=== PATIENT | male | born 1960 | race African-American/Black ===

== ENCOUNTER 2020-05-01 15:48 | Inpatient (IN) | payer MEDICAID ==
[~2020-05-01] VITALS: Ht 172.7 cm; Wt 107.0 kg
[2020-05-01] MEDS ORDERED: FUROSEMIDE 40 MG/4 ML VIAL IV ONE (16:15)
[2020-05-01 17:02] LABS: Urine Bacteria FEW /hpf (None Seen); Urine Blood Negative /uL (Negative); Urine Hyaline Cast FEW /lpf (0 - 2); Urine Specific Gravity 1.009 (1.001-1.035); Urine WBC <1 /hpf (0 - 3)
[2020-05-01 18:22] LABS: Basophils # (auto) 0 10 ^3/uL (0-0.2); Basophils % (auto) 0.6 % (0.0-2.0); Eosinophils # (auto) 0.1 10 ^3/uL (0-0.8); Eosinophils % (auto) 1.1 % (0.0-7.0); Hematocrit 38.4 % (41.0-53.0); Hemoglobin 12.6 g/dL (13.5-17.5); Lymphocytes # (auto) 1.2 10 ^3/uL (0.4-5.4); Lymphocytes % (auto) 25.2 % (10.0-50.0); Mean Corpuscular Hemoglobin 28.6 pg (28.0-32.0); Mean Corpuscular Hgb Conc. 32.7 g/dL (32.0-36.0); Mean Corpuscular Volume 87.5 fL (80.0-100.0); Monocytes # (auto) 0.4 10 ^3/uL (0-1.3); Neutrophils # (auto) 3.2 10 ^3/uL (1.6-8.6); Neutrophils % (auto) 64.1 % (37.0-80.0); Nucleated Red Blood Cells % 0.2 %; Platelet Count (auto) 127 10^3/uL (140-450); Red Blood Cells 4.39 10^6/uL (4.5-5.90); Red Cell Distribution Width 15.1 % (11.8-14.3); White Blood Cell 4.9 10^3/uL (4.4-10.8)
[2020-05-01 18:36] LABS: Albumin 3.4 g/dL (3.4-5.0); BUN/Creatinine Ratio 18.3; Calcium 8.4 mg/dL (8.5-10.1); Potassium 3.6 mmol/L (3.5-5.1)
[2020-05-01 18:43] LABS: INR 1.25 (0.9-1.15); Partial Thromboplastin Time 27.9 sec (23.0-31.2)
[2020-05-01 18:45] LABS: Bilirubin, Total 1.1 mg/dL (0.2-1.0); Total Protein 7.5 g/dL (6.4-8.2)
[2020-05-01] MEDS ORDERED: ACETAMINOPHEN 500 MG TAB PO PRN (20:45)
[2020-05-01] MEDS ORDERED: ONDANSETRON HCL 4 MG/2 ML VIAL IV PRN (20:45)
[2020-05-01] MEDS ORDERED: NITROGLYCERIN 0.4 MG SL TAB SL PRN (20:45)
[2020-05-01] MEDS ORDERED: MORPHINE SULF INJ 2 MG/ML SYRINGE 1ML IV PRN (20:45)
[2020-05-01 22:30] VITALS: BP 131/82
[2020-05-01] MEDS: POTASSIUM CHL 20 Meq TABLET PO SCH (23:22)
[2020-05-01] MEDS: HYDROcodone-ACET 5/325MG TAB PO PRN (23:38)
[2020-05-01] MEDS ORDERED: OMEP20TA PO (23:55)
[2020-05-01] MEDS ORDERED: CARV25TA55 PO (23:55)
[2020-05-01] MEDS ORDERED: FURO1TAB31 PO (23:55)
[2020-05-01] MEDS ORDERED: AMIO200T33 PO (23:55)
[2020-05-01] MEDS ORDERED: SPIR25TA8 PO (23:55)
[2020-05-01] MEDS ORDERED: LOSA-69 PO (23:55)
[2020-05-01] MEDS ORDERED: ASPI-543 PO (23:55)
[2020-05-01] MEDS ORDERED: SIMV10TA84 PO (23:55)
[2020-05-02 00:10] VITALS: BP 131/82
[2020-05-02] MEDS: FUROSEMIDE 40 MG/4 ML VIAL IV SCH ×2 (05:32→18:04)
[2020-05-02] MEDS: HYDROcodone-ACET 5/325MG TAB PO PRN ×2 (05:37→22:15)
[2020-05-02 05:40] VITALS: BP 133/77
[2020-05-02 07:08] LABS: Calcium 8.5 mg/dL (8.5-10.1); Potassium 3.6 mmol/L (3.5-5.1)
[2020-05-02 07:16] LABS: BUN/Creatinine Ratio 19.3
[2020-05-02 09:00] VITALS: BP 116/57
[2020-05-02] MEDS ORDERED: metOLazone 5 MG TAB PO ONE (09:00)
[2020-05-02] MEDS: POTASSIUM CHL 20 Meq TABLET PO SCH ×3 (09:45→22:14)
[2020-05-02] MEDS: ASPirin 81 mg TAB PO SCH (09:45)
[2020-05-02] MEDS ORDERED: OPTISON 3ml Vial for INJ IV ONE (11:51)
[2020-05-02 13:00] VITALS: BP 129/83
[2020-05-02 16:32] VITALS: BP 133/77
[2020-05-02 22:00] VITALS: BP 139/79
[2020-05-03 05:00] VITALS: BP 134/78
[2020-05-03] MEDS: FUROSEMIDE 40 MG/4 ML VIAL IV SCH ×2 (06:04→17:54)
[2020-05-03] MEDS: POTASSIUM CHL 20 Meq TABLET PO SCH ×3 (06:05→21:23)
[2020-05-03 07:48] LABS: Basophils # (auto) 0 10 ^3/uL (0-0.2); Basophils % (auto) 0.4 % (0.0-2.0); Eosinophils # (auto) 0.1 10 ^3/uL (0-0.8); Eosinophils % (auto) 1.2 % (0.0-7.0); Hematocrit 42.1 % (41.0-53.0); Hemoglobin 13.7 g/dL (13.5-17.5); Lymphocytes # (auto) 1.5 10 ^3/uL (0.4-5.4); Lymphocytes % (auto) 27.2 % (10.0-50.0); Mean Corpuscular Hemoglobin 28.5 pg (28.0-32.0); Mean Corpuscular Hgb Conc. 32.4 g/dL (32.0-36.0); Mean Corpuscular Volume 87.8 fL (80.0-100.0); Monocytes # (auto) 0.4 10 ^3/uL (0-1.3); Monocytes % (auto) 7.9 % (0.0-12.0); Neutrophils # (auto) 3.5 10 ^3/uL (1.6-8.6); Neutrophils % (auto) 63.3 % (37.0-80.0); Nucleated Red Blood Cells % 0.1 %; Platelet Count (auto) 147 10^3/uL (140-450); Red Cell Distribution Width 15.2 % (11.8-14.3); White Blood Cell 5.5 10^3/uL (4.4-10.8)
[2020-05-03 08:21] LABS: INR 1.21 (0.9-1.15); Partial Thromboplastin Time 28.4 sec (23.0-31.2)
[2020-05-03 09:00] VITALS: BP 129/68
[2020-05-03] MEDS: ASPirin 81 mg TAB PO SCH (10:54)
[2020-05-03] MEDS ORDERED: DEXTROSE (50%) 50ML SYRG IV SCH (12:30)
[2020-05-03 12:33] VITALS: BP 124/71
[2020-05-03 17:00] VITALS: BP 124/69
[2020-05-03] MEDS: ACCU-CHEK COMFORT CURVE STRIP VI SCH ×2 (17:00→21:23)
[2020-05-03] MEDS: InsuLIN REG 1unit/0.01ml Soln (100units/ml) SC SCH ×2 (17:00→21:26)
[2020-05-03] MEDS: HYDROcodone-ACET 5/325MG TAB PO PRN (20:32)
[2020-05-03 22:05] VITALS: BP 128/78
[2020-05-04 05:09] VITALS: BP 135/79
[2020-05-04] MEDS: FUROSEMIDE 40 MG/4 ML VIAL IV SCH ×2 (06:00→17:30)
[2020-05-04] MEDS: POTASSIUM CHL 20 Meq TABLET PO SCH ×2 (06:21→16:57)
[2020-05-04] MEDS: ACCU-CHEK COMFORT CURVE STRIP VI SCH ×3 (06:21→17:00)
[2020-05-04] MEDS: InsuLIN REG 1unit/0.01ml Soln (100units/ml) SC SCH ×3 (06:22→17:44)
[2020-05-04 07:51] LABS: Potassium 4.1 mmol/L (3.5-5.1)
[2020-05-04 07:56] LABS: BUN/Creatinine Ratio 15.8; Calcium 9.5 mg/dL (8.5-10.1); Magnesium 2.4 mg/dL (1.6-2.6)
[2020-05-04 08:00] VITALS: BP 151/60
[2020-05-04 09:00] VITALS: BP 131/78
[2020-05-04] MEDS: ASPirin 81 mg TAB PO SCH (10:09)
[2020-05-04] MEDS ORDERED: VERAPAMIL 2.5MG/ML INJ 2ML VIAL IV ONE (10:32)
[2020-05-04] MEDS ORDERED: ANGIOMAX 250 MG VIAL IV ONE (10:32)
[2020-05-04] MEDS ORDERED: HEPARIN SODIUM (PORCINE) 5000 UNITS/ML 1ML VIAL ONE (10:32)
[2020-05-04] MEDS ORDERED: SODIUM CHL 0.9% 0 ML ONE (10:33)
[2020-05-04] MEDS ORDERED: fentaNYL CITRATE 100 MCG/2 ML VL ONE (10:33)
[2020-05-04] MEDS ORDERED: MIDAZOLAM HCL 1MG/1ML-2 ML VIAL ONE (10:33)
[2020-05-04] MEDS ORDERED: LIDOCAINE 2%HCL (LOCAL ANESTH.) INJ 20ML MDV ONE (10:38)
[2020-05-04] MEDS ORDERED: IODIXANOL 320MG/ML 100ML BTL IV ONE (10:38)
[2020-05-04] MEDS ORDERED: SACUBITRIL-VALSARTAN 24mg/26mg TAB PO ONE (12:00)
[2020-05-04 13:00] VITALS: BP_SYST 129; BP_SYST 141; BP_DIAS 77
[2020-05-04] MEDS ORDERED: CARV25TA55 PO (13:58)
[2020-05-04] MEDS ORDERED: AMIO200T33 PO (13:58)
[2020-05-04] MEDS ORDERED: SACU1TAB PO (13:58)
[2020-05-04] MEDS ORDERED: SIMV10TA84 PO (13:58)
[2020-05-04] MEDS ORDERED: ASPI-543 PO (13:58)
[2020-05-04] MEDS ORDERED: OMEP20TA PO (13:58)
[2020-05-04] MEDS ORDERED: SPIR25TA8 PO (13:58)
[2020-05-04] MEDS ORDERED: FURO1TAB31 PO (13:58)
[2020-05-04] MEDS ORDERED: SODIUM CHLOR 0.9% PF (SALINE LOCK) 10ML VIAL/SYR IV SCH (14:00)
[2020-05-04 15:25] VITALS: BP 135/79
[2020-05-04 17:00] VITALS: BP 115/67
[2020-05-04] MEDS ORDERED: SACUBITRIL-VALSARTAN 24mg/26mg TAB PO SCH (22:00)
== END 2020-05-04 18:45 | disposition home or self-care (01) | DRG 192 ==
LOC: ER 15:48 → TELE 15:49 → TELE-CENTR 22:15
PROVIDERS: ADMIT Hospitalist; ATTEND Hospitalist
PROC: 4A023N7 Measurement of Cardiac Sampling and Pressure, Left Heart, Percutaneous Approach (ICD-10-PCS; principal; 2020-05-04)
PROC: B211YZZ Fluoroscopy of Multiple Coronary Arteries using Other Contrast (ICD-10-PCS; 2020-05-04)
PROC: B215YZZ Fluoroscopy of Left Heart using Other Contrast (ICD-10-PCS; 2020-05-04)
DX: I11.0 Hypertensive heart disease with heart failure (principal); I42.0 Dilated cardiomyopathy; I25.10 Atherosclerotic heart disease of native coronary artery without angina pectoris; I50.41 Acute combined systolic (congestive) and diastolic (congestive) heart failure; Z20.828 Contact with and (suspected) exposure to other viral communicable diseases; E11.9 Type 2 diabetes mellitus without complications; E66.9 Obesity, unspecified; Z82.49 Family history of ischemic heart disease and other diseases of the circulatory system; Z83.3 Family history of diabetes mellitus; Z95.0 Presence of cardiac pacemaker; Z68.35 Body mass index [BMI] 35.0-35.9, adult; Z79.899 Other long term (current) drug therapy
CPT/HCPCS: 36415; 71045; 80048; 80053; 80061; 81001; 82962; 83036; 83735; 83880; 84484; 85025; 85610; 85730; 87040; 87426; 93005; 93306; 93458; 93970; 96374; 99152; 99291; G0378; J1815; J2250; Q9956; Q9967

== ENCOUNTER 2020-08-11 17:03 | Inpatient (IN) | payer MEDICAID ==
[~2020-08-11] VITALS: Ht 172.7 cm; Wt 111.0 kg
[~2020-08-11 17:03] MED LIST: AMIO200T33 PO; ASPI-543 PO; CARV25TA55 PO; FURO1TAB31 PO; OMEP20TA PO; SACU1TAB PO; SIMV10TA84 PO; SPIR25TA8 PO
[2020-08-11 18:07] LABS: Basophils # (auto) 0 10 ^3/uL (0-0.2); Basophils % (auto) 0.6 % (0.0-2.0); Eosinophils # (auto) 0 10 ^3/uL (0-0.8); Eosinophils % (auto) 0.7 % (0.0-7.0); Hematocrit 37.6 % (41.0-53.0); Hemoglobin 12.4 g/dL (13.5-17.5); Lymphocytes # (auto) 0.9 10 ^3/uL (0.4-5.4); Lymphocytes % (auto) 19.4 % (10.0-50.0); Mean Corpuscular Hemoglobin 29.1 pg (28.0-32.0); Mean Corpuscular Hgb Conc. 32.9 g/dL (32.0-36.0); Mean Corpuscular Volume 88.5 fL (80.0-100.0); Monocytes # (auto) 0.3 10 ^3/uL (0-1.3); Monocytes % (auto) 6.3 % (0.0-12.0); Neutrophils # (auto) 3.5 10 ^3/uL (1.6-8.6); Nucleated Red Blood Cells % 0.1 %; Platelet Count (auto) 132 10^3/uL (140-450); Red Blood Cells 4.25 10^6/uL (4.5-5.90); Red Cell Distribution Width 16.9 % (11.8-14.3); White Blood Cell 4.8 10^3/uL (4.4-10.8)
[2020-08-11 18:21] LABS: INR 1.31 (0.9-1.15); Partial Thromboplastin Time 29.3 sec (23.0-31.2)
[2020-08-11 18:38] LABS: Albumin 3.7 g/dL (3.4-5.0); Calcium 8.6 mg/dL (8.5-10.1); Potassium 3.7 mmol/L (3.5-5.1)
[2020-08-11 18:42] LABS: BUN/Creatinine Ratio 17.5; Bilirubin, Total 1.3 mg/dL (0.2-1.0); Total Protein 8.2 g/dL (6.4-8.2)
[2020-08-12] MEDS ORDERED: POTASSIUM CHL 20 Meq TABLET PO ONE (01:30)
[2020-08-12] MEDS ORDERED: FUROSEMIDE 40 MG/4 ML VIAL IV ONE (01:30)
[2020-08-12] MEDS ORDERED: NITROGLYCERIN 0.4 MG SL TAB SL PRN (01:30)
[2020-08-12] MEDS ORDERED: ALBUTEROL SULF HFA 90MCG INH 200DOSE IN PRN (01:30)
[2020-08-12 03:38] VITALS: BP 146/90
[2020-08-12] MEDS: MORPHINE SULF INJ 2 MG/ML SYRINGE 1ML IV PRN ×2 (05:54→23:49)
[2020-08-12] MEDS: InsuLIN REG 1unit/0.01ml Soln (100units/ml) SC SCH ×4 (06:18→23:31)
[2020-08-12] MEDS: ACCU-CHEK COMFORT CURVE STRIP VI SCH ×4 (06:19→22:00)
[2020-08-12 08:14] VITALS: BP 124/66
[2020-08-12] MEDS: PANTOPRAZOLE 40 MG TAB PO SCH (08:54)
[2020-08-12] MEDS: POTASSIUM CHL 20 Meq TABLET PO SCH ×2 (08:55→23:29)
[2020-08-12] MEDS: FUROSEMIDE 40 MG/4 ML VIAL IV SCH ×2 (08:56→23:28)
[2020-08-12 10:26] LABS: Basophils # (auto) 0 10 ^3/uL (0-0.2); Basophils % (auto) 0.8 % (0.0-2.0); Eosinophils # (auto) 0 10 ^3/uL (0-0.8); Hematocrit 37.5 % (41.0-53.0); Hemoglobin 12.2 g/dL (13.5-17.5); Lymphocytes # (auto) 1.1 10 ^3/uL (0.4-5.4); Mean Corpuscular Hemoglobin 28.6 pg (28.0-32.0); Mean Corpuscular Hgb Conc. 32.6 g/dL (32.0-36.0); Mean Corpuscular Volume 87.9 fL (80.0-100.0); Monocytes # (auto) 0.3 10 ^3/uL (0-1.3); Monocytes % (auto) 6.4 % (0.0-12.0); Neutrophils # (auto) 3.1 10 ^3/uL (1.6-8.6); Neutrophils % (auto) 67.8 % (37.0-80.0); Nucleated Red Blood Cells % 0.1 %; Platelet Count (auto) 146 10^3/uL (140-450); Red Blood Cells 4.26 10^6/uL (4.5-5.90); Red Cell Distribution Width 17.1 % (11.8-14.3); White Blood Cell 4.6 10^3/uL (4.4-10.8)
[2020-08-12 10:41] LABS: BUN/Creatinine Ratio 17.4; Calcium 8.4 mg/dL (8.5-10.1); Potassium 3.8 mmol/L (3.5-5.1)
[2020-08-12 16:06] VITALS: BP 122/85
[2020-08-12 22:00] VITALS: BP 159/92
[2020-08-12] MEDS: SACUBITRIL-VALSARTAN 24mg/26mg TAB PO SCH (23:28)
[2020-08-13] MEDS: MORPHINE SULF INJ 2 MG/ML SYRINGE 1ML IV PRN (04:42)
[2020-08-13 05:00] VITALS: BP 120/72
[2020-08-13] MEDS: ACCU-CHEK COMFORT CURVE STRIP VI SCH ×4 (06:51→22:00)
[2020-08-13] MEDS: InsuLIN REG 1unit/0.01ml Soln (100units/ml) SC SCH ×4 (06:51→22:00)
[2020-08-13 08:00] VITALS: BP 140/88
[2020-08-13] MEDS: POTASSIUM CHL 20 Meq TABLET PO SCH ×2 (10:32→22:00)
[2020-08-13] MEDS: SACUBITRIL-VALSARTAN 24mg/26mg TAB PO SCH ×2 (10:32→22:00)
[2020-08-13] MEDS: PANTOPRAZOLE 40 MG TAB PO SCH (10:32)
[2020-08-13] MEDS: FUROSEMIDE 40 MG/4 ML VIAL IV SCH ×2 (10:33→22:00)
[2020-08-13 16:00] VITALS: BP 119/71
[2020-08-13 21:38] VITALS: BP 104/62
[2020-08-14] MEDS: MORPHINE SULF INJ 2 MG/ML SYRINGE 1ML IV PRN (04:49)
[2020-08-14 05:41] VITALS: BP 127/77
[2020-08-14] MEDS: ACCU-CHEK COMFORT CURVE STRIP VI SCH ×3 (07:00→19:29)
[2020-08-14] MEDS: InsuLIN REG 1unit/0.01ml Soln (100units/ml) SC SCH ×3 (07:00→19:28)
[2020-08-14 08:00] VITALS: BP 128/67
[2020-08-14] MEDS: SACUBITRIL-VALSARTAN 24mg/26mg TAB PO SCH (09:11)
[2020-08-14] MEDS: POTASSIUM CHL 20 Meq TABLET PO SCH (09:11)
[2020-08-14] MEDS: PANTOPRAZOLE 40 MG TAB PO SCH (09:11)
[2020-08-14] MEDS: FUROSEMIDE 40 MG/4 ML VIAL IV SCH (09:46)
[2020-08-14] MEDS ORDERED: HYDROcodone-ACET 5/325MG TAB PO ONE (13:45)
[2020-08-14 16:00] VITALS: BP 123/85
[2020-08-14 16:04] LABS: Basophils # (auto) 0 10 ^3/uL (0-0.2); Basophils % (auto) 0.6 % (0.0-2.0); Eosinophils # (auto) 0.1 10 ^3/uL (0-0.8); Eosinophils % (auto) 1.3 % (0.0-7.0); Hematocrit 38.3 % (41.0-53.0); Lymphocytes # (auto) 1.3 10 ^3/uL (0.4-5.4); Lymphocytes % (auto) 23.7 % (10.0-50.0); Mean Corpuscular Hemoglobin 29.6 pg (28.0-32.0); Mean Corpuscular Hgb Conc. 33.8 g/dL (32.0-36.0); Mean Corpuscular Volume 87.4 fL (80.0-100.0); Monocytes # (auto) 0.6 10 ^3/uL (0-1.3); Neutrophils # (auto) 3.5 10 ^3/uL (1.6-8.6); Neutrophils % (auto) 63.4 % (37.0-80.0); Nucleated Red Blood Cells % 0.2 %; Platelet Count (auto) 160 10^3/uL (140-450); Red Blood Cells 4.38 10^6/uL (4.5-5.90); Red Cell Distribution Width 16.5 % (11.8-14.3); White Blood Cell 5.6 10^3/uL (4.4-10.8)
[2020-08-14 16:21] LABS: BUN/Creatinine Ratio 17.1; Calcium 8.4 mg/dL (8.5-10.1); Potassium 3.9 mmol/L (3.5-5.1)
[2020-08-14] MEDS ORDERED: FUROSEMIDE 40 MG/4 ML VIAL IV SCH (18:00)
[2020-08-14 18:21] VITALS: BP 123/69
[2020-08-14] MEDS ORDERED: BLOO1KIT60 XX (21:48)
[2020-08-14] MEDS ORDERED: FURO1TAB31 PO (21:48)
[2020-08-14] MEDS ORDERED: LANC-347 XX (21:48)
[2020-08-14] MEDS ORDERED: CARV3.1240 PO (21:48)
[2020-08-14] MEDS ORDERED: AMIO200T33 PO (21:48)
[2020-08-14] MEDS ORDERED: ASPI-543 PO (21:48)
[2020-08-14] MEDS ORDERED: POTA-220 PO (21:48)
[2020-08-14] MEDS ORDERED: SIMV10TA84 PO (21:48)
[2020-08-14] MEDS ORDERED: OMEP20TA PO (21:48)
[2020-08-14] MEDS ORDERED: INSU-831 XX (21:48)
[2020-08-14] MEDS ORDERED: SACU1TAB PO (21:48)
[2020-08-14] MEDS ORDERED: INSREGI SC (21:48)
[2020-08-18] MEDS ORDERED: LANC30MI13 XX (14:36)
[2020-08-18] MEDS ORDERED: INSLANTI SC (14:36)
[2020-08-18] MEDS ORDERED: BLOO1KIT60 XX (14:36)
== END 2020-08-14 21:15 | disposition home or self-care (01) | DRG 194 ==
LOC: ER 17:03 → TELE 17:04 → TELE-EAST 08-12 03:38
PROVIDERS: ADMIT Internal Medicine; ATTEND Internal Medicine
DX: I13.0 Hypertensive heart and chronic kidney disease with heart failure and stage 1 through stage 4 chronic kidney disease, or unspecified chronic kidney disease (principal); I50.23 Acute on chronic systolic (congestive) heart failure; I42.0 Dilated cardiomyopathy; Z95.810 Presence of automatic (implantable) cardiac defibrillator; E11.22 Type 2 diabetes mellitus with diabetic chronic kidney disease; Z20.822 Contact with and (suspected) exposure to COVID-19; E66.9 Obesity, unspecified; Z68.37 Body mass index [BMI] 37.0-37.9, adult; N18.31 Chronic kidney disease, stage 3a
CPT/HCPCS: 36415; 71045; 74176; 76775; 80048; 80053; 82962; 83605; 83880; 84484; 85025; 85610; 85730; 93005; 93970; 96374; G0378; J1815

== ENCOUNTER 2021-03-27 13:26 | Inpatient (IN) | payer MEDICAID ==
[~2021-03-27] VITALS: Ht 172.7 cm; Wt 86.8 kg
[~2021-03-27 13:26] MED LIST changes: -AMIO200T33 PO; +BLOO1KIT60 XX; -CARV25TA55 PO; +CARV3.1240 PO; +INSLANTI SC; +INSREGI SC; +INSU-831 XX; +LANC-347 XX; +LANC30MI13 XX; +METF-370 PO; +POTA-220 PO; -SPIR25TA8 PO
[2021-03-27 14:18] LABS: Basophils # (auto) 0 10 ^3/uL (0-0.2); Eosinophils # (auto) 0 10 ^3/uL (0-0.8); Eosinophils % (auto) 0.7 % (0.0-7.0); Hemoglobin 7.8 g/dL (13.5-17.5); Lymphocytes # (auto) 0.7 10 ^3/uL (0.4-5.4); Monocytes # (auto) 0.5 10 ^3/uL (0-1.3); Nucleated Red Blood Cells % 0.7 %; White Blood Cell 4.2 10^3/uL (4.4-10.8)
[2021-03-27 14:20] LABS: Hematocrit 25.5 % (41.0-53.0); Lymphocytes % (auto) 15.6 % (10.0-50.0); Mean Corpuscular Hemoglobin 22.7 pg (28.0-32.0); Mean Corpuscular Hgb Conc. 30.5 g/dL (32.0-36.0); Mean Corpuscular Volume 74.6 fL (80.0-100.0); Neutrophils % (auto) 70.7 % (37.0-80.0); Red Blood Cells 3.42 10^6/uL (4.5-5.90); Red Cell Distribution Width 21.4 % (11.8-14.3)
[2021-03-27 14:34] LABS: Albumin 2.7 g/dL (3.4-5.0); Calcium 8.3 mg/dL (8.5-10.1); Potassium 3.7 mmol/L (3.5-5.1)
[2021-03-27 14:38] LABS: BUN/Creatinine Ratio 18.1; Bilirubin, Total 1.3 mg/dL (0.2-1.0); Total Protein 7.4 g/dL (6.4-8.2)
[2021-03-27] MEDS ORDERED: SODIUM CHLORIDE 0.9% 1,000 ML IV ONE (16:15)
[2021-03-27 17:16] LABS: INR 1.32 (0.9-1.15); Partial Thromboplastin Time 28.3 sec (23.6-33.0)
[2021-03-27] MEDS ORDERED: ALBUMIN 25% 100 ML IV ONE (17:30)
[2021-03-27] MEDS ORDERED: SPIRONOLACTONE 25 MG TAB PO ONE (17:30)
[2021-03-27] MEDS ORDERED: FUROSEMIDE 20 MG/2 ML VIAL IV ONE (17:30)
[2021-03-27] MEDS ORDERED: LEVOTHYROXINE SODIUM 88 MCG TAB PO ONE (17:30)
[2021-03-27] MEDS ORDERED: MORPHINE SULFATE INJECTION 2 MG/ML SYRG IV PRN (18:45)
[2021-03-27] MEDS ORDERED: NITROGLYCERIN 0.4 MG SL TAB SL PRN (18:45)
[2021-03-27] MEDS ORDERED: ACETAMINOPHEN 325 MG TAB PO PRN ×2 (18:45)
[2021-03-27] MEDS ORDERED: ONDANSETRON HCL 4 MG/2 ML VIAL IV PRN (18:45)
[2021-03-27] MEDS ORDERED: HYDROcodone-ACET 5/325MG TAB PO PRN (18:45)
[2021-03-27] MEDS: ALBUMIN 25% 100 ML IV SCH ×2 (21:00→22:00)
[2021-03-27] MEDS: FUROSEMIDE 40 MG/4 ML VIAL IV SCH (22:00)
[2021-03-28 07:46] LABS: Basophils # (auto) 0 10 ^3/uL (0-0.2); Basophils % (auto) 0.5 % (0.0-2.0); Eosinophils # (auto) 0 10 ^3/uL (0-0.8); Eosinophils % (auto) 0.7 % (0.0-7.0); Monocytes # (auto) 0.5 10 ^3/uL (0-1.3); Neutrophils # (auto) 3.1 10 ^3/uL (1.6-8.6); Nucleated Red Blood Cells % 0.4 %; White Blood Cell 4.3 10^3/uL (4.4-10.8)
[2021-03-28 07:51] LABS: Hematocrit 27.2 % (41.0-53.0); Hemoglobin 8.3 g/dL (13.5-17.5); Lymphocytes # (auto) 0.6 10 ^3/uL (0.4-5.4); Mean Corpuscular Hemoglobin 23.2 pg (28.0-32.0); Mean Corpuscular Hgb Conc. 30.6 g/dL (32.0-36.0); Mean Corpuscular Volume 75.7 fL (80.0-100.0); Monocytes % (auto) 10.7 % (0.0-12.0); Neutrophils % (auto) 73.1 % (37.0-80.0); Red Blood Cells 3.59 10^6/uL (4.5-5.90); Red Cell Distribution Width 20.8 % (11.8-14.3)
[2021-03-28 08:02] LABS: Calcium 8.9 mg/dL (8.5-10.1); Magnesium 2.5 mg/dL (1.6-2.6); Potassium 3.8 mmol/L (3.5-5.1)
[2021-03-28 08:07] LABS: BUN/Creatinine Ratio 20.2
[2021-03-28 08:19] LABS: Urine Bacteria FEW /hpf (None Seen); Urine Blood Negative /uL (Negative); Urine Hyaline Cast FEW /lpf (0 - 2); Urine WBC 4 /hpf (0 - 3)
[2021-03-28] MEDS: MORPHINE SULFATE INJECTION 2 MG/ML SYRG IV PRN (08:26)
[2021-03-28] MEDS: ALBUMIN 25% 100 ML IV SCH ×3 (10:00→22:29)
[2021-03-28] MEDS: FUROSEMIDE 40 MG/4 ML VIAL IV SCH ×2 (10:31→22:30)
[2021-03-28] MEDS: SPIRONOLACTONE 25 MG TAB PO SCH (14:00)
[2021-03-29 06:13] LABS: Basophils # (auto) 0 10 ^3/uL (0-0.2); Eosinophils # (auto) 0 10 ^3/uL (0-0.8); Hemoglobin 8.6 g/dL (13.5-17.5); Mean Corpuscular Hemoglobin 22.7 pg (28.0-32.0); Monocytes # (auto) 0.8 10 ^3/uL (0-1.3)
[2021-03-29 06:16] LABS: Basophils % (auto) 0.4 % (0.0-2.0); Eosinophils % (auto) 0.5 % (0.0-7.0); Hematocrit 28.6 % (41.0-53.0); Lymphocytes # (auto) 0.9 10 ^3/uL (0.4-5.4); Lymphocytes % (auto) 13.6 % (10.0-50.0); Mean Corpuscular Hgb Conc. 30.1 g/dL (32.0-36.0); Mean Corpuscular Volume 75.4 fL (80.0-100.0); Monocytes % (auto) 11.9 % (0.0-12.0); Neutrophils # (auto) 4.7 10 ^3/uL (1.6-8.6); Neutrophils % (auto) 73.6 % (37.0-80.0); Nucleated Red Blood Cells % 0.6 %; White Blood Cell 6.3 10^3/uL (4.4-10.8)
[2021-03-29 06:31] LABS: Red Cell Distribution Width 21.2 % (11.8-14.3)
[2021-03-29 06:42] LABS: BUN/Creatinine Ratio 21.5; Calcium 9.1 mg/dL (8.5-10.1); Magnesium 2.4 mg/dL (1.6-2.6); Potassium 4.3 mmol/L (3.5-5.1)
[2021-03-29] MEDS: MORPHINE SULFATE INJECTION 2 MG/ML SYRG IV PRN ×2 (07:37→20:18)
[2021-03-29] MEDS: FUROSEMIDE 40 MG/4 ML VIAL IV SCH ×2 (08:03→21:37)
[2021-03-29] MEDS: SPIRONOLACTONE 25 MG TAB PO SCH (08:04)
[2021-03-29] MEDS: ALBUMIN 25% 100 ML IV SCH ×2 (10:45→21:26)
[2021-03-29 12:21] LABS: Free T3 2.93 pg/mL (2.3-4.2); Free T4 (Free Thyroxine) 1.34 ng/dL (0.89-1.76)
[2021-03-29 15:53] VITALS: BP 102/79
[2021-03-29] MEDS ORDERED: AMIO200T33 PO (16:36)
[2021-03-29] MEDS ORDERED: LOSA25TA38 PO (16:36)
[2021-03-29] MEDS ORDERED: SPIR25TA8 PO (16:36)
[2021-03-29 22:00] VITALS: BP 108/64
[2021-03-30] MEDS: MORPHINE SULFATE INJECTION 2 MG/ML SYRG IV PRN (02:23)
[2021-03-30 05:00] VITALS: BP 130/64
[2021-03-30 06:12] LABS: Basophils # (auto) 0 10 ^3/uL (0-0.2); Eosinophils # (auto) 0 10 ^3/uL (0-0.8); Hemoglobin 8.4 g/dL (13.5-17.5); Mean Corpuscular Volume 75.4 fL (80.0-100.0); Monocytes # (auto) 0.8 10 ^3/uL (0-1.3); White Blood Cell 9.3 10^3/uL (4.4-10.8)
[2021-03-30 06:14] LABS: Basophils % (auto) 0.2 % (0.0-2.0); Hematocrit 27.1 % (41.0-53.0); Lymphocytes # (auto) 0.7 10 ^3/uL (0.4-5.4); Mean Corpuscular Hemoglobin 23.4 pg (28.0-32.0); Monocytes % (auto) 8.3 % (0.0-12.0); Neutrophils # (auto) 7.8 10 ^3/uL (1.6-8.6); Neutrophils % (auto) 83.5 % (37.0-80.0); Nucleated Red Blood Cells % 1.3 %
[2021-03-30 06:31] LABS: Red Cell Distribution Width 21.2 % (11.8-14.3)
[2021-03-30 06:35] LABS: Potassium 4.8 mmol/L (3.5-5.1)
[2021-03-30 06:55] LABS: BUN/Creatinine Ratio 17.9; Calcium 9.1 mg/dL (8.5-10.1); Magnesium 2.5 mg/dL (1.6-2.6)
[2021-03-30 09:00] VITALS: BP 96/62
[2021-03-30] MEDS: FUROSEMIDE 40 MG/4 ML VIAL IV SCH ×2 (09:53→21:48)
[2021-03-30] MEDS: SPIRONOLACTONE 25 MG TAB PO SCH (09:54)
[2021-03-30] MEDS: ALBUMIN 25% 100 ML IV SCH ×2 (10:04→21:48)
[2021-03-30 13:00] VITALS: BP 100/66
[2021-03-30 16:35] VITALS: BP 116/75
[2021-03-30] MEDS: DOPamine 1600MCG/ML D5W 250 ML IV SCH (18:00)
[2021-03-30 22:00] VITALS: BP 118/70
[2021-03-31 05:00] VITALS: BP 110/49
[2021-03-31] MEDS: MORPHINE SULFATE INJECTION 2 MG/ML SYRG IV PRN (05:06)
[2021-03-31 05:39] LABS: Basophils # (auto) 0 10 ^3/uL (0-0.2); Basophils % (auto) 0.1 % (0.0-2.0); Eosinophils # (auto) 0 10 ^3/uL (0-0.8); Monocytes # (auto) 0.9 10 ^3/uL (0-1.3); Monocytes % (auto) 7.7 % (0.0-12.0)
[2021-03-31 05:41] LABS: Hematocrit 30.7 % (41.0-53.0); Lymphocytes # (auto) 0.8 10 ^3/uL (0.4-5.4); Lymphocytes % (auto) 6.3 % (10.0-50.0); Mean Corpuscular Hemoglobin 22.6 pg (28.0-32.0); Mean Corpuscular Hgb Conc. 29.2 g/dL (32.0-36.0); Mean Corpuscular Volume 77.3 fL (80.0-100.0); Neutrophils # (auto) 10.2 10 ^3/uL (1.6-8.6); Neutrophils % (auto) 85.9 % (37.0-80.0); Nucleated Red Blood Cells % 1.2 %; Red Blood Cells 3.97 10^6/uL (4.5-5.90); White Blood Cell 11.9 10^3/uL (4.4-10.8)
[2021-03-31 05:55] LABS: Red Cell Distribution Width 20.9 % (11.8-14.3)
[2021-03-31 05:57] LABS: Calcium 9.4 mg/dL (8.5-10.1)
[2021-03-31 06:00] LABS: BUN/Creatinine Ratio 18.7; Magnesium 2.8 mg/dL (1.6-2.6)
[2021-03-31 06:17] LABS: Potassium 5.6 mmol/L (3.5-5.1)
[2021-03-31] MEDS ORDERED: ALBUMIN 25% 100 ML IV ONE (07:30)
[2021-03-31] MEDS ORDERED: CALCIUM GLUC 1,000mg/50ml-NS 50 ML IV ONE ×3 (07:30→18:15)
[2021-03-31] MEDS ORDERED: InsuLIN REG 1unit/0.01ml Soln (100units/ml) IV ONE ×3 (07:30→18:15)
[2021-03-31] MEDS ORDERED: DEXTROSE (50%) 50ML SYRG IV ONE ×3 (07:30→18:15)
[2021-03-31] MEDS ORDERED: SODIUM BICARBONATE 8.4 % INJ 50ML VIAL IV ONE ×3 (07:30→18:15)
[2021-03-31] MEDS ORDERED: metOLazone 5 MG TAB PO ONE ×2 (07:30→18:30)
[2021-03-31 09:00] VITALS: BP 91/58
[2021-03-31] MEDS: FUROSEMIDE 40 MG/4 ML VIAL IV SCH (09:00)
[2021-03-31] MEDS ORDERED: SODIUM ZIRCONIUM CYCL 10 GM PAK PO SCH (10:00)
[2021-03-31 13:00] VITALS: BP 104/72
[2021-03-31] MEDS: ALBUMIN 25% 100 ML IV SCH ×2 (13:00→22:03)
[2021-03-31] MEDS: DOPamine 1600MCG/ML D5W 250 ML IV SCH (13:00)
[2021-03-31] MEDS: SODIUM ZIRCONIUM CYCL 10 GM PAK PO SCH ×2 (14:45→22:01)
[2021-03-31 17:00] VITALS: BP 121/50
[2021-03-31] MEDS: MIDODRINE HCL 10 MG TAB PO SCH (18:15)
[2021-03-31] MEDS ORDERED: FUROSEMIDE 40 MG/4 ML VIAL IV SCH (18:15)
[2021-03-31] MEDS ORDERED: FUROSEMIDE INJECTION 100 MG in SODIUM CHL 0.9% 100 ML IV SCH (18:30)
[2021-03-31] MEDS ORDERED: LACTULOSE 20Gm/30ML SOLN PO SCH (20:00)
[2021-03-31] MEDS: LACTULOSE 20Gm/30ML SOLN PO SCH ×2 (20:03→22:04)
[2021-03-31 22:00] VITALS: BP 113/83
[2021-04-01] VITALS (63 sets, daily range): BP systolic 84–135; BP diastolic 34–68
[2021-04-01 05:26] LABS: Basophils # (auto) 0 10 ^3/uL (0-0.2); Basophils % (auto) 0.2 % (0.0-2.0); Eosinophils # (auto) 0 10 ^3/uL (0-0.8); Hemoglobin 8.8 g/dL (13.5-17.5); Lymphocytes # (auto) 0.5 10 ^3/uL (0.4-5.4); Monocytes # (auto) 1.6 10 ^3/uL (0-1.3)
[2021-04-01 05:33] LABS: Hematocrit 30.6 % (41.0-53.0); Lymphocytes % (auto) 3.2 % (10.0-50.0); Mean Corpuscular Hemoglobin 22.6 pg (28.0-32.0); Mean Corpuscular Hgb Conc. 28.9 g/dL (32.0-36.0); Mean Corpuscular Volume 78.3 fL (80.0-100.0); Monocytes % (auto) 9.8 % (0.0-12.0); Neutrophils # (auto) 14.2 10 ^3/uL (1.6-8.6); Neutrophils % (auto) 86.8 % (37.0-80.0); Nucleated Red Blood Cells % 1.3 %; Red Blood Cells 3.91 10^6/uL (4.5-5.90); White Blood Cell 16.3 10^3/uL (4.4-10.8)
[2021-04-01] MEDS ORDERED: ETOMIDATE (2MG/ML) 20ML VIAL IV ONE (05:36)
[2021-04-01] MEDS ORDERED: SUCCINYLCHOLINE CHLORIDE 20 MG/ML 10ML VIAL IV ONE (05:36)
[2021-04-01 05:54] LABS: Red Cell Distribution Width 20.5 % (11.8-14.3)
[2021-04-01] MEDS ORDERED: NOREPINEPHRINE 8 MG/250ML KIT 250 ML IV ONE (05:56)
[2021-04-01] MEDS ORDERED: MIDAZOLAM DRIP 50 mg/50mL 50 ML IV ONE (06:00)
[2021-04-01 06:20] LABS: BUN/Creatinine Ratio 18.9; Calcium 8.8 mg/dL (8.5-10.1); Magnesium 2.9 mg/dL (1.6-2.6)
[2021-04-01 06:25] LABS: Potassium 5.6 mmol/L (3.5-5.1)
[2021-04-01] MEDS ORDERED: FUROSEMIDE INJECTION 100 MG in SODIUM CHL 0.9% 100 ML IV SCH ×2 (07:00→09:30)
[2021-04-01] MEDS: NOREPINEPHRINE 8 MG/250ML KIT 250 ML IV SCH ×2 (07:45→17:30)
[2021-04-01] MEDS ORDERED: ALBUTEROL SULF 2.5 MG/0.5ML(0.5%) NEB SOLN NEB ONE (08:30)
[2021-04-01] MEDS ORDERED: DEXTROSE (50%) 50ML SYRG IV ONE (08:30)
[2021-04-01] MEDS ORDERED: InsuLIN REG 1unit/0.01ml Soln (100units/ml) IV ONE (08:30)
[2021-04-01] MEDS ORDERED: CALCIUM GLUC 1,000mg/50ml-NS 50 ML IV ONE (08:30)
[2021-04-01] MEDS ORDERED: SODIUM BICARBONATE 8.4 % INJ 50ML VIAL IV ONE ×2 (08:30→09:30)
[2021-04-01] MEDS: MIDAZOLAM DRIP 50 mg/50mL 50 ML IV SCH ×2 (09:05→19:15)
[2021-04-01] MEDS: MIDODRINE HCL 10 MG TAB PO SCH ×3 (09:30→18:15)
[2021-04-01] MEDS: SODIUM ZIRCONIUM CYCL 10 GM PAK PO SCH ×3 (09:30→21:00)
[2021-04-01 10:32] LABS: INR 3.04 (0.9-1.15); Partial Thromboplastin Time 34.7 sec (23.6-33.0)
[2021-04-01] MEDS: FUROSEMIDE INJECTION 100 MG in SODIUM CHL 0.9% 100 ML IV SCH ×3 (12:50→16:10)
[2021-04-01] MEDS: DOPamine 1600MCG/ML D5W 250 ML IV SCH (13:03)
[2021-04-01] MEDS ORDERED: HEPARIN 1,000 UNITS/ml 1ML VIAL IV ONE (13:45)
[2021-04-01 14:44] LABS: Eosinophils # (auto) 0 10 ^3/uL (0-0.8); Hemoglobin 8.1 g/dL (13.5-17.5)
[2021-04-01 14:45] LABS: Basophils # (auto) 0.1 10 ^3/uL (0-0.2); Hematocrit 26.2 % (41.0-53.0); Lymphocytes # (auto) 0.6 10 ^3/uL (0.4-5.4); Lymphocytes % (auto) 5.2 % (10.0-50.0); Mean Corpuscular Hemoglobin 22.9 pg (28.0-32.0); Mean Corpuscular Hgb Conc. 31.1 g/dL (32.0-36.0); Mean Corpuscular Volume 73.7 fL (80.0-100.0); Monocytes # (auto) 0.8 10 ^3/uL (0-1.3); Monocytes % (auto) 7.3 % (0.0-12.0); Neutrophils # (auto) 9.4 10 ^3/uL (1.6-8.6); Neutrophils % (auto) 86.5 % (37.0-80.0); Nucleated Red Blood Cells % 1.4 %; Red Blood Cells 3.56 10^6/uL (4.5-5.90); White Blood Cell 10.9 10^3/uL (4.4-10.8)
[2021-04-01] MEDS: PIPERACILLIN-TAZOB 2.25GM 50 ML IV SCH ×2 (14:45→21:00)
[2021-04-01 15:02] LABS: Albumin 3.5 g/dL (3.4-5.0); Calcium 8.4 mg/dL (8.5-10.1)
[2021-04-01 15:14] LABS: Red Cell Distribution Width 21.3 % (11.8-14.3)
[2021-04-01 15:20] LABS: Bilirubin, Total 3.8 mg/dL (0.2-1.0); Total Protein 7.1 g/dL (6.4-8.2)
[2021-04-01 15:29] LABS: BUN/Creatinine Ratio 18.6
[2021-04-01 15:49] LABS: Magnesium 2.7 mg/dL (1.6-2.6); Phosphorus 7.8 mg/dL (2.5-4.90)
[2021-04-01] MEDS ORDERED: SODIUM CHL 0.9% 1000 ML BAG XX ONE (16:45)
[2021-04-01] MEDS: ALBUMIN 25% 50 ML IV SCH ×3 (17:34→19:13)
[2021-04-01] MEDS: CALCIUM ACETATE 667 MG CAP GT SCH (21:00)
[2021-04-01] MEDS ORDERED: EPOETIN ALFA-EPBX 10,000 UNIT/1ML VIAL SC ONE (21:00)
[2021-04-01] MEDS: LACTULOSE 20Gm/30ML SOLN PO SCH (21:00)
[2021-04-01] MEDS: FUROSEMIDE INJECTION 500 MG in SODIUM CHL 0.9% 500 ML IV SCH (22:55)
[2021-04-02] VITALS (98 sets, daily range): BP systolic 79–125; BP diastolic 24–62
[2021-04-02] MEDS: MIDAZOLAM DRIP 50 mg/50mL 50 ML IV SCH ×3 (04:43→21:14)
[2021-04-02] MEDS: PIPERACILLIN-TAZOB 2.25GM 50 ML IV SCH ×3 (05:16→21:14)
[2021-04-02 05:52] LABS: Hematocrit 24.9 % (41.0-53.0); Hemoglobin 7.8 g/dL (13.5-17.5); Mean Corpuscular Hemoglobin 23.1 pg (28.0-32.0); Mean Corpuscular Hgb Conc. 31.2 g/dL (32.0-36.0); Mean Corpuscular Volume 74.2 fL (80.0-100.0); Red Blood Cells 3.36 10^6/uL (4.5-5.90)
[2021-04-02 06:00] LABS: Red Cell Distribution Width 21.6 % (11.8-14.3)
[2021-04-02] MEDS: SODIUM ZIRCONIUM CYCL 10 GM PAK PO SCH (06:00)
[2021-04-02 06:01] LABS: Basophils % (manual) 0 (0.0-2.0); Blast Cells 0; Eosinophils % (manual) 0 (0-7); Metamyelocytes % 0; Myelocytes % 0; Promyelocytes % 0; Reactive Lymphocytes 0
[2021-04-02 06:03] LABS: Chloride 99 mmol/L (98-107); Sodium 139 mmol/L (136-145)
[2021-04-02 06:14] LABS: Albumin 3.4 g/dL (3.4-5.0); Alkaline Phosphatase 114 U/L (45-117); Anion Gap 19 (5-15); Aspartate Aminotransferase 636 U/L (15-37); BUN/Creatinine Ratio 17.3; Blood Urea Nitrogen 71 mg/dL (7-18); Calcium 8.3 mg/dL (8.5-10.1); Carbon Dioxide 21 mmol/L (21-32); GFR African American 19 mL/min; GFR Non-African American 16 mL/min; Glucose 93 mg/dL (74-106); Total Protein 6.8 g/dL (6.4-8.2)
[2021-04-02 06:24] LABS: Alanine Aminotransferase 521 U/L (16-61)
[2021-04-02] MEDS: CALCIUM ACETATE 667 MG CAP GT SCH ×3 (06:44→21:13)
[2021-04-02] MEDS: LACTULOSE 20Gm/30ML SOLN PO SCH ×3 (06:44→21:13)
[2021-04-02] MEDS: MIDODRINE HCL 10 MG TAB PO SCH ×3 (06:45→19:33)
[2021-04-02 08:29] LABS: Band Neutrophils % (manual) 6; Lymphocytes % (manual) 8 (10.0-50.0)
[2021-04-02 08:30] LABS: Monocytes % (manual) 16 (0-12)
[2021-04-02] MEDS ORDERED: Nepro With Carb Steady 1 Liter Bottle GT SCH (15:00)
[2021-04-02] MEDS: FUROSEMIDE INJECTION 500 MG in SODIUM CHL 0.9% 500 ML IV SCH (15:35)
[2021-04-03] VITALS (100 sets, daily range): BP systolic 93–131; BP diastolic 39–95
[2021-04-03 04:49] LABS: Hematocrit 27.1 % (41.0-53.0); Hemoglobin 8.4 g/dL (13.5-17.5); Mean Corpuscular Hemoglobin 22.2 pg (28.0-32.0); Mean Corpuscular Hgb Conc. 31.1 g/dL (32.0-36.0); Mean Corpuscular Volume 71.5 fL (80.0-100.0); Red Blood Cells 3.79 10^6/uL (4.5-5.90); White Blood Cell 7.5 10^3/uL (4.4-10.8)
[2021-04-03 04:54] LABS: Red Cell Distribution Width 22.6 % (11.8-14.3)
[2021-04-03 04:55] LABS: Basophils % (manual) 0 (0.0-2.0); Blast Cells 0; Eosinophils % (manual) 0 (0-7); Metamyelocytes % 0; Promyelocytes % 0; Reactive Lymphocytes 0
[2021-04-03 05:07] LABS: Anion Gap 13 (5-15); BUN/Creatinine Ratio 18.3; Blood Urea Nitrogen 75 mg/dL (7-18); Calcium 8.7 mg/dL (8.5-10.1); Carbon Dioxide 29 mmol/L (21-32); Chloride 97 mmol/L (98-107); GFR African American 19 mL/min; GFR Non-African American 16 mL/min; Glucose 115 mg/dL (74-106); Potassium 3.2 mmol/L (3.5-5.1); Sodium 139 mmol/L (136-145)
[2021-04-03 05:19] LABS: Band Neutrophils % (manual) 5; Lymphocytes % (manual) 8 (10.0-50.0); Monocytes % (manual) 11 (0-12); Myelocytes % 1
[2021-04-03] MEDS: MIDODRINE HCL 10 MG TAB PO SCH ×3 (06:27→17:28)
[2021-04-03] MEDS: LACTULOSE 20Gm/30ML SOLN PO SCH ×3 (06:27→21:26)
[2021-04-03] MEDS: CALCIUM ACETATE 667 MG CAP GT SCH ×3 (06:27→21:26)
[2021-04-03] MEDS: PIPERACILLIN-TAZOB 2.25GM 50 ML IV SCH ×3 (06:27→21:26)
[2021-04-03] MEDS: MIDAZOLAM DRIP 50 mg/50mL 50 ML IV SCH (06:29)
[2021-04-03] MEDS: NOREPINEPHRINE 8 MG/250ML KIT 250 ML IV SCH ×2 (07:45→13:06)
[2021-04-03] MEDS: PANTOPRAZOLE 40 MG/10 ML VIAL INJ IV SCH (10:34)
[2021-04-03] MEDS: FUROSEMIDE INJECTION 500 MG in SODIUM CHL 0.9% 500 ML IV SCH (11:16)
[2021-04-03] MEDS: POTASSIUM CHL 20MEQ/100ML 100 ML IV SCH ×2 (13:04→17:29)
[2021-04-03 22:04] LABS: Magnesium 2.4 mg/dL (1.6-2.6); Potassium 3.7 mmol/L (3.5-5.1)
[2021-04-04] VITALS (91 sets, daily range): BP systolic 92–125; BP diastolic 46–81
[2021-04-04] MEDS: FUROSEMIDE INJECTION 500 MG in SODIUM CHL 0.9% 500 ML IV SCH (02:49)
[2021-04-04 05:11] LABS: Hemoglobin 9.8 g/dL (13.5-17.5); White Blood Cell 8.4 10^3/uL (4.4-10.8)
[2021-04-04 05:15] LABS: Hematocrit 31.3 % (41.0-53.0); Mean Corpuscular Hemoglobin 22.4 pg (28.0-32.0); Mean Corpuscular Hgb Conc. 31.5 g/dL (32.0-36.0); Mean Corpuscular Volume 71.1 fL (80.0-100.0)
[2021-04-04 05:23] LABS: Red Cell Distribution Width 22.8 % (11.8-14.3)
[2021-04-04 05:24] LABS: Calcium 10.5 mg/dL (8.5-10.1); Potassium 3.4 mmol/L (3.5-5.1)
[2021-04-04 05:25] LABS: Basophils % (manual) 0 (0.0-2.0); Blast Cells 0; Metamyelocytes % 0; Myelocytes % 0; Promyelocytes % 0; Reactive Lymphocytes 0
[2021-04-04 05:27] LABS: Albumin 3.5 g/dL (3.4-5.0); BUN/Creatinine Ratio 21.7
[2021-04-04 05:45] LABS: Total Protein 8.2 g/dL (6.4-8.2)
[2021-04-04] MEDS: LACTULOSE 20Gm/30ML SOLN PO SCH ×3 (06:00→21:17)
[2021-04-04] MEDS: CALCIUM ACETATE 667 MG CAP GT SCH ×3 (06:00→21:16)
[2021-04-04 06:34] LABS: Band Neutrophils % (manual) 4; Eosinophils % (manual) 1 (0-7); Lymphocytes % (manual) 12 (10.0-50.0); Monocytes % (manual) 4 (0-12)
[2021-04-04] MEDS: MIDODRINE HCL 10 MG TAB PO SCH ×3 (06:58→18:00)
[2021-04-04] MEDS: PIPERACILLIN-TAZOB 2.25GM 50 ML IV SCH ×3 (07:25→21:16)
[2021-04-04] MEDS: MIDAZOLAM DRIP 50 mg/50mL 50 ML IV SCH ×2 (07:45→17:11)
[2021-04-04] MEDS: POTASSIUM CHL 20MEQ/100ML 100 ML IV SCH ×3 (10:45→18:28)
[2021-04-04] MEDS: PANTOPRAZOLE 40 MG/10 ML VIAL INJ IV SCH (11:36)
[2021-04-04] MEDS ORDERED: CALCIUM ACETATE 667 MG CAP GT SCH (14:00)
[2021-04-04] MEDS: FUROSEMIDE 20 MG/2 ML VIAL IV SCH (18:00)
[2021-04-05] VITALS (85 sets, daily range): BP systolic 87–129; BP diastolic 40–68
[2021-04-05] MEDS: CALCIUM ACETATE 667 MG CAP GT SCH ×3 (05:42→21:00)
[2021-04-05] MEDS: FUROSEMIDE 20 MG/2 ML VIAL IV SCH (05:42)
[2021-04-05] MEDS: LACTULOSE 20Gm/30ML SOLN PO SCH ×3 (05:43→21:00)
[2021-04-05] MEDS: PIPERACILLIN-TAZOB 2.25GM 50 ML IV SCH ×3 (05:43→23:12)
[2021-04-05] MEDS: MIDODRINE HCL 10 MG TAB PO SCH ×3 (05:45→19:49)
[2021-04-05 05:52] LABS: Potassium 3.9 mmol/L (3.5-5.1)
[2021-04-05 06:23] LABS: Albumin 3.6 g/dL (3.4-5.0); Bilirubin, Total 6.6 mg/dL (0.2-1.0); Calcium 10.9 mg/dL (8.5-10.1); Phosphorus 4.4 mg/dL (2.5-4.90)
[2021-04-05] MEDS ORDERED: ALBUMIN 25% 100 ML IV ONE (09:15)
[2021-04-05] MEDS ORDERED: PROPOFOL 100 ML IV ONE (18:48)
[2021-04-05] MEDS: NOREPINEPHRINE 8 MG/250ML KIT 250 ML IV SCH (19:24)
[2021-04-05] MEDS: PANTOPRAZOLE 40 MG/10 ML VIAL INJ IV SCH (19:45)
[2021-04-05] MEDS: PROPOFOL 100 ML IV SCH (21:00)
[2021-04-06] VITALS (98 sets, daily range): BP systolic 84–128; BP diastolic 43–62
[2021-04-06] MEDS: CALCIUM ACETATE 667 MG CAP GT SCH ×3 (06:37→21:11)
[2021-04-06] MEDS: PIPERACILLIN-TAZOB 2.25GM 50 ML IV SCH ×3 (06:37→21:12)
[2021-04-06] MEDS: MIDODRINE HCL 10 MG TAB PO SCH ×3 (06:38→18:05)
[2021-04-06] MEDS: LACTULOSE 20Gm/30ML SOLN PO SCH ×3 (06:38→21:12)
[2021-04-06 07:09] LABS: Basophils # (auto) 0.1 10 ^3/uL (0-0.2); Basophils % (auto) 0.5 % (0.0-2.0); Eosinophils # (auto) 0.1 10 ^3/uL (0-0.8); Eosinophils % (auto) 0.7 % (0.0-7.0); Hematocrit 33.6 % (41.0-53.0); Hemoglobin 10.7 g/dL (13.5-17.5); Lymphocytes # (auto) 1.5 10 ^3/uL (0.4-5.4); Lymphocytes % (auto) 14.4 % (10.0-50.0); Mean Corpuscular Hemoglobin 22.7 pg (28.0-32.0); Mean Corpuscular Hgb Conc. 31.8 g/dL (32.0-36.0); Mean Corpuscular Volume 71.3 fL (80.0-100.0); Monocytes # (auto) 1.4 10 ^3/uL (0-1.3); Monocytes % (auto) 13.3 % (0.0-12.0); Neutrophils # (auto) 7.3 10 ^3/uL (1.6-8.6); Neutrophils % (auto) 71.1 % (37.0-80.0); Nucleated Red Blood Cells % 0.8 %; Red Blood Cells 4.71 10^6/uL (4.5-5.90); Red Cell Distribution Width 23.6 % (11.8-14.3); White Blood Cell 10.2 10^3/uL (4.4-10.8)
[2021-04-06] MEDS ORDERED: SODIUM CHLORIDE 0.9% 1,000 ML IV ONE (07:15)
[2021-04-06 07:19] LABS: Calcium 11.8 mg/dL (8.5-10.1); Potassium 3.3 mmol/L (3.5-5.1)
[2021-04-06 07:22] LABS: BUN/Creatinine Ratio 25.1
[2021-04-06] MEDS: NOREPINEPHRINE 8 MG/250ML KIT 250 ML IV SCH (07:45)
[2021-04-06] MEDS: MIDAZOLAM DRIP 50 mg/50mL 50 ML IV SCH (07:45)
[2021-04-06] MEDS: PROPOFOL 100 ML IV SCH (07:49)
[2021-04-06] MEDS: POTASSIUM CHL 20MEQ/100ML 100 ML IV SCH ×3 (10:31→14:26)
[2021-04-06] MEDS: PANTOPRAZOLE 40 MG/10 ML VIAL INJ IV SCH (10:32)
[2021-04-06] MEDS: acetaZOLAMIDE SODIUM 500 MG VL IV SCH ×2 (14:42→21:18)
[2021-04-07] VITALS (98 sets, daily range): BP systolic 90–119; BP diastolic 39–54
[2021-04-07 06:26] LABS: BUN/Creatinine Ratio 24.9; Calcium 10.6 mg/dL (8.5-10.1); Potassium 4.1 mmol/L (3.5-5.1)
[2021-04-07] MEDS: acetaZOLAMIDE SODIUM 500 MG VL IV SCH ×3 (06:46→22:00)
[2021-04-07] MEDS: LACTULOSE 20Gm/30ML SOLN PO SCH ×2 (06:46→14:00)
[2021-04-07] MEDS: PIPERACILLIN-TAZOB 2.25GM 50 ML IV SCH ×2 (06:46→14:58)
[2021-04-07] MEDS: CALCIUM ACETATE 667 MG CAP GT SCH ×2 (06:46→14:00)
[2021-04-07] MEDS: MIDODRINE HCL 10 MG TAB PO SCH ×3 (06:47→17:21)
[2021-04-07] MEDS: NOREPINEPHRINE 8 MG/250ML KIT 250 ML IV SCH (07:45)
[2021-04-07] MEDS: MIDAZOLAM DRIP 50 mg/50mL 50 ML IV SCH (07:45)
[2021-04-07] MEDS: PANTOPRAZOLE 40 MG/10 ML VIAL INJ IV SCH (09:41)
[2021-04-07] MEDS ORDERED: SODIUM CHLORIDE 0.9% 1,000 ML IV ONE (12:30)
[2021-04-07] MEDS: PROPOFOL 100 ML IV SCH (20:00)
[2021-04-08] VITALS (71 sets, daily range): BP systolic 99–155; BP diastolic 41–76
[2021-04-08] MEDS: CALCIUM ACETATE 667 MG CAP GT SCH ×4 (02:49→22:05)
[2021-04-08] MEDS: PIPERACILLIN-TAZOB 2.25GM 50 ML IV SCH ×2 (02:50→06:50)
[2021-04-08] MEDS: LACTULOSE 20Gm/30ML SOLN PO SCH ×4 (02:50→22:05)
[2021-04-08 06:34] LABS: Calcium 10.3 mg/dL (8.5-10.1); Potassium 3.7 mmol/L (3.5-5.1)
[2021-04-08 06:36] LABS: BUN/Creatinine Ratio 26.6
[2021-04-08] MEDS: acetaZOLAMIDE SODIUM 500 MG VL IV SCH (06:48)
[2021-04-08] MEDS: MIDODRINE HCL 10 MG TAB PO SCH ×3 (06:49→17:23)
[2021-04-08] MEDS: NOREPINEPHRINE 8 MG/250ML KIT 250 ML IV SCH (07:45)
[2021-04-08] MEDS: MIDAZOLAM DRIP 50 mg/50mL 50 ML IV SCH (07:45)
[2021-04-08] MEDS: PANTOPRAZOLE 40 MG/10 ML VIAL INJ IV SCH (10:15)
[2021-04-08] MEDS ORDERED: ALBUTEROL SULF 2.5 MG/0.5ML(0.5%) NEB SOLN NEB PRN (12:15)
[2021-04-08 12:29] LABS: Basophils # (auto) 0.1 10 ^3/uL (0-0.2); Eosinophils # (auto) 0.2 10 ^3/uL (0-0.8); Hematocrit 33.9 % (41.0-53.0); Hemoglobin 10.1 g/dL (13.5-17.5); Monocytes # (auto) 1.1 10 ^3/uL (0-1.3)
[2021-04-08 12:45] LABS: Albumin 3.6 g/dL (3.4-5.0); Calcium 10.5 mg/dL (8.5-10.1); Potassium 3.7 mmol/L (3.5-5.1)
[2021-04-08 12:48] LABS: BUN/Creatinine Ratio 27.2; Basophils % (auto) 0.7 % (0.0-2.0); Bilirubin, Total 7.2 mg/dL (0.2-1.0); Eosinophils % (auto) 1.7 % (0.0-7.0); Lymphocytes # (auto) 1.1 10 ^3/uL (0.4-5.4); Lymphocytes % (auto) 10.2 % (10.0-50.0); Mean Corpuscular Hemoglobin 22.4 pg (28.0-32.0); Mean Corpuscular Hgb Conc. 29.9 g/dL (32.0-36.0); Mean Corpuscular Volume 74.9 fL (80.0-100.0); Monocytes % (auto) 10.1 % (0.0-12.0); Neutrophils # (auto) 8.1 10 ^3/uL (1.6-8.6); Neutrophils % (auto) 77.3 % (37.0-80.0); Nucleated Red Blood Cells % 0.2 %; Red Blood Cells 4.53 10^6/uL (4.5-5.90); Red Cell Distribution Width 22.7 % (11.8-14.3); Total Protein 9.5 g/dL (6.4-8.2); White Blood Cell 10.5 10^3/uL (4.4-10.8)
[2021-04-08] MEDS: PROPOFOL 100 ML IV SCH (20:00)
[2021-04-08] MEDS ORDERED: HEPARIN SODIUM (PORCINE) 5000 UNITS/ML 1ML VIAL ONE (21:51)
[2021-04-08] MEDS: HEPARIN SODIUM (PORCINE) 5000 UNITS/ML 1ML VIAL SC SCH (22:17)
[2021-04-09] VITALS (33 sets, daily range): BP systolic 85–141; BP diastolic 46–79
[2021-04-09 05:19] LABS: Basophils # (auto) 0.1 10 ^3/uL (0-0.2); Nucleated Red Blood Cells % 0.1 %
[2021-04-09 05:21] LABS: Basophils % (auto) 0.6 % (0.0-2.0); Eosinophils # (auto) 0.2 10 ^3/uL (0-0.8); Eosinophils % (auto) 1.6 % (0.0-7.0); Hematocrit 35.5 % (41.0-53.0); Hemoglobin 10.9 g/dL (13.5-17.5); Lymphocytes # (auto) 1.1 10 ^3/uL (0.4-5.4); Lymphocytes % (auto) 11.8 % (10.0-50.0); Mean Corpuscular Hemoglobin 22.2 pg (28.0-32.0); Mean Corpuscular Hgb Conc. 30.6 g/dL (32.0-36.0); Mean Corpuscular Volume 72.5 fL (80.0-100.0); Monocytes # (auto) 0.8 10 ^3/uL (0-1.3); Monocytes % (auto) 8.7 % (0.0-12.0); Neutrophils # (auto) 7.4 10 ^3/uL (1.6-8.6); Neutrophils % (auto) 77.3 % (37.0-80.0); White Blood Cell 9.6 10^3/uL (4.4-10.8)
[2021-04-09 05:40] LABS: BUN/Creatinine Ratio 28.8; Calcium 10.6 mg/dL (8.5-10.1); Potassium 3.6 mmol/L (3.5-5.1)
[2021-04-09] MEDS: LACTULOSE 20Gm/30ML SOLN PO SCH ×4 (06:22→23:23)
[2021-04-09] MEDS: CALCIUM ACETATE 667 MG CAP GT SCH ×4 (06:22→23:23)
[2021-04-09] MEDS: MIDODRINE HCL 10 MG TAB PO SCH ×3 (06:23→18:00)
[2021-04-09 07:22] LABS: Red Cell Distribution Width 22.6 % (11.8-14.3)
[2021-04-09] MEDS: MIDAZOLAM DRIP 50 mg/50mL 50 ML IV SCH (07:45)
[2021-04-09] MEDS: NOREPINEPHRINE 8 MG/250ML KIT 250 ML IV SCH (07:45)
[2021-04-09] MEDS: HEPARIN SODIUM (PORCINE) 5000 UNITS/ML 1ML VIAL SC SCH ×3 (08:58→23:24)
[2021-04-09] MEDS: PANTOPRAZOLE 40 MG/10 ML VIAL INJ IV SCH (08:58)
[2021-04-09] MEDS ORDERED: SODIUM CHLORIDE 0.9% 500 ML IV ONE ×2 (13:30→14:30)
[2021-04-09] MEDS ORDERED: SOD CHL 0.45% 1,000 ML IV SCH (19:00)
[2021-04-09] MEDS: PROPOFOL 100 ML IV SCH (20:00)
[2021-04-10] VITALS (59 sets, daily range): BP systolic 90–155; BP diastolic 39–106
[2021-04-10 05:19] LABS: Basophils # (auto) 0.1 10 ^3/uL (0-0.2); Eosinophils # (auto) 0.1 10 ^3/uL (0-0.8); Eosinophils % (auto) 1.2 % (0.0-7.0); Hemoglobin 10.4 g/dL (13.5-17.5)
[2021-04-10 05:21] LABS: Basophils % (auto) 0.9 % (0.0-2.0); Hematocrit 34.3 % (41.0-53.0); Lymphocytes # (auto) 1.2 10 ^3/uL (0.4-5.4); Lymphocytes % (auto) 12.9 % (10.0-50.0); Mean Corpuscular Hemoglobin 22.4 pg (28.0-32.0); Mean Corpuscular Hgb Conc. 30.4 g/dL (32.0-36.0); Mean Corpuscular Volume 73.6 fL (80.0-100.0); Monocytes # (auto) 0.8 10 ^3/uL (0-1.3); Monocytes % (auto) 8.8 % (0.0-12.0); Neutrophils % (auto) 76.2 % (37.0-80.0); Nucleated Red Blood Cells % 0.1 %; Red Blood Cells 4.66 10^6/uL (4.5-5.90); White Blood Cell 9.2 10^3/uL (4.4-10.8)
[2021-04-10] MEDS: NOREPINEPHRINE 8 MG/250ML KIT 250 ML IV SCH ×2 (05:30→10:33)
[2021-04-10 05:31] LABS: Potassium 3.4 mmol/L (3.5-5.1)
[2021-04-10 05:34] LABS: BUN/Creatinine Ratio 31.7
[2021-04-10 06:22] LABS: Red Cell Distribution Width 23.4 % (11.8-14.3)
[2021-04-10] MEDS: MIDAZOLAM DRIP 50 mg/50mL 50 ML IV SCH (07:45)
[2021-04-10] MEDS: CALCIUM ACETATE 667 MG CAP GT SCH ×3 (07:58→22:00)
[2021-04-10] MEDS: LACTULOSE 20Gm/30ML SOLN PO SCH ×3 (07:59→22:00)
[2021-04-10] MEDS: MIDODRINE HCL 10 MG TAB PO SCH ×3 (08:02→17:16)
[2021-04-10] MEDS: PANTOPRAZOLE 40 MG/10 ML VIAL INJ IV SCH (10:31)
[2021-04-10] MEDS: HEPARIN SODIUM (PORCINE) 5000 UNITS/ML 1ML VIAL SC SCH ×2 (10:31→22:49)
[2021-04-10] MEDS ORDERED: POTASSIUM CHL 20MEQ/100ML 100 ML IV ONE (16:45)
[2021-04-10] MEDS: D5W 5% 1,000 ML IV SCH (17:16)
[2021-04-10] MEDS: PROPOFOL 100 ML IV SCH (20:00)
[2021-04-11] VITALS (39 sets, daily range): BP systolic 84–153; BP diastolic 52–92
[2021-04-11 05:43] LABS: Basophils # (auto) 0.1 10 ^3/uL (0-0.2); Basophils % (auto) 0.8 % (0.0-2.0); Eosinophils # (auto) 0.1 10 ^3/uL (0-0.8); Eosinophils % (auto) 1.9 % (0.0-7.0); Hematocrit 35.6 % (41.0-53.0); Lymphocytes # (auto) 1.3 10 ^3/uL (0.4-5.4); Lymphocytes % (auto) 16.9 % (10.0-50.0); Mean Corpuscular Hemoglobin 22.4 pg (28.0-32.0); Mean Corpuscular Hgb Conc. 30.9 g/dL (32.0-36.0); Mean Corpuscular Volume 72.5 fL (80.0-100.0); Monocytes # (auto) 0.6 10 ^3/uL (0-1.3); Monocytes % (auto) 8.2 % (0.0-12.0); Neutrophils # (auto) 5.6 10 ^3/uL (1.6-8.6); Neutrophils % (auto) 72.2 % (37.0-80.0); Nucleated Red Blood Cells % 0.1 %; Red Blood Cells 4.92 10^6/uL (4.5-5.90); White Blood Cell 7.8 10^3/uL (4.4-10.8)
[2021-04-11 05:45] LABS: Red Cell Distribution Width 23.6 % (11.8-14.3)
[2021-04-11 05:51] LABS: BUN/Creatinine Ratio 34.6; Potassium 3.4 mmol/L (3.5-5.1)
[2021-04-11] MEDS: D5W 5% 1,000 ML IV SCH ×2 (06:44→12:45)
[2021-04-11] MEDS: MIDODRINE HCL 10 MG TAB PO SCH ×3 (06:45→18:20)
[2021-04-11] MEDS: LACTULOSE 20Gm/30ML SOLN PO SCH ×3 (06:45→22:00)
[2021-04-11] MEDS: CALCIUM ACETATE 667 MG CAP GT SCH ×3 (06:45→22:00)
[2021-04-11 07:02] LABS: Urine Bacteria NONE SEEN /hpf (None Seen); Urine Blood 2+ /uL (Negative); Urine Mucus FEW (None Seen); Urine Specific Gravity 1.016 (1.001-1.035); Urine WBC 2 /hpf (0 - 3)
[2021-04-11] MEDS: MIDAZOLAM DRIP 50 mg/50mL 50 ML IV SCH (07:45)
[2021-04-11] MEDS: PANTOPRAZOLE 40 MG/10 ML VIAL INJ IV SCH (10:27)
[2021-04-11] MEDS: HEPARIN SODIUM (PORCINE) 5000 UNITS/ML 1ML VIAL SC SCH ×2 (10:32→22:00)
[2021-04-11] MEDS ORDERED: POTASSIUM CHLORIDE 40 MEQ, LIDOCAINE 1% (LOCAL ANESTH.) 4 ML in SODIUM CHL 0.9% 250 ML IV ONE (12:00)
[2021-04-11] MEDS: PROPOFOL 100 ML IV SCH (20:00)
[2021-04-12] VITALS (42 sets, daily range): BP systolic 68–145; BP diastolic 40–79
[2021-04-12] MEDS: D5W 5% 1,000 ML IV SCH (02:00)
[2021-04-12 05:43] LABS: Calcium 9.3 mg/dL (8.5-10.1); Potassium 3.6 mmol/L (3.5-5.1)
[2021-04-12 05:45] LABS: BUN/Creatinine Ratio 31.7
[2021-04-12] MEDS: CALCIUM ACETATE 667 MG CAP GT SCH (06:00)
[2021-04-12] MEDS: MIDODRINE HCL 10 MG TAB PO SCH ×3 (06:00→18:40)
[2021-04-12] MEDS: LACTULOSE 20Gm/30ML SOLN PO SCH ×3 (06:00→20:38)
[2021-04-12] MEDS: MIDAZOLAM DRIP 50 mg/50mL 50 ML IV SCH (07:45)
[2021-04-12] MEDS: NOREPINEPHRINE 8 MG/250ML KIT 250 ML IV SCH ×2 (07:45→09:24)
[2021-04-12 10:16] LABS: Folate (Folic Acid) 22.02 ng/mL (5.38-24)
[2021-04-12] MEDS: PANTOPRAZOLE 40 MG/10 ML VIAL INJ IV SCH (10:51)
[2021-04-12] MEDS: HEPARIN SODIUM (PORCINE) 5000 UNITS/ML 1ML VIAL SC SCH ×2 (10:53→21:04)
[2021-04-12] MEDS: HYDROCORTISONE SOD SUCC 100 MG/2ML INJ VIAL IV SCH ×2 (16:00→21:03)
[2021-04-12] MEDS ORDERED: LORazepam 2MG/ML-1ML VIAL IV PRN (19:15)
[2021-04-12] MEDS: PROPOFOL 100 ML IV SCH (20:00)
[2021-04-13] VITALS (16 sets, daily range): BP systolic 76–129; BP diastolic 44–77
[2021-04-13 05:08] LABS: Basophils # (auto) 0 10 ^3/uL (0-0.2); Eosinophils # (auto) 0 10 ^3/uL (0-0.8); Monocytes # (auto) 0.1 10 ^3/uL (0-1.3); White Blood Cell 5.4 10^3/uL (4.4-10.8)
[2021-04-13 05:40] LABS: Chloride 101 mmol/L (98-107); Sodium 131 mmol/L (136-145)
[2021-04-13 05:46] LABS: Anion Gap 15 (5-15); BUN/Creatinine Ratio 28.2; Blood Urea Nitrogen 53 mg/dL (7-18); Calcium 9.4 mg/dL (8.5-10.1); Carbon Dioxide 15 mmol/L (21-32); GFR African American 47 mL/min; GFR Non-African American 39 mL/min; Glucose 156 mg/dL (74-106)
[2021-04-13 05:47] LABS: Basophils % (auto) 0.1 % (0.0-2.0); Hematocrit 36.6 % (41.0-53.0); Lymphocytes # (auto) 0.4 10 ^3/uL (0.4-5.4); Lymphocytes % (auto) 7.2 % (10.0-50.0); Mean Corpuscular Hemoglobin 22.1 pg (28.0-32.0); Mean Corpuscular Hgb Conc. 30.1 g/dL (32.0-36.0); Mean Corpuscular Volume 73.2 fL (80.0-100.0); Monocytes % (auto) 1.7 % (0.0-12.0); Neutrophils # (auto) 4.9 10 ^3/uL (1.6-8.6); Red Cell Distribution Width 23.8 % (11.8-14.3)
[2021-04-13] MEDS: LACTULOSE 20Gm/30ML SOLN PO SCH ×3 (06:00→21:51)
[2021-04-13] MEDS: MIDODRINE HCL 10 MG TAB PO SCH ×3 (06:00→18:36)
[2021-04-13] MEDS: HYDROCORTISONE SOD SUCC 100 MG/2ML INJ VIAL IV SCH ×2 (06:20→21:46)
[2021-04-13] MEDS: MIDAZOLAM DRIP 50 mg/50mL 50 ML IV SCH (06:28)
[2021-04-13] MEDS: PANTOPRAZOLE 40 MG/10 ML VIAL INJ IV SCH (09:44)
[2021-04-13] MEDS: HEPARIN SODIUM (PORCINE) 5000 UNITS/ML 1ML VIAL SC SCH ×2 (09:45→21:50)
[2021-04-13] MEDS: SODIUM BICARBONATE 50ML VIAL 75 ML in SOD CHL 0.45% 1,000 ML IV SCH (12:00)
[2021-04-14 05:00] VITALS: BP 135/87
[2021-04-14 05:33] LABS: Hematocrit 34.2 % (41.0-53.0); Hemoglobin 10.6 g/dL (13.5-17.5); Mean Corpuscular Hemoglobin 21.9 pg (28.0-32.0); Mean Corpuscular Hgb Conc. 30.9 g/dL (32.0-36.0); Mean Corpuscular Volume 70.7 fL (80.0-100.0); Red Blood Cells 4.84 10^6/uL (4.5-5.90); White Blood Cell 8.5 10^3/uL (4.4-10.8)
[2021-04-14 05:39] LABS: Red Cell Distribution Width 23.4 % (11.8-14.3)
[2021-04-14 05:41] LABS: Basophils % (manual) 0 (0.0-2.0); Blast Cells 0; Eosinophils % (manual) 0 (0-7); Metamyelocytes % 0; Myelocytes % 0; Promyelocytes % 0; Reactive Lymphocytes 0
[2021-04-14 05:52] LABS: BUN/Creatinine Ratio 31.3; Calcium 9.4 mg/dL (8.5-10.1); Potassium 3.6 mmol/L (3.5-5.1)
[2021-04-14] MEDS: MIDODRINE HCL 10 MG TAB PO SCH ×4 (06:00→18:00)
[2021-04-14] MEDS: LACTULOSE 20Gm/30ML SOLN PO SCH ×3 (06:18→21:43)
[2021-04-14 06:35] LABS: Band Neutrophils % (manual) 1; Lymphocytes % (manual) 11 (10.0-50.0); Monocytes % (manual) 2 (0-12)
[2021-04-14] MEDS: HYDROCORTISONE SOD SUCC 100 MG/2ML INJ VIAL IV SCH ×2 (08:34→21:42)
[2021-04-14] MEDS: HEPARIN SODIUM (PORCINE) 5000 UNITS/ML 1ML VIAL SC SCH ×2 (08:34→21:42)
[2021-04-14] MEDS: PANTOPRAZOLE 40 MG/10 ML VIAL INJ IV SCH (08:34)
[2021-04-14 08:55] VITALS: BP 135/82
[2021-04-14] MEDS: SODIUM BICARBONATE 50ML VIAL 75 ML in SOD CHL 0.45% 1,000 ML IV SCH ×3 (09:30→11:37)
[2021-04-14 13:00] VITALS: BP 145/69
[2021-04-14 16:38] VITALS: BP 132/93
[2021-04-14 22:00] VITALS: BP 100/63
[2021-04-15] VITALS (7 sets, daily range): BP systolic 100–134; BP diastolic 63–81
[2021-04-15] MEDS: MIDODRINE HCL 10 MG TAB PO SCH ×3 (05:32→18:00)
[2021-04-15] MEDS: LACTULOSE 20Gm/30ML SOLN PO SCH ×3 (06:11→21:53)
[2021-04-15] MEDS: SODIUM BICARBONATE 50ML VIAL 75 ML in SOD CHL 0.45% 1,000 ML IV SCH ×2 (07:00→17:45)
[2021-04-15] MEDS: PANTOPRAZOLE 40 MG/10 ML VIAL INJ IV SCH (10:46)
[2021-04-15] MEDS: HYDROCORTISONE SOD SUCC 100 MG/2ML INJ VIAL IV SCH ×2 (10:47→21:52)
[2021-04-15] MEDS: HEPARIN SODIUM (PORCINE) 5000 UNITS/ML 1ML VIAL SC SCH ×2 (10:57→21:54)
[2021-04-15] MEDS ORDERED: HYDROcodone-ACET 5/325MG TAB PO PRN (11:00)
[2021-04-15] MEDS ORDERED: ACETAMINOPHEN 325 MG TAB PO PRN (11:00)
[2021-04-16] MEDS: SODIUM BICARBONATE 50ML VIAL 75 ML in SOD CHL 0.45% 1,000 ML IV SCH ×2 (04:17→09:32)
[2021-04-16] MEDS: MIDODRINE HCL 10 MG TAB PO SCH ×4 (06:29→17:34)
[2021-04-16] MEDS: LACTULOSE 20Gm/30ML SOLN PO SCH ×2 (06:29→14:31)
[2021-04-16 09:00] VITALS: BP 139/81
[2021-04-16] MEDS: PANTOPRAZOLE 40 MG/10 ML VIAL INJ IV SCH (09:31)
[2021-04-16] MEDS: HYDROCORTISONE SOD SUCC 100 MG/2ML INJ VIAL IV SCH (09:31)
[2021-04-16] MEDS: HEPARIN SODIUM (PORCINE) 5000 UNITS/ML 1ML VIAL SC SCH (09:33)
[2021-04-16 12:57] VITALS: BP 117/60
[2021-04-16 15:28] VITALS: BP 117/60
[2021-04-16 17:00] VITALS: BP 141/80
== END 2021-04-16 20:22 | DRG 130 ==
LOC: ER 13:26 → TELE 18:39 → TELE-WESTW 03-29 15:18 → DOU IN ICU 04-01 12:15 → TELE-WESTW 04-13 16:55
PROVIDERS: ADMIT Internal Medicine; ATTEND Internal Medicine
PROC: 0BH17EZ Insertion of Endotracheal Airway into Trachea, Via Natural or Artificial Opening (ICD-10-PCS; principal; 2021-04-01)
PROC: 5A1955Z Respiratory Ventilation, Greater than 96 Consecutive Hours (ICD-10-PCS; 2021-04-01)
PROC: 5A1D70Z Performance of Urinary Filtration, Intermittent, Less than 6 Hours Per Day (ICD-10-PCS; 2021-04-01)
PROC: 06HY33Z Insertion of Infusion Device into Lower Vein, Percutaneous Approach (ICD-10-PCS; 2021-04-01)
PROC: 02HV33Z Insertion of Infusion Device into Superior Vena Cava, Percutaneous Approach (ICD-10-PCS; 2021-04-01)
PROC: 06HY33Z Insertion of Infusion Device into Lower Vein, Percutaneous Approach (ICD-10-PCS; 2021-04-01)
DX: J96.01 Acute respiratory failure with hypoxia (principal); N17.0 Acute kidney failure with tubular necrosis; R57.0 Cardiogenic shock; I21.4 Non-ST elevation (NSTEMI) myocardial infarction; G93.40 Encephalopathy, unspecified; D63.1 Anemia in chronic kidney disease; E88.09 Other disorders of plasma-protein metabolism, not elsewhere classified; J96.02 Acute respiratory failure with hypercapnia; I50.43 Acute on chronic combined systolic (congestive) and diastolic (congestive) heart failure; N18.6 End stage renal disease; I42.9 Cardiomyopathy, unspecified; E03.9 Hypothyroidism, unspecified; N50.89 Other specified disorders of the male genital organs; E66.01 Morbid (severe) obesity due to excess calories; E78.5 Hyperlipidemia, unspecified; E87.5 Hyperkalemia; Z99.11 Dependence on respirator [ventilator] status; I42.8 Other cardiomyopathies; Z99.2 Dependence on renal dialysis; E87.0 Hyperosmolality and hypernatremia; E87.6 Hypokalemia; N44.8 Other noninflammatory disorders of the testis; G31.84 Mild cognitive impairment of uncertain or unknown etiology; Z79.84 Long term (current) use of oral hypoglycemic drugs; Z87.891 Personal history of nicotine dependence; Z20.822 Contact with and (suspected) exposure to COVID-19; Z95.810 Presence of automatic (implantable) cardiac defibrillator; E11.22 Type 2 diabetes mellitus with diabetic chronic kidney disease; Z75.1 Person awaiting admission to adequate facility elsewhere; J98.11 Atelectasis; Z95.0 Presence of cardiac pacemaker
CPT/HCPCS: 36415; 36600; 70450; 71045; 71046; 76700; 76856; 76870; 78582; 80048; 80053; 81001; 82040; 82140; 82533; 82570; 82607; 82728; 82746; 82805; 82962; 83735; 83880; 84100; 84132; 84154; 84156; 84300; 84439; 84443; 84481; 84484; 85007; 85025; 85027; 85379; 85610; 85730; 86141; 87070; 87081; 87205; 87426; 90935; 92610; 93005; 93970; 94002; 94003; 95819; 96365; 96375; 97110; 97116; 97163; 97530; A4565; C9113; G0378; J0330; J1815; J2001; J2250; J2405; J2543; J2704; J3480; P9047

== ENCOUNTER 2021-06-09 15:19 | Inpatient (IN) | payer MEDICAID ==
[~2021-06-09] VITALS: Ht 170.2 cm; Wt 100.6 kg
[~2021-06-09 15:19] MED LIST changes: +AMIO200T33 PO; +LOSA25TA38 PO; +SPIR25TA8 PO
[2021-06-09 16:04] LABS: Basophils # (auto) 0 10 ^3/uL (0-0.2); Eosinophils # (auto) 0 10 ^3/uL (0-0.8); Neutrophils # (auto) 3.3 10 ^3/uL (1.6-8.6); White Blood Cell 4.6 10^3/uL (4.4-10.8)
[2021-06-09 16:06] LABS: Basophils % (auto) 0.7 % (0.0-2.0); Eosinophils % (auto) 0.2 % (0.0-7.0); Hematocrit 30.7 % (41.0-53.0); Hemoglobin 9.3 g/dL (13.5-17.5); Lymphocytes # (auto) 0.8 10 ^3/uL (0.4-5.4); Lymphocytes % (auto) 17.8 % (10.0-50.0); Mean Corpuscular Hgb Conc. 30.3 g/dL (32.0-36.0); Mean Corpuscular Volume 75.7 fL (80.0-100.0); Monocytes # (auto) 0.4 10 ^3/uL (0-1.3); Monocytes % (auto) 8.5 % (0.0-12.0); Neutrophils % (auto) 72.8 % (37.0-80.0); Nucleated Red Blood Cells % 0.9 %; Red Blood Cells 4.05 10^6/uL (4.5-5.90)
[2021-06-09 16:22] LABS: Red Cell Distribution Width 23.5 % (11.8-14.3)
[2021-06-09 16:29] LABS: Albumin 2.7 g/dL (3.4-5.0); Calcium 8.1 mg/dL (8.5-10.1); Potassium 3.9 mmol/L (3.5-5.1)
[2021-06-09 16:35] LABS: BUN/Creatinine Ratio 15.1; Bilirubin, Total 1.8 mg/dL (0.2-1.0); Total Protein 7.4 g/dL (6.4-8.2)
[2021-06-09] MEDS ORDERED: FUROSEMIDE 20 MG/2 ML VIAL IV ONE (21:15)
[2021-06-09 22:23] LABS: Urine Bacteria FEW /hpf (None Seen); Urine Blood 2+ /uL (Negative); Urine Hyaline Cast MOD /lpf (0 - 2); Urine Specific Gravity 1.012 (1.001-1.035); Urine WBC 35 /hpf (0 - 3)
[2021-06-09] MEDS ORDERED: ACETAMINOPHEN 325 MG TAB PO PRN (22:30)
[2021-06-09] MEDS ORDERED: ONDANSETRON HCL 4 MG/2 ML VIAL IV PRN (22:30)
[2021-06-09] MEDS ORDERED: MORPHINE SULFATE INJECTION 2 MG/ML SYRG IV PRN (22:30)
[2021-06-09] MEDS ORDERED: hydrALAZINE HCL 10 MG TAB PO PRN (22:30)
[2021-06-10] MEDS: HYDROcodone-ACET 5/325MG TAB PO PRN ×3 (02:46→20:08)
[2021-06-10 02:57] VITALS: BP 115/64
[2021-06-10 05:00] VITALS: BP 100/52
[2021-06-10] MEDS ORDERED: DEXTROSE (50%) 50ML SYRG IV PRN (06:30)
[2021-06-10] MEDS: ACCU-CHEK COMFORT CURVE STRIP VI SCH ×4 (06:48→21:36)
[2021-06-10] MEDS: InsuLIN REG 1unit/0.01ml Soln (100units/ml) SC SCH ×4 (06:50→21:46)
[2021-06-10 08:48] LABS: Albumin 2.7 g/dL (3.4-5.0); Calcium 8.4 mg/dL (8.5-10.1); Potassium 4.5 mmol/L (3.5-5.1)
[2021-06-10 08:52] LABS: BUN/Creatinine Ratio 14.9; Bilirubin, Total 1.5 mg/dL (0.2-1.0); Total Protein 6.9 g/dL (6.4-8.2)
[2021-06-10 09:00] VITALS: BP 126/82
[2021-06-10] MEDS: FUROSEMIDE 40 MG/4 ML VIAL IV SCH ×2 (09:26→21:35)
[2021-06-10 09:31] LABS: Basophils # (auto) 0 10 ^3/uL (0-0.2); Basophils % (auto) 0.7 % (0.0-2.0); Eosinophils # (auto) 0 10 ^3/uL (0-0.8); Eosinophils % (auto) 0.4 % (0.0-7.0); Hematocrit 29.7 % (41.0-53.0); Hemoglobin 8.9 g/dL (13.5-17.5); Lymphocytes # (auto) 0.7 10 ^3/uL (0.4-5.4); Lymphocytes % (auto) 14.9 % (10.0-50.0); Mean Corpuscular Hemoglobin 22.7 pg (28.0-32.0); Monocytes # (auto) 0.5 10 ^3/uL (0-1.3); Monocytes % (auto) 10.1 % (0.0-12.0); Neutrophils # (auto) 3.6 10 ^3/uL (1.6-8.6); Neutrophils % (auto) 73.9 % (37.0-80.0); Nucleated Red Blood Cells % 0.4 %; Red Blood Cells 3.93 10^6/uL (4.5-5.90); White Blood Cell 4.8 10^3/uL (4.4-10.8)
[2021-06-10 09:36] LABS: Mean Corpuscular Volume 75.6 fL (80.0-100.0); Red Cell Distribution Width 23.8 % (11.8-14.3)
[2021-06-10 09:45] LABS: INR 1.37 (0.9-1.15)
[2021-06-10] MEDS ORDERED: CARVEDILOL 3.125 MG TAB PO ONE (10:00)
[2021-06-10 13:00] VITALS: BP 123/78
[2021-06-10] MEDS ORDERED: ALBUMIN 25% 100 ML IV ONE (13:45)
[2021-06-10 17:04] VITALS: BP 108/70
[2021-06-10 22:10] VITALS: BP 116/72
[2021-06-11 05:00] VITALS: BP 141/72
[2021-06-11] MEDS: InsuLIN REG 1unit/0.01ml Soln (100units/ml) SC SCH ×4 (06:04→22:00)
[2021-06-11] MEDS: HYDROcodone-ACET 5/325MG TAB PO PRN ×2 (06:04→12:10)
[2021-06-11] MEDS: ACCU-CHEK COMFORT CURVE STRIP VI SCH ×4 (06:04→22:18)
[2021-06-11 09:00] VITALS: BP 108/60
[2021-06-11 09:31] LABS: Potassium 4.7 mmol/L (3.5-5.1)
[2021-06-11 09:47] LABS: BUN/Creatinine Ratio 18.1; Bilirubin, Total 2.4 mg/dL (0.2-1.0); Calcium 8.7 mg/dL (8.5-10.1); Total Protein 7.1 g/dL (6.4-8.2)
[2021-06-11] MEDS: metOLazone 5 MG TAB PO SCH (10:00)
[2021-06-11] MEDS: FUROSEMIDE 40 MG/4 ML VIAL IV SCH ×2 (10:00→21:09)
[2021-06-11 13:00] VITALS: BP 105/67
[2021-06-11 16:58] VITALS: BP 104/52
[2021-06-11 22:18] VITALS: BP 129/82
[2021-06-12 05:30] VITALS: BP 126/72
[2021-06-12] MEDS: ACCU-CHEK COMFORT CURVE STRIP VI SCH ×4 (06:44→22:24)
[2021-06-12] MEDS: InsuLIN REG 1unit/0.01ml Soln (100units/ml) SC SCH ×4 (06:44→22:00)
[2021-06-12 08:32] VITALS: BP 134/82
[2021-06-12] MEDS: cefTRIAXone 1GM/50ML D5W 50 ML IV SCH (08:41)
[2021-06-12] MEDS: FUROSEMIDE 40 MG/4 ML VIAL IV SCH ×2 (09:38→23:26)
[2021-06-12] MEDS: metOLazone 5 MG TAB PO SCH (09:39)
[2021-06-12] MEDS: HEPARIN SODIUM (PORCINE) 5000 UNITS/ML 1ML VIAL SC SCH ×2 (11:01→22:23)
[2021-06-12 12:40] VITALS: BP 137/85
[2021-06-12 17:19] VITALS: BP 132/87
[2021-06-12 22:00] VITALS: BP 113/79
[2021-06-13 04:47] VITALS: BP 123/88
[2021-06-13 06:26] LABS: Basophils # (auto) 0 10 ^3/uL (0-0.2); Basophils % (auto) 0.4 % (0.0-2.0); Eosinophils # (auto) 0 10 ^3/uL (0-0.8); Eosinophils % (auto) 0.1 % (0.0-7.0); Monocytes # (auto) 0.5 10 ^3/uL (0-1.3); White Blood Cell 5.9 10^3/uL (4.4-10.8)
[2021-06-13] MEDS: ACCU-CHEK COMFORT CURVE STRIP VI SCH ×4 (06:27→23:11)
[2021-06-13] MEDS: InsuLIN REG 1unit/0.01ml Soln (100units/ml) SC SCH ×4 (06:27→22:00)
[2021-06-13 06:29] LABS: Hematocrit 31.5 % (41.0-53.0); Hemoglobin 9.7 g/dL (13.5-17.5); Lymphocytes % (auto) 16.6 % (10.0-50.0); Mean Corpuscular Hemoglobin 23.1 pg (28.0-32.0); Mean Corpuscular Hgb Conc. 30.9 g/dL (32.0-36.0); Mean Corpuscular Volume 74.9 fL (80.0-100.0); Monocytes % (auto) 7.8 % (0.0-12.0); Neutrophils # (auto) 4.5 10 ^3/uL (1.6-8.6); Neutrophils % (auto) 75.1 % (37.0-80.0); Nucleated Red Blood Cells % 2.2 %; Red Blood Cells 4.21 10^6/uL (4.5-5.90)
[2021-06-13 06:40] LABS: Albumin 3.2 g/dL (3.4-5.0); BUN/Creatinine Ratio 21.1; Calcium 9.5 mg/dL (8.5-10.1)
[2021-06-13 06:43] LABS: Bilirubin, Total 2.5 mg/dL (0.2-1.0); Total Protein 7.6 g/dL (6.4-8.2)
[2021-06-13 06:46] LABS: Red Cell Distribution Width 23.9 % (11.8-14.3)
[2021-06-13 07:33] LABS: Potassium 5.6 mmol/L (3.5-5.1)
[2021-06-13] MEDS: cefTRIAXone 1GM/50ML D5W 50 ML IV SCH (08:38)
[2021-06-13 09:00] VITALS: BP 141/78
[2021-06-13] MEDS: FUROSEMIDE 40 MG/4 ML VIAL IV SCH ×2 (09:32→23:09)
[2021-06-13] MEDS: metOLazone 5 MG TAB PO SCH (09:32)
[2021-06-13] MEDS: HEPARIN SODIUM (PORCINE) 5000 UNITS/ML 1ML VIAL SC SCH ×2 (09:34→23:10)
[2021-06-13] MEDS: SODIUM ZIRCONIUM CYCL 10 GM PAK PO SCH ×2 (11:54→17:01)
[2021-06-13 12:56] VITALS: BP 126/70
[2021-06-13 17:09] VITALS: BP 114/73
[2021-06-13 22:00] VITALS: BP 119/72
[2021-06-13] MEDS: HYDROcodone-ACET 5/325MG TAB PO PRN (23:12)
[2021-06-14 05:00] VITALS: BP 140/88
[2021-06-14] MEDS: InsuLIN REG 1unit/0.01ml Soln (100units/ml) SC SCH ×4 (06:39→22:00)
[2021-06-14] MEDS: SODIUM ZIRCONIUM CYCL 10 GM PAK PO SCH ×2 (06:40→12:03)
[2021-06-14] MEDS: ACCU-CHEK COMFORT CURVE STRIP VI SCH ×4 (06:40→22:00)
[2021-06-14 06:58] LABS: Basophils # (auto) 0 10 ^3/uL (0-0.2); Eosinophils # (auto) 0 10 ^3/uL (0-0.8); Hemoglobin 9.3 g/dL (13.5-17.5); Monocytes # (auto) 0.6 10 ^3/uL (0-1.3)
[2021-06-14 07:00] LABS: Basophils % (auto) 0.7 % (0.0-2.0); Eosinophils % (auto) 0.8 % (0.0-7.0); Hematocrit 30.2 % (41.0-53.0); Lymphocytes # (auto) 1.1 10 ^3/uL (0.4-5.4); Lymphocytes % (auto) 22.5 % (10.0-50.0); Mean Corpuscular Hemoglobin 22.7 pg (28.0-32.0); Mean Corpuscular Hgb Conc. 30.7 g/dL (32.0-36.0); Monocytes % (auto) 11.6 % (0.0-12.0); Neutrophils # (auto) 3.1 10 ^3/uL (1.6-8.6); Neutrophils % (auto) 64.4 % (37.0-80.0); Red Blood Cells 4.08 10^6/uL (4.5-5.90); White Blood Cell 4.8 10^3/uL (4.4-10.8)
[2021-06-14 07:11] LABS: Mean Corpuscular Volume 74.1 fL (80.0-100.0)
[2021-06-14 07:12] LABS: Red Cell Distribution Width 23.3 % (11.8-14.3)
[2021-06-14 07:21] LABS: BUN/Creatinine Ratio 23.8; Potassium 4.3 mmol/L (3.5-5.1)
[2021-06-14 07:24] LABS: Bilirubin, Total 2.1 mg/dL (0.2-1.0); Total Protein 7.4 g/dL (6.4-8.2)
[2021-06-14] MEDS: cefTRIAXone 1GM/50ML D5W 50 ML IV SCH (08:37)
[2021-06-14 09:00] VITALS: BP 120/87
[2021-06-14] MEDS: HEPARIN SODIUM (PORCINE) 5000 UNITS/ML 1ML VIAL SC SCH ×2 (10:00→23:01)
[2021-06-14] MEDS: FUROSEMIDE 40 MG/4 ML VIAL IV SCH ×2 (10:07→22:00)
[2021-06-14] MEDS: metOLazone 5 MG TAB PO SCH (10:07)
[2021-06-14] MEDS: DOXYCYCLINE 100MG/250ML 250 ML IV SCH ×2 (12:09→23:25)
[2021-06-14 13:00] VITALS: BP 110/66
[2021-06-14 13:15] LABS: Hepatitis C Antibody Negative (Negative)
[2021-06-14 13:58] LABS: INR 1.53 (0.9-1.15); Partial Thromboplastin Time 30.2 sec (23.6-33.0)
[2021-06-14 17:08] VITALS: BP 110/61
[2021-06-14] MEDS: PANTOPRAZOLE 40 MG TAB PO SCH ×2 (17:33→23:01)
[2021-06-14] MEDS: HYDROcodone-ACET 5/325MG TAB PO PRN (17:53)
[2021-06-14 22:00] VITALS: BP 93/67
[2021-06-15 05:00] VITALS: BP 103/59
[2021-06-15 05:52] LABS: Basophils # (auto) 0 10 ^3/uL (0-0.2); Basophils % (auto) 0.3 % (0.0-2.0); Eosinophils # (auto) 0 10 ^3/uL (0-0.8); Hemoglobin 9.1 g/dL (13.5-17.5); White Blood Cell 4.8 10^3/uL (4.4-10.8)
[2021-06-15 05:56] LABS: Eosinophils % (auto) 0.6 % (0.0-7.0); Hematocrit 29.7 % (41.0-53.0); Lymphocytes % (auto) 20.2 % (10.0-50.0); Mean Corpuscular Hemoglobin 22.9 pg (28.0-32.0); Mean Corpuscular Hgb Conc. 30.7 g/dL (32.0-36.0); Mean Corpuscular Volume 74.6 fL (80.0-100.0); Monocytes # (auto) 0.6 10 ^3/uL (0-1.3); Monocytes % (auto) 12.3 % (0.0-12.0); Neutrophils # (auto) 3.2 10 ^3/uL (1.6-8.6); Neutrophils % (auto) 66.6 % (37.0-80.0); Red Blood Cells 3.98 10^6/uL (4.5-5.90)
[2021-06-15 06:14] LABS: Potassium 3.8 mmol/L (3.5-5.1)
[2021-06-15 06:19] LABS: Albumin 2.9 g/dL (3.4-5.0); BUN/Creatinine Ratio 23.7; Bilirubin, Total 1.6 mg/dL (0.2-1.0); Total Protein 7.2 g/dL (6.4-8.2)
[2021-06-15 06:21] LABS: Red Cell Distribution Width 23.6 % (11.8-14.3)
[2021-06-15] MEDS: ACCU-CHEK COMFORT CURVE STRIP VI SCH ×4 (06:53→23:10)
[2021-06-15] MEDS: InsuLIN REG 1unit/0.01ml Soln (100units/ml) SC SCH ×4 (06:53→23:13)
[2021-06-15 09:00] VITALS: BP 110/67
[2021-06-15] MEDS: cefTRIAXone 1GM/50ML D5W 50 ML IV SCH (09:03)
[2021-06-15] MEDS: HEPARIN SODIUM (PORCINE) 5000 UNITS/ML 1ML VIAL SC SCH ×2 (09:50→23:12)
[2021-06-15] MEDS: PANTOPRAZOLE 40 MG TAB PO SCH ×2 (09:50→23:11)
[2021-06-15] MEDS: metOLazone 5 MG TAB PO SCH (09:50)
[2021-06-15] MEDS: FUROSEMIDE 40 MG/4 ML VIAL IV SCH ×2 (09:50→23:11)
[2021-06-15] MEDS: DOXYCYCLINE 100MG/250ML 250 ML IV SCH ×2 (12:07→23:10)
[2021-06-15 12:53] VITALS: BP_SYST 110; BP_SYST 139; BP_DIAS 69; BP_DIAS 89
[2021-06-15 16:38] VITALS: BP 101/69
[2021-06-15] MEDS: SUCRALFATE 1 GM/10 ML ORAL SUSP PO SCH ×2 (17:23→23:11)
[2021-06-15 22:00] VITALS: BP 110/68
[2021-06-16 05:00] VITALS: BP 121/82
[2021-06-16] MEDS: InsuLIN REG 1unit/0.01ml Soln (100units/ml) SC SCH ×4 (06:48→21:46)
[2021-06-16] MEDS: SUCRALFATE 1 GM/10 ML ORAL SUSP PO SCH ×4 (06:48→22:21)
[2021-06-16] MEDS: ACCU-CHEK COMFORT CURVE STRIP VI SCH ×4 (06:49→21:46)
[2021-06-16 09:00] VITALS: BP 106/66
[2021-06-16] MEDS: metOLazone 5 MG TAB PO SCH (10:00)
[2021-06-16] MEDS: FUROSEMIDE 40 MG/4 ML VIAL IV SCH ×2 (10:00→22:22)
[2021-06-16] MEDS: PANTOPRAZOLE 40 MG TAB PO SCH ×2 (10:07→22:21)
[2021-06-16] MEDS: cefTRIAXone 1GM/50ML D5W 50 ML IV SCH (10:08)
[2021-06-16] MEDS: DOXYCYCLINE 100MG/250ML 250 ML IV SCH ×2 (11:30→23:05)
[2021-06-16] MEDS: HEPARIN SODIUM (PORCINE) 5000 UNITS/ML 1ML VIAL SC SCH ×2 (11:40→22:21)
[2021-06-16 13:00] VITALS: BP 106/63
[2021-06-16 17:00] VITALS: BP 112/64
[2021-06-16 21:52] VITALS: BP 116/67
[2021-06-17 05:00] VITALS: BP 98/58
[2021-06-17] MEDS: SUCRALFATE 1 GM/10 ML ORAL SUSP PO SCH ×4 (06:40→22:06)
[2021-06-17] MEDS: ACCU-CHEK COMFORT CURVE STRIP VI SCH ×4 (06:40→22:07)
[2021-06-17] MEDS: InsuLIN REG 1unit/0.01ml Soln (100units/ml) SC SCH ×4 (06:40→22:00)
[2021-06-17 09:00] VITALS: BP 103/59
[2021-06-17] MEDS: HYDROcodone-ACET 5/325MG TAB PO PRN (09:17)
[2021-06-17] MEDS: metOLazone 5 MG TAB PO SCH (09:17)
[2021-06-17] MEDS: FUROSEMIDE 40 MG/4 ML VIAL IV SCH ×2 (09:18→22:06)
[2021-06-17] MEDS: PANTOPRAZOLE 40 MG TAB PO SCH ×2 (09:18→22:06)
[2021-06-17] MEDS: HEPARIN SODIUM (PORCINE) 5000 UNITS/ML 1ML VIAL SC SCH ×2 (09:19→22:06)
[2021-06-17] MEDS: DOXYCYCLINE 100MG/250ML 250 ML IV SCH ×2 (11:55→23:15)
[2021-06-17 13:00] VITALS: BP 109/67
[2021-06-17 17:00] VITALS: BP 104/60
[2021-06-17 17:44] LABS: BUN/Creatinine Ratio 25.2; Calcium 8.2 mg/dL (8.5-10.1)
[2021-06-17] MEDS ORDERED: POTASSIUM CHLORIDE 40 MEQ, LIDOCAINE 1% (LOCAL ANESTH.) 4 ML in SODIUM CHL 0.9% 250 ML IV ONE (18:30)
[2021-06-17] MEDS ORDERED: POTASSIUM CHL 20 Meq TABLET PO ONE (18:30)
[2021-06-17 22:00] VITALS: BP 120/65
[2021-06-18 05:00] VITALS: BP 115/58
[2021-06-18] MEDS: InsuLIN REG 1unit/0.01ml Soln (100units/ml) SC SCH ×3 (06:33→17:00)
[2021-06-18] MEDS: SUCRALFATE 1 GM/10 ML ORAL SUSP PO SCH ×3 (06:33→17:00)
[2021-06-18] MEDS: ACCU-CHEK COMFORT CURVE STRIP VI SCH ×3 (06:33→17:00)
[2021-06-18 09:00] VITALS: BP 107/57
[2021-06-18] MEDS: PANTOPRAZOLE 40 MG TAB PO SCH (09:28)
[2021-06-18] MEDS: FUROSEMIDE 40 MG/4 ML VIAL IV SCH (09:28)
[2021-06-18] MEDS: metOLazone 5 MG TAB PO SCH (09:28)
[2021-06-18] MEDS: HYDROcodone-ACET 5/325MG TAB PO PRN (09:32)
[2021-06-18] MEDS: HEPARIN SODIUM (PORCINE) 5000 UNITS/ML 1ML VIAL SC SCH (09:37)
[2021-06-18 10:55] LABS: Potassium 3.9 mmol/L (3.5-5.1)
[2021-06-18 11:09] LABS: BUN/Creatinine Ratio 23.3; Calcium 8.1 mg/dL (8.5-10.1)
[2021-06-18 11:56] LABS: INR 1.29 (0.9-1.15); Partial Thromboplastin Time 32.5 sec (23.6-33.0)
[2021-06-18] MEDS: DOXYCYCLINE 100MG/250ML 250 ML IV SCH (12:00)
[2021-06-18 12:30] VITALS: BP 114/66
[2021-06-18 15:35] VITALS: BP 114/66
[2021-06-18 17:00] VITALS: BP 129/70
== END 2021-06-18 18:20 | disposition home or self-care (01) | DRG 133 ==
LOC: ER 15:19 → TELE 22:19 → TELE-WESTW 23:41
PROVIDERS: ADMIT Nurse Practitioner Family; ATTEND Nurse Practitioner Family
DX: J96.01 Acute respiratory failure with hypoxia (principal); N17.0 Acute kidney failure with tubular necrosis; I50.23 Acute on chronic systolic (congestive) heart failure; R18.8 Other ascites; I42.8 Other cardiomyopathies; E44.0 Moderate protein-calorie malnutrition; D63.1 Anemia in chronic kidney disease; N18.4 Chronic kidney disease, stage 4 (severe); E11.22 Type 2 diabetes mellitus with diabetic chronic kidney disease; I13.0 Hypertensive heart and chronic kidney disease with heart failure and stage 1 through stage 4 chronic kidney disease, or unspecified chronic kidney disease; D64.9 Anemia, unspecified; R80.9 Proteinuria, unspecified; E03.9 Hypothyroidism, unspecified; E66.01 Morbid (severe) obesity due to excess calories; E78.5 Hyperlipidemia, unspecified; E87.5 Hyperkalemia; N50.89 Other specified disorders of the male genital organs; K21.9 Gastro-esophageal reflux disease without esophagitis; R14.0 Abdominal distension (gaseous); R31.9 Hematuria, unspecified; Z20.822 Contact with and (suspected) exposure to COVID-19; N39.0 Urinary tract infection, site not specified; N48.89 Other specified disorders of penis; Z68.34 Body mass index [BMI] 34.0-34.9, adult; Z79.899 Other long term (current) drug therapy; Z80.3 Family history of malignant neoplasm of breast; Z82.49 Family history of ischemic heart disease and other diseases of the circulatory system; Z95.810 Presence of automatic (implantable) cardiac defibrillator
CPT/HCPCS: 36415; 36600; 71045; 74176; 76700; 76705; 76775; 80048; 80053; 81001; 82306; 82805; 82962; 83880; 83970; 84484; 85025; 85610; 85730; 86803; 87086; 87088; 87186; 87340; 87426; 93005; 96374; 97116; 97162; 97530; G0378; J0696; J1815; J2001; J3490; P9047

== ENCOUNTER 2022-02-08 14:29 | Emergency (ER) | payer MEDICAID ==
[~2022-02-08] VITALS: Ht 172.7 cm; Wt 84.4 kg
[~2022-02-08 14:29] MED LIST changes: -BLOO1KIT60 XX; -INSLANTI SC; -INSREGI SC; -INSU-831 XX; -LANC-347 XX; -LANC30MI13 XX; -LOSA25TA38 PO; -POTA-220 PO; -SPIR25TA8 PO
[2022-02-08 14:46] VITALS: BP 115/53
[2022-02-08] MEDS ORDERED: CEPH-509 PO (17:38)
[2022-02-08] MEDS ORDERED: ACE3T PO (17:39)
[2022-02-08] MEDS ORDERED: HYDROcodone-ACET 5/325MG TAB PO ONE (17:45)
[2022-02-08] MEDS ORDERED: ONDANSETRON ODT 4 MG TAB PO ONE (17:45)
[2022-02-08] MEDS ORDERED: cefTRIAXone SOD 1,000 MG VL IM ONE (17:45)
[2022-02-08] MEDS ORDERED: TETANUS-DIPTH-ACEL PERTUSSIS 0.5ML SYR Tdap IM ONE (18:00)
== END 2022-02-08 22:06 | disposition home or self-care (01) ==
LOC: ER 14:29
DX: S60.361A Insect bite (nonvenomous) of right thumb, initial encounter (principal); L03.011 Cellulitis of right finger; I11.0 Hypertensive heart disease with heart failure; I50.9 Heart failure, unspecified; E11.9 Type 2 diabetes mellitus without complications; K21.9 Gastro-esophageal reflux disease without esophagitis; E78.5 Hyperlipidemia, unspecified; Z87.891 Personal history of nicotine dependence; Z79.82 Long term (current) use of aspirin; Z79.899 Other long term (current) drug therapy; W57.XXXA Bitten or stung by nonvenomous insect and other nonvenomous arthropods, initial encounter; Y93.89 Activity, other specified; Y92.89 Other specified places as the place of occurrence of the external cause; Y99.8 Other external cause status
CPT/HCPCS: 90471; 90715; 96372; 99284; J0696; Q0162

== ENCOUNTER 2024-02-19 16:10 | Inpatient (IN) | payer MEDICAID ==
[~2024-02-19] VITALS: Ht 172.7 cm; Wt 82.1 kg
[~2024-02-19 16:10] MED LIST changes: +ACE3T PO; +CEPH-509 PO; +EMPA1TAB PO; +FURO40TA4 PO; +METO2.5T PO; +SACU1TAB7 PO; +SIMV10TA20 PO; -SIMV10TA84 PO; +SPIR25TA8 PO
[2024-02-19] MEDS: FUROSEMIDE 40 MG/4 ML VIAL IV ONE (17:23)
[2024-02-19 18:09] LABS: Basophils # (auto) 0 10 ^3/uL (0-0.2); Basophils % (auto) 0.9 % (0.0-2.0); Eosinophils # (auto) 0 10 ^3/uL (0-0.8); Eosinophils % (auto) 1.2 % (0.0-7.0); Hematocrit 44.2 % (41.0-53.0); Hemoglobin 14.5 g/dL (13.5-17.5); Lymphocytes % (auto) 24.2 % (10.0-50.0); Mean Corpuscular Hemoglobin 30.2 pg (28.0-32.0); Mean Corpuscular Hgb Conc. 32.7 g/dL (32.0-36.0); Mean Corpuscular Volume 92.3 fL (80.0-100.0); Monocytes # (auto) 0.3 10 ^3/uL (0-1.3); Monocytes % (auto) 8.1 % (0.0-12.0); Neutrophils # (auto) 2.7 10 ^3/uL (1.6-8.6); Neutrophils % (auto) 65.6 % (37.0-80.0); Nucleated Red Blood Cells % 0.4 %; Red Blood Cells 4.79 10^6/uL (4.5-5.90); Red Cell Distribution Width 15.6 % (11.8-14.3); White Blood Cell 4.1 10^3/uL (4.4-10.8)
[2024-02-19 18:29] LABS: Alanine Aminotransferase 92 U/L (7-40); Albumin 4.2 g/dL (3.2-4.8); Alkaline Phosphatase 150 U/L (46-116); Anion Gap 12 (5-15); Aspartate Aminotransferase 35 U/L (13-40); BUN/Creatinine Ratio 14.8 (10.0-20.0); Bilirubin, Total 1.9 mg/dL (0.2-1.0); Blood Urea Nitrogen 26 mg/dL (9-23); Calcium 9.5 mg/dL (8.7-10.4); Carbon Dioxide 22 mmol/L (20-30); Chloride 101 mmol/L (98-107); Glucose 111 mg/dL (74-106); Potassium 4.1 mmol/L (3.5-5.1); Sodium 135 mmol/L (136-145); Total Protein 7.3 g/dL (5.7-8.2)
[2024-02-19 18:33] LABS: Lactic Acid w/Reflex 2.5 mmol/L (0.4-2.0)
[2024-02-20] VITALS (9 sets, daily range): BP systolic 105–110; BP diastolic 66–71; PULSE 74–85; RESP 17–20; TEMP 97.5–98.5; O2SAT 96–99
[2024-02-20] MEDS ORDERED: MORPHINE SULFATE INJ 2 MG/ml SYRG IV PRN
[2024-02-20] MEDS ORDERED: NITROGLYCERIN 0.4 MG SL TAB SL PRN
[2024-02-20] MEDS ORDERED: ONDANSETRON HCL 4 MG/2 ML VIAL IV PRN ×2 (00:15→08:45)
[2024-02-20] MEDS ORDERED: TEMAZEPAM 15 MG CAP PO PRN (00:15)
[2024-02-20] MEDS ORDERED: DEXTROSE (50%) 50ML SYRG IV PRN (00:15)
[2024-02-20 01:48] LABS: Urine Bacteria None Seen /hpf (None Seen)
[2024-02-20 01:58] LABS: Urine Blood Negative /uL (Negative); Urine Clarity Clear (Clear); Urine Color Yellow (Yellow); Urine Protein, UAD TRACE (Negative); Urine Specific Gravity 1.015 (1.001-1.035); Urine Urobilinogen 4 mg/dL (Negative); Urine WBC 1 /hpf (0 - 3); Urine pH 5.5 (5.0-9.0)
[2024-02-20] MEDS: InsuLIN REG 1unit/0.01ml Soln (100units/ml) SC SCH (07:00)
[2024-02-20] MEDS: ACCU-CHEK COMFORT CURVE STRIP VI SCH (07:05)
[2024-02-20] MEDS ORDERED: ACETAMINOPHEN 500 MG TAB PO PRN (08:45)
[2024-02-20 09:00] LABS: Basophils # (auto) 0 10 ^3/uL (0-0.2); Basophils % (auto) 0.8 % (0.0-2.0); Eosinophils # (auto) 0 10 ^3/uL (0-0.8); Hematocrit 46.9 % (41.0-53.0); Lymphocytes % (auto) 23.1 % (10.0-50.0); Mean Corpuscular Hemoglobin 29.9 pg (28.0-32.0); Mean Corpuscular Hgb Conc. 31.9 g/dL (32.0-36.0); Mean Corpuscular Volume 93.7 fL (80.0-100.0); Monocytes # (auto) 0.3 10 ^3/uL (0-1.3); Monocytes % (auto) 6.8 % (0.0-12.0); Neutrophils % (auto) 68.3 % (37.0-80.0); Nucleated Red Blood Cells % 0.4 %; Red Blood Cells 5.01 10^6/uL (4.5-5.90); Red Cell Distribution Width 15.9 % (11.8-14.3); White Blood Cell 4.3 10^3/uL (4.4-10.8)
[2024-02-20 09:06] LABS: Chloride 101 mmol/L (98-107); Sodium 134 mmol/L (136-145)
[2024-02-20 09:07] LABS: Anion Gap 11 (5-15); Calcium 9.5 mg/dL (8.7-10.4); Carbon Dioxide 22 mmol/L (20-30)
[2024-02-20 09:12] LABS: BUN/Creatinine Ratio 15.2 (10.0-20.0); Blood Urea Nitrogen 26 mg/dL (9-23); Glucose 113 mg/dL (74-106)
[2024-02-20] MEDS: SACUBITRIL-VALSARTAN 24mg/26mg TAB PO SCH (10:00)
[2024-02-20] MEDS: SPIRONOLACTONE 25 MG TAB PO SCH (10:00)
[2024-02-20] MEDS: ASPirin 81 mg TAB PO SCH (10:01)
[2024-02-20] MEDS: CARVEDILOL 3.125 MG TAB PO SCH (10:02)
[2024-02-20] MEDS: MORPHINE SULFATE INJ 2 MG/ml SYRG IV PRN (10:07)
[2024-02-20] MEDS: FUROSEMIDE 40 MG/4 ML VIAL IV SCH ×2 (10:10→17:36)
[2024-02-20] MEDS: ATORVASTATIN 20 MG TAB PO SCH (21:23)
[2024-02-21] VITALS (10 sets, daily range): BP systolic 99–113; BP diastolic 68–79; PULSE 75–90; RESP 17–19; TEMP 97–98.5; O2SAT 97–100
[2024-02-21] MEDS: HYDROcodone-ACET 5/325MG TAB PO PRN (06:40)
[2024-02-21 07:05] LABS: Calcium 9.2 mg/dL (8.7-10.4); Chloride 100 mmol/L (98-107); Potassium 3.6 mmol/L (3.5-5.1); Sodium 135 mmol/L (136-145)
[2024-02-21 07:06] LABS: Anion Gap 8 (5-15); Carbon Dioxide 27 mmol/L (20-30)
[2024-02-21 07:11] LABS: BUN/Creatinine Ratio 17.8 (10.0-20.0); Blood Urea Nitrogen 29 mg/dL (9-23); Glucose 123 mg/dL (74-106)
[2024-02-21 13:17] LABS: Free T3 2.63 pg/mL (2.3-4.2); Free T4 (Free Thyroxine) 1.31 ng/dL (0.89-1.76)
[2024-02-21] MEDS ORDERED: FERR325T20 PO (14:35)
[2024-02-22 01:00] VITALS: BP 110/72; PULSE 79; RESP 17; TEMP 97.5; O2SAT 100
[2024-02-22 05:00] VITALS: BP 120/75; PULSE 74; RESP 16; TEMP 98.3; O2SAT 94
[2024-02-22 06:44] LABS: Alanine Aminotransferase 64 U/L (7-40); Albumin 3.9 g/dL (3.2-4.8); Alkaline Phosphatase 142 U/L (46-116); Anion Gap 9 (5-15); Aspartate Aminotransferase 24 U/L (13-40); BUN/Creatinine Ratio 16.1 (10.0-20.0); Blood Urea Nitrogen 26 mg/dL (9-23); Calcium 9.3 mg/dL (8.7-10.4); Carbon Dioxide 28 mmol/L (20-30); Chloride 100 mmol/L (98-107); Glucose 93 mg/dL (74-106); Potassium 4.1 mmol/L (3.5-5.1); Sodium 137 mmol/L (136-145)
[2024-02-22 06:45] LABS: Total Protein 7.3 g/dL (5.7-8.2)
[2024-02-22 08:00] VITALS: BP 124/79; PULSE 79; PULSE 80; RESP 16; TEMP 98.7; O2SAT 100
[2024-02-22 08:23] LABS: Basophils # (auto) 0 10 ^3/uL (0-0.2); Basophils % (auto) 0.5 % (0.0-2.0); Eosinophils # (auto) 0.1 10 ^3/uL (0-0.8); Eosinophils % (auto) 1.4 % (0.0-7.0); Hematocrit 43.6 % (41.0-53.0); Hemoglobin 14.3 g/dL (13.5-17.5); Lymphocytes # (auto) 0.9 10 ^3/uL (0.4-5.4); Lymphocytes % (auto) 19.3 % (10.0-50.0); Mean Corpuscular Hemoglobin 30.3 pg (28.0-32.0); Mean Corpuscular Hgb Conc. 32.9 g/dL (32.0-36.0); Monocytes # (auto) 0.3 10 ^3/uL (0-1.3); Monocytes % (auto) 6.9 % (0.0-12.0); Neutrophils # (auto) 3.2 10 ^3/uL (1.6-8.6); Neutrophils % (auto) 71.9 % (37.0-80.0); Nucleated Red Blood Cells % 0.2 %; Red Blood Cells 4.74 10^6/uL (4.5-5.90); Red Cell Distribution Width 15.3 % (11.8-14.3); White Blood Cell 4.5 10^3/uL (4.4-10.8)
[2024-02-22] MEDS ORDERED: HYDR-4902 PO (10:54)
[2024-02-22 12:48] VITALS: BP 124/79; PULSE 79; TEMP 36.8
[2024-02-22 13:00] VITALS: BP 97/60; PULSE 77; RESP 18; TEMP 97.6; O2SAT 99
== END 2024-02-22 15:55 | disposition home or self-care (01) | DRG 194 ==
LOC: ER 16:10 → TELE 23:53 → TELE-WESTW 02-20 02:30
PROVIDERS: ADMIT Internal Medicine Geriatric Medicine; ATTEND Internal Medicine Geriatric Medicine
DX: I13.0 Hypertensive heart and chronic kidney disease with heart failure and stage 1 through stage 4 chronic kidney disease, or unspecified chronic kidney disease (principal); R18.8 Other ascites; I27.20 Pulmonary hypertension, unspecified; E87.1 Hypo-osmolality and hyponatremia; E11.22 Type 2 diabetes mellitus with diabetic chronic kidney disease; K76.9 Liver disease, unspecified; I50.23 Acute on chronic systolic (congestive) heart failure; E78.5 Hyperlipidemia, unspecified; K21.9 Gastro-esophageal reflux disease without esophagitis; I25.10 Atherosclerotic heart disease of native coronary artery without angina pectoris; N18.32 Chronic kidney disease, stage 3b; Z87.891 Personal history of nicotine dependence; Z95.0 Presence of cardiac pacemaker; Z80.0 Family history of malignant neoplasm of digestive organs; Z82.49 Family history of ischemic heart disease and other diseases of the circulatory system; Z98.61 Coronary angioplasty status; Z80.3 Family history of malignant neoplasm of breast
CPT/HCPCS: 36415; 71045; 74176; 76705; 80048; 80053; 81001; 82306; 82607; 82962; 83036; 83605; 83690; 83880; 84439; 84443; 84481; 84484; 85025; 93005; 93306; G0378; J1815

== ENCOUNTER 2024-04-24 17:14 | Inpatient (IN) | payer MEDICAID ==
[~2024-04-24] VITALS: Ht 172.7 cm; Wt 88.3 kg
[~2024-04-24 17:14] MED LIST changes: -ACE3T PO; -CEPH-509 PO; +FERR325T20 PO; -FURO1TAB31 PO; +HYDR-4902 PO; -SACU1TAB PO
[2024-04-24 18:35] VITALS: PULSE 87; RESP 22; O2SAT 98
[2024-04-24 19:23] LABS: Basophils # (auto) 0 10 ^3/uL (0-0.2); Basophils % (auto) 0.2 % (0.0-2.0); Eosinophils # (auto) 0 10 ^3/uL (0-0.8); Eosinophils % (auto) 0.1 % (0.0-7.0); Hematocrit 41.5 % (41.0-53.0); Hemoglobin 13.7 g/dL (13.5-17.5); Lymphocytes # (auto) 0.5 10 ^3/uL (0.4-5.4); Lymphocytes % (auto) 5.9 % (10.0-50.0); Mean Corpuscular Hemoglobin 28.6 pg (28.0-32.0); Mean Corpuscular Volume 86.6 fL (80.0-100.0); Monocytes # (auto) 0.5 10 ^3/uL (0-1.3); Monocytes % (auto) 6.3 % (0.0-12.0); Neutrophils # (auto) 6.9 10 ^3/uL (1.6-8.6); Neutrophils % (auto) 87.5 % (37.0-80.0); Nucleated Red Blood Cells % 0.3 %; Platelet Count (auto) 204 10^3/uL (140-450); Red Blood Cells 4.79 10^6/uL (4.5-5.90); Red Cell Distribution Width 18.8 % (11.8-14.3); White Blood Cell 7.9 10^3/uL (4.4-10.8)
[2024-04-24 19:25] VITALS: PULSE 87; RESP 25; O2SAT 99
[2024-04-24 19:41] LABS: Alanine Aminotransferase 33 U/L (7-40); Albumin 3.5 g/dL (3.2-4.8); Alkaline Phosphatase 195 U/L (46-116); Carbon Dioxide 19 mmol/L (20-31); Chloride 103 mmol/L (98-107)
[2024-04-24 19:42] LABS: Anion Gap 11 (5-15); Aspartate Aminotransferase 36 U/L (13-40); BUN/Creatinine Ratio 41.1 (10.0-20.0); Bilirubin, Total 5.4 mg/dL (0.2-1.0); Blood Urea Nitrogen 60 mg/dL (9-23); Glucose 100 mg/dL (74-106); Potassium 4.5 mmol/L (3.5-5.1); Sodium 133 mmol/L (136-145); Total Protein 6.8 g/dL (5.7-8.2)
[2024-04-24 20:58] LABS: Erythrocyte Sedimentation Rate 25 mm/hr (0-20)
[2024-04-24] MEDS: CLINDAMYCIN 900MG IV 50 ML IV ONE (21:12)
[2024-04-24] MEDS: HYDROcodone-ACET 5/325MG TAB PO ONE (22:47)
[2024-04-24] MEDS: FUROSEMIDE 40 MG/4 ML VIAL IV ONE (22:48)
[2024-04-24] MEDS ORDERED: MORPHINE SULFATE INJ 2 MG/ml SYRG IV PRN (23:30)
[2024-04-24] MEDS ORDERED: NITROGLYCERIN 0.4 MG SL TAB SL PRN (23:30)
[2024-04-24] MEDS ORDERED: ONDANSETRON HCL 4 MG/2 ML VIAL IV PRN (23:30)
[2024-04-24] MEDS ORDERED: DEXTROSE (50%) 50ML SYRG IV PRN (23:30)
[2024-04-25 03:22] LABS: Urine Bacteria None Seen /hpf (None Seen)
[2024-04-25 03:58] LABS: Urine Blood Negative /uL (Negative); Urine Clarity Clear (Clear); Urine Color Yellow (Yellow); Urine Hyaline Cast FEW /lpf (0 - 2); Urine Protein, UAD Negative (Negative); Urine Specific Gravity 1.013 (1.001-1.035); Urine Urobilinogen 6 mg/dL (Negative); Urine WBC 2 /hpf (0 - 3)
[2024-04-25 04:40] LABS: Calcium 9.1 mg/dL (8.7-10.4); Chloride 104 mmol/L (98-107); Potassium 4.2 mmol/L (3.5-5.1); Sodium 132 mmol/L (136-145)
[2024-04-25 04:41] LABS: Anion Gap 10 (5-15); Carbon Dioxide 18 mmol/L (20-31)
[2024-04-25 04:44] LABS: Basophils # (auto) 0 10 ^3/uL (0-0.2); Eosinophils # (auto) 0 10 ^3/uL (0-0.8)
[2024-04-25 04:46] LABS: BUN/Creatinine Ratio 26.9 (10.0-20.0); Glucose 115 mg/dL (74-106)
[2024-04-25 04:49] LABS: Eosinophils % (auto) 0.1 % (0.0-7.0); Lymphocytes # (auto) 0.6 10 ^3/uL (0.4-5.4)
[2024-04-25 04:52] LABS: Basophils % (auto) 0.1 % (0.0-2.0); Hematocrit 44.4 % (41.0-53.0); Hemoglobin 14.4 g/dL (13.5-17.5); Lymphocytes % (auto) 7.1 % (10.0-50.0); Mean Corpuscular Hemoglobin 28.9 pg (28.0-32.0); Mean Corpuscular Hgb Conc. 32.4 g/dL (32.0-36.0); Mean Corpuscular Volume 89.2 fL (80.0-100.0); Monocytes # (auto) 0.6 10 ^3/uL (0-1.3); Monocytes % (auto) 7.2 % (0.0-12.0); Neutrophils # (auto) 7.2 10 ^3/uL (1.6-8.6); Neutrophils % (auto) 85.5 % (37.0-80.0); Nucleated Red Blood Cells % 0.4 %; Platelet Count (auto) 179 10^3/uL (140-450); Red Blood Cells 4.98 10^6/uL (4.5-5.90); White Blood Cell 8.4 10^3/uL (4.4-10.8)
[2024-04-25 04:53] LABS: Red Cell Distribution Width 20.2 % (11.8-14.3)
[2024-04-25 04:55] LABS: Blood Urea Nitrogen 39 mg/dL (9-23)
[2024-04-25] MEDS: CLINDAMYCIN 600MG IV 50 ML IV SCH (06:14)
[2024-04-25] MEDS: FUROSEMIDE 20 MG/2 ML VIAL IV SCH (06:15)
[2024-04-25] MEDS: InsuLIN REG 1unit/0.01ml Soln (100units/ml) SC SCH (07:00)
[2024-04-25] MEDS: ACCU-CHEK COMFORT CURVE STRIP VI SCH (07:19)
[2024-04-25] MEDS ORDERED: ENOXAPARIN SOD 30 MG/0.3 ML SYRINGE SC SCH (10:00)
[2024-04-25] MEDS: SILVER SULFADIAZINE 1 % TOPICAL CREAM 50GM TOP SCH (10:00)
[2024-04-25 10:12] LABS: Amphetamine Screen, Urine Neg (NEGATIVE); Barbiturate Scree,Urine Neg (NEGATIVE); Benzodiazephine Screen, Urine Neg (NEGATIVE)
[2024-04-25 10:13] LABS: Cannabinoid Screen, Urine Neg (NEGATIVE); Cocaine Screen, Urine Neg (NEGATIVE); Opiate Scree,Urine Neg (NEGATIVE); Phencyclidine Screen, Urine Neg (NEGATIVE)
[2024-04-25] MEDS: SACUBITRIL-VALSARTAN 24mg/26mg TAB PO SCH (10:21)
[2024-04-25] MEDS: SPIRONOLACTONE 25 MG TAB PO SCH (10:21)
[2024-04-25] MEDS: ASPirin 81 mg TAB PO SCH (10:22)
[2024-04-25] MEDS: AMIODARONE HCL 200 MG TAB PO SCH (10:22)
[2024-04-25] MEDS: ENOXAPARIN SOD 40 MG/0.4 ML SYRINGE SC SCH (10:24)
[2024-04-25] MEDS ORDERED: VANCOMYCIN PER PHARMACY 0 MG IV SCH (11:45)
[2024-04-25 12:15] VITALS: BP 91/57; PULSE 86; RESP 17; TEMP 97.6; O2SAT 95
[2024-04-25] MEDS: ASPirin 81 mg TAB PO ONE (12:43)
[2024-04-25] MEDS ORDERED: AMPICILLIN & SULBACTAM SODIUM 3 GM in SODIUM CHL 0.9% 100 ML IV SCH (14:45)
[2024-04-25] MEDS ORDERED: CEFEPIME 2GM/50ML NS 50 ML IV ONE (14:45)
[2024-04-25 16:49] VITALS: BP 99/64; PULSE 79; RESP 18; TEMP 97.4; O2SAT 96
[2024-04-25] MEDS: AMPICILLIN & SULBACTAM SODIUM 3 GM in SODIUM CHL 0.9% 100 ML IV SCH (17:45)
[2024-04-25 20:00] VITALS: PULSE 91
[2024-04-25 20:05] VITALS: PULSE 95; RESP 18; O2SAT 97
[2024-04-25 21:00] VITALS: BP 89/59; PULSE 61; RESP 21; TEMP 97.6; O2SAT 92
[2024-04-25] MEDS: ATORVASTATIN 20 MG TAB PO SCH (21:09)
[2024-04-25] MEDS ORDERED: CEFEPIME 2GM/50ML NS 50 ML IV SCH (22:00)
[2024-04-25] MEDS ORDERED: ATORVASTATIN 20 MG TAB PO SCH (22:00)
[2024-04-26] VITALS (8 sets, daily range): BP systolic 96–105; BP diastolic 55–68; PULSE 76–98; RESP 18–19; TEMP 97.4–98.1; O2SAT 91–100
[2024-04-26] MEDS: FUROSEMIDE 20 MG TAB PO SCH (11:01)
[2024-04-26] MEDS: ACETAMINOPHEN 325 MG TAB PO PRN (11:02)
[2024-04-26] MEDS: ASPirin 81 mg TAB PO SCH (11:03)
[2024-04-27] VITALS (8 sets, daily range): BP systolic 96–134; BP diastolic 65–77; PULSE 54–98; RESP 16–19; TEMP 97.6–98.8; O2SAT 90–100
[2024-04-28] VITALS (8 sets, daily range): BP systolic 92–124; BP diastolic 58–80; PULSE 58–104; RESP 17–19; TEMP 97.1–98.4; O2SAT 93–100
[2024-04-28 06:23] LABS: Basophils # (auto) 0 10 ^3/uL (0-0.2); Basophils % (auto) 0.2 % (0.0-2.0); Eosinophils # (auto) 0 10 ^3/uL (0-0.8); Eosinophils % (auto) 0.2 % (0.0-7.0); Hematocrit 39.2 % (41.0-53.0); Lymphocytes # (auto) 0.5 10 ^3/uL (0.4-5.4); Lymphocytes % (auto) 8.8 % (10.0-50.0); Mean Corpuscular Hemoglobin 28.5 pg (28.0-32.0); Mean Corpuscular Hgb Conc. 33.2 g/dL (32.0-36.0); Mean Corpuscular Volume 85.9 fL (80.0-100.0); Monocytes # (auto) 0.5 10 ^3/uL (0-1.3); Monocytes % (auto) 9.4 % (0.0-12.0); Neutrophils # (auto) 4.5 10 ^3/uL (1.6-8.6); Neutrophils % (auto) 81.4 % (37.0-80.0); Nucleated Red Blood Cells % 0.2 %; Platelet Count (auto) 240 10^3/uL (140-450); Red Blood Cells 4.56 10^6/uL (4.5-5.90); Red Cell Distribution Width 19.2 % (11.8-14.3); White Blood Cell 5.5 10^3/uL (4.4-10.8)
[2024-04-28 06:45] LABS: Chloride 104 mmol/L (98-107); Potassium 4.1 mmol/L (3.5-5.1); Sodium 135 mmol/L (136-145)
[2024-04-28 06:46] LABS: Anion Gap 8 (5-15); Calcium 8.6 mg/dL (8.7-10.4); Carbon Dioxide 23 mmol/L (20-31)
[2024-04-28 06:51] LABS: Blood Urea Nitrogen 34 mg/dL (9-23); Glucose 92 mg/dL (74-106)
[2024-04-28 06:58] LABS: BUN/Creatinine Ratio 28.3 (10.0-20.0)
[2024-04-29] VITALS (7 sets, daily range): BP systolic 94–140; BP diastolic 60–87; PULSE 91–103; RESP 18–20; TEMP 97.3–98.5; O2SAT 91–100
[2024-04-30] VITALS (7 sets, daily range): BP systolic 98–119; BP diastolic 63–72; PULSE 63–99; RESP 18–20; TEMP 96.3–97.8; O2SAT 92–99
[2024-04-30] MEDS: DOXYCYCLINE 100 MG TAB/CAP PO SCH (21:36)
[2024-05-01] VITALS (8 sets, daily range): BP systolic 93–119; BP diastolic 51–79; PULSE 88–96; RESP 18–22; TEMP 96.2–98.3; O2SAT 87–100
[2024-05-02] VITALS (8 sets, daily range): BP systolic 90–153; BP diastolic 55–69; PULSE 61–91; RESP 16–20; TEMP 97.6–99.1; O2SAT 93–99
[2024-05-03] VITALS (7 sets, daily range): BP systolic 104–122; BP diastolic 58–78; PULSE 51–89; RESP 16–19; TEMP 97.3–98; O2SAT 91–99
[2024-05-03 06:22] LABS: Anion Gap 9 (5-15); Calcium 8.6 mg/dL (8.7-10.4); Carbon Dioxide 20 mmol/L (20-31); Chloride 104 mmol/L (98-107); Potassium 4.2 mmol/L (3.5-5.1); Sodium 133 mmol/L (136-145)
[2024-05-03 06:28] LABS: BUN/Creatinine Ratio 24.7 (10.0-20.0); Blood Urea Nitrogen 39 mg/dL (9-23); Glucose 85 mg/dL (74-106)
[2024-05-03] MEDS ORDERED: AUG875T PO (09:28)
== END 2024-05-03 19:15 | disposition home health service (06) | DRG 194 ==
LOC: ER 17:15 → TELE 23:26 → TELE-WESTW 04-25 12:25
PROVIDERS: ADMIT Nurse Practitioner; ATTEND Nurse Practitioner Acute Care
DX: I13.0 Hypertensive heart and chronic kidney disease with heart failure and stage 1 through stage 4 chronic kidney disease, or unspecified chronic kidney disease (principal); I21.A1 Myocardial infarction type 2; L03.115 Cellulitis of right lower limb; I27.20 Pulmonary hypertension, unspecified; E87.1 Hypo-osmolality and hyponatremia; I50.23 Acute on chronic systolic (congestive) heart failure; L03.116 Cellulitis of left lower limb; E11.22 Type 2 diabetes mellitus with diabetic chronic kidney disease; N18.32 Chronic kidney disease, stage 3b; F41.9 Anxiety disorder, unspecified; K21.9 Gastro-esophageal reflux disease without esophagitis; I25.10 Atherosclerotic heart disease of native coronary artery without angina pectoris; I48.91 Unspecified atrial fibrillation; I34.0 Nonrheumatic mitral (valve) insufficiency; I50.84 End stage heart failure; Z95.0 Presence of cardiac pacemaker; Z80.3 Family history of malignant neoplasm of breast; Z82.49 Family history of ischemic heart disease and other diseases of the circulatory system; Z80.0 Family history of malignant neoplasm of digestive organs
CPT/HCPCS: 36415; 70450; 71045; 80048; 80053; 80307; 81001; 82962; 83605; 83880; 84443; 84484; 85025; 85652; 86141; 87077; 87186; 87205; 93005; 93925; 93970; 97110; 97116; 97530; G0378; J1815; J3490

== ENCOUNTER 2024-06-03 09:16 | Inpatient (IN) | payer MEDICAID ==
[~2024-06-03] VITALS: Ht 170.2 cm; Wt 78.5 kg
[~2024-06-03 09:16] MED LIST changes: +AUG875T PO; +SACU1TAB PO
--- NOTE | 2024-06-03 09:53 | ED.PDOC ---
History of Present Illness HPI Comments 64-year-old male with PMHx CHF, DM, CKF, HTN, PNA, Anemia brought in by EMS presents with a chief complaint of SOB and body pain x "a few days". Patient was just seen here in the ER in April 2024 and frequently visits the ER. Patient reports that he feels like he cannot breathe. Patient states that his body pain is "all over". No other symptoms or modifying factors present at this time. Chief Complaint: General Weakness Time Seen by MD: 09:45 Primary Care Provider: CLAUDIO Reviewed Notes: Nurses Notes, Medications, Allergies Allergies: Coded Allergies: NO KNOWN ALLERGIES (Unverified , 08/11/20) Home Meds Active Scripts Amoxicillin & Pot Clavulanate (AUGMENTIN TABLET) 875 Mg Tb, 875 MG PO BID for 5 Days, #10 TAB Prov:LONI WHITLEY NP 05/03/24 Hydrocodone-Acetaminophen (Hydrocodone Bitartrate/AC 5-325 mg) 1 Tab Tab, 1 TAB PO Q6HP PRN, #20 TAB Prov:NERISSA SALTER MD 02/22/24 Carvedilol (Carvedilol) 3.125 Mg Tab, 3.125 MG PO BID, #60 MG Prov:NATANAEL AKBAR MD 08/14/20 Omeprazole (Gnp Omeprazole) 20 Mg Tab, 20 MG PO DAILY, #30 TAB Prov:NATANAEL AKBAR MD 08/14/20 Simvastatin (Simvastatin) 10 Mg Tab, 10 MG PO HS for 30 Days, #30 MG Prov:NATANAEL AKBAR MD 08/14/20 Aspirin (Aspir-Low) 81 Mg Tab, 81 MG PO DAILY for 30 Days, #30 MG Prov:NATANAEL AKBAR MD 08/14/20 Reported Medications Metolazone (Metolazone) 2.5 Mg Tab, 1 TAB PO QAM for 90 Days, #90 02/21/24 Empagliflozin (Jardiance) 10 Mg Tab, 1 TAB PO DAILY for 90 Days, #90 02/21/24 Ferrous Sulfate (Ferosul) 325 Mg Tab, 1 TAB PO DAILY 02/21/24 Spironolactone (Spironolactone) 25 Mg Tab, 1 TAB PO DAILY for 30 Days, #30 02/21/24 Sacubitril-Valsartan (Entresto 49-51 mg) 1 Tab Tab, 1 TAB PO BID for 90 Days 02/21/24 Furosemide (Furosemide) 40 Mg Tab, 1 TAB PO BID for 90 Days, #180 5 Refills 02/21/24 Amiodarone Hcl (Amiodarone Hcl) 200 Mg Tab, 200 MG PO DAILY for 30 Days 03/29/21 Metformin Hydrochloride (Metformin Hcl) 500 Mg Tab, 1 TAB PO BIDWM 01/22/21 Information Source: Patient Mode of Arrival: EMS Severity: Moderate Timing: Days Duration: Intermittent Prehospital treatment: None Past Medical History PAST MEDICAL HISTORY: CHF, DM, GERD, High Lipids, HTN Surgical History: Hernia Repair, Pacemaker Family History Family History: Unknown Social History Smoker: Non-Smoker, Quit Greater Than 1 Year Alcohol: Occasionally Drugs: Denies Drug Use Lives In: Home Constitutional: reports: others (BODY PAIN); denies: chills, diaphoresis, fatigue, fever, malaise, sweats, weakness EENTM: denies: blurred vision, double vision, ear bleeding, ear discharge, ear drainage, ear pain, ear ringing, eye pain, eye redness, hearing loss, mouth pain, mouth swelling, nasal discharge, nose bleeding, nose congestion, nose pain, photophobia, tearing, throat pain, throat swelling, voice changes, others Respiratory: reports: shortness of breath; denies: cough, hemoptysis, orthopnea, SOB at rest, SOB with excertion, stridor, wheezing, others Cardiovascular: denies: chest pain, dizzy spells, diaphoresis, Dyspnea on exertion, edema, irregular heart beat, left arm pain, lightheadedness, palpitations, PND, syncope, others Gastrointestinal: denies: abdomen distended, abdominal pain, blood streaked bowels, constipated, diarrhea, dysphagia, difficulty swallowing, hematemesis, melena, nausea, poor appetite, poor fluid intake, rectal bleeding, rectal pain, vomiting, others Genitourinary: denies: burning, dysuria, flank pain, frequency, hematuria, incontinence, penile discharge, penile sore, pain, testicle pain, testicle swelling, urgency, others Neurological: denies: dizziness, fainting, headache, left sided numbness, left sided weakness, numbness, paresthesia, pre-existing deficit, right sided numbness, right sided weakness, seizure, speech problems, tingling, tremors, weakness, others Musculoskeletal: denies: back pain, gout, joint pain, joint swelling, muscle pain, muscle stiffness, neck pain, others Integumetry: denies: bruises, change in color, change in hair/nails, dryness, laceration, lesions, lumps, rash, wounds, others Allergic/Immunocompromised: denies: Difficulty Healing, Frequent Infections, Hives, Itching, others Hematologic/Lymphatic: denies: anemia, blood clots, easy bleeding, easy bruising, swollen glands, others Endocrine: denies: excessive hunger, excessive sweating, excessive thirst, excessive urination, flushing, intolerance to cold, intolerance to heat, unexplained weight gain, unexplained weight loss, others Psychiatric: denies: anxiety, bipolar disorder, depression, hopeless, panic disorder, schizophrenia, sleepless, suicidal, others All Other Systems: Reviewed and Negative Physical Exam General Appearance: Moderate Distress HEENT: Normal ENT Inspection, Pharynx Normal, TMs Normal Neck: Full Range of Motion, Non-Tender, Normal, Normal Inspection Respiratory: Chest Non-Tender, No Accessory Muscle Use, Rales, Respiratory Distress Cardiovascular: No Edema, No JVD, No Murmur, No Gallop, Normal Peripheral Pulses, Regular Rate/Rhythm Breast Exam: Deferred Gastrointestinal: No Organomegaly, Non Tender, No Pulsatile Mass, Normal Bowel Sounds, Soft Genitalia: Deferred Pelvic: Deferred Rectal: Deferred Extremities: No calf tenderness, Normal capillary refill, Normal inspection, Normal range of motion, Non-tender, No pedal edema Musculoskeletal : Apperance: Normal Neurologic: Alert, charity fundraiser II-XII nml as Tested, No Motor Deficits, Normal Affect, Normal Mood, No Sensory Deficits Cerebellar Function: Normal Reflexes: Normal Skin: Dry, Normal Color, Warm Lymphatic: No Adenopathy Was a procedure done? Was a procedure done?: No Differential Dx Considerations may include: Generalized weakness, electrolyte imbalance X-Ray, Labs, Meds, VS Vital Signs Date Time Temp Pulse Resp B/P (MAP) Pulse Ox O2 Delivery O2 Flow Rate FiO2 06/03/24 10:30 63 17 93 Room Air 06/03/24 10:30 63 17 115/88 (97) 93 06/03/24 09:32 133 06/03/24 09:25 97.6 82 18 112/84 (93) 96 Lab Test 06/03/24 12:08 06/03/24 10:22 Range/Units Troponin I High Sensitivity 71 *H 81 *H </=54 ng/L White Blood Count 4.7 4.4-10.8 10^3/uL Red Blood Count 5.21 4.5-5.90 10^6/uL Hemoglobin 15.5 13.5-17.5 g/dL Hematocrit 45.8 41.0-53.0 % Mean Corpuscular Volume 87.9 80.0-100.0 fL Mean Corpuscular Hemoglobin 29.7 28.0-32.0 pg Mean Corpuscular Hemoglobin Concent 33.8 32.0-36.0 g/dL Red Cell Distribution Width 25.4 H 11.8-14.3 % Platelet Count 103 L 140-450 10^3/uL Mean Platelet Volume 9.6 6.9-10.8 fL Neutrophils (%) (Auto) 86.6 H 37.0-80.0 % Lymphocytes (%) (Auto) 8.3 L 10.0-50.0 % Monocytes (%) (Auto) 5.0 0.0-12.0 % Eosinophils (%) (Auto) 0.0 0.0-7.0 % Basophils (%) (Auto) 0.1 0.0-2.0 % Neutrophils # (Auto) 4.1 1.6-8.6 10 ^3/uL Lymphocytes # (Auto) 0.4 0.4-5.4 10 ^3/uL Monocytes # (Auto) 0.2 0-1.3 10 ^3/uL Eosinophils # (Auto) 0 0-0.8 10 ^3/uL Basophils # (Auto) 0 0-0.2 10 ^3/uL Nucleated Red Blood Cells 2.8 % Platelet Estimate Decrea Large Platelets Few Anisocytosis (manual) Slight Target Cells Few Ovalocytes Few Sodium Level 137 136-145 mmol/L Potassium Level 5.6 *H 3.5-5.1 mmol/L Chloride Level 106 98-107 mmol/L Carbon Dioxide Level 20 20-31 mmol/L Anion Gap 11 5-15 Blood Urea Nitrogen 41 H 9-23 mg/dL Creatinine 1.83 H 0.700-1.30 mg/dL Glomerular Filtration Rate Calc 41 >90 mL/min BUN/Creatinine Ratio 22.4 H 10.0-20.0 Serum Glucose 82 74-106 mg/dL Calcium Level 9.2 8.7-10.4 mg/dL B-Type Natriuretic Peptide 2537.22 0-100 pg/mL Current Medications Medications (Trade) Dose Ordered Sig/Patrick Route Start Time Stop Time Status Last Admin Sodium Chloride 500 ml @ 500 mls/hr Q1H ONCE IV 06/03/24 10:00 06/03/24 10:59 DC 06/03/24 10:06 The patient has an IV Hep-Lock and the patient was bolused with normal saline at 500 cc The BNP is 2537.22 The patient's CBC is within normal limits The chemistry panel shows hyperkalemia at 5.6 The 1st troponin level is 81 The 2nd troponin level is 71 At this time, the patient was being given Lasix 40 mg IV push The patient is being admitted with a diagnosis of acute on chronic diastolic heart failure The chest x-ray shows: IMPRESSION: Cardiomegaly with mild pulmonary vascular congestion A cardiology consult will be obtained Images Reviewed?: Images reviewed and evaluated by me Time of 1ST Reevaluation: 10:15 Reevaluation 1ST: Unchanged Patient Education/Counseling: Diagnosis, Treatment, Prognosis Family Education/Counseling: No Family Present Departure 1 Departure Time of Disposition: 13:16 Impression: Primary Impression: Acute on chronic congestive heart failure Qualified Codes: I50.9 - Heart failure, unspecified Disposition: 09 ADMITTED INPATIENT Admit to: Tele Condition: Fair Critical Care Note Critical Care Time?: Yes (35 min-critical care time only) Stability Stability form required: Yes Unstable for transfer: Telemetry monitoring (Telemetry monitoring required), ED Physician Assesment (Clinical assesment) Heart Score Heart Score: Heart Score Response (Comments) Value History Moderate Suspicious 1 EKG Repolarization Disturb 1 Age 45-64 1 Risk Factors >3 or Hx ASHD 2 Troponin 1-2 x's Normal limit 1 Total 6 I personally scribed for JUANJO TAI MD ([email or web address]) on 06/03/24 at 09:53. Electronically submitted by Devin Laguerre ([email or web address]). JUANJO TAI MD Jun 03, 2024 09:53
--- NOTE | 2024-06-03 09:54 | ECG ---
[facility] Test Date: 2024-06-03 Test Time: 09:32:43 Pat Name: PAMELA CASE Department: er Room: 0264 Gender: M [employer]: baldev : 1960 Requested By: JUANJO TAI Order Number: [id number] Reading MD: Javy Morgan Measurements Intervals [place] Rate: 133 P: 0 AL: 151 QRS: -79 QRSD: 167 T: 101 QT: 376 QTc: 560 Interpretive Statements Ventricular-paced complexes No further rhythm analysis attempted due to paced rhythm Nonspecific IVCD with LAD Left ventricular hypertrophy Borderline T abnormalities, lateral leads Electronically Signed On 06-07-2024 17:08:09 PST by Javy Morgan Please click the below link to view image of tracing.
[2024-06-03] MEDS: SODIUM CHLORIDE 0.9% 500 ML IV ONE (10:06)
[2024-06-03 10:52] LABS: Basophils # (auto) 0 10 ^3/uL (0-0.2); Basophils % (auto) 0.1 % (0.0-2.0); Eosinophils # (auto) 0 10 ^3/uL (0-0.8); Hematocrit 45.8 % (41.0-53.0); Hemoglobin 15.5 g/dL (13.5-17.5); Lymphocytes # (auto) 0.4 10 ^3/uL (0.4-5.4); Lymphocytes % (auto) 8.3 % (10.0-50.0); Mean Corpuscular Hemoglobin 29.7 pg (28.0-32.0); Mean Corpuscular Hgb Conc. 33.8 g/dL (32.0-36.0); Mean Corpuscular Volume 87.9 fL (80.0-100.0); Monocytes # (auto) 0.2 10 ^3/uL (0-1.3); Neutrophils # (auto) 4.1 10 ^3/uL (1.6-8.6); Neutrophils % (auto) 86.6 % (37.0-80.0); Nucleated Red Blood Cells % 2.8 %; Platelet Count (auto) 103 10^3/uL (140-450); Red Blood Cells 5.21 10^6/uL (4.5-5.90); White Blood Cell 4.7 10^3/uL (4.4-10.8)
[2024-06-03 10:56] LABS: Chloride 106 mmol/L (98-107); Sodium 137 mmol/L (136-145)
[2024-06-03 10:57] LABS: Anion Gap 11 (5-15); Calcium 9.2 mg/dL (8.7-10.4); Carbon Dioxide 20 mmol/L (20-31)
[2024-06-03 11:02] LABS: BUN/Creatinine Ratio 22.4 (10.0-20.0); Blood Urea Nitrogen 41 mg/dL (9-23); Glucose 82 mg/dL (74-106)
[2024-06-03 11:03] LABS: Red Cell Distribution Width 25.4 % (11.8-14.3)
[2024-06-03 11:11] LABS: Potassium 5.6 mmol/L (3.5-5.1)
--- NOTE | 2024-06-03 12:15 | DVH ---
EXAM: XY CHEST PORTABLE Indication: sob Technique: Single frontal view of the chest was obtained Comparison: XY CHEST XRAY 1 VIEW on DOS: 04/28/24, XY CHEST PORTABLE on DOS: 04/24/24, XY CHEST XRAY 1 VIEW on DOS: 02/21/24, XY CHEST PORTABLE on DOS: 02/20/24, CHEST XRAY 1 VIEW on DOS: 06/16/21 FINDINGS: Lines and Tubes: Cardiac pacemaker projects over the left chest wall. Lungs: No focal consolidation. Mild pulmonary vascular congestion. Pleura: No effusion. No pneumothorax. Cardiomediastinal contours: Cardiomegaly. Bones: No acute osseous abnormality. IMPRESSION: Cardiomegaly with mild pulmonary vascular congestion
[2024-06-03 12:26] LABS: Anisocytosis Slight; Platelet Estimate Decrea
[2024-06-03 12:27] LABS: Large Platelets FEW; Target Cell FEW
[2024-06-03 12:28] LABS: Ovalocytes FEW
[2024-06-03 15:30] VITALS: PULSE 91; RESP 14; O2SAT 96
[2024-06-03] MEDS ORDERED: MORPHINE SULFATE INJ 2 MG/ml SYRG IV PRN ×2 (15:30)
[2024-06-03] MEDS ORDERED: NITROGLYCERIN 0.4 MG SL TAB SL PRN (15:30)
[2024-06-03] MEDS ORDERED: DOCUSATE SOD 100 MG CAP PO PRN (15:30)
[2024-06-03] MEDS ORDERED: VANCOMYCIN PER PHARMACY 0 MG IV SCH ×2 (15:30→15:45)
[2024-06-03] MEDS ORDERED: ONDANSETRON HCL 4 MG/2 ML VIAL IV PRN (15:30)
[2024-06-03] MEDS ORDERED: METO-289 PO (15:33)
[2024-06-03] MEDS ORDERED: SPIR50TA5 PO (15:33)
--- NOTE | 2024-06-03 15:48 | DVHHP2 ---
History of Present Illness Reason for Visit: Body pain History of Present Illness Luis Huitron is a 64-year-old male with past medical history of chronic kidney disease, diabetes, CHF, hypertension, hyperlipidemia, and GERD who came in due to weakness and pain. On assessment patient is in pain and having some difficulty answering questions due to pain. BNP is elevated, he has multiple wounds to bilateral lower extremities and buttocks. Patient came in disheveled with multiple wounds that were dirty, as well as a dirty brief smelling of urine. Cardiovascular: CHF, HTN, hyperipidemia, Other (Pacemaker) Pulmonary: Pneumonia GI: GERD Renal/: Chronic renal insuff Past Surgical History: Hernia Repair Smoke: No ALCOHOL: none Drugs: None Lives: with Family Domestic Violence: Neg Review of Systems Constitutional: No: Fever, Chills, Sweats, Weakness, Malaise, Other Eyes: No: Pain, Vision change, Conjunctivae inflammation, Eyelid inflammation, Other, Redness ENT: No: Ear pain, Ear discharge, Nose pain, Nose discharge, Nose congestion, Mouth pain, Mouth swelling, Throat pain, Throat swelling, Other Respiratory: No: Cough, Dry, Shortness of breath, SOB with excertion, Wheezing, Hemoptysis, Pleuritic Pain, Sputum, Wheezing, Other Cardiovascular: No: Chest Pain, Palpitations, Orthopnea, Paroxysmal Noc. Dyspnea, Edema, Lt Headedness, Other Gastrointestinal: No: Nausea, Vomiting, Abdominal Pain, Diarrhea, Constipation, Melena, Hematochezia, Other Genitourinary: No Dysuria, No Frequency, No Incontinence, No Hematuria, No Retention, No Other Musculoskeletal: No: other, neck pain, shoulder pain, arm pain, back pain, hand pain, leg pain, foot pain Skin: No: Rash, Lesions, Jaundice, Bruising, Other Neurological: No: Weakness, Numbness, Incoordination, Change in speech, Confusion, Seizures, Other Allergies: Coded Allergies: NO KNOWN ALLERGIES (Unverified , 08/11/20) Medications Current Medications Medications Dose Ordered Sig/Patrick Route Start Time Stop Time Status Last Admin Dose Admin Sodium Chloride 10 ml Q8HR IV 06/03/24 22:00 UNV Acetaminophen/ Hydrocodone Bitart 1 tab Q4HP PRN PO 06/03/24 15:30 UNV Ondansetron HCl 4 mg Q4HP PRN IV 06/03/24 15:30 UNV Docusate Sodium 100 mg BIDPRN PRN PO 06/03/24 15:30 UNV Acetaminophen 650 mg Q6HP PRN PO 06/03/24 15:30 UNV Morphine Sulfate 2 mg Q4HPRN PRN IV 06/03/24 15:30 UNV Nitroglycerin 0.4 mg Q5MINP PRN SL 06/03/24 15:30 UNV Morphine Sulfate 2 mg Q30M PRN IV 06/03/24 15:30 UNV Vancomycin HCl 0 ml @ 0 mls/hr UD IV 06/03/24 15:30 UNV Diagnostic Test (Pha) 1 strip ACHS 06/03/24 17:00 UNV Insulin Human Regular HS SC 06/03/24 22:00 UNV Insulin Human Regular AC SC 06/03/24 17:00 UNV Dextrose 50 ml UD PRN IV 06/03/24 15:30 UNV Aspirin 81 mg DAILY PO 06/04/24 10:00 UNV Empaglifozin 10 mg DAILY PO 06/04/24 10:00 UNV Furosemide 40 mg BID PO 06/03/24 22:00 UNV Patient Own Medication 1 tab DAILY PO 06/04/24 10:00 UNV Patient Own Medication 1 tab BID PO 06/03/24 22:00 UNV Patient Own Medication 10 mg HS PO 06/03/24 22:00 UNV Exam Vital Signs Vital Signs Date Time Temp Pulse Resp B/P (MAP) Pulse Ox O2 Delivery O2 Flow Rate FiO2 06/03/24 14:12 61 17 127/46 (73) 06/03/24 10:30 93 Room Air 06/03/24 09:25 97.6 General Appearance: Alert, Oriented X3, Cooperative, moderate distress HEENT: Atraumatic, PERRLA Respiratory: Clear to auscultation, Normal air movement Cardiovascular: Regular rate, Normal S1, Normal S2 Abdominal: Normal bowel sounds, Soft, No tenderness Extremities: Other (bialteral edema and wounds to lower extremities) Neuro: Normal speech Psych/Mental Status: Mental status NL, Mood NL Labs/Xrays Labs Test 06/03/24 14:25 06/03/24 10:22 Range/Units Troponin I High Sensitivity 68 *H </=54 ng/L White Blood Count 4.7 4.4-10.8 10^3/uL Red Blood Count 5.21 4.5-5.90 10^6/uL Hemoglobin 15.5 13.5-17.5 g/dL Hematocrit 45.8 41.0-53.0 % Mean Corpuscular Volume 87.9 80.0-100.0 fL Mean Corpuscular Hemoglobin 29.7 28.0-32.0 pg Mean Corpuscular Hemoglobin Concent 33.8 32.0-36.0 g/dL Red Cell Distribution Width 25.4 H 11.8-14.3 % Platelet Count 103 L 140-450 10^3/uL Mean Platelet Volume 9.6 6.9-10.8 fL Neutrophils (%) (Auto) 86.6 H 37.0-80.0 % Lymphocytes (%) (Auto) 8.3 L 10.0-50.0 % Monocytes (%) (Auto) 5.0 0.0-12.0 % Eosinophils (%) (Auto) 0.0 0.0-7.0 % Basophils (%) (Auto) 0.1 0.0-2.0 % Neutrophils # (Auto) 4.1 1.6-8.6 10 ^3/uL Lymphocytes # (Auto) 0.4 0.4-5.4 10 ^3/uL Monocytes # (Auto) 0.2 0-1.3 10 ^3/uL Eosinophils # (Auto) 0 0-0.8 10 ^3/uL Basophils # (Auto) 0 0-0.2 10 ^3/uL Nucleated Red Blood Cells 2.8 % Platelet Estimate Decrea Large Platelets Few Anisocytosis (manual) Slight Target Cells Few Ovalocytes Few Sodium Level 137 136-145 mmol/L Potassium Level 5.6 *H 3.5-5.1 mmol/L Chloride Level 106 98-107 mmol/L Carbon Dioxide Level 20 20-31 mmol/L Anion Gap 11 5-15 Blood Urea Nitrogen 41 H 9-23 mg/dL Creatinine 1.83 H 0.700-1.30 mg/dL Glomerular Filtration Rate Calc 41 >90 mL/min BUN/Creatinine Ratio 22.4 H 10.0-20.0 Serum Glucose 82 74-106 mg/dL Calcium Level 9.2 8.7-10.4 mg/dL B-Type Natriuretic Peptide 2537.22 0-100 pg/mL EXAM: XY CHEST PORTABLE FINDINGS: Lines and Tubes: Cardiac pacemaker projects over the left chest wall. Lungs: No focal consolidation. Mild pulmonary vascular congestion. Pleura: No effusion. No pneumothorax. Cardiomediastinal contours: Cardiomegaly. Bones: No acute osseous abnormality. IMPRESSION: Cardiomegaly with mild pulmonary vascular congestion Assessment/Plan Assessment/Plan Assessment: Acute on chronic congestive heart failure, Bilateral open feet wounds, Diabetes, Hyperlipidemia, Hypertension, Chronic kidney failure, Plan: Admit to Tele, Podiatry consult, Infectious disease consult, Wound care consult, Wound culture, IV antibiotics, Pain management, Social service consult, Home medications reconciled, Plan discussed with: Patient My Orders Orders - ADITI NEVAREZ MANAGER [employer]ONE Procedure Category Date Status Time Admit ADMIT 06/03/24 Transmitted 15:20 Code Status CODE 06/03/24 Transmitted 15:20 2 Gm Sodium Diet DIET 06/03/24 Transmitted Dinner Sodium Chloride Lock PHA 06/03/24 Logged (Saline Lock Ns) 22:00 Hydrocodone-Acet PHA 06/03/24 Logged 5/325mg Tab ([place] 15:30 Ondansetron Hcl PHA 06/03/24 Logged (Zofran) 15:30 Docusate Sodium PHA 06/03/24 Logged Capsule (Colace 15:30 Fall Risk Precautions [facility] 06/03/[address] 15:20 Complete Blood Count LAB 06/04/24 Verified 04:00 Comprehensive LAB 06/04/24 Verified Metabolic Panel 04:00 Condition: Serious [facility] 06/03/24 In Process 15:20 Acetaminophen Tablet PHA 06/03/24 Logged (Tylenol Tablet) 15:30 Morphine Sulfate PHA 06/03/24 Logged Injection 15:30 Nitroglycerin PHA 06/03/24 Logged Sublingual (Ntrostat 15:30 Morphine Sulfate PHA 06/03/24 Logged Injection 15:30 Stat Ekg For Chest [facility] 06/03/24 In Process Pain 15:20 Notify Of Changes [facility] 06/03/24 In Process From Base 15:20 Breeder Service Technician For [facility] 06/03/24 In Process 24 Hours 15:20 Emergency Dysrhythmia [facility] 06/03/24 In Process Protocol 15:20 Rhythm Strips Once [facility] 06/03/24 In Process Every Shift 15:20 Oxygen By Nasal RT 06/03/24 Transmitted Cannula 15:20 * Wound Consult CONS 06/03/24 Transmitted Wound Culture W/ Gs SUSY 06/03/24 Logged 15:20 Podiatry Consult CONS 06/03/24 Transmitted 15:20 * Infectious Thompson- . CONS 06/03/24 Transmitted Jhon Jones 15:20 Vancomycin Per PHA 06/03/24 Logged Pharmacy 15:30 Glucose Blood PHA 06/03/24 Logged (Accu-Chek Comfort 17:00 Insulin R (Human) PHA 06/03/24 Logged (Insulin R) 22:00 Insulin R (Human) PHA 06/03/24 Logged (Insulin R) 17:00 Dextrose 50% Syringe PHA 06/03/24 Logged 15:30 Aspirin Enteric PHA 06/04/24 Logged Coated Tablet 10:00 Empagliflozin PHA 06/04/24 Logged (Jardiance) 10:00 Furosemide Tablet PHA 06/03/24 Logged (Lasix Tablet) 22:00 (Nf) Ferrous Sulfate PHA 06/04/24 Logged (Ferosul) 10:00 (NF) PHA 06/03/24 Logged Sacubitril-Valsartan 22:00 (Nf) Simvastatin PHA 06/03/24 Logged 22:00 Metoprolol Xl PHA 06/04/24 Transmitted Succinate (Toprol Xl) 10:00 (Nf) Spironolactone PHA 06/04/24 Transmitted 10:00 Date of Service: Jun 03, 2024 Billing Provider: ADITI NEVAREZ Common Visit Codes: [id number] INP/OBS CARE (MOD) ADITI NEVAREZ Jun 03, 2024 15:48
[2024-06-03] MEDS: ACCU-CHEK COMFORT CURVE STRIP VI SCH (16:48)
[2024-06-03] MEDS: InsuLIN REG 1unit/0.01ml Soln (100units/ml) SC SCH ×2 (17:00→21:52)
[2024-06-03] MEDS: VANCOMYCIN 1GM/250ML KIT 200 ML IV ONE (17:03)
[2024-06-03 17:57] LABS: Urine Bacteria None Seen /hpf (None Seen)
[2024-06-03] MEDS: FUROSEMIDE 40 MG TAB PO SCH (18:00)
[2024-06-03 18:43] LABS: Urine Blood Negative /uL (Negative); Urine Clarity Clear (Clear); Urine Color Yellow (Yellow); Urine Epithelial Cast FEW /hpf (<5); Urine Protein, UAD Negative (Negative); Urine Specific Gravity 1.015 (1.001-1.035); Urine Urobilinogen Normal (Negative); Urine WBC 1 /hpf (0 - 3)
[2024-06-03] MEDS: HYDROcodone-ACET 5/325MG TAB PO PRN (19:00)
[2024-06-03] MEDS: FUROSEMIDE 20 MG TAB ONE (19:01)
[2024-06-03 20:00] VITALS: PULSE 100
[2024-06-03] MEDS: PRAVASTATIN SODIUM 20 MG TAB PO SCH (21:47)
[2024-06-03] MEDS: SACUBITRIL VALSARTAN PO SCH (21:59)
[2024-06-03 22:00] VITALS: BP 97/69; PULSE 92; RESP 23; TEMP 97.5; O2SAT 86
[2024-06-03] MEDS ORDERED: PATIENTS OWN MEDICATION (Simvastatin 10 MG) PO SCH (22:00)
[2024-06-03] MEDS ORDERED: PATIENTS OWN MEDICATION (Sacubitril-Valsartan (Entresto 49-51 mg) 1 TAB) PO SCH (22:00)
[2024-06-03] MEDS: SODIUM CHLOR 0.9% PF (SALINE LOCK) 10ML VIAL/SYR IV SCH (22:02)
[2024-06-04] VITALS (10 sets, daily range): BP systolic 81–210; BP diastolic 50–172; PULSE 84–103; RESP 16–23; TEMP 97.4–98.1; O2SAT 96–100
[2024-06-04] MEDS: DEXTROSE (50%) 50ML SYRG IV PRN (05:56)
[2024-06-04 07:00] LABS: Basophils # (auto) 0 10 ^3/uL (0-0.2); Basophils % (auto) 0.1 % (0.0-2.0); Eosinophils # (auto) 0 10 ^3/uL (0-0.8); Eosinophils % (auto) 0.3 % (0.0-7.0); Hematocrit 42.2 % (41.0-53.0); Lymphocytes # (auto) 0.6 10 ^3/uL (0.4-5.4); Lymphocytes % (auto) 11.2 % (10.0-50.0); Mean Corpuscular Hemoglobin 29.4 pg (28.0-32.0); Mean Corpuscular Hgb Conc. 33.1 g/dL (32.0-36.0); Mean Corpuscular Volume 88.7 fL (80.0-100.0); Monocytes # (auto) 0.5 10 ^3/uL (0-1.3); Monocytes % (auto) 8.6 % (0.0-12.0); Neutrophils # (auto) 4.3 10 ^3/uL (1.6-8.6); Neutrophils % (auto) 79.8 % (37.0-80.0); Nucleated Red Blood Cells % 2.6 %; Platelet Count (auto) 81 10^3/uL (140-450); Red Blood Cells 4.76 10^6/uL (4.5-5.90); White Blood Cell 5.4 10^3/uL (4.4-10.8)
[2024-06-04 07:12] LABS: Alanine Aminotransferase 88 U/L (7-40); Alkaline Phosphatase 336 U/L (46-116); Anion Gap 12 (5-15); BUN/Creatinine Ratio 29.4 (10.0-20.0); Blood Urea Nitrogen 45 mg/dL (9-23); Calcium 8.6 mg/dL (8.7-10.4); Carbon Dioxide 18 mmol/L (20-31); Chloride 105 mmol/L (98-107); Glucose 52 mg/dL (74-106); Potassium 5.5 mmol/L (3.5-5.1); Sodium 135 mmol/L (136-145)
[2024-06-04 07:13] LABS: Albumin 2.8 g/dL (3.2-4.8); Aspartate Aminotransferase 61 U/L (13-40); Bilirubin, Total 4.9 mg/dL (0.2-1.0); Total Protein 6.3 g/dL (5.7-8.2)
[2024-06-04 07:27] LABS: Red Cell Distribution Width 25.7 % (11.8-14.3)
[2024-06-04 08:55] LABS: Anisocytosis Slight; Platelet Estimate Decreased
[2024-06-04] MEDS: SPIRONOLACTONE 25 MG TAB PO SCH (10:00)
[2024-06-04] MEDS ORDERED: PATIENTS OWN MEDICATION (Spironolactone 1 TAB) PO SCH (10:00)
[2024-06-04] MEDS ORDERED: PATIENTS OWN MEDICATION (Ferrous Sulfate (Ferosul) 1 TAB) PO SCH (10:00)
[2024-06-04] MEDS: METOPROLOL SUCCINATE XL 50 MG TAB PO SCH (10:00)
[2024-06-04] MEDS: ASPirin-EC 81 mg tab PO SCH (10:00)
[2024-06-04] MEDS: FERROUS SULFATE 325mg EC TAB PO SCH (10:10)
[2024-06-04] MEDS: EMPAGLIFLOZIN 10 MG TAB PO SCH (10:11)
[2024-06-04] MEDS: VANCOMYCIN 750mg/150ml 150 ML IV ONE (13:22)
--- NOTE | 2024-06-04 15:40 | DVHPN2 ---
Subjective 64-year-old male with a history of heart failure prior ejection fraction of 15%, chronic kidney disease, diabetes, GERD, dyslipidemia comes with chief complaint of shortness of breaths and blue overload, weakness, leg edema He is on 4 L nasal cannula now Changes from previous H/P or p: Changes Eyes: No Pain, No Vision change, No Conjunctivae inflammation, No Eyelid inflammation, No Other, No Redness ENT: No Ear pain, No Ear discharge, No Nose pain, No Nose discharge, No Nose congestion, No Mouth pain, No Mouth swelling, No Throat pain, No Throat swelling, No Other Cardiovascular: No Chest Pain, No Palpitations, No Orthopnea, No Paroxysmal Noc. Dyspnea, No Edema, No Lt Headedness, No Other Respiratory: No Cough, No Dry, No Shortness of breath, No SOB with excertion, No Wheezing, No Hemoptysis, No Pleuritic Pain, No Sputum, No Other Gastrointestinal: No Nausea, No Vomiting, No Abdominal Pain, No Diarrhea, No Constipation, No Melena, No Hematochezia, No Other Genitourinary: No Dysuria, No Frequency, No Incontinence, No Hematuria, No Retention, No Other Musculoskeletal: No other, No neck pain, No shoulder pain, No arm pain, No back pain, No hand pain, No leg pain, No foot pain Skin: No Rash, No Lesions, No Jaundice, No Bruising, No Other Objective Vitals Vital Signs Date Time Temp Pulse Resp B/P (MAP) Pulse Ox O2 Delivery O2 Flow Rate FiO2 06/04/24 13:00 97.4 93 17 116/72 (87) 99 97.4 06/04/24 07:30 Nasal Cannula* 4 36 Intake/Output Intake and Output 06/04/24 07:00 Intake Total 1125 ml Balance 1125 ml Intake Oral 625 ml IV Total 500 ml General Appearance: Alert, Oriented X3, Cooperative Lungs: Other (Bilateral rhonchi) Cardiovascular: Regular rate, Normal S1, Normal S2 Abdomen: Normal bowel sounds, Soft, No tenderness Extremities: Other (2+ edema bilaterally in the lower extremity) Medications Current Medications Medications Dose Ordered Sig/Patrick Route Start Time Stop Time Status Last Admin Dose Admin Sodium Chloride 10 ml Q8HR IV 06/03/24 22:00 06/04/24 13:23 10 ML Acetaminophen/ Hydrocodone Bitart 1 tab Q4HP PRN PO 06/03/24 15:30 06/03/24 19:00 1 TAB Ondansetron HCl 4 mg Q4HP PRN IV 06/03/24 15:30 Docusate Sodium 100 mg BIDPRN PRN PO 06/03/24 15:30 Acetaminophen 650 mg Q6HP PRN PO 06/03/24 15:30 Morphine Sulfate 2 mg Q4HPRN PRN IV 06/03/24 15:30 Nitroglycerin 0.4 mg Q5MINP PRN SL 06/03/24 15:30 Morphine Sulfate 2 mg Q30M PRN IV 06/03/24 15:30 Diagnostic Test (Pha) 1 strip ACHS 06/03/24 17:00 06/04/24 11:30 1 STRIP Insulin Human Regular HS SC 06/03/24 22:00 06/03/24 21:52 2 UNITS Insulin Human Regular AC SC 06/03/24 17:00 Dextrose 50 ml UD PRN IV 06/03/24 15:30 06/04/24 05:56 50 ML Aspirin 81 mg DAILY PO 06/04/24 10:00 Empaglifozin 10 mg DAILY PO 06/04/24 10:00 06/04/24 10:11 10 MG Furosemide 40 mg BIDD PO 06/03/24 18:00 Metoprolol Succinate 50 mg DAILY PO 06/04/24 10:00 Vancomycin HCl 0 ml @ 0 mls/hr UD IV 06/03/24 15:45 Ferrous Sulfate 325 mg DAILY PO 06/04/24 10:00 06/04/24 10:10 325 MG Patient Own Medication 1 tab BID PO 06/03/24 22:00 Pravastatin Sodium 20 mg HS PO 06/03/24 22:00 06/03/24 21:47 20 MG Spironolactone 50 mg DAILY PO 06/04/24 10:00 Laboratory Results Laboratory Tests 06/04/24 06:00 Chemistry Test 06/04/24 06:00 Albumin 2.8 g/dL (3.2-4.8) L Calcium Level 8.6 mg/dL (8.7-10.4) L Total Protein 6.3 g/dL (5.7-8.2) LFT Test 06/04/24 06:00 Alanine Aminotransferase (ALT) 88 U/L (7-40) H Alkaline Phosphatase 336 U/L (46-116) H Aspartate Amino Transferase (AST) 61 U/L (13-40) H Total Bilirubin 4.9 mg/dL (0.2-1.0) H Urinalysis Test 06/03/24 17:57 Urine Color Yellow (Yellow) Urine Clarity Clear (Clear) Urine pH 5.0 (5.0-9.0) Urine Specific [place] 1.015 (1.001-1.035) Urine Protein Negative (Negative) Urine Ketones Negative (Negative) Urine Blood Negative /uL (Negative) Urine Nitrite Negative (Negative) Urine Bilirubin Negative (Negative) Urine Urobilinogen Normal mg/dL (Negative) Urine Leukocyte Esterase Negative /uL (Negative) Urine RBC 1 /hpf (0 - 3) Urine WBC 1 /hpf (0 - 3) Urine Squamous Epithelial Cells Few /hpf (<5) Urine Bacteria None seen /hpf (None Seen) Urine Epithelial Casts Few /hpf (<5) Urine Glucose 2+ mg/dL (Normal) H Assessment/Plan Assessment/Plan Acute on chronic congestive heart failure with low ejection fraction Bilateral lower extremity open wounds Type 2 diabetes Dyslipidemia Hypertension Chronic kidney disease Plan IV Lasix 40 mg twice a day Oxygen as needed Dietary consult Continue Aldactone 50 mg daily Entresto IV antibiotics vancomycin per pharmacy protocol The code Advance directives discussed for 20 minutes Plan discussed with: Patient My Orders Orders - NERISSA SALTER MD Procedure Category Date Status Time Cleanse Wound With FLAVIA 06/04/24 In Process Wound Clean 10:32 Cleanse Wound With FLAVIA 06/04/24 In Process Mild Soap A 10:32 * Dietary Consult CONS 06/04/24 Transmitted 13:29 Date of Service: Jun 04, 2024 Billing Provider: NERISSA SALTER MD Common Visit Codes: [id number] INP/OBS CARE(HIGH) Secondary Visit Codes: [id number] CARE PLAN 30 MINUTES NERISSA SALTER MD Jun 04, 2024 15:40
[2024-06-04] MEDS: FUROSEMIDE 20 MG/2 ML VIAL IV ONE (18:30)
--- NOTE | 2024-06-04 18:45 | DVHINCON2 ---
Date Seen: Jun 04, 2024 Referring Physician MD Arnaldo Reason for Consultation CHF History of Present Illness This is a 64-year-old man who presented to the emergency room via EMS with a chief complaint of shortness of breath for a few days. The patient is somewhat a poor historian. Information mostly obtained from records which indicate the patient presented with complaints of shortness of breath associated with a nonproductive cough and myalgia. He was medicated with NS 500 mL x1, Tylenol IV 1 g, and found with a blood sugar level of 106 ng/dL by EMS. Denies chest pain, palpitations, diaphoresis, dizziness, or syncopal events. He underwent a 12 lead electrocardiogram revealing a ventricular paced rhythm. Significant medical history includes congestive heart failure, nonischemic cardiomyopathy, status post automatic internal cardioverter-defibrillator implantation (NEXAGE), hypertension, diabetes, hypothyroidism, chronic kidney disease stage IIIb, GERD, anemia in chronic disease, and obesity. Past Medical History Past medical history reviewed. No other significant than mentioned above. Past Surgical History AICD implantation Family History: FH: breast cancer G8 SISTER FH: heart disease G8 BROTHER G8 BROTHER Hypertension G8 MOTHER Family History Family history reviewed. Social History Denies the use of illicit drugs, alcohol, or tobacco use. Allergies: Coded Allergies: NO KNOWN ALLERGIES (Unverified , 08/11/20) Home Meds Active Scripts Omeprazole (Gnp Omeprazole) 20 Mg Tab, 20 MG PO DAILY, #30 TAB Prov:NATANAEL AKBAR MD 08/14/20 Simvastatin (Simvastatin) 10 Mg Tab, 10 MG PO HS for 30 Days, #30 MG Prov:NATANAEL AKBAR MD 08/14/20 Aspirin (Aspir-Low) 81 Mg Tab, 81 MG PO DAILY for 30 Days, #30 MG Prov:NATANAEL AKBAR MD 08/14/20 Reported Medications Sacubitril-Valsartan (Entresto 24-26 mg) 1 Tab Tab, 1 TAB PO BID for 90 Days, #180 06/04/24 Metoprolol Succinate (Metoprolol Succinate Er) 50 Mg Tab, 1 TAB PO DAILY 06/03/24 Spironolactone (Spironolactone) 50 Mg Tab, 1 TAB PO DAILY 06/03/24 Metolazone (Metolazone) 2.5 Mg Tab, 1 TAB PO QAM for 90 Days, #90 02/21/24 Empagliflozin (Jardiance) 10 Mg Tab, 1 TAB PO DAILY for 90 Days, #90 02/21/24 Ferrous Sulfate (Ferosul) 325 Mg Tab, 1 TAB PO DAILY 02/21/24 Furosemide (Furosemide) 40 Mg Tab, 1 TAB PO BID for 90 Days, #180 5 Refills 02/21/24 Amiodarone Hcl (Amiodarone Hcl) 200 Mg Tab, 200 MG PO DAILY for 30 Days 03/29/21 Metformin Hydrochloride (Metformin Hcl) 500 Mg Tab, 1 TAB PO BIDWM 01/22/21 Discontinued Reported Medications Spironolactone (Spironolactone) 25 Mg Tab, 1 TAB PO DAILY for 30 Days, #30 02/21/24 Discontinued Scripts Amoxicillin & Pot Clavulanate (AUGMENTIN TABLET) 875 Mg Tb, 875 MG PO BID for 5 Days, #10 TAB Prov:LONI WHITLEY WARD ATTENDANT 05/03/24 Hydrocodone-Acetaminophen (Hydrocodone Bitartrate/AC 5-325 mg) 1 Tab Tab, 1 TAB PO Q6HP PRN, #20 TAB Prov:NERISSA SALTER MD 02/22/24 Carvedilol (Carvedilol) 3.125 Mg Tab, 3.125 MG PO BID, #60 MG Prov:NATANAEL AKBAR MD 08/14/20 Home Meds Home medications reviewed. Current Medications Current Medications Medications (Trade) Dose Ordered Sig/Patrick Route PRN Reason Start Time Stop Time Status Last Admin Sodium Chloride (Saline Lock Ns) 10 ml Q8HR IV 06/03/24 22:00 06/04/24 13:23 Insulin Human Regular (InsuLIN R) HS SC 06/03/24 22:00 06/03/24 21:52 Aspirin (Ecotrin Enteric Coated Tablet) 81 mg DAILY PO 06/04/24 10:00 Empaglifozin (Jardiance) 10 mg DAILY PO 06/04/24 10:00 06/04/24 10:11 Patient Own Medication 1 tab DAILY PO 06/04/24 10:00 06/03/24 15:57 DC Patient Own Medication 1 tab BID PO 06/03/24 22:00 06/03/24 15:57 DC Patient Own Medication 10 mg HS PO 06/03/24 22:00 06/03/24 15:57 DC Metoprolol Succinate (Toprol Xl) 50 mg DAILY PO 06/04/24 10:00 Patient Own Medication 1 tab DAILY PO 06/04/24 10:00 06/03/24 15:57 DC Ferrous Sulfate 325 mg DAILY PO 06/04/24 10:00 06/04/24 10:10 Patient Own Medication 1 tab BID PO 06/03/24 22:00 Pravastatin Sodium (Pravachol Tablet) 20 mg HS PO 06/03/24 22:00 06/03/24 21:47 Spironolactone (Aldactone) 50 mg DAILY PO 06/04/24 10:00 Review of Systems Constitutional: No symptom reported Ears, Nose, & Throat: No symptom reported Eyes: No symptom reported Neurological: No symptoms reported Pulmonary/Respiratory: Shortness of breath Cardiovascular: No symptom reported Gastrointestinal: No symptom reported Genitourinary: No symptom reported Musculoskeletal: No symptom reported Skin: No symptom reported Psychiatric: No symptom reported Endocrine: No symptom reported Hemotologic/Lymphatic: No symptom reported Vital Signs Vital Signs Date Time Temp Pulse Resp B/P (MAP) Pulse Ox O2 Delivery O2 Flow Rate FiO2 06/04/24 17:35 101/60 06/04/24 17:00 97.9 103 16 97 97.9 06/04/24 07:30 Nasal Cannula* 4 36 Physical Exam General Appearance: Cooperative. Chronically ill. In no acute distress Head Exam: Normal inspection Neck Exam: Normal inspection. Non-tender. Normal alignment Pulmonary/Respiratory: Chest non-tender. Crackles to bilateral breath sounds Cardiovascular/Chest: Regular rate and rhythm. S1, S2. No murmurs. No JVD. Peripheral Pulses: 2+ Radial (R). 2+ Radial (L). 2+ Pedal (R). 2+ Pedal (L) Abdominal Exam: Normal bowel sounds. Soft. Nontender. Ankle Exam: Positive ankle edema Lower extremities: Positive lower extremity edema Neuro/Mental Status: A&O x2-3. Rambling thoughts. Poor historian Thoughts/Psych: Normal thought pattern. Appropriate mood and affect. Passive Appearance: In no acute distress Skin Exam: Wounds to bilateral lower extremities. Refer to wound care pictures Labs/Diagnostic Data Labs Test 06/04/24 17:03 06/04/24 06:00 06/03/24 17:57 06/03/24 14:25 Range/Units POC Glucose 88 70-106 mg/dl White Blood Count 5.4 4.4-10.8 10^3/uL Red Blood Count 4.76 4.5-5.90 10^6/uL Hemoglobin 14.0 13.5-17.5 g/dL Hematocrit 42.2 41.0-53.0 % Mean Corpuscular Volume 88.7 80.0-100.0 fL Mean Corpuscular Hemoglobin 29.4 28.0-32.0 pg Mean Corpuscular Hemoglobin Concent 33.1 32.0-36.0 g/dL Red Cell Distribution Width 25.7 H 11.8-14.3 % Platelet Count 81 L 140-450 10^3/uL Mean Platelet Volume 9.5 6.9-10.8 fL Neutrophils (%) (Auto) 79.8 37.0-80.0 % Lymphocytes (%) (Auto) 11.2 10.0-50.0 % Monocytes (%) (Auto) 8.6 0.0-12.0 % Eosinophils (%) (Auto) 0.3 0.0-7.0 % Basophils (%) (Auto) 0.1 0.0-2.0 % Neutrophils # (Auto) 4.3 1.6-8.6 10 ^3/uL Lymphocytes # (Auto) 0.6 0.4-5.4 10 ^3/uL Monocytes # (Auto) 0.5 0-1.3 10 ^3/uL Eosinophils # (Auto) 0 0-0.8 10 ^3/uL Basophils # (Auto) 0 0-0.2 10 ^3/uL Nucleated Red Blood Cells 2.6 % Platelet Estimate Decreased Anisocytosis (manual) Slight Sodium Level 135 L 136-145 mmol/L Potassium Level 5.5 H 3.5-5.1 mmol/L Chloride Level 105 98-107 mmol/L Carbon Dioxide Level 18 L 20-31 mmol/L Anion Gap 12 5-15 Blood Urea Nitrogen 45 H 9-23 mg/dL Creatinine 1.53 H 0.700-1.30 mg/dL Glomerular Filtration Rate Calc 50 >90 mL/min BUN/Creatinine Ratio 29.4 H 10.0-20.0 Serum Glucose 52 L 74-106 mg/dL Calcium Level 8.6 L 8.7-10.4 mg/dL Total Bilirubin 4.9 H 0.2-1.0 mg/dL Aspartate Amino Transferase (AST) 61 H 13-40 U/L Alanine Aminotransferase (ALT) 88 H 7-40 U/L Alkaline Phosphatase 336 H 46-116 U/L Total Protein 6.3 5.7-8.2 g/dL Albumin 2.8 L 3.2-4.8 g/dL Random Vancomycin Level 9.3 5-10 ug/mL Urine Color Yellow Yellow Urine Clarity Clear Clear Urine pH 5.0 5.0-9.0 Urine Specific [place] 1.015 1.001-1.035 Urine Protein Negative Negative Urine Ketones Negative Negative Urine Blood Negative Negative /uL Urine Nitrite Negative Negative Urine Bilirubin Negative Negative Urine Urobilinogen Normal Negative mg/dL Urine Leukocyte Esterase Negative Negative /uL Urine RBC 1 0 - 3 /hpf Urine WBC 1 0 - 3 /hpf Urine Squamous Epithelial Cells Few <5 /hpf Urine Bacteria None seen None Seen /hpf Urine Epithelial Casts Few <5 /hpf Urine Glucose 2+ H Normal mg/dL Troponin I High Sensitivity 68 *H </=54 ng/L Test 06/03/24 10:22 Range/Units Large Platelets Few Target Cells Few Ovalocytes Few B-Type Natriuretic Peptide 2537.22 0-100 pg/mL Assessment Acute on chronic decompensated HFrEF with EF 10-15%, NYHA Class IV Nonischemic cardiomyopathy NSTEMI type 2 secondary to above Presence of AICD (NEXAGE) [id number] diabetes mellitus, controlled, HgbA1C 5.9% Acute kidney injury on chronic kidney disease stage IIIb Likely cardiorenal syndrome type II Accelerated hypertension Bilateral lower limb cellulitis Thrombocytopenia Thyroid disease Obesity Plan/Recommendation We will continue the following plan/recommendations (Dr. Hurtado): 1. Echocardiogram from 02/20/2024 revealed: Severely dilated left ventricle. Severely reduced left ventricular systolic function estimated ejection fraction of 15%. There is global wall akinesia. There is restrictive filling pattern had diastolic type 3 dysfunction. Normal right ventricular size and dimension. Moderately reduced right ventricular systolic function. Moderately elevated right ventricular systolic [id number] mm of mercury. Moderately dilated right and left atria. Aortic valve is mildly thickened no significant stenosis or regurgitation. The mitral valve has mild mitral valve regurgitation. There is mild tricuspid valve regurgitation. The pulmonary valve grossly normal. No pericardial effusion. 2. Initiate GDMT for CHF and uptitrate as tolerated. Hold ARNi and introduce once renal function improves. Monitor renal function closely. 3. Initiate preload and afterload reduction. Strict I&Os. Daily weight. Fluid restriction. 2 g salt restriction, 1.2 L total fluid restriction in 24 hours. Monitor renal function. 4. Overall very poor prognosis, with end-stage heart failure needing further follow up with heart failure team, with continued goals of care discussion. 5. Continue abx therapy per primary care team, blood cultures, wound care. 6. Discontinue ASA and avoid AC therapy given thrombocytopenia. 7. DVT/VTE prophylaxis: SCDs Thank you for the opportunity to consult on your patient. Please feel free to reach out if you have any further questions. Critical care time: 45 min. This medical document was created using an electronic medical record system with voice recognition software and computerized dictation system. Although this document has been carefully reviewed, there might still be some phonetic and typographical errors. Occasional wrong-word or ``sound-alike substitutions may have occurred due to the inherent limitations of voice recognition software. These areas are purely typographical due to imperfections of the software programs and do not reflect any compromise in the patient's medical care. Please read the chart carefully and recognize, using context, where these substitutions have occurred. Plan discussed with: Patient, Other Date of Service: Jun 04, 2024 Billing Provider: DENTON HURTADO MD Cardiology Common Codes: 03992-[id number] CARE 30-74 MIN FROILAN CARBALLO [facility] Jun 04, 2024 18:45
[2024-06-04] MEDS: METOPROLOL TARTRATE 25 MG TAB PO SCH (22:29)
[2024-06-05] VITALS (27 sets, daily range): BP systolic 85–109; BP diastolic 45–66; PULSE 59–122; RESP 12–23; TEMP 97.8–98.2; O2SAT 93–100
[2024-06-05] MEDS: FUROSEMIDE 20 MG/2 ML VIAL IV SCH (05:52)
[2024-06-05 07:31] LABS: Basophils # (auto) 0 10 ^3/uL (0-0.2); Basophils % (auto) 0.4 % (0.0-2.0); Eosinophils # (auto) 0 10 ^3/uL (0-0.8); Eosinophils % (auto) 0.2 % (0.0-7.0); Hematocrit 43.6 % (41.0-53.0); Hemoglobin 14.3 g/dL (13.5-17.5); Lymphocytes # (auto) 0.5 10 ^3/uL (0.4-5.4); Lymphocytes % (auto) 9.7 % (10.0-50.0); Mean Corpuscular Hemoglobin 29.2 pg (28.0-32.0); Mean Corpuscular Hgb Conc. 32.7 g/dL (32.0-36.0); Mean Corpuscular Volume 89.2 fL (80.0-100.0); Monocytes # (auto) 0.3 10 ^3/uL (0-1.3); Monocytes % (auto) 6.5 % (0.0-12.0); Neutrophils # (auto) 4.2 10 ^3/uL (1.6-8.6); Neutrophils % (auto) 83.2 % (37.0-80.0); Platelet Count (auto) 110 10^3/uL (140-450); Red Blood Cells 4.89 10^6/uL (4.5-5.90)
[2024-06-05 08:06] LABS: Nucleated Red Blood Cells % 3.2 %; Red Cell Distribution Width 25.8 % (11.8-14.3)
[2024-06-05 09:15] LABS: Anisocytosis Slight; Platelet Estimate Decreased
[2024-06-05] MEDS: SPIRONOLACTONE 25 MG TAB PO SCH (11:07)
[2024-06-05 11:29] LABS: Alanine Aminotransferase 87 U/L (7-40); Alkaline Phosphatase 344 U/L (46-116); Anion Gap 13 (5-15); BUN/Creatinine Ratio 20.6 (10.0-20.0); Carbon Dioxide 15 mmol/L (20-31); Chloride 105 mmol/L (98-107); Glucose 86 mg/dL (74-106); LDL Cholesterol 67 mg/dL (< 100); Magnesium 2.2 mg/dL (1.6-2.6); Sodium 133 mmol/L (136-145); Triglycerides 111 mg/dL (< 150)
[2024-06-05 11:30] LABS: Albumin 2.8 g/dL (3.2-4.8); Aspartate Aminotransferase 71 U/L (13-40); Bilirubin, Total 4.2 mg/dL (0.2-1.0); Cholesterol 100 mg/dL (< 200); HDL Cholesterol 20 mg/dL (40-59); Total Protein 6.7 g/dL (5.7-8.2)
[2024-06-05 11:32] LABS: Blood Urea Nitrogen 29 mg/dL (9-23)
[2024-06-05 11:34] LABS: Potassium 5.6 mmol/L (3.5-5.1)
--- NOTE | 2024-06-05 12:11 | DVHPNRES ---
Progress Note Date Seen: Jun 05, 2024 Resident Creating Document: WALDO OHARA RESIDENT Medical Necessity Reason Pt with a Central, PICC or Fol: No Subjective Review of Systems Patient Seen and examined at bedside. On 4 liters/minute via nasal cannula Overnight events reviewed. Objective vital signs Vital Sign Date Time Temp Pulse Resp B/P (MAP) Pulse Ox O2 Delivery O2 Flow Rate FiO2 06/05/24 11:05 90 101/60 06/05/24 09:00 98.0 18 99 98.0 06/05/24 08:00 Nasal Cannula* 4 36 Total Intake and Output 06/04/24 06/04/24 06/05/24 15:00 23:00 07:00 Intake Total 750 ml 425 ml Output Total 490 ml Balance 750 ml -65 ml medications Current Medications Medications Dose Ordered Sig/Patrick Route Start Time Stop Time Status Last Admin Dose Admin Sodium Chloride 10 ml Q8HR IV 06/03/24 22:00 06/05/24 05:53 10 ML Acetaminophen/ Hydrocodone Bitart 1 tab Q4HP PRN PO 06/03/24 15:30 06/03/24 19:00 1 TAB Ondansetron HCl 4 mg Q4HP PRN IV 06/03/24 15:30 Docusate Sodium 100 mg BIDPRN PRN PO 06/03/24 15:30 Acetaminophen 650 mg Q6HP PRN PO 06/03/24 15:30 Morphine Sulfate 2 mg Q4HPRN PRN IV 06/03/24 15:30 Nitroglycerin 0.4 mg Q5MINP PRN SL 06/03/24 15:30 Morphine Sulfate 2 mg Q30M PRN IV 06/03/24 15:30 Diagnostic Test (Pha) 1 strip ACHS 06/03/24 17:00 06/05/24 06:43 1 STRIP Insulin Human Regular HS SC 06/03/24 22:00 06/03/24 21:52 2 UNITS Insulin Human Regular AC SC 06/03/24 17:00 Dextrose 50 ml UD PRN IV 06/03/24 15:30 06/04/24 05:56 50 ML Empaglifozin 10 mg DAILY PO 06/04/24 10:00 06/05/24 11:05 10 MG Vancomycin HCl 0 ml @ 0 mls/hr UD IV 06/03/24 15:45 Ferrous Sulfate 325 mg DAILY PO 06/04/24 10:00 06/05/24 11:04 325 MG Pravastatin Sodium 20 mg HS PO 06/03/24 22:00 06/04/24 22:25 20 MG Spironolactone 12.5 mg DAILY PO 06/05/24 10:00 06/05/24 11:07 12.5 MG Metoprolol Tartrate 12.5 mg BID PO 06/04/24 22:00 06/05/24 11:05 12.5 MG Furosemide 20 mg BIDD IV 06/05/24 06:00 Examination Gen.: Patient lying in bed in no apparent distress. On supplemental oxygen. Head: Normocephalic, atraumatic Eyes: EOMI/PERRLA. Ears: Normal hearing. Normal anatomy. Neck/trachea: Trachea midline, supple. Nose: Normal external anatomy. Mouth: Moist mucous membranes. Chest: Fair air entry bilaterally. No wheezing or rhonchi. Cardio vascular: Positive S1, positive S2. Regular rate and rhythm. Abdomen: Positive bowel sounds in all 4 quadrants. Soft, non-tender, non- distended. : Deferred. Rectal: Deferred Skin: Warm, dry. Extremities: 2+ radial pulses bilaterally. No lower extremity edema. Neuro: Awake, alert, oriented x3. No gross motor or sensory deficits. Cranial nerves II through XII intact. Gait not assessed. laboratory and microbiology Laboratory Tests 06/05/24 06:44 Test 06/05/24 06:44 Range/Units Serum Glucose 86 74-106 mg/dL Microbiology Date/Time Source Procedure Growth Status 06/04/24 11:00 Foot Gram Stain Pending Resulted 06/04/24 11:00 Foot Wound Culture - Preliminary Resulted Problem List/Assessment/Plan Problem List/Assessment/Plan Assessment Acute on chronic decompensated HFrEF with EF 10-15%, NYHA Class IV Nonischemic cardiomyopathy NSTEMI type 2 secondary to above Presence of AICD ([employer]) Fls-pyvcjtx-[id number] diabetes mellitus, controlled, HgbA1C 5.9% Acute kidney injury on chronic kidney disease stage IIIb Likely cardiorenal syndrome type II Accelerated hypertension Bilateral lower limb cellulitis Thrombocytopenia Thyroid disease Obesity Imaging/Diagnostic: Echocardiogram from 02/20/2024 revealed: Severely dilated left ventricle. Severely reduced left ventricular systolic function estimated ejection fraction of 15%. There is global wall akinesia. There is restrictive filling pattern had diastolic type 3 dysfunction. Normal right ventricular size and dimension. Moderately reduced right ventricular systolic function. Moderately elevated right ventricular systolic [id number] mm of mercury. Moderately dilated right and left atria. Aortic valve is mildly thickened no significant stenosis or regurgitation. The mitral valve has mild mitral valve regurgitation. There is mild tricuspid valve regurgitation. The pulmonary valve grossly normal. No pericardial effusion. Plan/Recommendation Continue the following plan/recommendations (Dr. Hurtado): 1. Initiate GDMT for CHF and up titrate as tolerated. Hold ARNi and introduce once renal function improves. Monitor renal function closely. 2. Initiate preload and afterload reduction. Strict I&Os. Daily weight. Fluid restriction. 2 g salt restriction, 1.2 L total fluid restriction in 24 hours. Monitor renal function. 3. Overall very poor prognosis, with end-stage heart failure needing further follow up with heart failure team, with continued goals of care discussion. 4. Continue abx therapy per primary care team, blood cultures, wound care. 5. Discontinue ASA and avoid AC therapy given thrombocytopenia. 6. DVT/VTE prophylaxis: SCDs Thank you for the opportunity to consult on your patient. Please feel free to reach out if you have any further questions. This medical document was created using an electronic medical record system with voice recognition software and computerized dictation system. Although this document has been carefully reviewed, there might still be some phonetic and typographical errors. Occasional wrong-word or ``sound-alike substitutions may have occurred due to the inherent limitations of voice recognition software. These areas are purely typographical due to imperfections of the software programs and do not reflect any compromise in the patient's medical care. Please read the chart carefully and recognize, using context, where these substitutions have occurred. Plan discussed with: Patient, Other (RN, MD) Dietary Evaluation Review Comments: 1) Consider YULIET 1 pkt BID for wounds 2) Continue current plan of care Expected Outcomes/Goals: 1) Pt labs to improve 2) F/U in 3-5 days Visit Coding Cardiology RES Date of Service: Jun 05, 2024 Billing Provider: DENTON HURTADO MD Cardiology Common Codes: [id number] HOSP CARE([facility] WALDO OHARA RESIDENT Jun 05, 2024 12:11
--- NOTE | 2024-06-05 14:13 | DVHINCON2 ---
Date Seen: Jun 05, 2024 Reason for Consultation Bilateral leg wounds History of Present Illness Luis Huitron is a 64-year-old male with past medical history of chronic kidney disease, diabetes, CHF, hypertension, hyperlipidemia, and GERD who came in due to weakness and pain. On assessment patient is in pain and having some difficulty answering questions due to pain. BNP is elevated, he has multiple wounds to bilateral lower extremities and buttocks. Patient came in disheveled with multiple wounds that were dirty, as well as a dirty brief smelling of urine. Past Medical History See H&P Past Surgical History See H&P Family History: FH: breast cancer G8 SISTER FH: heart disease G8 BROTHER G8 BROTHER Hypertension G8 MOTHER Allergies: Coded Allergies: NO KNOWN ALLERGIES (Unverified , 08/11/20) Home Meds Active Scripts Omeprazole (Gnp Omeprazole) 20 Mg Tab, 20 MG PO DAILY, #30 TAB Prov:NATANAEL AKBAR MD 08/14/20 Simvastatin (Simvastatin) 10 Mg Tab, 10 MG PO HS for 30 Days, #30 MG Prov:NATANAEL AKBAR MD 08/14/20 Aspirin (Aspir-Low) 81 Mg Tab, 81 MG PO DAILY for 30 Days, #30 MG Prov:NATANAEL AKBAR MD 08/14/20 Reported Medications Sacubitril-Valsartan (Entresto 24-26 mg) 1 Tab Tab, 1 TAB PO BID for 90 Days, #180 06/04/24 Metoprolol Succinate (Metoprolol Succinate Er) 50 Mg Tab, 1 TAB PO DAILY 06/03/24 Spironolactone (Spironolactone) 50 Mg Tab, 1 TAB PO DAILY 06/03/24 Metolazone (Metolazone) 2.5 Mg Tab, 1 TAB PO QAM for 90 Days, #90 02/21/24 Empagliflozin (Jardiance) 10 Mg Tab, 1 TAB PO DAILY for 90 Days, #90 02/21/24 Ferrous Sulfate (Ferosul) 325 Mg Tab, 1 TAB PO DAILY 02/21/24 Furosemide (Furosemide) 40 Mg Tab, 1 TAB PO BID for 90 Days, #180 5 Refills 02/21/24 Amiodarone Hcl (Amiodarone Hcl) 200 Mg Tab, 200 MG PO DAILY for 30 Days 03/29/21 Metformin Hydrochloride (Metformin Hcl) 500 Mg Tab, 1 TAB PO BIDWM 01/22/21 Discontinued Reported Medications Spironolactone (Spironolactone) 25 Mg Tab, 1 TAB PO DAILY for 30 Days, #30 02/21/24 Discontinued Scripts Amoxicillin & Pot Clavulanate (AUGMENTIN TABLET) 875 Mg Tb, 875 MG PO BID for 5 Days, #10 TAB Prov:LONI WHITLEY NP 05/03/24 Hydrocodone-Acetaminophen (Hydrocodone Bitartrate/AC 5-325 mg) 1 Tab Tab, 1 TAB PO Q6HP PRN, #20 TAB Prov:NERISSA SALTER MD 02/22/24 Carvedilol (Carvedilol) 3.125 Mg Tab, 3.125 MG PO BID, #60 MG Prov:NATANAEL AKBAR MD 08/14/20 Current Medications Current Medications Medications (Trade) Dose Ordered Sig/Patrick Route PRN Reason Start Time Stop Time Status Last Admin Spironolactone (Aldactone) 12.5 mg DAILY PO 06/05/24 10:00 06/05/24 11:07 Metoprolol Tartrate (Lopressor Tablet) 12.5 mg BID PO 06/04/24 22:00 06/05/24 11:05 Furosemide (Lasix Injection) 20 mg BIDD IV 06/05/24 06:00 Vital Signs Vital Signs Date Time Temp Pulse Resp B/P (MAP) Pulse Ox O2 Delivery O2 Flow Rate FiO2 06/05/24 13:00 98.1 59 16 85/55 (65) 93 98.1 06/05/24 08:00 Nasal Cannula* 4 36 Physical Exam DERMATOLOGIC EXAM: - Skin is dry and cool to the touch dry bilaterally. - Nails 1-5 of the bilateral foot are thickened, discolored, dystrophic, and tender to palpate with subungual debris - Hair loss noted to bilateral feet - extensive bilateral leg wounds posteriorly with fibrosis and extensive drain ing VASCULAR EXAM: - DP and PT pulses are palpable bilaterally. - APPLICATION TRAINER is brisk to all digits. - Feet are cool to touch compared to lower legs bilaterally. NEUROLOGIC EXAM: - Normal light touch sensation to the superficial peroneal, deep peroneal, sural, saphenous, and tibial nerve branches. - Protective sensation is diminished as tested with a 5.07 10g [place] bilaterally. MUSCULOSKELETAL EXAM: - No gross deformities - Muscle strength is 5/5 and active motion is pain-free and symmetrical bilater ally - No pain or crepitation with passive range of motion bilaterally to all major pedal joints Labs/Diagnostic Data Labs Test 06/05/24 13:35 06/05/24 11:20 06/05/24 06:44 06/03/24 17:57 Range/Units POC Glucose 93 70-106 mg/dl White Blood Count 5.0 4.4-10.8 10^3/uL Red Blood Count 4.89 4.5-5.90 10^6/uL Hemoglobin 14.3 13.5-17.5 g/dL Hematocrit 43.6 41.0-53.0 % Mean Corpuscular Volume 89.2 80.0-100.0 fL Mean Corpuscular Hemoglobin 29.2 28.0-32.0 pg Mean Corpuscular Hemoglobin Concent 32.7 32.0-36.0 g/dL Red Cell Distribution Width 25.8 H 11.8-14.3 % Platelet Count 110 L 140-450 10^3/uL Mean Platelet Volume 9.2 6.9-10.8 fL Neutrophils (%) (Auto) 83.2 H 37.0-80.0 % Lymphocytes (%) (Auto) 9.7 L 10.0-50.0 % Monocytes (%) (Auto) 6.5 0.0-12.0 % Eosinophils (%) (Auto) 0.2 0.0-7.0 % Basophils (%) (Auto) 0.4 0.0-2.0 % Neutrophils # (Auto) 4.2 1.6-8.6 10 ^3/uL Lymphocytes # (Auto) 0.5 0.4-5.4 10 ^3/uL Monocytes # (Auto) 0.3 0-1.3 10 ^3/uL Eosinophils # (Auto) 0 0-0.8 10 ^3/uL Basophils # (Auto) 0 0-0.2 10 ^3/uL Nucleated Red Blood Cells 3.2 % Platelet Estimate Decreased Anisocytosis (manual) Slight Sodium Level 133 L 136-145 mmol/L Potassium Level 5.6 *H 3.5-5.1 mmol/L Chloride Level 105 98-107 mmol/L Carbon Dioxide Level 15 L 20-31 mmol/L Anion Gap 13 5-15 Blood Urea Nitrogen 29 #H 9-23 mg/dL Creatinine 1.41 H 0.700-1.30 mg/dL Glomerular Filtration Rate Calc 56 >90 mL/min BUN/Creatinine Ratio 20.6 H 10.0-20.0 Serum Glucose 86 74-106 mg/dL Calcium Level 9.0 8.7-10.4 mg/dL Magnesium Level 2.2 1.6-2.6 mg/dL Total Bilirubin 4.2 H 0.2-1.0 mg/dL Aspartate Amino Transferase (AST) 71 H 13-40 U/L Alanine Aminotransferase (ALT) 87 H 7-40 U/L Alkaline Phosphatase 344 H 46-116 U/L Total Protein 6.7 5.7-8.2 g/dL Albumin 2.8 L 3.2-4.8 g/dL Triglycerides Level 111 < 150 mg/dL Cholesterol Level 100 < 200 mg/dL LDL Cholesterol 67 < 100 mg/dL HDL Cholesterol 20 L 40-59 mg/dL Random Vancomycin Level 14.0 H 5-10 ug/mL Urine Color Yellow Yellow Urine Clarity Clear Clear Urine pH 5.0 5.0-9.0 Urine Specific [place] 1.015 1.001-1.035 Urine Protein Negative Negative Urine Ketones Negative Negative Urine Blood Negative Negative /uL Urine Nitrite Negative Negative Urine Bilirubin Negative Negative Urine Urobilinogen Normal Negative mg/dL Urine Leukocyte Esterase Negative Negative /uL Urine RBC 1 0 - 3 /hpf Urine WBC 1 0 - 3 /hpf Urine Squamous Epithelial Cells Few <5 /hpf Urine Bacteria None seen None Seen /hpf Urine Epithelial Casts Few <5 /hpf Urine Glucose 2+ H Normal mg/dL Test 06/03/24 10:22 Range/Units Large Platelets Few Target Cells Few Ovalocytes Few B-Type Natriuretic Peptide 2537.22 0-100 pg/mL Microbiology Date/Time Source Procedure Growth Status 06/04/24 11:00 Foot Gram Stain - Final Resulted 06/04/24 11:00 Foot Wound Culture - Preliminary Resulted Problems(with codes): (1) ESRD (end stage renal disease) on dialysis (2) Anasarca (3) HTN (hypertension) (4) CKD (chronic kidney disease) stage 3, GFR 30-59 ml/min (5) CHF (congestive heart failure) (6) Decreased urination (7) Worsening body fluid retention (8) Dyspnea (9) Pleural effusion, right (10) Hypothyroidism (acquired) (11) Hematuria (12) Moderate protein malnutrition (13) Anemia in chronic kidney disease (CKD) (14) CHF exacerbation (15) Cellulitis of right thumb (16) Insect bite of right thumb (17) Cardiomegaly (18) Liver disease (19) Dulxm-fy-xldpcmk kidney injury (20) Acute exacerbation of CHF (congestive heart failure) (21) Elevated brain natriuretic peptide (BNP) level (22) Leg edema (23) Hypotension (24) Elevated troponin (25) Volume overload (26) Lower extremity cellulitis (27) Acute on chronic congestive heart failure Plan/Recommendation ASSESSMENT: Patient is a 64 year old who was seen in clinic for bilateral leg wounds PLAN: - The patients chart was reviewed, clinical findings were discussed with the patient, the etiologies of the conditions were discussed in detail, and a treatment plan was agreed to at this time, with both oral and written instructions provided. - reviewed lower extremity wounds which appear superficial and chronic ulcerations - recommend using Medihoney on the wounds - discussed that there is no surgical intervention at this point - recommend patient follows up with me as an outpatient All questions were answered and concerns addressed to the patient's satisfaction. The patient was given the phone number to the clinic and was told how to make contact with the clinic should any concerns or questions arise. Patient understands that if any questions or concerns arise prior to the next appointment, we should be contacted immediately. FOLLOW-UP: Patient will follow up with me in 1 week for continued wound care Plan discussed with: Patient Date of Service: Jun 05, 2024 Billing Provider: BALDO GALINDO DPM Common Visit Codes: [id number] INP/OBS CARE (MOD) BALDO GALINDO DPM Jun 05, 2024 14:13
[2024-06-05] MEDS: VANCOMYCIN 500 MG in D5W 5% 100 ML IV ONE (14:18)
[2024-06-05] MEDS: SODIUM ZIRCONIUM CYCL 10 GM PAK PO ONE (14:52)
[2024-06-05 16:51] LABS: Basophils # (auto) 0 10 ^3/uL (0-0.2); Basophils % (auto) 0.2 % (0.0-2.0); Eosinophils # (auto) 0 10 ^3/uL (0-0.8); Eosinophils % (auto) 0.2 % (0.0-7.0); Hematocrit 45.9 % (41.0-53.0); Hemoglobin 14.9 g/dL (13.5-17.5); Lymphocytes # (auto) 0.6 10 ^3/uL (0.4-5.4); Lymphocytes % (auto) 12.7 % (10.0-50.0); Mean Corpuscular Hemoglobin 29.4 pg (28.0-32.0); Mean Corpuscular Hgb Conc. 32.5 g/dL (32.0-36.0); Mean Corpuscular Volume 90.5 fL (80.0-100.0); Monocytes # (auto) 0.3 10 ^3/uL (0-1.3); Monocytes % (auto) 6.6 % (0.0-12.0); Neutrophils % (auto) 80.3 % (37.0-80.0); Nucleated Red Blood Cells % 2.8 %; Platelet Count (auto) 113 10^3/uL (140-450); Red Blood Cells 5.08 10^6/uL (4.5-5.90)
[2024-06-05 16:54] LABS: Red Cell Distribution Width 27.3 % (11.8-14.3)
--- NOTE | 2024-06-05 16:55 | DVHPN2 ---
Subjective Patient was awake and alert this morning, no complaints of pain He was on 4 L nasal cannula Potassium was high at 5.6 Later this afternoon he became less alert and then he became on responsive At this time his blood pressure is low, 70 over 50 with a map of around 65 Patient was given Narcan x2 but he is not responding He is breathing spontaneously though and maintaining good oxygenation EKG showed basic rhythm at 120 Changes from previous H/P or p: Changes Eyes: No Pain, No Vision change, No Conjunctivae inflammation, No Eyelid i nflammation, No Other, No Redness ENT: No Ear pain, No Ear discharge, No Nose pain, No Nose discharge, No Nose congestion, No Mouth pain, No Mouth swelling, No Throat pain, No Throat swelling, No Other Cardiovascular: No Chest Pain, No Palpitations, No Orthopnea, No Paroxysmal Noc. Dyspnea, No Edema, No Lt Headedness, No Other Respiratory: No Cough, No Dry, No Shortness of breath, No SOB with excertion, No Wheezing, No Hemoptysis, No Pleuritic Pain, No Sputum, No Other Gastrointestinal: No Nausea, No Vomiting, No Abdominal Pain, No Diarrhea, No C onstipation, No Melena, No Hematochezia, No Other Genitourinary: No Dysuria, No Frequency, No Incontinence, No Hematuria, No Retention, No Other Musculoskeletal: No other, No neck pain, No shoulder pain, No arm pain, No back pain, No hand pain, No leg pain, No foot pain Skin: No Rash, No Lesions, No Jaundice, No Bruising, No Other Objective Vitals Vital Signs Date Time Temp Pulse Resp B/P (MAP) Pulse Ox O2 Delivery O2 Flow Rate FiO2 06/05/24 13:00 98.1 59 16 85/55 (65) 93 98.1 06/05/24 08:00 Nasal Cannula* 4 36 Intake/Output Intake and Output 06/05/24 07:00 Intake Total 1175 ml Output Total 490 ml Balance 685 ml Intake Oral 1025 ml IV Total 150 ml Output Urine Total 490 ml General Appearance: Alert, Oriented X3, Cooperative Lungs: Other (Bilateral rhonchi) Cardiovascular: Regular rate, Normal S1, Normal S2 Abdomen: Normal bowel sounds, Soft, No tenderness Extremities: Other (2+ edema bilaterally in the lower extremity) Medications Current Medications Medications Dose Ordered Sig/Patrick Route Start Time Stop Time Status Last Admin Dose Admin Sodium Chloride 10 ml Q8HR IV 06/03/24 22:00 06/05/24 12:49 10 ML Acetaminophen/ Hydrocodone Bitart 1 tab Q4HP PRN PO 06/03/24 15:30 06/05/24 13:38 1 TAB Ondansetron HCl 4 mg Q4HP PRN IV 06/03/24 15:30 Docusate Sodium 100 mg BIDPRN PRN PO 06/03/24 15:30 Acetaminophen 650 mg Q6HP PRN PO 06/03/24 15:30 Morphine Sulfate 2 mg Q4HPRN PRN IV 06/03/24 15:30 Nitroglycerin 0.4 mg Q5MINP PRN SL 06/03/24 15:30 Morphine Sulfate 2 mg Q30M PRN IV 06/03/24 15:30 Diagnostic Test (Pha) 1 strip ACHS 06/03/24 17:00 06/05/24 12:48 1 STRIP Insulin Human Regular HS SC 06/03/24 22:00 06/03/24 21:52 2 UNITS Insulin Human Regular AC SC 06/03/24 17:00 Dextrose 50 ml UD PRN IV 06/03/24 15:30 06/04/24 05:56 50 ML Empaglifozin 10 mg DAILY PO 06/04/24 10:00 06/05/24 11:05 10 MG Vancomycin HCl 0 ml @ 0 mls/hr UD IV 06/03/24 15:45 Ferrous Sulfate 325 mg DAILY PO 06/04/24 10:00 06/05/24 11:04 325 MG Pravastatin Sodium 20 mg HS PO 06/03/24 22:00 06/04/24 22:25 20 MG Metoprolol Tartrate 12.5 mg BID PO 06/04/24 22:00 06/05/24 11:05 12.5 MG Furosemide 20 mg BIDD IV 06/05/24 06:00 Norepinephrine Bitartrate 250 ml @ 3.75 mls/hr Q24H IV 06/05/24 16:30 UNV Laboratory Results Chemistry Test 06/05/24 06:44 06/05/24 16:32 Albumin 2.8 g/dL (3.2-4.8) L Pending Calcium Level 9.0 mg/dL (8.7-10.4) Pending Magnesium Level 2.2 mg/dL (1.6-2.6) Pending Total Protein 6.7 g/dL (5.7-8.2) Pending Lipid panel Test 06/05/24 06:44 Cholesterol Level 100 mg/dL (< 200) HDL Cholesterol 20 mg/dL (40-59) L Triglycerides Level 111 mg/dL (< 150) LFT Test 06/05/24 06:44 06/05/24 16:32 Alanine Aminotransferase (ALT) 87 U/L (7-40) H Pending Alkaline Phosphatase 344 U/L (46-116) H Pending Aspartate Amino Transferase (AST) 71 U/L (13-40) H Pending Total Bilirubin 4.2 mg/dL (0.2-1.0) H Pending Urinalysis Test 06/03/24 17:57 Urine Color Yellow (Yellow) Urine Clarity Clear (Clear) Urine pH 5.0 (5.0-9.0) Urine Specific [place] 1.015 (1.001-1.035) Urine Protein Negative (Negative) Urine Ketones Negative (Negative) Urine Blood Negative /uL (Negative) Urine Nitrite Negative (Negative) Urine Bilirubin Negative (Negative) Urine Urobilinogen Normal mg/dL (Negative) Urine Leukocyte Esterase Negative /uL (Negative) Urine RBC 1 /hpf (0 - 3) Urine WBC 1 /hpf (0 - 3) Urine Squamous Epithelial Cells Few /hpf (<5) Urine Bacteria None seen /hpf (None Seen) Urine Epithelial Casts Few /hpf (<5) Urine Glucose 2+ mg/dL (Normal) H Microbiology Microbiology Date/Time Source Procedure Growth Status 06/04/24 11:00 Foot Gram Stain - Final Resulted 06/04/24 11:00 Foot Wound Culture - Preliminary Resulted Assessment/Plan Assessment/Plan Acute on chronic congestive heart failure with low ejection fraction Bilateral lower extremity open wounds Type 2 diabetes Dyslipidemia Hypertension Chronic kidney disease Plan 06/04/2024: IV Lasix 40 mg twice a day Oxygen as needed Dietary consult Continue Aldactone 50 mg daily Entresto IV antibiotics vancomycin per pharmacy protocol The code Advance directives discussed for 20 minutes 06/05/2024: Unresponsiveness, possible due to opiates, Narcan was given x2 doses Rule out CVA: Get a CT scan of the head no contrast Hypotension: Start Levophed Hyperkalemia: Repeat labs including electrolytes and kidney function Check troponins again Acute kidney injury on Chronic kidney disease Elevated troponin, NSTEMI type 2 Acute on chronic decompensated heart failure with reduced ejection fraction EF 10-15% Nonischemic cardiomyopathy Possible cardiorenal syndrome History of hypertension Thrombocytopenia Plan Transfer to the [facility] Levophed drip to keep map above 65 CT scan of the head : Negative Check the electrolytes again, hyperkalemia: Give hyperkalemia protocol Central line, done Called the family to update them, no answer Rule out sepsis: Get blood culture, lactic acid, UA, urine culture Poor prognosis The patient eventually woke up and became more alert and oriented and was completely following commands and understanding his environment I asked him about advance directives, he stated Full Code Plan discussed with: Other My Orders Orders - NERISSA SALTER MD Procedure Category Date Status Time Dietary NOTICE 06/05/24 Transmitted Recommendations 12:06 *[facility] CONS 06/05/24 Transmitted -[place] 13:11 Complete Blood Count LAB 06/05/24 In Process 16:21 Comprehensive LAB 06/05/24 In Process Metabolic Panel 16:21 Magnesium LAB 06/05/24 In Process 16:21 Troponin-I Hs LAB 06/05/24 In Process 16:21 Lactate Dehydrogenase LAB 06/05/24 In Process 16:21 Chest Xray 1 View XY 06/05/24 Logged 16:[address] 06/05/24 Logged 16:21 Norepinephrine 8 PHA 06/05/24 Logged Mg/250ml Kit 16:30 Ct Head Neck Wo W CT 06/05/24 Transmitted Contrast 16:42 Date of Service: Jun 05, 2024 Billing Provider: NERISSA SALTER MD Common Visit Codes: [id number] INP/OBS CARE(HIGH) NERISSA SALTRE MD Jun 05, 2024 16:55
[2024-06-05 17:10] LABS: Base Excess -8.1 mmol/L (-2.0-3.0)
[2024-06-05 17:12] LABS: Alanine Aminotransferase 81 U/L (7-40); Alkaline Phosphatase 368 U/L (46-116); Calcium 8.7 mg/dL (8.7-10.4); Carbon Dioxide 15 mmol/L (20-31); Chloride 103 mmol/L (98-107); Glucose 136 mg/dL (74-106); Magnesium 2.2 mg/dL (1.6-2.6)
[2024-06-05 17:13] LABS: Albumin 2.9 g/dL (3.2-4.8); Anion Gap 12 (5-15); Aspartate Aminotransferase 71 U/L (13-40); BUN/Creatinine Ratio 20.1 (10.0-20.0); Bilirubin, Total 4.7 mg/dL (0.2-1.0); Blood Urea Nitrogen 29 mg/dL (9-23); Sodium 130 mmol/L (136-145); Total Protein 6.9 g/dL (5.7-8.2)
[2024-06-05 17:20] LABS: Potassium 5.7 mmol/L (3.5-5.1)
[2024-06-05] MEDS: NOREPINEPHRINE 8 MG/250ML KIT 250 ML IV SCH (17:39)
--- NOTE | 2024-06-05 17:57 | DVH ---
EXAM: CT HEAD WITHOUT CONTRAST INDICATION: ALOC TECHNIQUE: CT of the head without intravenous contrast. Radiation dose : Head: CT Dose: CTDI volume is 59 mGy. Dose-length product is 1059.16 mGy*cm The dose indicators for CT are the volume computed tomography (CT) dose index (CTDIvol) and the dose length product (DLP), and are measured in units of mGy and mGy-cm, respectively. These indicators are not patient dose, but values generated from the CT scanner acquisition factors. The report includes radiation exposure data for exposures received during this examination. COMPARISON: CT HEAD WITHOUT CONTRAST on DOS: 04/25/24, CT ABD PELVIS WO CONTRAST on DOS: 06/12/21 FINDINGS: There is no evidence of acute intracranial hemorrhage, extra-axial collection, mass effect, midline s hift, herniation or hydrocephalus. The ventricles, sulci and cisterns are age appropriate. The skinner-white differentiation is intact. Patchy periventricular and subcortical white matter hypoattenuation is nonspecific but may be related to small vessel ischemic disease. The visualized paranasal sinuses and mastoid air cells are clear. The surrounding soft tissues and osseous structures are unremarkable. IMPRESSION: 1. No acute intracranial abnormality. Radiation optimization: All CT scans at this facility use at least one of these dose optimization cee hniques: Automated exposure control mA and/or kV adjustment per patient size (includes targeted exams where dose is matched to clinical indication) or iterative reconstruction. HS:Y
--- NOTE | 2024-06-05 18:14 | DVHNC2 ---
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 Indication: Hypotension Room prepared for procedure: Yes Chair Spring Assembler performed hand hygien: Yes Maximal sterile barrier precau: Mask/Eye shield, Sterile gown, Sterlie gloves Skin Preparation: Chlorhexidine gluconate Skin preparation completely dr: Yes Insertion site: Right, Internal jugular Central line catheter type: Qcf-oxinpnuq-bic dialysis Number of lumens: 3 Central line exchanged over a: No Antiseptic ointment applied to: Yes Post Assessment: Chest X-Ray Informed consent obtained: No Risks/benefits/alt described: No Notes Starting with the first handwash prior to starting sterile technique. A time out was performed. My hands were washed immediately prior to the procedure. I wore a surgical cap, mask with protective eyewear, full gown and sterile gloves throughout the procedure. The patient was placed in Trendelenburg position. RIGHT chest region was prepped using chlorhexidine scrub and draped in sterile fashion using a full drape and sterile probe cover and sterile gel employed. The medial and lateral heads of the sternocleidomastoid muscle were identified as was the carotid pulse. The Internal Jugular vein was identified using the ultrasound. Anesthesia was achieved over the vein using 1% lidocaine. Using real-time out of plane guidance, the introducer needle was inserted into the Internal Jugular vein under direct ultrasound visualization. Venous blood was withdrawn. The syringe was removed and a guidewire was advanced into the introducer needle. The guidewire was visualized in the Internal Jugular Vein by ultrasound. A small incision was made at the skin surface with a scalpel and the introducer needle was exchanged for a dilator over the guidewire. After appropriate dilation was obtained, the dilator was exchanged over the wire for a central venous catheter. The wire was removed and the catheter was sutured in place at 15 cm. A sterile sorbaview shield was placed over the catheter at the insertion site. The patient tolerated the procedure without any hemodynamic compromise. At time of procedure completion, all ports aspirated and flushed properly. Post-procedure chest x-ray didn't show pneumothorax and catheter is in the correct position . Estimated blood loss is 50 cc. Date of Service: Jun 05, 2024 Billing Provider: NERISSA SALTER MD Common Visit Codes: PROCEDURE ONLY Procedure Codes: [id number] NON-TUNNEL CV CATH DAMON RANDHAWA RESIDENT Jun 05, 2024 18:14
--- NOTE | 2024-06-05 18:32 | DVH ---
EXAM: XY CHEST XRAY 1 VIEW TECHNIQUE: Single frontal chest radiograph CLINICAL HISTORY: shortness of breath COMPARISON: XY CHEST PORTABLE on DOS: 06/03/24, XY CHEST XRAY 1 VIEW on DOS: 04/28/24, XY CHEST NIHARIKA BLE on DOS: 04/24/24 Findings/Impression: Frontal chest radiograph demonstrates no acute osseous or superficial soft tissue abnormalities. Left chest wall dual chamber ICD. Right IJ catheter terminates near the proximal SVC. The trachea is midline. Cardiomegaly. Right mid lung field loculated effusion versus airspace opacity, worse from prior. No pneumothorax.
[2024-06-05] MEDS: ALBUTEROL SULF 2.5 MG/0.5ML(0.5%) NEB SOLN NEB ONE (19:18)
[2024-06-05] MEDS: SODIUM BICARB 8.4% 50Meq/50ml SYR INJ IV ONE (19:46)
[2024-06-05] MEDS: DEXTROSE (50%) 50ML SYRG IV ONE ×2 (19:47→20:00)
[2024-06-05] MEDS: CALCIUM GLUC 1,000mg/50ml-NS 50 ML IV ONE ×2 (19:47→20:20)
[2024-06-05] MEDS: InsuLIN REG 1unit/0.01ml Soln (100units/ml) IV ONE ×2 (19:49→20:20)
[2024-06-05 20:00] LABS: Lactic Acid w/Reflex 3.4 mmol/L (0.4-2.0)
--- NOTE | 2024-06-05 20:04 | DVHNC2 ---
Date of Service: Jun 05, 2024 Billing Provider: NERISSA SALTER MD Cardiology Common Codes: PROCEDURE ONLY (Cardiac point of care ultrasound 14418) Coding Comment Comment Point of care ultrasound done today and interpreted by me during code assist Cardiac: No pericardial effusion, markedly decreased systolic function, IVC more than 2 cm with less than 50% excursion on inspiration, slow flow noted Lung: No B-lines, R PLEF Abdomen: No perihepatic free fluid, bilateral kidney equal in size, no lita hydronephrosis MARIBEL TARANGO MD Jun 05, 2024 20:04
--- NOTE | 2024-06-05 21:24 | DVHINCON2 ---
Date of service: Jun 05, 2024 Referring Physician Ekta Meek NP Reason for Consultation Abnormal chest x-ray, dependence on supplemental O2. History of Present Illness A 64-year-old man with past medical history of Chronic kidney disease, diabetes, CHF, hypertension, hyperlipidemia, pneumonia and GERD who presented to ED on 06/03/24 with c/o weakness and pain. Patient is a poor historian. Per records, pt had SOB with associated nonproductive cough. He had multiple wounds to bilateral lower extremities and buttocks, came in disheveled with multiple wounds that were dirty, as well as a dirty brief smelling of urine. BNP was elevated on initial workup. CXR showed Cardiomegaly with mild pulmonary vascular congestion. Patient was admitted for further care. Pulmonary consultation is requested for evaluation and management due to these findings. Review of Systems: 14-point review of systems negative unless otherwise noted above. Past Medical History: Chronic kidney disease, diabetes, CHF, hypertension, hyperlipidemia, pneumonia and GERD. Past Surgical History: Pacemaker, Hernia repair. Medications: Reviewed. Allergies: No known drug allergies. Family History: HTN, heart disease, breast cancer. Social History: Nonsmoker. No alcohol or illicit drug use Family History: FH: breast cancer G8 SISTER FH: heart disease G8 BROTHER G8 BROTHER Hypertension G8 MOTHER Allergies: Coded Allergies: NO KNOWN ALLERGIES (Unverified , 08/11/20) Home Meds Active Scripts Omeprazole (Gnp Omeprazole) 20 Mg Tab, 20 MG PO DAILY, #30 TAB Prov:NATANAEL AKBAR MD 08/14/20 Simvastatin (Simvastatin) 10 Mg Tab, 10 MG PO HS for 30 Days, #30 MG Prov:NATANAEL AKBAR MD 08/14/20 Aspirin (Aspir-Low) 81 Mg Tab, 81 MG PO DAILY for 30 Days, #30 MG Prov:NATANAEL AKBAR MD 08/14/20 Reported Medications Sacubitril-Valsartan (Entresto 24-26 mg) 1 Tab Tab, 1 TAB PO BID for 90 Days, #180 06/04/24 Metoprolol Succinate (Metoprolol Succinate Er) 50 Mg Tab, 1 TAB PO DAILY 06/03/24 Spironolactone (Spironolactone) 50 Mg Tab, 1 TAB PO DAILY 06/03/24 Metolazone (Metolazone) 2.5 Mg Tab, 1 TAB PO QAM for 90 Days, #90 02/21/24 Empagliflozin (Jardiance) 10 Mg Tab, 1 TAB PO DAILY for 90 Days, #90 02/21/24 Ferrous Sulfate (Ferosul) 325 Mg Tab, 1 TAB PO DAILY 02/21/24 Furosemide (Furosemide) 40 Mg Tab, 1 TAB PO BID for 90 Days, #180 5 Refills 02/21/24 Amiodarone Hcl (Amiodarone Hcl) 200 Mg Tab, 200 MG PO DAILY for 30 Days 03/29/21 Metformin Hydrochloride (Metformin Hcl) 500 Mg Tab, 1 TAB PO BIDWM 01/22/21 Discontinued Reported Medications Spironolactone (Spironolactone) 25 Mg Tab, 1 TAB PO DAILY for 30 Days, #30 02/21/24 Discontinued Scripts Amoxicillin & Pot Clavulanate (AUGMENTIN TABLET) 875 Mg Tb, 875 MG PO BID for 5 Days, #10 TAB Prov:LONI WHITLEY NP 05/03/24 Hydrocodone-Acetaminophen (Hydrocodone Bitartrate/AC 5-325 mg) 1 Tab Tab, 1 TAB PO Q6HP PRN, #20 TAB Prov:NERISSA MCINTOSH MD 02/22/24 Carvedilol (Carvedilol) 3.125 Mg Tab, 3.125 MG PO BID, #60 MG Prov:NATANAEL AKBAR MD 08/14/20 Current Medications Current Medications Medications (Trade) Dose Ordered Sig/Patrick Route PRN Reason Start Time Stop Time Status Last Admin Spironolactone (Aldactone) 12.5 mg DAILY PO 06/05/24 10:00 06/05/24 15:36 DC 06/05/24 11:07 Metoprolol Tartrate (Lopressor Tablet) 12.5 mg BID PO 06/04/24 22:00 Hold 06/05/24 11:05 Furosemide (Lasix Injection) 20 mg BIDD IV 06/05/24 06:00 Norepinephrine Bitartrate 250 ml @ 3.75 mls/hr Q24H IV 06/05/24 16:30 06/05/24 17:39 Vital Signs Vital Signs Date Time Temp Pulse Resp B/P (MAP) Pulse Ox O2 Delivery O2 Flow Rate FiO2 06/05/24 19:31 90 16 100 06/05/24 19:19 Nasal Cannula* 4 36 06/05/24 18:15 74/49 06/05/24 13:00 98.1 98.1 Physical Exam Gen.: Patient lying in bed in no apparent distress. On supplemental oxygen. Head: Normocephalic, atraumatic. Eyes: EOMI/PERRLA. Ears: Normal hearing. Normal anatomy. Neck/trachea: Trachea midline, supple. Nose: Normal external anatomy. Mouth: Moist mucous membranes. Chest: Decreased air entry bilaterally. No wheezing or rhonchi. Cardiovascular: Positive S1, positive S2. Regular rate and rhythm. Abdomen: Positive bowel sounds in all 4 quadrants. Soft, non-tender, non- distended. : Deferred. Rectal: Deferred. Skin: Warm, dry. Intact. Extremities: 2+ radial pulses bilaterally. No lower extremity edema. Neuro: Awake, alert, oriented x3. No gross motor or sensory deficits. Cranial nerves II through XII intact. Gait not assessed. Labs/Diagnostic Data Labs Test 06/05/24 19:37 06/05/24 19:21 06/05/24 16:56 06/05/24 16:32 Range/Units POC Glucose 153 H 70-106 mg/dl Lactic Acid Level 3.4 *H 0.4-2.0 mmol/L Blood Gas Specimen Type Arterial Blood Gas Sample Site Left radial Blood Gas Patient Temperature 37.0 Arterial Blood Date Drawn [id number] Arterial Blood pH 7.398 7.350-7.450 Arterial Blood Partial Pressure CO2 24.2 L 35.0-48.0 mmHg Arterial Blood Partial Pressure O2 200.4 H 83.0-108.0 mmHg Arterial Blood HCO3 14.6 L 21.0-28.0 mmol/L Arterial Blood Oxygen Saturation 99.4 H 94.0-98.0 % Arterial Blood Base Excess -8.1 L -2.0-3.0 mmol/L Arterial Blood Oxyhemoglobin 97.6 94.0-98.0 % Arterial Blood Carboxyhemoglobin 1.3 0.5-1.5 % Arterial Blood Methemoglobin 0.5 0.0-1.5 % Ehlder Test Modified Blood Gas Total Hemoglobin 15.20 13.5-17.5 g/dL Blood Gas Liter Flow 4.00 Blood Gas Modality Nasal cannula FiO2 % 36.0 White Blood Count 5.0 4.4-10.8 10^3/uL Red Blood Count 5.08 4.5-5.90 10^6/uL Hemoglobin 14.9 13.5-17.5 g/dL Hematocrit 45.9 41.0-53.0 % Mean Corpuscular Volume 90.5 80.0-100.0 fL Mean Corpuscular Hemoglobin 29.4 28.0-32.0 pg Mean Corpuscular Hemoglobin Concent 32.5 32.0-36.0 g/dL Red Cell Distribution Width 27.3 H 11.8-14.3 % Platelet Count 113 L 140-450 10^3/uL Mean Platelet Volume 8.9 6.9-10.8 fL Neutrophils (%) (Auto) 80.3 H 37.0-80.0 % Lymphocytes (%) (Auto) 12.7 10.0-50.0 % Monocytes (%) (Auto) 6.6 0.0-12.0 % Eosinophils (%) (Auto) 0.2 0.0-7.0 % Basophils (%) (Auto) 0.2 0.0-2.0 % Neutrophils # (Auto) 4.0 1.6-8.6 10 ^3/uL Lymphocytes # (Auto) 0.6 0.4-5.4 10 ^3/uL Monocytes # (Auto) 0.3 0-1.3 10 ^3/uL Eosinophils # (Auto) 0 0-0.8 10 ^3/uL Basophils # (Auto) 0 0-0.2 10 ^3/uL Nucleated Red Blood Cells 2.8 % Sodium Level 130 L 136-145 mmol/L Potassium Level 5.7 *H 3.5-5.1 mmol/L Chloride Level 103 98-107 mmol/L Carbon Dioxide Level 15 L 20-31 mmol/L Anion Gap 12 5-15 Blood Urea Nitrogen 29 H 9-23 mg/dL Creatinine 1.44 H 0.700-1.30 mg/dL Glomerular Filtration Rate Calc 54 >90 mL/min BUN/Creatinine Ratio 20.1 H 10.0-20.0 Serum Glucose 136 H 74-106 mg/dL Calcium Level 8.7 8.7-10.4 mg/dL Magnesium Level 2.2 1.6-2.6 mg/dL Total Bilirubin 4.7 H 0.2-1.0 mg/dL Aspartate Amino Transferase (AST) 71 H 13-40 U/L Alanine Aminotransferase (ALT) 81 H 7-40 U/L Alkaline Phosphatase 368 H 46-116 U/L Lactate Dehydrogenase 802 H 120-246 U/L Troponin I High Sensitivity 76 *H </=54 ng/L Total Protein 6.9 5.7-8.2 g/dL Albumin 2.9 L 3.2-4.8 g/dL Test 06/05/24 06:44 06/03/24 17:57 06/03/24 10:22 Range/Units Platelet Estimate Decreased Anisocytosis (manual) Slight Triglycerides Level 111 < 150 mg/dL Cholesterol Level 100 < 200 mg/dL LDL Cholesterol 67 < 100 mg/dL HDL Cholesterol 20 L 40-59 mg/dL Random Vancomycin Level 14.0 H 5-10 ug/mL Urine Color Yellow Yellow Urine Clarity Clear Clear Urine pH 5.0 5.0-9.0 Urine Specific [place] 1.015 1.001-1.035 Urine Protein Negative Negative Urine Ketones Negative Negative Urine Blood Negative Negative /uL Urine Nitrite Negative Negative Urine Bilirubin Negative Negative Urine Urobilinogen Normal Negative mg/dL Urine Leukocyte Esterase Negative Negative /uL Urine RBC 1 0 - 3 /hpf Urine WBC 1 0 - 3 /hpf Urine Squamous Epithelial Cells Few <5 /hpf Urine Bacteria None seen None Seen /hpf Urine Epithelial Casts Few <5 /hpf Urine Glucose 2+ H Normal mg/dL Large Platelets Few Target Cells Few Ovalocytes Few B-Type Natriuretic Peptide 2537.22 0-100 pg/mL Microbiology Date/Time Source Procedure Growth Status 06/04/24 11:00 Foot Gram Stain - Final Resulted 06/04/24 11:00 Foot Wound Culture - Preliminary Resulted Assessment Impression: Acute on chronic systolic CHF (EF 10-15%) BLE wounds DM type II Acute on chronic CKD Metabolic acidosis Hyperkalemia Elevated troponin Overweight, BMI 29.5 Plan: Supplemental oxygen, 4 LPM NC Titrate to keep O2 sats above 92%. Taper O2 as tolerated. CXR demonstrated mild pulmonary vascular congestion. Continue bronchodilators. Iron supplementation Monitor hemoglobin Accu-Cheks, ISS. Diurese to euvolemia w/ Lasix Monitor renal function. Monitor electrolytes. Supplement as necessary. Monitor ins and outs. DVT prophylaxis. Rapid Response/Code Assist: Patient became hypotensive and unresponsive, upgraded to SHIREEN. Central line placement in right IJ. STAT CT head obtained to r/o ICH or stroke. Pt received Narcan x2. Start pressors if necessary to maintain a mean arterial blood pressure greater than 65 mmHg. Monitor renal function - creatinine trending down. Monitor electrolytes. Supplement as necessary. Monitor ins and outs Prognosis: Poor given patient's multiple co-morbidities. Condition: Critical Rest of plan per hospitalist and other consultants. A total of 35 minutes of critical care time was spent reviewing the patient record, examining the patient, making a diagnostic and therapeutic plan, discussing this plan with the medical personnel, following up on diagnostic s tudies and following the patient for clinical stability excluding any and all procedures. At least 50% of this time was spent in direct, [id number] contact. Thank you, Ekta Meek NP/Dr Mcintosh, for allowing me to participate in this patient's care. Further recommendations will depend on the patient's clinical course. Please do not hesitate to contact me if you have any questions or concerns. This medical document was created using an electronic medical record system with [employer] computerized dictation system. Although these documentations are being carefully reviewed, there may still be some phonetic and typographical changes. The errors are purely typographical, due to imperfection on the software program, and do not reflect any compromise in the patient's medical care. Plan discussed with: Other (MARY Winston, MACHELLE Meek MD) WALDO OHARA MD Jun 05, 2024 21:24
[2024-06-05] MEDS: NALOXONE HCL 0.4 MG/ML VIAL ONE ×2 (22:32→22:33)
[2024-06-06] VITALS (83 sets, daily range): BP systolic 81–117; BP diastolic 49–80; PULSE 80–123; RESP 8–30; TEMP 97.8–99.6; O2SAT 85–100
[2024-06-06] MEDS: SODIUM ZIRCONIUM CYCL 10 GM PAK PO ONE ×3 (00:32→09:59)
[2024-06-06 02:59] LABS: Urine Bacteria None Seen /hpf (None Seen)
[2024-06-06 03:21] LABS: Urine Blood Negative /uL (Negative); Urine Clarity Clear (Clear); Urine Color Yellow (Yellow); Urine Hyaline Cast MOD /lpf (0 - 2); Urine Mucus FEW (None Seen); Urine Protein, UAD TRACE (Negative); Urine Specific Gravity 1.018 (1.001-1.035); Urine Urobilinogen Normal (Negative); Urine WBC 3 /hpf (0 - 3)
[2024-06-06 04:51] LABS: Basophils # (auto) 0 10 ^3/uL (0-0.2); Basophils % (auto) 0.2 % (0.0-2.0); Eosinophils # (auto) 0 10 ^3/uL (0-0.8); Hematocrit 42.3 % (41.0-53.0); Lymphocytes # (auto) 0.5 10 ^3/uL (0.4-5.4); Lymphocytes % (auto) 9.3 % (10.0-50.0); Mean Corpuscular Hemoglobin 29.5 pg (28.0-32.0); Mean Corpuscular Hgb Conc. 33.1 g/dL (32.0-36.0); Mean Corpuscular Volume 89.2 fL (80.0-100.0); Monocytes # (auto) 0.4 10 ^3/uL (0-1.3); Monocytes % (auto) 8.3 % (0.0-12.0); Neutrophils # (auto) 4.1 10 ^3/uL (1.6-8.6); Neutrophils % (auto) 82.2 % (37.0-80.0); Nucleated Red Blood Cells % 2.3 %; Platelet Count (auto) 120 10^3/uL (140-450); Red Blood Cells 4.74 10^6/uL (4.5-5.90)
[2024-06-06 04:59] LABS: Red Cell Distribution Width 27.2 % (11.8-14.3)
[2024-06-06 05:08] LABS: Alanine Aminotransferase 81 U/L (7-40); Albumin 2.8 g/dL (3.2-4.8); Alkaline Phosphatase 339 U/L (46-116); Anion Gap 9 (5-15); Aspartate Aminotransferase 64 U/L (13-40); BUN/Creatinine Ratio 28.3 (10.0-20.0); Carbon Dioxide 22 mmol/L (20-31); Chloride 104 mmol/L (98-107); Magnesium 1.9 mg/dL (1.6-2.6); Potassium 5.2 mmol/L (3.5-5.1)
[2024-06-06 05:09] LABS: Bilirubin, Total 4.1 mg/dL (0.2-1.0); Total Protein 6.3 g/dL (5.7-8.2)
[2024-06-06 05:19] LABS: Blood Urea Nitrogen 41 mg/dL (9-23); Glucose 32 mg/dL (74-106); Sodium 135 mmol/L (136-145)
[2024-06-06] MEDS: MAGNESIUM SULFATE 1GM/100ML 100 ML IV ONE (09:40)
--- NOTE | 2024-06-06 09:48 | DVHCONRES ---
Date Seen: Jun 06, 2024 Resident Creating Document: YUNG ROMEO RESIDENT Referring Physician Dr Mcintosh Reason for Consultation CKD History of Present Illness Patient is 64-year-old male with past medical history of hypertension, diabetes mellitus type 2, hyperlipidemia, CHF, CKD, GERD who brought to the hospital for generalized weakness and worsening shortness of breath for few days before hos pitalization. Patient is poor historian and major with the medical information was obtained from EMR. At the time of evaluation patient did not have any complaints except mild shortness of breath, nonproductive cough. Nephrology consultation was done for evaluation of CKD. Over the course of hospitalization patient was treated with IV Lasix, IV antibiotic, oxygen as needed and vasopressors. No other complaints at this point. Past Medical History hypertension, diabetes mellitus type 2, hyperlipidemia, CHF, CKD, GERD Past Surgical History AICD implantation Family History: FH: breast cancer G8 SISTER FH: heart disease G8 BROTHER G8 BROTHER Hypertension G8 MOTHER Social History Patient denies any eliciting drug use. Allergies: Coded Allergies: NO KNOWN ALLERGIES (Unverified , 08/11/20) Home Meds Active Scripts Omeprazole (Gnp Omeprazole) 20 Mg Tab, 20 MG PO DAILY, #30 TAB Prov:NATANAEL AKBAR MD 08/14/20 Simvastatin (Simvastatin) 10 Mg Tab, 10 MG PO HS for 30 Days, #30 MG Prov:NATANAEL AKBAR MD 08/14/20 Aspirin (Aspir-Low) 81 Mg Tab, 81 MG PO DAILY for 30 Days, #30 MG Prov:NATANAEL AKBAR MD 08/14/20 Reported Medications Sacubitril-Valsartan (Entresto 24-26 mg) 1 Tab Tab, 1 TAB PO BID for 90 Days, #180 06/04/24 Metoprolol Succinate (Metoprolol Succinate Er) 50 Mg Tab, 1 TAB PO DAILY 06/03/24 Spironolactone (Spironolactone) 50 Mg Tab, 1 TAB PO DAILY 06/03/24 Metolazone (Metolazone) 2.5 Mg Tab, 1 TAB PO QAM for 90 Days, #90 02/21/24 Empagliflozin (Jardiance) 10 Mg Tab, 1 TAB PO DAILY for 90 Days, #90 8/7/24 Ferrous Sulfate (Ferosul) 325 Mg Tab, 1 TAB PO DAILY 02/21/24 Furosemide (Furosemide) 40 Mg Tab, 1 TAB PO BID for 90 Days, #180 5 Refills 02/21/24 Amiodarone Hcl (Amiodarone Hcl) 200 Mg Tab, 200 MG PO DAILY for 30 Days 03/29/21 Metformin Hydrochloride (Metformin Hcl) 500 Mg Tab, 1 TAB PO BIDWM 01/22/21 Discontinued Reported Medications Spironolactone (Spironolactone) 25 Mg Tab, 1 TAB PO DAILY for 30 Days, #30 02/21/24 Discontinued Scripts Amoxicillin & Pot Clavulanate (AUGMENTIN TABLET) 875 Mg Tb, 875 MG PO BID for 5 Days, #10 TAB Prov:LONI WHITLEY NP 05/03/24 Hydrocodone-Acetaminophen (Hydrocodone Bitartrate/AC 5-325 mg) 1 Tab Tab, 1 TAB PO Q6HP PRN, #20 TAB Prov:NERISSA MCINTOSH MD 02/22/24 Carvedilol (Carvedilol) 3.125 Mg Tab, 3.125 MG PO BID, #60 MG Prov:NATANAEL AKBAR MD 08/14/20 Current Medications Current Medications Medications (Trade) Dose Ordered Sig/Patrick Route PRN Reason Start Time Stop Time Status Last Admin Spironolactone (Aldactone) 12.5 mg DAILY PO 06/05/24 10:00 06/05/24 15:36 DC 06/05/24 11:07 Norepinephrine Bitartrate 250 ml @ 3.75 mls/hr Q24H IV 06/05/24 16:30 06/05/24 17:39 Furosemide (Lasix Injection) 40 mg BIDD IV 06/06/24 09:30 UNV Review of Systems Eyes: No Pain, No Vision change, No Conjunctivae inflammation, No Eyelid inflammation, No Other, No Redness ENT: No Ear pain, No Ear discharge, No Nose pain, No Nose discharge, No Nose congestion, No Mouth pain, No Mouth swelling, No Throat pain, No Throat swelling, No Other Cardiovascular: No Chest Pain, No Palpitations, No Orthopnea, No Paroxysmal Noc. Dyspnea, No Edema, No Lt Headedness, No Other Respiratory: Cough, No Dry, Shortness of breath, No SOB with excertion, No Wheezing, No Hemoptysis, No Pleuritic Pain, No Sputum, No Other Gastrointestinal: No Nausea, No Vomiting, No Abdominal Pain, No Diarrhea, No Constipation, No Melena, No Hematochezia, No Other Genitourinary: No Dysuria, No Frequency, No Incontinence, No Hematuria, No Retention, No Other Musculoskeletal: No other, No neck pain, No shoulder pain, No arm pain, No back pain, No hand pain, No leg pain, No foot pain Skin: No Rash, No Lesions, No Jaundice, No Bruising, No Other Vital Signs Vital Signs Date Time Temp Pulse Resp B/P (MAP) Pulse Ox O2 Delivery O2 Flow Rate FiO2 06/06/24 08:30 88 22 101/64 (76) 100 06/06/24 08:00 99.6 99.6 06/06/24 08:00 Nasal Cannula* 4 36 Physical Exam General Appearance: Cooperative. Not in acute distress. Head Exam: Normal inspection Neck Exam: Normal inspection. Non-tender. Normal alignment Pulmonary/Respiratory: Chest non-tender. Clear bilateral breath sounds Cardiovascular/Chest: Regular rate and rhythm. No murmurs. No JVD. Mild bilateral basal lung crackles. Peripheral Pulses: 2+ Radial (R). 2+ Radial (L). 2+ Pedal (R). 2+ Pedal (L) Abdominal Exam: Normal bowel sounds. Soft. Nontender. No hepatospenomegaly. No masses Ankle Exam: Negative ankle edema, bilateral lower extremity multiple diabetic ulcers. Lower extremities: 1 + lower extremity edema Neuro/Mental Status: A&O x4. Coherent Labs/Diagnostic Data Labs Test 06/06/24 06:43 06/06/24 04:36 06/05/24 23:16 06/05/24 20:55 Range/Units POC Glucose 64 L 70-106 mg/dl White Blood Count 5.0 4.4-10.8 10^3/uL Red Blood Count 4.74 4.5-5.90 10^6/uL Hemoglobin 14.0 13.5-17.5 g/dL Hematocrit 42.3 41.0-53.0 % Mean Corpuscular Volume 89.2 80.0-100.0 fL Mean Corpuscular Hemoglobin 29.5 28.0-32.0 pg Mean Corpuscular Hemoglobin Concent 33.1 32.0-36.0 g/dL Red Cell Distribution Width 27.2 H 11.8-14.3 % Platelet Count 120 L 140-450 10^3/uL Mean Platelet Volume 8.3 6.9-10.8 fL Neutrophils (%) (Auto) 82.2 H 37.0-80.0 % Lymphocytes (%) (Auto) 9.3 L 10.0-50.0 % Monocytes (%) (Auto) 8.3 0.0-12.0 % Eosinophils (%) (Auto) 0.0 0.0-7.0 % Basophils (%) (Auto) 0.2 0.0-2.0 % Neutrophils # (Auto) 4.1 1.6-8.6 10 ^3/uL Lymphocytes # (Auto) 0.5 0.4-5.4 10 ^3/uL Monocytes # (Auto) 0.4 0-1.3 10 ^3/uL Eosinophils # (Auto) 0 0-0.8 10 ^3/uL Basophils # (Auto) 0 0-0.2 10 ^3/uL Nucleated Red Blood Cells 2.3 % Sodium Level 135 #L 136-145 mmol/L Potassium Level 5.2 H 3.5-5.1 mmol/L Chloride Level 104 98-107 mmol/L Carbon Dioxide Level 22 20-31 mmol/L Anion Gap 9 5-15 Blood Urea Nitrogen 41 #H 9-23 mg/dL Creatinine 1.45 H 0.700-1.30 mg/dL Glomerular Filtration Rate Calc 54 >90 mL/min BUN/Creatinine Ratio 28.3 H 10.0-20.0 Serum Glucose 32 #*L 74-106 mg/dL Calcium Level 9.0 8.7-10.4 mg/dL Magnesium Level 1.9 1.6-2.6 mg/dL Total Bilirubin 4.1 H 0.2-1.0 mg/dL Aspartate Amino Transferase (AST) 64 H 13-40 U/L Alanine Aminotransferase (ALT) 81 H 7-40 U/L Alkaline Phosphatase 339 H 46-116 U/L Total Protein 6.3 5.7-8.2 g/dL Albumin 2.8 L 3.2-4.8 g/dL Random Vancomycin Level 14.5 H 5-10 ug/mL Lactic Acid Level 3.8 *H 0.4-2.0 mmol/L Urine Color Yellow Yellow Urine Clarity Clear Clear Urine pH 5.0 5.0-9.0 Urine Specific [place] 1.018 1.001-1.035 Urine Protein Trace H Negative Urine Ketones Negative Negative Urine Blood Negative Negative /uL Urine Nitrite Negative Negative Urine Bilirubin Negative Negative Urine Urobilinogen Normal Negative mg/dL Urine Leukocyte Esterase Negative Negative /uL Urine RBC 2 0 - 3 /hpf Urine WBC 3 0 - 3 /hpf Urine Squamous Epithelial Cells Few <5 /hpf Urine Bacteria None seen None Seen /hpf Urine Hyaline Casts Mod 0 - 2 /lpf Urine Mucus Few None Seen Urine Glucose 4+ H Normal mg/dL Test 06/05/24 16:56 06/05/24 16:32 06/05/24 06:44 06/03/24 17:57 Range/Units Blood Gas Specimen Type Arterial Blood Gas Sample Site Left radial Blood Gas Patient Temperature 37.0 Arterial Blood Date Drawn [id number] Arterial Blood pH 7.398 7.350-7.450 Arterial Blood Partial Pressure CO2 24.2 L 35.0-48.0 mmHg Arterial Blood Partial Pressure O2 200.4 H 83.0-108.0 mmHg Arterial Blood HCO3 14.6 L 21.0-28.0 mmol/L Arterial Blood Oxygen Saturation 99.4 H 94.0-98.0 % Arterial Blood Base Excess -8.1 L -2.0-3.0 mmol/L Arterial Blood Oxyhemoglobin 97.6 94.0-98.0 % Arterial Blood Carboxyhemoglobin 1.3 0.5-1.5 % Arterial Blood Methemoglobin 0.5 0.0-1.5 % Helder Test Modified Blood Gas Total Hemoglobin 15.20 13.5-17.5 g/dL Blood Gas Liter Flow 4.00 Blood Gas Modality Nasal cannula FiO2 % 36.0 Lactate Dehydrogenase 802 H 120-246 U/L Troponin I High Sensitivity 76 *H </=54 ng/L Platelet Estimate Decreased Anisocytosis (manual) Slight Triglycerides Level 111 < 150 mg/dL Cholesterol Level 100 < 200 mg/dL LDL Cholesterol 67 < 100 mg/dL HDL Cholesterol 20 L 40-59 mg/dL Urine Epithelial Casts Few <5 /hpf Test 06/03/24 10:22 Range/Units Large Platelets Few Target Cells Few Ovalocytes Few B-Type Natriuretic Peptide 2537.22 0-100 pg/mL Microbiology Date/Time Source Procedure Growth Status 06/04/24 11:00 Foot Gram Stain - Final Resulted 06/04/24 11:00 Foot Wound Culture - Preliminary Resulted Assessment ROLAND on CKD stage III B likely due to hemodynamically mediated in setting of cardiorenal syndrome Acute on chronic HFrEF, ejection fraction 15% on 02/20/2024. NYHA class IV NSTEMI type 2 likely due to above Bilateral lower extremity cellulitis Multiple bilateral lower extremity diabetic ulcer Presence of AICD Lactic acidosis Hyperkalemia Transaminitis Plan/ recommendation Dr. Franco: -continue Lasix 40 mg IV b.i.d.: Improved urine output, cumulative SANTOSH 2000 mL + -echocardiogram showed 15% ejection fraction with global hypokinesis -hyperkalemia: Lokelma 10 mg p.o. t.i.d. -maintain strict I&O, avoid nephrotoxic medication. -urinalysis: Negative for nitrites, leukocytosis, squamous epithelial cells. -ordered urine sodium, creatinine, total protein, serum phosphorus, UDS: Still Pending -antibiotics per hospitalist recommendation -we will continue to closely follow up kidney function. Total time spent greater than 78 minutes, majority of time spent spent [id number]. Thank you for consultation. Resident atAddendum Patient seen and examined, plan discussed with resident. Agree with above, we will follow closely Plan discussed with: Patient, Other YUNG ROMEO RESIDENT Jun 06, 2024 09:48 CIERRA FRANCO MD Jun 06, 2024 15:50
[2024-06-06] MEDS: FUROSEMIDE 20 MG/2 ML VIAL IV SCH (10:03)
--- NOTE | 2024-06-06 10:37 | DVH ---
Procedure: US ABDOMEN COMPLETE SONOGRAM 06/06/2024 09:43 AM Indication: CKD, ELEVATED LFT'S Comparison: CT scan dated 02/19/2024, ABDOMEN COMPLETE SONOGRAM on DOS: 06/17/21, ABDOMEN COMPLETE SON OGRAM on DOS: 06/13/21, ABDC on DOS: 03/28/21 Technique: Grayscale and color images of the right upper quadrant were obtained. FINDINGS: ASCITES: Trace perisplenic ascites. LIVER: Liver measures 16 cm craniocaudal. Liver parenchyma is markedly heterogeneous in course with n o discrete lesion identified. Nodular liver contour. No intrahepatic ductal dilatation. Normal direc tional flow is seen in the portal vein. GALLBLADDER: Contracted gallstone diffuse mural thickening measuring 6 mm. Sonographic Sifuentes's sign is negative. COMMON BILE DUCT: 0.3 cm in caliber, within normal limits. PANCREAS: Visualized portions are unremarkable. KIDNEYS: Normal in size bilaterally measuring 10 cm in the right side 11.9 cm on the left side withou t hydronephrosis. A 1.8 cm simple appearing , Bosniak category 1 left renal cyst noted. SPLEEN: 8.5 cm in length. No focal lesions identified. AORTA, IVC: Dilated IVC measuring 4.4 cm in caliber. Visualized portions of the abdominal aorta are unremarkable OTHER: None. IMPRESSION: 1. 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 No distinct lesions identified. 2. Trace perisplenic ascites. 3. Nonspecific prominence of IVC that could be related to CHF. 4. Contracted, thick-walled gallbladder likely related to the underlying hepatic failure.
--- NOTE | 2024-06-06 11:51 | DVH ---
CT ABDOMEN AND PELVIS WITHOUT CONTRAST CLINICAL HISTORY: ABD PAIN TECHNIQUE: Multiple contiguous axial images of the abdomen and pelvis without intravenous contrast. The images were reformatted degenerate coronal and sagittal reconstructions. All CT scans at this medical facility are performed using dose modulation techniques as appropriate t o a performed exam including the following:Automated exposure control was utilized; adjustment of the MA and/or KV according to patient size; and use of iterative reconstruction technique. Radiation Dose Information: CT Dose: CTDI volume is 20.55 mGy. Dose-length product is 1224.35 mGy*cm Comparison: CT CT AB PEL WO CON-NO ORAL OR IV on DOS: 02/19/24, CT ABD PELVIS WO CONTRAST on DOS: 06/12 FINDINGS: Evaluation of the abdomen and pelvis is limited without intravenous contrast. The liver, gallbladder, pancreas, kidneys, adrenal glands, and spleen appear within normal limits. There is no gross evidence of abdominal lymphadenopathy. There is no free air. There is no significan t free fluid collection. The stomach grossly appears unremarkable. The small and large bowel loops demonstrate normal caliber . There is a rectal tube in place. The abdominal aorta and IVC appear within normal limits. There is a Borden catheter in the bladder which is decompressed. The prostate gland appears within no rmal limits.. There is no gross evidence of a pelvic mass. There is no free fluid collection. There is consolidation in the right middle lobe with air bronchograms. There is patchy opacity in th e right lower lobe. These are suspicious for airspace disease such as pneumonia. There are small bila teral pleural effusions, [id number]. There is no acute osseous abnormality. There are edematous changes in the soft tissues. IMPRESSION: 1. There is no acute process in the abdomen and pelvis. 2. There is right middle lobe consolidation with air bronchograms. There is patchy opacity in the ri ght lower lobe. These are suspicious for airspace disease such as pneumonia. Clinical correlation and further evaluation with dedicated CT chest is recommended. HS:Y
--- NOTE | 2024-06-06 11:52 | DVHPN2 ---
Subjective Patient is more awake and alert today He mainly complains of pain in his feet and abdomen Ultrasound of the abdomen showed contracted gallbladder and thickened romo His liver enzymes are still elevated with a bilirubin of 4.1 and alkaline phosphatase of 339 He is still on Levophed drip Lactic acid yesterday was 3.8 Creatinine stable at 1.4 Potassium is somewhat better 5.2 Changes from previous H/P or p: Changes Eyes: No Pain, No Vision change, No Conjunctivae inflammation, No Eyelid inflammation, No Other, No Redness ENT: No Ear pain, No Ear discharge, No Nose pain, No Nose discharge, No Nose congestion, No Mouth pain, No Mouth swelling, No Throat pain, No Throat swelling, No Other Cardiovascular: No Chest Pain, No Palpitations, No Orthopnea, No Paroxysmal Noc. Dyspnea, No Edema, No Lt Headedness, No Other Respiratory: No Cough, No Dry, No Shortness of breath, No SOB with excertion, No Wheezing, No Hemoptysis, No Pleuritic Pain, No Sputum, No Other Gastrointestinal: No Nausea, No Vomiting, No Abdominal Pain, No Diarrhea, No Constipation, No Melena, No Hematochezia, No Other Genitourinary: No Dysuria, No Frequency, No Incontinence, No Hematuria, No Retention, No Other Musculoskeletal: No other, No neck pain, No shoulder pain, No arm pain, No back pain, No hand pain, No leg pain, No foot pain Skin: No Rash, No Lesions, No Jaundice, No Bruising, No Other Objective Vitals Vital Signs Date Time Temp Pulse Resp B/P (MAP) Pulse Ox O2 Delivery O2 Flow Rate FiO2 06/06/24 10:03 96/59 06/06/24 08:30 88 22 100 06/06/24 08:00 99.6 99.6 06/06/24 08:00 Nasal Cannula* 4 36 Intake/Output Intake and Output 06/06/24 07:00 Intake Total 928.75 ml Output Total 750 ml Balance 178.75 ml Intake Oral 550 ml IV Total 378.75 ml Output Urine Total 750 ml # Voids 2 General Appearance: Alert, Oriented X3, Cooperative Lungs: Other (Bilateral rhonchi) Cardiovascular: Regular rate, Normal S1, Normal S2 Abdomen: Normal bowel sounds, Soft, No tenderness Extremities: Other (2+ edema bilaterally in the lower extremity) Medications Current Medications Medications Dose Ordered Sig/Patrick Route Start Time Stop Time Status Last Admin Dose Admin Sodium Chloride 10 ml Q8HR IV 06/03/24 22:00 06/06/24 06:25 10 ML Acetaminophen/ Hydrocodone Bitart 1 tab Q4HP PRN PO 06/03/24 15:30 06/05/24 22:32 1 TAB Ondansetron HCl 4 mg Q4HP PRN IV 06/03/24 15:30 Docusate Sodium 100 mg BIDPRN PRN PO 06/03/24 15:30 Acetaminophen 650 mg Q6HP PRN PO 06/03/24 15:30 Morphine Sulfate 2 mg Q4HPRN PRN IV 06/03/24 15:30 Nitroglycerin 0.4 mg Q5MINP PRN SL 06/03/24 15:30 Morphine Sulfate 2 mg Q30M PRN IV 06/03/24 15:30 Diagnostic Test (Pha) 1 strip ACHS 06/03/24 17:00 06/06/24 07:04 1 STRIP Insulin Human Regular HS SC 06/03/24 22:00 06/03/24 21:52 2 UNITS Insulin Human Regular AC SC 06/03/24 17:00 Dextrose 50 ml UD PRN IV 06/03/24 15:30 06/06/24 05:34 50 ML Empaglifozin 10 mg DAILY PO 06/04/24 10:00 06/06/24 09:38 10 MG Vancomycin HCl 0 ml @ 0 mls/hr UD IV 06/03/24 15:45 Ferrous Sulfate 325 mg DAILY PO 06/04/24 10:00 06/06/24 09:38 325 MG Pravastatin Sodium 20 mg HS PO 06/03/24 22:00 06/05/24 22:32 20 MG Metoprolol Tartrate 12.5 mg BID PO 06/04/24 22:00 Hold 06/05/24 11:05 12.5 MG Norepinephrine Bitartrate 250 ml @ 3.75 mls/hr Q24H IV 06/05/24 16:30 06/05/24 17:39 3.75 MLS/HR Furosemide 40 mg BIDD IV 06/06/24 09:30 06/06/24 10:03 40 MG Meropenem 50 ml @ 17 mls/hr Q8HR IV 06/06/24 20:00 Laboratory Results Laboratory Tests 06/06/24 04:36 Chemistry Test 06/05/24 16:32 06/06/24 04:36 Albumin 2.9 g/dL (3.2-4.8) L 2.8 g/dL (3.2-4.8) L Calcium Level 8.7 mg/dL (8.7-10.4) 9.0 mg/dL (8.7-10.4) Magnesium Level 2.2 mg/dL (1.6-2.6) 1.9 mg/dL (1.6-2.6) Total Protein 6.9 g/dL (5.7-8.2) 6.3 g/dL (5.7-8.2) Phosphorus Level 2.8 mg/dL (2.4-5.1) LFT Test 06/05/24 16:32 06/06/24 04:36 Alanine Aminotransferase (ALT) 81 U/L (7-40) H 81 U/L (7-40) H Alkaline Phosphatase 368 U/L (46-116) H 339 U/L (46-116) H Aspartate Amino Transferase (AST) 71 U/L (13-40) H 64 U/L (13-40) H Total Bilirubin 4.7 mg/dL (0.2-1.0) H 4.1 mg/dL (0.2-1.0) H HgA1c, TSH Test 06/06/24 04:36 Hemoglobin A1c 6.3 % A1C (<5.7) H Urinalysis Test 06/03/24 17:57 06/05/24 20:55 Urine Epithelial Casts Few /hpf (<5) Urine Color Yellow (Yellow) Urine Clarity Clear (Clear) Urine pH 5.0 (5.0-9.0) Urine Specific Shubert 1.018 (1.001-1.035) Urine Protein Trace (Negative) H Urine Ketones Negative (Negative) Urine Blood Negative /uL (Negative) Urine Nitrite Negative (Negative) Urine Bilirubin Negative (Negative) Urine Urobilinogen Normal mg/dL (Negative) Urine Leukocyte Esterase Negative /uL (Negative) Urine RBC 2 /hpf (0 - 3) Urine WBC 3 /hpf (0 - 3) Urine Squamous Epithelial Cells Few /hpf (<5) Urine Bacteria None seen /hpf (None Seen) Urine Hyaline Casts Mod /lpf (0 - 2) Urine Mucus Few (None Seen) Urine Glucose 4+ mg/dL (Normal) H Blood Gas Results Test 06/05/24 16:56 Arterial Blood pH 7.398 (7.350-7.450) FiO2 % 36.0 Microbiology Microbiology Date/Time Source Procedure Growth Status 06/04/24 11:00 Foot Gram Stain - Final Resulted 06/04/24 11:00 Foot Wound Culture - Preliminary Resulted Assessment/Plan Assessment/Plan Acute on chronic congestive heart failure with low ejection fraction Bilateral lower extremity open wounds Type 2 diabetes Dyslipidemia Hypertension Chronic kidney disease Plan 06/04/2024: IV Lasix 40 mg twice a day Oxygen as needed Dietary consult Continue Aldactone 50 mg daily Entresto IV antibiotics vancomycin per pharmacy protocol The code Advance directives discussed for 20 minutes 06/05/2024: Unresponsiveness, possible due to opiates, Narcan was given x2 doses Rule out CVA: Get a CT scan of the head no contrast Hypotension: Start Levophed Hyperkalemia: Repeat labs including electrolytes and kidney function Check troponins again Acute kidney injury on Chronic kidney disease Elevated troponin, NSTEMI type 2 Acute on chronic decompensated heart failure with reduced ejection fraction EF 10-15% Nonischemic cardiomyopathy Possible cardiorenal syndrome History of hypertension Thrombocytopenia Plan Transfer to the SHIREEN Levophed drip to keep map above 65 CT scan of the head : Negative Check the electrolytes again, hyperkalemia: Give hyperkalemia protocol Central line, done Called the family to update them, no answer Rule out sepsis: Get blood culture, lactic acid, UA, urine culture Poor prognosis The patient eventually woke up and became more alert and oriented and was completely following commands and understanding his environment I asked him about advance directives, he stated Full Code 06/06/2024: Patient is complaining of abdominal pain Examination shows right upper quadrant tenderness Gallbladder ultrasound showed contracted gallbladder and thickened romo We will get a CT scan of the abdomen and pelvis without contrast Liver enzymes are elevated Check the hepatitis panel Kidney function is stable but the potassium is still high Nephrology is following Cardiology is following the patient Ventricular tachycardia has resolved after the ICD converted him yesterday The patient is more alert now, CT scan of the head was negative Blood cultures are still pending UA was negative for UTI Wound culture of the foot showed Gram-negative rods Continue vancomycin Add meropenem IV Replace magnesium IV Continue IV Lasix 40 mg twice a day Full code The patient pulled out his central line yesterday We will try to do a new central line placement , he is agreeable Plan discussed with: Patient My Orders Orders - NERISSA SALTER MD Procedure Category Date Status Time Dietary NOTICE 06/05/24 Transmitted Recommendations 12:06 *[facility] CONS 06/05/24 Transmitted -[place] 13:11 Chest Xray 1 View XY 06/05/24 Resulted 16:[address] 06/05/24 Resulted 16:21 Norepinephrine 8 PHA 06/05/24 In Process Mg/250ml Kit 16:30 Blood Culture SUSY 06/05/24 In Process 18:47 Urine Bacterial SUSY 06/05/24 In Process Culture 18:47 Mrsa Screen SUSY 06/05/24 In Process 19:46 Ct Ab Pel Wo Con-No CT 06/06/24 Taken Oral Or Iv 10:52 Blood Culture SUSY 06/06/24 Logged 10:50 Meropenem 1gm Ivpb PHA 06/06/24 In Process (Merrem 1gm/ Ns) 11:00 Meropenem 1gm Ivpb PHA 06/06/24 In Process (Merrem 1gm/ Ns) 20:00 Prothrombin Time W/ LAB 06/06/24 Logged INR 11:00 Date of Service: Jun 06, 2024 Billing Provider: NERISSA SALTER MD Common Visit Codes: 05557-[id number] CARE 30-74 MIN NERISSA SALTER MD Jun 06, 2024 11:52
[2024-06-06 13:46] LABS: Albumin 2.9 g/dL (3.2-4.8); Bilirubin, Total 4.2 mg/dL (0.2-1.0)
[2024-06-06 13:48] LABS: Lactic Acid w/Reflex 3.2 mmol/L (0.4-2.0)
[2024-06-06] MEDS: MEROPENEM 1GM IVPB 50 ML IV ONE (14:04)
[2024-06-06] MEDS: VANCOMYCIN 500 MG in D5W 5% 100 ML IV ONE (14:30)
--- NOTE | 2024-06-06 15:16 | DVHPN2 ---
Consult Progress Note Date Seen: Jun 06, 2024 Subjective Other Systems: The patient had a nonsustained episode of V-tach on cardiac tech. Objective vital signs Vital Sign Date Time Temp Pulse Resp B/P (MAP) Pulse Ox O2 Delivery O2 Flow Rate FiO2 06/06/24 12:00 97.8 102 24 102/70 (81) 100 97.8 06/06/24 08:00 Nasal Cannula* 4 36 Total Intake and Output 06/05/24 06/05/24 06/06/24 15:00 23:00 07:00 Intake Total 588.75 ml 340.00 ml Output Total 350 ml 400 ml Balance 238.75 ml -60.00 ml medications Current Medications Medications Dose Ordered Sig/Patrick Route Start Time Stop Time Status Last Admin Dose Admin Sodium Chloride 10 ml Q8HR IV 06/03/24 22:00 06/06/24 14:36 10 ML Acetaminophen/ Hydrocodone Bitart 1 tab Q4HP PRN PO 06/03/24 15:30 06/05/24 22:32 1 TAB Ondansetron HCl 4 mg Q4HP PRN IV 06/03/24 15:30 Docusate Sodium 100 mg BIDPRN PRN PO 06/03/24 15:30 Acetaminophen 650 mg Q6HP PRN PO 06/03/24 15:30 Morphine Sulfate 2 mg Q4HPRN PRN IV 06/03/24 15:30 Nitroglycerin 0.4 mg Q5MINP PRN SL 06/03/24 15:30 Morphine Sulfate 2 mg Q30M PRN IV 06/03/24 15:30 Diagnostic Test (Pha) 1 strip ACHS 06/03/24 17:00 06/06/24 11:30 1 STRIP Insulin Human Regular HS SC 06/03/24 22:00 06/03/24 21:52 2 UNITS Insulin Human Regular AC SC 06/03/24 17:00 Dextrose 50 ml UD PRN IV 06/03/24 15:30 06/06/24 05:34 50 ML Empaglifozin 10 mg DAILY PO 06/04/24 10:00 06/06/24 09:38 10 MG Vancomycin HCl 0 ml @ 0 mls/hr UD IV 06/03/24 15:45 Ferrous Sulfate 325 mg DAILY PO 06/04/24 10:00 06/06/24 09:38 325 MG Pravastatin Sodium 20 mg HS PO 06/03/24 22:00 06/05/24 22:32 20 MG Metoprolol Tartrate 12.5 mg BID PO 06/04/24 22:00 Hold 06/05/24 11:05 12.5 MG Norepinephrine Bitartrate 250 ml @ 3.75 mls/hr Q24H IV 06/05/24 16:30 06/05/24 17:39 3.75 MLS/HR Furosemide 40 mg BIDD IV 06/06/24 09:30 06/06/24 10:03 40 MG Meropenem 50 ml @ 17 mls/hr Q8HR IV 06/06/24 20:00 Examination: GENERAL:Abnormal (Generalized weakness), LUNGS:Normal, CVS:Normal, NEURO:Abnormal (Periods of confusion) laboratory and microbiology Laboratory Tests 06/06/24 04:36 Test 06/06/24 04:36 Range/Units Serum Glucose 32 #*L 74-106 mg/dL Problem List/Assessment/Plan Problem List/Assessment/Plan Acute on chronic decompensated HFrEF with EF 10-15%, NYHA Class IV Nonischemic cardiomyopathy NSTEMI type 2 secondary to above Nonsustained ventricular tachycardia, new onset Presence of AICD ([employer]) [id number] diabetes mellitus, controlled, HgbA1C 5.9% Acute kidney injury on chronic kidney disease stage IIIb Likely cardiorenal syndrome type II Accelerated hypertension Bilateral lower limb cellulitis Thrombocytopenia Thyroid disease Obesity Plan/Recommendation We will continue the following plan/recommendations (Dr. Hurtado): 1. Echocardiogram from 02/20/2024 revealed: Severely dilated left ventricle. Severely reduced left ventricular systolic function estimated ejection fraction of 15%. There is global wall akinesia. There is restrictive filling pattern had diastolic type 3 dysfunction. Normal right ventricular size and dimension. Moderately reduced right ventricular systolic function. Moderately elevated right ventricular systolic mm of mercury. Moderately dilated right and left atria. Aortic valve is mildly thickened no significant stenosis or regurgitation. The mitral valve has mild mitral valve regurgitation. There is mild tricuspid valve regurgitation. The pulmonary valve grossly normal. No pericardial effusion. 2. Initiate GDMT for CHF once patient is off of vasopressor therapy 3. Continue diuresis. Strict I&Os. Daily weight. Fluid restriction. 2 g salt restriction, 1.2 L total fluid restriction in 24 hours. Monitor renal function. 4. Continue abx therapy per primary care team, blood cultures, wound care. 5. Discontinue ASA and avoid AC therapy given thrombocytopenia. 6. DVT/VTE prophylaxis: SCDs 7. Initiate amiodarone for V-tach Patient seen and examined at bedside with . Thank you for the opportunity to consult on your patient. Please feel free to reach out if you have any further questions. Critical care time: 45 min. This medical document was created using an electronic medical record system with voice recognition software and computerized dictation system. Although this document has been carefully reviewed, there might still be some phonetic and typographical errors. Occasional wrong-word or ``sound-alike substitutions may have occurred due to the inherent limitations of voice recognition software. These areas are purely typographical due to imperfections of the software programs and do not reflect any compromise in the patient's medical care. Please read the chart carefully and recognize, using context, where these substitutions have occurred. Plan discussed with: Patient, Other (Bedside RN) Dietary Evaluation Review Comments: 1) Consider YULIET 1 pkt BID for wounds 2) Continue current plan of care Expected Outcomes/Goals: 1) Pt labs to improve 2) F/U in 3-5 days Date of Service: Jun 06, 2024 Billing Provider: DENTON HURTADO MD Cardiology Common Codes: 80738-[id number] CARE 30-74 MIN GREG LEAL Jun 06, 2024 15:15
[2024-06-06 15:29] LABS: INR 1.63 (0.9-1.15); Prothrombin Time 16.7 sec (9.3-11.8)
[2024-06-06] MEDS: NOREPINEPHRINE 8 MG/250ML KIT 250 ML IV ONE (17:32)
--- NOTE | 2024-06-06 19:24 | DVHNC2 ---
Procedure - Central Line Procedure Note Date and time: 06/06/2024, at 6:30pm Indication: Vascular Access for vasopressor Central Line Location: Right Internal Jugular Vein Procedure Allergist/Immunologist Physician: Meek Resident Attending Physician: Dr. Mcintosh/Dr. Hauser Consent: Consent was obtained from patient prior to the procedure. Indications, risks and benefits were discussed prior to the procedure. Procedure Summary: Before the procedure the time out was performed. My hands were washed immediately prior to the procedure. I wore a surgical cap, mask with protective eyewear, full gown and sterile gloves throughout the procedure. The patient was placed in Trendelenburg position, with head turned 30 degrees away from the insertion site. The Right side of neck was prepped using chlorhexidine scrub and draped in sterile fashion using a three quarter sheet drape and sterile towels. Skin preparation was allowed to dry prior to skin puncture. Anatomic landmarks were identified. Anesthesia was achieved over the vein using 2 ml of 1% lidocaine. Using real-time ultrasound, with sterile probe cover and sterile gel, the Right Internal Jugular Vein was identified on ultrasound using the linear ultrasound probe in the transverse orientation. The right carotid artery was identified and avoided utilizing color-flow. The right Internal Jugular Vein was then placed in the center of the ultrasound field and compressed for patency. The introducer needle was inserted into the vein under direct ultrasound visu alization, and a movement artifact was identified as the needle was advanced through the skin toward the vessel. A real-time hyperechoic signal revealed visualization of vascular needle entry into the lumen as blood was noted to flashback in the syringe. The needle was then held in place, the syringe was removed, and the guide wire was advanced through the needle. Direct visualizat ion of the guide wire location within the vein was noted on ultrasound, indicating proper placement. The needle was then removed. A small incision was made at the skin surface with a scalpel, and a skin dilator was advanced over the guide wire. After appropriate dilation was obtained, the dilator was removed, and a triple-lumen catheter was then advanced over the guide wire into proper position. The guide wire was removed and discarded. The ports were aspirated, which showed good blood return, and then carefully flushed with normal saline. The catheter was stabilized and sutured to the skin with 2-0 silk at two anchor points. A sterile op-site was placed over the catheter and Biopatch. The patient tolerated the procedure without any hemodynamic compromise. Estimated blood loss: 5 ml Post-procedure chest x-ray: Shows proper positioning of the catheter for use with no complication including pneumothorax. TAYLOR SWENSON RESFLORINAENT Jun 06, 2024 19:24
--- NOTE | 2024-06-06 20:13 | DVH ---
EXAM: XY CHEST XRAY 1 VIEW TECHNIQUE: Single frontal chest radiograph CLINICAL HISTORY: Post CVP line COMPARISON: XY CHEST XRAY 1 VIEW on DOS: 06/05/24, XY CHEST PORTABLE on DOS: 06/03/24, XY CHEST XRAY 1 VIEW on DOS: 04/28/24 Findings/Impression: Frontal chest radiograph demonstrates no acute osseous or superficial soft tissue abnormalities. Left chest wall dual chamber ICD. Right sided IJ catheter terminates in the right atrium. The trachea is midline. Mild cardiomegaly. Right basilar opacity, unchanged. Possible small left pleural effusion and/or atelectasis. No pneumothorax.
[2024-06-06] MEDS: MEROPENEM 1GM IVPB 50 ML IV SCH (20:31)
--- NOTE | 2024-06-06 21:29 | DVHPN2 ---
Progress Note - Dictate Date Seen: Jun 06, 2024 Medical Necessity Reason Pt with a Central, PICC or Fol: Yes The following are medically ne: Lockett Catheter Reason for lockett catheter: Strict I&O Subjective Patient seen and examined at bedside. Remains on supplemental oxygen Overnight events reviewed. vital signs Vital Sign Date Time Temp Pulse Resp B/P (MAP) Pulse Ox O2 Delivery O2 Flow Rate FiO2 06/06/24 20:00 97.8 110 17 101/60 (74) 97 97.8 06/06/24 18:00 Nasal Cannula* 4 36 Total Intake and Output 06/05/24 06/05/24 06/06/24 15:00 23:00 07:00 Intake Total 588.75 ml 340.00 ml Output Total 350 ml 400 ml Balance 238.75 ml -60.00 ml medications Current Medications Medications Dose Ordered Sig/Patrick Route Start Time Stop Time Status Last Admin Dose Admin Sodium Chloride 10 ml Q8HR IV 06/03/24 22:00 06/06/24 14:36 10 ML Acetaminophen/ Hydrocodone Bitart 1 tab Q4HP PRN PO 06/03/24 15:30 06/06/24 19:25 1 TAB Ondansetron HCl 4 mg Q4HP PRN IV 06/03/24 15:30 Docusate Sodium 100 mg BIDPRN PRN PO 06/03/24 15:30 Acetaminophen 650 mg Q6HP PRN PO 06/03/24 15:30 Morphine Sulfate 2 mg Q4HPRN PRN IV 06/03/24 15:30 Nitroglycerin 0.4 mg Q5MINP PRN SL 06/03/24 15:30 Morphine Sulfate 2 mg Q30M PRN IV 06/03/24 15:30 Diagnostic Test (Pha) 1 strip ACHS 06/03/24 17:00 06/06/24 17:00 1 STRIP Insulin Human Regular HS SC 06/03/24 22:00 06/03/24 21:52 2 UNITS Insulin Human Regular AC SC 06/03/24 17:00 Dextrose 50 ml UD PRN IV 06/03/24 15:30 06/06/24 05:34 50 ML Empaglifozin 10 mg DAILY PO 06/04/24 10:00 06/06/24 09:38 10 MG Vancomycin HCl 0 ml @ 0 mls/hr UD IV 06/03/24 15:45 Ferrous Sulfate 325 mg DAILY PO 06/04/24 10:00 06/06/24 09:38 325 MG Pravastatin Sodium 20 mg HS PO 06/03/24 22:00 06/05/24 22:32 20 MG Metoprolol Tartrate 12.5 mg BID PO 06/04/24 22:00 Hold 06/05/24 11:05 12.5 MG Norepinephrine Bitartrate 250 ml @ 3.75 mls/hr Q24H IV 06/05/24 16:30 06/06/24 18:00 3.75 MLS/HR Furosemide 40 mg BIDD IV 06/06/24 09:30 06/06/24 17:57 40 MG Meropenem 50 ml @ 17 mls/hr Q8HR IV 06/06/24 20:00 06/06/24 20:31 17 MLS/HR Amiodarone HCl 200 mg Q12HR PO 06/06/24 22:00 objective Gen.: Patient lying in bed in no apparent distress. On supplemental oxygen. Head: Normocephalic, atraumatic. Eyes: EOMI/PERRLA. Ears: Normal hearing. Normal anatomy. Neck/trachea: Trachea midline, supple. Nose: Normal external anatomy. Mouth: Moist mucous membranes. Chest: Decreased air entry bilaterally. No wheezing or rhonchi. Cardiovascular: Positive S1, positive S2. Regular rate and rhythm. Abdomen: Positive bowel sounds in all 4 quadrants. Soft, non-tender, non- distended. : Deferred. Rectal: Deferred. Skin: Warm, dry. Intact. Extremities: 2+ radial pulses bilaterally. No lower extremity edema. Neuro: Awake, alert, oriented x3. No gross motor or sensory deficits. Cranial nerves II through XII intact. Gait not assessed. laboratory and microbiology Laboratory Tests 06/06/24 04:36 Test 06/06/24 04:36 Range/Units Serum Glucose 32 #*L 74-106 mg/dL Assessment/Plan Impression: Acute on chronic systolic CHF (EF 10-15%) BLE wounds DM type II Acute on chronic CKD Metabolic acidosis Hyperkalemia Elevated troponin Overweight, BMI 29.5 Events: Remains on supplemental oxygen, 3 LPM NC Taper O2 as tolerated Continue antibiotics Follow up blood cultures CT abdomen-pelvis done due to abdominal pain - pending. On pressors for hemodynamic support Levophed 6 mcg/min Titrate to keep mean arterial pressure greater than 65 mmHg. Monitor lactic acid. Follow PT/INR. Wound care. Diurese w/ Lasix Monitor renal function Nephrology recs appreciated. Labs and imaging reviewed. Rest of plan as noted below. Plan: Supplemental oxygen, 3 LPM NC Titrate to keep O2 sats above 92%. Taper O2 as tolerated. CXR demonstrated mild pulmonary vascular congestion. Continue bronchodilators. Antibiotics Iron supplementation Monitor hemoglobin Accu-Cheks, ISS. Diurese to euvolemia w/ Lasix Monitor renal function. Monitor electrolytes. Supplement as necessary. Monitor ins and outs. DVT prophylaxis. Rapid Response/Code Assist: Patient became hypotensive and unresponsive, upgraded to SHIREEN. Central line placement in right IJ. STAT CT head obtained to r/o ICH or stroke. Pt received Narcan x2. Start pressors if necessary to maintain a mean arterial blood pressure greater than 65 mmHg. Monitor renal function - creatinine trending down. Monitor electrolytes. Supplement as necessary. Monitor ins and outs Prognosis: Poor given patient's multiple co-morbidities. Condition: Critical Rest of plan per hospitalist and other consultants. A total of 35 minutes of critical care time was spent reviewing the patient record, examining the patient, making a diagnostic and therapeutic plan, discussing this plan with the medical personnel, following up on diagnostic studies and following the patient for clinical stability excluding any and all procedures. At least 50% of this time was spent in direct, [id number] contact. Thank you, Ekta Meek NP/Dr Mcintosh, for allowing me to participate in this patient's care. Further recommendations will depend on the patient's clinical course. Please do not hesitate to contact me if you have any questions or concerns. This medical document was created using an electronic medical record system with [employer] dictation system. Although these documentations are being carefully reviewed, there may still be some phonetic and typographical changes. The errors are purely typographical, due to imperfection on the software program, and do not reflect any compromise in the patient's medical care. Dietary Evaluation Review Comments: 1) Consider YULIET 1 pkt BID for wounds 2) Continue current plan of care Expected Outcomes/Goals: 1) Pt labs to improve 2) F/U in 3-5 days Plan discussed with: Other (MARY Irizarry) Critical Care Time(min): 35 WALDO OHARA MD Jun 06, 2024 21:29
[2024-06-06] MEDS: AMIODARONE HCL 200 MG TAB PO SCH (21:59)
[2024-06-07] VITALS (87 sets, daily range): BP systolic 80–123; BP diastolic 50–79; PULSE 96–131; RESP 8–22; TEMP 97.8–98.7; O2SAT 87–100
[2024-06-07 05:19] LABS: Basophils # (auto) 0 10 ^3/uL (0-0.2); Basophils % (auto) 0.1 % (0.0-2.0); Eosinophils # (auto) 0 10 ^3/uL (0-0.8); Eosinophils % (auto) 0.1 % (0.0-7.0); Hemoglobin 12.9 g/dL (13.5-17.5); Lymphocytes # (auto) 0.4 10 ^3/uL (0.4-5.4); Mean Corpuscular Hemoglobin 29.5 pg (28.0-32.0); Mean Corpuscular Hgb Conc. 33.2 g/dL (32.0-36.0); Mean Corpuscular Volume 88.9 fL (80.0-100.0); Monocytes # (auto) 0.5 10 ^3/uL (0-1.3); Monocytes % (auto) 6.5 % (0.0-12.0); Neutrophils # (auto) 6.9 10 ^3/uL (1.6-8.6); Neutrophils % (auto) 88.3 % (37.0-80.0); Nucleated Red Blood Cells % 0.6 %; Platelet Count (auto) 106 10^3/uL (140-450); Red Blood Cells 4.38 10^6/uL (4.5-5.90); White Blood Cell 7.8 10^3/uL (4.4-10.8)
[2024-06-07 05:33] LABS: Alanine Aminotransferase 70 U/L (7-40); Albumin 2.7 g/dL (3.2-4.8); Alkaline Phosphatase 310 U/L (46-116); Anion Gap 8 (5-15); Aspartate Aminotransferase 60 U/L (13-40); Blood Urea Nitrogen 34 mg/dL (9-23); Calcium 8.5 mg/dL (8.7-10.4); Carbon Dioxide 24 mmol/L (20-31); Chloride 100 mmol/L (98-107); Glucose 95 mg/dL (74-106); Lipase 26 U/L (12-53); Magnesium 1.8 mg/dL (1.6-2.6); Potassium 4.7 mmol/L (3.5-5.1); Sodium 132 mmol/L (136-145)
[2024-06-07 05:34] LABS: Bilirubin, Total 4.8 mg/dL (0.2-1.0); Red Cell Distribution Width 26.7 % (11.8-14.3)
[2024-06-07 05:53] LABS: LDL Cholesterol 45 mg/dL (< 100); Triglycerides 81 mg/dL (< 150)
[2024-06-07 05:55] LABS: Cholesterol 79 mg/dL (< 200); HDL Cholesterol 18 mg/dL (40-59)
[2024-06-07 06:09] LABS: INR 1.69 (0.9-1.15); Partial Thromboplastin Time 36.3 SEC (24.5-34.5); Prothrombin Time 17.2 sec (9.3-11.8)
[2024-06-07 07:13] LABS: Platelet Estimate Decreased
[2024-06-07 07:15] LABS: Anisocytosis Moderate
--- NOTE | 2024-06-07 08:19 | DVHPN2 ---
Subjective Patient is confused He denies pain No abdominal pain no nausea no vomiting He is tolerating diet CT scan of the abdomen and pelvis did not showed acute process in the abdomen however showed right lower lobe pneumonia Changes from previous H/P or p: Changes Eyes: No Pain, No Vision change, No Conjunctivae inflammation, No Eyelid inflammation, No Other, No Redness ENT: No Ear pain, No Ear discharge, No Nose pain, No Nose discharge, No Nose congestion, No Mouth pain, No Mouth swelling, No Throat pain, No Throat swelling, No Other Cardiovascular: No Chest Pain, No Palpitations, No Orthopnea, No Paroxysmal Noc. Dyspnea, No Edema, No Lt Headedness, No Other Respiratory: No Cough, No Dry, No Shortness of breath, No SOB with excertion, No Wheezing, No Hemoptysis, No Pleuritic Pain, No Sputum, No Other Gastrointestinal: No Nausea, No Vomiting, No Abdominal Pain, No Diarrhea, No Constipation, No Melena, No Hematochezia, No Other Genitourinary: No Dysuria, No Frequency, No Incontinence, No Hematuria, No Retention, No Other Musculoskeletal: No other, No neck pain, No shoulder pain, No arm pain, No back pain, No hand pain, No leg pain, No foot pain Skin: No Rash, No Lesions, No Jaundice, No Bruising, No Other Objective Vitals Vital Signs Date Time Temp Pulse Resp B/P (MAP) Pulse Ox O2 Delivery O2 Flow Rate FiO2 06/07/24 07:15 107 16 107/59 (75) 96 06/07/24 06:00 Nasal Cannula* 3 32 06/07/24 04:04 98.7 98.7 Intake/Output Intake and Output 06/07/24 07:00 Intake Total 1657.50 ml Output Total 2600 ml Balance -942.50 ml Intake Oral 1250 ml IV Total 407.50 ml Output Urine Total 2600 ml General Appearance: Alert, Oriented X3, Cooperative Lungs: Other (Bilateral rhonchi) Cardiovascular: Regular rate, Normal S1, Normal S2 Abdomen: Normal bowel sounds, Soft, No tenderness Extremities: Other (2+ edema bilaterally in the lower extremity) Medications Current Medications Medications Dose Ordered Sig/Patrick Route Start Time Stop Time Status Last Admin Dose Admin Sodium Chloride 10 ml Q8HR IV 06/03/24 22:00 06/07/24 05:39 10 ML Acetaminophen/ Hydrocodone Bitart 1 tab Q4HP PRN PO 06/03/24 15:30 06/07/24 01:46 1 TAB Ondansetron HCl 4 mg Q4HP PRN IV 06/03/24 15:30 Docusate Sodium 100 mg BIDPRN PRN PO 06/03/24 15:30 Acetaminophen 650 mg Q6HP PRN PO 06/03/24 15:30 Morphine Sulfate 2 mg Q4HPRN PRN IV 06/03/24 15:30 Nitroglycerin 0.4 mg Q5MINP PRN SL 06/03/24 15:30 Morphine Sulfate 2 mg Q30M PRN IV 06/03/24 15:30 Diagnostic Test (Pha) 1 strip ACHS 06/03/24 17:00 06/07/24 06:36 1 STRIP Insulin Human Regular HS SC 06/03/24 22:00 06/03/24 21:52 2 UNITS Insulin Human Regular AC SC 06/03/24 17:00 Dextrose 50 ml UD PRN IV 06/03/24 15:30 06/06/24 05:34 50 ML Empaglifozin 10 mg DAILY PO 06/04/24 10:00 06/06/24 09:38 10 MG Vancomycin HCl 0 ml @ 0 mls/hr UD IV 06/03/24 15:45 Ferrous Sulfate 325 mg DAILY PO 06/04/24 10:00 06/06/24 09:38 325 MG Pravastatin Sodium 20 mg HS PO 06/03/24 22:00 06/06/24 21:58 20 MG Metoprolol Tartrate 12.5 mg BID PO 06/04/24 22:00 Hold 06/05/24 11:05 12.5 MG Norepinephrine Bitartrate 250 ml @ 3.75 mls/hr Q24H IV 06/05/24 16:30 06/06/24 18:00 3.75 MLS/HR Furosemide 40 mg BIDD IV 06/06/24 09:30 06/07/24 05:39 40 MG Meropenem 50 ml @ 17 mls/hr Q8HR IV 06/06/24 20:00 06/07/24 05:41 17 MLS/HR Amiodarone HCl 200 mg Q12HR PO 06/06/24 22:00 06/06/24 21:59 200 MG Laboratory Results Laboratory Tests 06/07/24 04:55 Chemistry Test 06/06/24 13:00 06/07/24 04:55 Albumin 2.9 g/dL (3.2-4.8) L 2.7 g/dL (3.2-4.8) L Total Protein 7.0 g/dL (5.7-8.2) 6.0 g/dL (5.7-8.2) Calcium Level 8.5 mg/dL (8.7-10.4) L Magnesium Level 1.8 mg/dL (1.6-2.6) Coagulation Test 06/06/24 13:00 06/07/24 04:55 Prothrombin Time 16.7 sec (9.3-11.8) H 17.2 sec (9.3-11.8) H Prothrombin Time INR 1.63 (0.9-1.15) H 1.69 (0.9-1.15) H Activated Partial Thromboplast Time 36.3 SEC (24.5-34.5) H Lipid panel Test 06/07/24 04:55 Cholesterol Level 79 mg/dL (< 200) HDL Cholesterol 18 mg/dL (40-59) L Lipase 26 U/L (12-53) Triglycerides Level 81 mg/dL (< 150) LFT Test 06/06/24 13:00 06/07/24 04:55 Alanine Aminotransferase (ALT) 82 U/L (7-40) H 70 U/L (7-40) H Alkaline Phosphatase 368 U/L (46-116) H 310 U/L (46-116) H Aspartate Amino Transferase (AST) 72 U/L (13-40) H 60 U/L (13-40) H Direct Bilirubin 3.0 mg/dL (<0.3) H Total Bilirubin 4.2 mg/dL (0.2-1.0) H 4.8 mg/dL (0.2-1.0) H Urinalysis Test 06/03/24 17:57 06/05/24 20:55 Urine Epithelial Casts Few /hpf (<5) Urine Color Yellow (Yellow) Urine Clarity Clear (Clear) Urine pH 5.0 (5.0-9.0) Urine Specific Sullivan 1.018 (1.001-1.035) Urine Protein Trace (Negative) H Urine Ketones Negative (Negative) Urine Blood Negative /uL (Negative) Urine Nitrite Negative (Negative) Urine Bilirubin Negative (Negative) Urine Urobilinogen Normal mg/dL (Negative) Urine Leukocyte Esterase Negative /uL (Negative) Urine RBC 2 /hpf (0 - 3) Urine WBC 3 /hpf (0 - 3) Urine Squamous Epithelial Cells Few /hpf (<5) Urine Bacteria None seen /hpf (None Seen) Urine Hyaline Casts Mod /lpf (0 - 2) Urine Mucus Few (None Seen) Urine Glucose 4+ mg/dL (Normal) H Microbiology Microbiology Date/Time Source Procedure Growth Status 06/05/24 19:46 Nose MRSA Screen - Final Complete 06/05/24 19:21 Blood Blood Culture - Preliminary NO GROWTH AFTER 24 HOURS OF INCUBATION. Resulted Assessment/Plan Assessment/Plan Acute on chronic congestive heart failure with low ejection fraction Bilateral lower extremity open wounds Type 2 diabetes Dyslipidemia Hypertension Chronic kidney disease Plan 06/04/2024: IV Lasix 40 mg twice a day Oxygen as needed Dietary consult Continue Aldactone 50 mg daily Entresto IV antibiotics vancomycin per pharmacy protocol The code Advance directives discussed for 20 minutes 06/05/2024: Unresponsiveness, possible due to opiates, Narcan was given x2 doses Rule out CVA: Get a CT scan of the head no contrast Hypotension: Start Levophed Hyperkalemia: Repeat labs including electrolytes and kidney function Check troponins again Acute kidney injury on Chronic kidney disease Elevated troponin, NSTEMI type 2 Acute on chronic decompensated heart failure with reduced ejection fraction EF 10-15% Nonischemic cardiomyopathy Possible cardiorenal syndrome History of hypertension Thrombocytopenia Plan Transfer to the [facility] Levophed drip to keep map above 65 CT scan of the head : Negative Check the electrolytes again, hyperkalemia: Give hyperkalemia protocol Central line, done Called the family to update them, no answer Rule out sepsis: Get blood culture, lactic acid, UA, urine culture Poor prognosis The patient eventually woke up and became more alert and oriented and was completely following commands and understanding his environment I asked him about advance directives, he stated Full Code 06/06/2024: Patient is complaining of abdominal pain Examination shows right upper quadrant tenderness Gallbladder ultrasound showed contracted gallbladder and thickened romo We will get a CT scan of the abdomen and pelvis without contrast Liver enzymes are elevated Check the hepatitis panel Kidney function is stable but the potassium is still high Nephrology is following Cardiology is following the patient Ventricular tachycardia has resolved after the ICD converted him yesterday The patient is more alert now, CT scan of the head was negative Blood cultures are still pending UA was negative for UTI Wound culture of the foot showed Gram-negative rods Continue vancomycin Add meropenem IV Replace magnesium IV Continue IV Lasix 40 mg twice a day Full code The patient pulled out his central line yesterday We will try to do a new central line placement , he is agreeable 06/07/2024: Abdominal pain: Consult GI regarding elevated liver function test and bilirubin Hyperbilirubinemia: Consult GI Elevated LFTs: CT scan is negative Right lower lobe pneumonia: Continue IV antibiotics Blood and urine cultures are pending Plan discussed with: Patient My Orders Orders - NERISSA SALTER MD Procedure Category Date Status Time Ct Ab Pel Wo Con-No CT 06/06/24 Resulted Oral Or Iv 10:52 Meropenem 1gm Ivpb PHA 06/06/24 In Process (Merrem 1gm/ Ns) 20:00 Date of Service: Jun 07, 2024 Billing Provider: NERISSA SALTER MD Common Visit Codes: [id number] INP/OBS CARE(HIGH) NERISSA SALTER MD Jun 07, 2024 08:19
--- NOTE | 2024-06-07 09:38 | DVHPN2 ---
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 The patient is awake at this time with periods of confusion. No episodes of V-tach seen on event monitor overnight. Objective vital signs Vital Sign Date Time Temp Pulse Resp B/P (MAP) Pulse Ox O2 Delivery O2 Flow Rate FiO2 06/07/24 09:00 112 15 96 06/07/24 08:00 Nasal Cannula* 3 32 06/07/24 08:00 97.9 97.9 Total Intake and Output 06/06/24 06/06/24 06/07/24 15:00 23:00 07:00 Intake Total 291.25 ml 920.50 ml 445.75 ml Output Total 1200 ml 1400 ml Balance 291.25 ml -279.50 ml -954.25 ml medications Current Medications Medications Dose Ordered Sig/Patrick Route Start Time Stop Time Status Last Admin Dose Admin Sodium Chloride 10 ml Q8HR IV 06/03/24 22:00 06/07/24 05:39 10 ML Acetaminophen/ Hydrocodone Bitart 1 tab Q4HP PRN PO 06/03/24 15:30 06/07/24 01:46 1 TAB Ondansetron HCl 4 mg Q4HP PRN IV 06/03/24 15:30 Docusate Sodium 100 mg BIDPRN PRN PO 06/03/24 15:30 Acetaminophen 650 mg Q6HP PRN PO 06/03/24 15:30 Morphine Sulfate 2 mg Q4HPRN PRN IV 06/03/24 15:30 Nitroglycerin 0.4 mg Q5MINP PRN SL 06/03/24 15:30 Morphine Sulfate 2 mg Q30M PRN IV 06/03/24 15:30 Diagnostic Test (Pha) 1 strip ACHS 06/03/24 17:00 06/07/24 06:36 1 STRIP Insulin Human Regular HS SC 06/03/24 22:00 06/03/24 21:52 2 UNITS Insulin Human Regular AC SC 06/03/24 17:00 Dextrose 50 ml UD PRN IV 06/03/24 15:30 06/06/24 05:34 50 ML Empaglifozin 10 mg DAILY PO 06/04/24 10:00 06/06/24 09:38 10 MG Vancomycin HCl 0 ml @ 0 mls/hr UD IV 06/03/24 15:45 Ferrous Sulfate 325 mg DAILY PO 06/04/24 10:00 06/06/24 09:38 325 MG Pravastatin Sodium 20 mg HS PO 06/03/24 22:00 06/06/24 21:58 20 MG Metoprolol Tartrate 12.5 mg BID PO 06/04/24 22:00 Hold 06/05/24 11:05 12.5 MG Norepinephrine Bitartrate 250 ml @ 3.75 mls/hr Q24H IV 06/05/24 16:30 06/06/24 18:00 3.75 MLS/HR Furosemide 40 mg BIDD IV 06/06/24 09:30 06/07/24 05:39 40 MG Meropenem 50 ml @ 17 mls/hr Q8HR IV 06/06/24 20:00 06/07/24 05:41 17 MLS/HR Amiodarone HCl 200 mg Q12HR PO 06/06/24 22:00 06/06/24 21:59 200 MG Examination: GENERAL:Abnormal (Generalized weakness), LUNGS:Normal, CVS:Normal, NEURO:Abnormal (Periods of confusion) laboratory and microbiology Laboratory Tests 06/07/24 04:55 Test 06/07/24 04:55 Range/Units Serum Glucose 95 74-106 mg/dL Problem List/Assessment/Plan Problem List/Assessment/Plan Acute on chronic decompensated HFrEF with EF 10-15%, NYHA Class IV Nonischemic cardiomyopathy NSTEMI type 2 secondary to above Nonsustained ventricular tachycardia, new onset Presence of AICD ([employer]) [id number] diabetes mellitus, controlled, HgbA1C 5.9% Acute kidney injury on chronic kidney disease stage IIIb Likely cardiorenal syndrome type II Accelerated hypertension Bilateral lower limb cellulitis Thrombocytopenia Thyroid disease Obesity Plan/Recommendation We will continue the following plan/recommendations (Dr. Hurtado): 1. Echocardiogram from 02/20/2024 revealed: Severely dilated left ventricle. Severely reduced left ventricular systolic function estimated ejection fraction of 15%. There is global wall akinesia. There is restrictive filling pattern had diastolic type 3 dysfunction. Normal right ventricular size and dimension. Moderately reduced right ventricular systolic function. Moderately elevated right ventricular systolic [id number] mm of mercury. Moderately dilated right and left atria. Aortic valve is mildly thickened no significant stenosis or regurgitation. The mitral valve has mild mitral valve regurgitation. There is mild tricuspid valve regurgitation. The pulmonary valve grossly normal. No pericardial effusion. 2. Initiate GDMT for CHF once patient is off of vasopressor therapy 3. Continue diuresis. Strict I&Os. Daily weight. Fluid restriction. 2 g salt restriction, 1.2 L total fluid restriction in 24 hours. Monitor renal function. 4. Continue abx therapy per primary care team, blood cultures, wound care. 5. Discontinue ASA and avoid AC therapy given thrombocytopenia. 6. DVT/VTE prophylaxis: SCDs 7. Continue amiodarone for V-tach Thank you for the opportunity to consult on your patient. Please feel free to reach out if you have any further questions. Critical care time: 45 min. This medical document was created using an electronic medical record system with voice recognition software and computerized dictation system. Although this document has been carefully reviewed, there might still be some phonetic and typographical errors. Occasional wrong-word or ``sound-alike substitutions may have occurred due to the inherent limitations of voice recognition software. These areas are purely typographical due to imperfections of the software programs and do not reflect any compromise in the patient's medical care. Please read the chart carefully and recognize, using context, where these substitutions have occurred. Plan discussed with: Patient, Other (Bedside RN) Dietary Evaluation Review Comments: 1) Consider YULIET 1 pkt BID for wounds 2) Continue current plan of care Expected Outcomes/Goals: 1) Pt labs to improve 2) F/U in 3-5 days Date of Service: Jun 07, 2024 Billing Provider: DENTON HURTADO MD Cardiology Common Codes: [id number] CARE 30-74 MIN GREG LEAL SECURITY ASSURANCE SPECIALIST Jun 07, 2024 09:38
--- NOTE | 2024-06-07 11:13 | DVHPN2 ---
Progress Note Date Seen: Jun 07, 2024 Resident Creating Document: YUNG ROMEO RESIDENT Medical Necessity Reason Pt with a Central, PICC or Fol: Yes The following are medically ne: Lockett Catheter Reason for lockett catheter: Strict I&O Subjective Review of Systems History of Present Illness Patient is 64-year-old male with past medical history of hypertension, diabetes mellitus type 2, hyperlipidemia, CHF, CKD, GERD who brought to the hospital for generalized weakness and worsening shortness of breath for few days before hospitalization. Patient is poor historian and major with the medical information was obtained from EMR. At the time of evaluation patient did not have any complaints except mild shortness of breath, nonproductive cough. Nephrology consultation was done for evaluation of CKD. Over the course of hospitalization patient was treated with IV Lasix, IV antibiotic, oxygen as needed and vasopressors. No other complaints at this point. Past Medical History hypertension, diabetes mellitus type 2, hyperlipidemia, CHF, CKD, GERD Past Surgical History AICD implantation Patient seen and examined at bedside in the [facility]. Patient is more alert and feeling better compared to yesterday. Increased urine output. Currently on oxygen via nasal cannula. Objective vital signs Vital Sign Date Time Temp Pulse Resp B/P (MAP) Pulse Ox O2 Delivery O2 Flow Rate FiO2 06/07/24 10:30 99 12 104/61 (75) 98 06/07/24 10:00 Nasal Cannula 3.0 06/07/24 10:00 32 06/07/24 08:00 97.9 97.9 Total Intake and Output 06/06/24 06/06/24 06/07/24 15:00 23:00 07:00 Intake Total 291.25 ml 920.50 ml 445.75 ml Output Total 1200 ml 1400 ml Balance 291.25 ml -279.50 ml -954.25 ml medications Current Medications Medications Dose Ordered Sig/Patrick Route Start Time Stop Time Status Last Admin Dose Admin Sodium Chloride 10 ml Q8HR IV 06/03/24 22:00 06/07/24 05:39 10 ML Acetaminophen/ Hydrocodone Bitart 1 tab Q4HP PRN PO 06/03/24 15:30 06/07/24 01:46 1 TAB Ondansetron HCl 4 mg Q4HP PRN IV 06/03/24 15:30 Docusate Sodium 100 mg BIDPRN PRN PO 06/03/24 15:30 Acetaminophen 650 mg Q6HP PRN PO 06/03/24 15:30 Morphine Sulfate 2 mg Q4HPRN PRN IV 06/03/24 15:30 Nitroglycerin 0.4 mg Q5MINP PRN SL 06/03/24 15:30 Morphine Sulfate 2 mg Q30M PRN IV 06/03/24 15:30 Diagnostic Test (Pha) 1 strip ACHS 06/03/24 17:00 06/07/24 06:36 1 STRIP Insulin Human Regular HS SC 06/03/24 22:00 06/03/24 21:52 2 UNITS Insulin Human Regular AC SC 06/03/24 17:00 Dextrose 50 ml UD PRN IV 06/03/24 15:30 06/06/24 05:34 50 ML Empaglifozin 10 mg DAILY PO 06/04/24 10:00 06/07/24 10:42 10 MG Vancomycin HCl 0 ml @ 0 mls/hr UD IV 06/03/24 15:45 Ferrous Sulfate 325 mg DAILY PO 06/04/24 10:00 06/07/24 10:42 325 MG Pravastatin Sodium 20 mg HS PO 06/03/24 22:00 06/06/24 21:58 20 MG Metoprolol Tartrate 12.5 mg BID PO 06/04/24 22:00 Hold 06/05/24 11:05 12.5 MG Norepinephrine Bitartrate 250 ml @ 3.75 mls/hr Q24H IV 06/05/24 16:30 06/06/24 18:00 3.75 MLS/HR Furosemide 40 mg BIDD IV 06/06/24 09:30 06/07/24 05:39 40 MG Meropenem 50 ml @ 17 mls/hr Q8HR IV 06/06/24 20:00 06/07/24 05:41 17 MLS/HR Amiodarone HCl 200 mg Q12HR PO 06/06/24 22:00 06/07/24 10:42 200 MG Vancomycin HCl 100 ml @ 200 mls/hr Q24H IV 06/07/24 14:00 Examination General Appearance: Cooperative. Not in acute distress. Head Exam: Normal inspection Neck Exam: Normal inspection. Non-tender. Normal alignment Pulmonary/Respiratory: Chest non-tender. Clear bilateral breath sounds Cardiovascular/Chest: Regular rate and rhythm. No murmurs. No JVD. Mild bilateral basal lung crackles. Peripheral Pulses: 2+ Radial (R). 2+ Radial (L). 2+ Pedal (R). 2+ Pedal (L) Abdominal Exam: Normal bowel sounds. Soft. Nontender. No hepatospenomegaly. No masses Ankle Exam: Negative ankle edema, bilateral lower extremity multiple diabetic ulcers. Lower extremities: 1 + lower extremity edema Neuro/Mental Status: A&O x4. Coherent laboratory and microbiology Laboratory Tests 06/07/24 04:55 Test 06/07/24 04:55 Range/Units Serum Glucose 95 74-106 mg/dL Microbiology Date/Time Source Procedure Growth Status 06/05/24 19:46 Nose MRSA Screen - Final Complete 06/05/24 19:21 Blood Blood Culture - Preliminary NO GROWTH AFTER 24 HOURS OF INCUBATION. Resulted Problem List/Assessment/Plan Problem List/Assessment/Plan ROLAND on CKD stage III B likely due to hemodynamically mediated in setting of cardiorenal syndrome Acute on chronic HFrEF, ejection fraction 15% on 02/20/2024. NYHA class IV NSTEMI type 2 likely due to above Bilateral lower extremity cellulitis Multiple bilateral lower extremity diabetic ulcer Presence of AICD Lactic acidosis Hyperkalemia Transaminitis Plan/ recommendation Dr. Gordon: -continue Lasix 40 mg IV b.i.d.: Improved urine output, cumulative SANTOSH 1471 mL +. Now creatinine at baseline, GFR trending up. -echocardiogram showed 15% ejection fraction with global hypokinesis -hyperkalemia: Lokelma 10 mg p.o. t.i.d. -maintain strict I&O, avoid nephrotoxic medication. -urinalysis: Negative for nitrites, leukocytosis, squamous epithelial cells. -ordered urine sodium, creatinine, total protein, serum phosphorus, UDS: Still Pending -antibiotics per hospitalist recommendation -we will continue to closely follow up kidney function. Plan discussed with: Patient, Other (RN) Dietary Evaluation Review Comments: 1) Consider YULIET 1 pkt BID for wounds 2) Continue current plan of care Expected Outcomes/Goals: 1) Pt labs to improve 2) F/U in 3-5 days YUNG ROMEO RESIDENT Jun 07, 2024 11:13
[2024-06-07] MEDS: VANCOMYCIN 500mg/100mL 100 ML IV SCH (14:45)
--- NOTE | 2024-06-07 20:33 | DVHPN2 ---
Progress Note - Dictate Date Seen: Jun 07, 2024 Medical Necessity Reason Pt with a Central, PICC or Fol: Yes The following are medically ne: Lockett Catheter Reason for lockett catheter: Strict I&O Subjective Patient seen and examined at bedside. Remains on supplemental oxygen Overnight events reviewed. vital signs Vital Sign Date Time Temp Pulse Resp B/P (MAP) Pulse Ox O2 Delivery O2 Flow Rate FiO2 06/07/24 19:15 122 13 100/60 (73) 95 06/07/24 18:00 Nasal Cannula* 3 32 06/07/24 16:00 98.5 98.5 Total Intake and Output 06/06/24 06/06/24 06/07/24 14:59 22:59 06:59 Intake Total 141.25 ml 1078.00 ml 441.50 ml Output Total 1200 ml 1400 ml Balance 141.25 ml -122.00 ml -958.50 ml medications Current Medications Medications Dose Ordered Sig/Patrick Route Start Time Stop Time Status Last Admin Dose Admin Sodium Chloride 10 ml Q8HR IV 06/03/24 22:00 06/07/24 14:56 10 ML Acetaminophen/ Hydrocodone Bitart 1 tab Q4HP PRN PO 06/03/24 15:30 06/07/24 01:46 1 TAB Ondansetron HCl 4 mg Q4HP PRN IV 06/03/24 15:30 Docusate Sodium 100 mg BIDPRN PRN PO 06/03/24 15:30 Acetaminophen 650 mg Q6HP PRN PO 06/03/24 15:30 Morphine Sulfate 2 mg Q4HPRN PRN IV 06/03/24 15:30 Nitroglycerin 0.4 mg Q5MINP PRN SL 06/03/24 15:30 Morphine Sulfate 2 mg Q30M PRN IV 06/03/24 15:30 Diagnostic Test (Pha) 1 strip ACHS 06/03/24 17:00 06/07/24 17:05 1 STRIP Insulin Human Regular HS SC 06/03/24 22:00 06/03/24 21:52 2 UNITS Insulin Human Regular AC SC 06/03/24 17:00 06/07/24 12:10 2 UNITS Dextrose 50 ml UD PRN IV 06/03/24 15:30 06/06/24 05:34 50 ML Empaglifozin 10 mg DAILY PO 06/04/24 10:00 06/07/24 10:42 10 MG Vancomycin HCl 0 ml @ 0 mls/hr UD IV 06/03/24 15:45 Ferrous Sulfate 325 mg DAILY PO 06/04/24 10:00 06/07/24 10:42 325 MG Pravastatin Sodium 20 mg HS PO 06/03/24 22:00 06/06/24 21:58 20 MG Metoprolol Tartrate 12.5 mg BID PO 06/04/24 22:00 Hold 06/05/24 11:05 12.5 MG Norepinephrine Bitartrate 250 ml @ 3.75 mls/hr Q24H IV 06/05/24 16:30 06/06/24 18:00 3.75 MLS/HR Furosemide 40 mg BIDD IV 06/06/24 09:30 06/07/24 17:11 40 MG Meropenem 50 ml @ 17 mls/hr Q8HR IV 06/06/24 20:00 06/07/24 14:54 17 MLS/HR Amiodarone HCl 200 mg Q12HR PO 06/06/24 22:00 06/07/24 10:42 200 MG Vancomycin HCl 100 ml @ 200 mls/hr Q24H IV 06/07/24 14:00 06/07/24 14:45 200 MLS/HR objective Gen.: Patient lying in bed in no apparent distress. On supplemental oxygen. Head: Normocephalic, atraumatic. Eyes: EOMI/PERRLA. Ears: Normal hearing. Normal anatomy. Neck/trachea: Trachea midline, supple. Nose: Normal external anatomy. Mouth: Moist mucous membranes. Chest: Decreased air entry bilaterally. No wheezing or rhonchi. Cardiovascular: Positive S1, positive S2. Regular rate and rhythm. Abdomen: Positive bowel sounds in all 4 quadrants. Soft, non-tender, non- distended. : Deferred. Rectal: Deferred. Skin: Warm, dry. Intact. Extremities: 2+ radial pulses bilaterally. No lower extremity edema. Neuro: Awake, alert, oriented x3. No gross motor or sensory deficits. Cranial nerves II through XII intact. Gait not assessed. laboratory and microbiology Laboratory Tests 06/07/24 04:55 Test 06/07/24 04:55 Range/Units Serum Glucose 95 74-106 mg/dL Assessment/Plan Impression: Acute on chronic systolic CHF (EF 10-15%) BLE wounds DM type II Acute on chronic CKD Metabolic acidosis Hyperkalemia Elevated troponin Overweight, BMI 29.5 Events: Remains on supplemental oxygen, 3 LPM NC Taper O2 as tolerated Off Levophed at midnight, hemodynamically stable. Continue antibiotics, meropenem and vancomycin. CT abdomen-pelvis done due to abdominal pain showed no acute process in the abdomen or pelvis. Monitor lactic acid. Follow PT/INR. Wound care. Diurese w/ Lasix Monitor renal function Nephrology recs appreciated. Head of bed elevation Aspiration precautions Patient is stable for downgrade from the pulmonary standpoint. Labs and imaging reviewed. Rest of plan as noted below. Plan: Supplemental oxygen, 3 LPM NC Titrate to keep O2 sats above 92%. Taper O2 as tolerated. CXR demonstrated mild pulmonary vascular congestion. Continue bronchodilators. Antibiotics Iron supplementation Monitor hemoglobin Accu-Cheks, ISS. Diurese to euvolemia w/ Lasix Monitor renal function. Monitor electrolytes. Supplement as necessary. Monitor ins and outs. DVT prophylaxis. Rapid Response/Code Assist: Patient became hypotensive and unresponsive, upgraded to SHIREEN. Central line placement in right IJ. STAT CT head obtained to r/o ICH or stroke. Pt received Narcan x2. Start pressors if necessary to maintain a mean arterial blood pressure greater than 65 mmHg. Monitor renal function - creatinine trending down. Monitor electrolytes. Supplement as necessary. Monitor ins and outs Prognosis: Poor given patient's multiple co-morbidities. Condition: Critical Rest of plan per hospitalist and other consultants. A total of 35 minutes of critical care time was spent reviewing the patient record, examining the patient, making a diagnostic and therapeutic plan, discussing this plan with the medical personnel, following up on diagnostic studies and following the patient for clinical stability excluding any and all procedures. At least 50% of this time was spent in direct, [id number] contact. Thank you, Ekta Meek NP/Dr Mcintosh, for allowing me to participate in this patient's care. Further recommendations will depend on the patient's clinical course. Please do not hesitate to contact me if you have any questions or concerns. This medical document was created using an electronic medical record system with [employer]ation system. Although these documentations are being carefully reviewed, there may still be some phonetic and typographical changes. The errors are purely typographical, due to imperfection on the software program, and do not reflect any compromise in the patient's medical care. Dietary Evaluation Review Comments: 1) Consider YULIET 1 pkt BID for wounds 2) Continue current plan of care Expected Outcomes/Goals: 1) Pt labs to improve 2) F/U in 3-5 days Plan discussed with: Other (MARY Irizarry) Critical Care Time(min): 35 WALDO OHARA MD Jun 07, 2024 20:33
[2024-06-08] VITALS (100 sets, daily range): BP systolic 72–115; BP diastolic 46–76; PULSE 92–137; RESP 11–34; TEMP 97.2–99.4; O2SAT 87–100
[2024-06-08 05:49] LABS: Basophils # (auto) 0 10 ^3/uL (0-0.2); Eosinophils # (auto) 0 10 ^3/uL (0-0.8); Eosinophils % (auto) 0.1 % (0.0-7.0); Hematocrit 38.9 % (41.0-53.0); Lymphocytes # (auto) 0.4 10 ^3/uL (0.4-5.4); Lymphocytes % (auto) 4.4 % (10.0-50.0); Mean Corpuscular Hemoglobin 29.5 pg (28.0-32.0); Mean Corpuscular Hgb Conc. 33.4 g/dL (32.0-36.0); Mean Corpuscular Volume 88.5 fL (80.0-100.0); Monocytes # (auto) 0.5 10 ^3/uL (0-1.3); Monocytes % (auto) 5.8 % (0.0-12.0); Neutrophils # (auto) 7.8 10 ^3/uL (1.6-8.6); Neutrophils % (auto) 89.7 % (37.0-80.0); Nucleated Red Blood Cells % 0.2 %; Platelet Count (auto) 108 10^3/uL (140-450); Red Blood Cells 4.39 10^6/uL (4.5-5.90); White Blood Cell 8.7 10^3/uL (4.4-10.8)
[2024-06-08 06:01] LABS: INR 1.48 (0.9-1.15); Partial Thromboplastin Time 36.1 SEC (24.5-34.5); Prothrombin Time 15.2 sec (9.3-11.8); Red Cell Distribution Width 26.7 % (11.8-14.3)
[2024-06-08 06:04] LABS: Alanine Aminotransferase 63 U/L (7-40); Albumin 2.6 g/dL (3.2-4.8); Alkaline Phosphatase 286 U/L (46-116); Anion Gap 9 (5-15); Aspartate Aminotransferase 45 U/L (13-40); BUN/Creatinine Ratio 28.8 (10.0-20.0); Blood Urea Nitrogen 34 mg/dL (9-23); Calcium 8.6 mg/dL (8.7-10.4); Carbon Dioxide 23 mmol/L (20-31); Chloride 98 mmol/L (98-107); Glucose 128 mg/dL (74-106); Magnesium 1.8 mg/dL (1.6-2.6); Potassium 4.2 mmol/L (3.5-5.1); Sodium 130 mmol/L (136-145)
[2024-06-08 06:05] LABS: Bilirubin, Total 4.4 mg/dL (0.2-1.0); Total Protein 6.1 g/dL (5.7-8.2)
[2024-06-08 09:40] LABS: Anisocytosis Slight; Platelet Estimate Decreased; Stomatocytes Few; Target Cell FEW
[2024-06-08] MEDS: MAGNESIUM SULFATE 1GM/100ML 100 ML IV ONE (10:15)
--- NOTE | 2024-06-08 10:29 | DVHPN2 ---
Consult Progress Note Date Seen: Jun 08, 2024 Subjective Other Systems: Patient remains confused at time of assessment. Episodes of nonsustained V-tach on cardiac event monitor overnight. Patient back on Levophed drip. Objective vital signs Vital Sign Date Time Temp Pulse Resp B/P (MAP) Pulse Ox O2 Delivery O2 Flow Rate FiO2 06/08/24 09:43 99 Nasal Cannula* 3 32 06/08/24 09:43 123 06/08/24 09:40 13 06/08/24 09:15 85/51 (62) 06/08/24 08:00 97.7 97.7 Total Intake and Output 06/07/24 06/07/24 06/08/24 15:00 23:00 07:00 Intake Total 450 ml 1242 ml 450 ml Output Total 1400 ml 1200 ml Balance 450 ml -158 ml -750 ml medications Current Medications Medications Dose Ordered Sig/Patrick Route Start Time Stop Time Status Last Admin Dose Admin Sodium Chloride 10 ml Q8HR IV 06/03/24 22:00 06/08/24 05:48 10 ML Acetaminophen/ Hydrocodone Bitart 1 tab Q4HP PRN PO 06/03/24 15:30 06/07/24 01:46 1 TAB Ondansetron HCl 4 mg Q4HP PRN IV 06/03/24 15:30 Docusate Sodium 100 mg BIDPRN PRN PO 06/03/24 15:30 Acetaminophen 650 mg Q6HP PRN PO 06/03/24 15:30 Morphine Sulfate 2 mg Q4HPRN PRN IV 06/03/24 15:30 Nitroglycerin 0.4 mg Q5MINP PRN SL 06/03/24 15:30 Morphine Sulfate 2 mg Q30M PRN IV 06/03/24 15:30 Diagnostic Test (Pha) 1 strip ACHS 06/03/24 17:00 06/08/24 07:50 1 STRIP Insulin Human Regular HS SC 06/03/24 22:00 06/03/24 21:52 2 UNITS Insulin Human Regular AC SC 06/03/24 17:00 06/07/24 12:10 2 UNITS Dextrose 50 ml UD PRN IV 06/03/24 15:30 06/06/24 05:34 50 ML Empaglifozin 10 mg DAILY PO 06/04/24 10:00 06/08/24 07:50 10 MG Vancomycin HCl 0 ml @ 0 mls/hr UD IV 06/03/24 15:45 Ferrous Sulfate 325 mg DAILY PO 06/04/24 10:00 06/08/24 07:49 325 MG Pravastatin Sodium 20 mg HS PO 06/03/24 22:00 06/07/24 21:58 20 MG Metoprolol Tartrate 12.5 mg BID PO 06/04/24 22:00 Hold 06/05/24 11:05 12.5 MG Norepinephrine Bitartrate 250 ml @ 3.75 mls/hr Q24H IV 06/05/24 16:30 06/06/24 18:00 3.75 MLS/HR Furosemide 40 mg BIDD IV 06/06/24 09:30 06/08/24 05:48 40 MG Meropenem 50 ml @ 17 mls/hr Q8HR IV 06/06/24 20:00 06/08/24 05:48 17 MLS/HR Amiodarone HCl 200 mg Q12HR PO 06/06/24 22:00 06/08/24 07:50 200 MG Vancomycin HCl 100 ml @ 200 mls/hr Q24H IV 06/07/24 14:00 06/07/24 14:45 200 MLS/HR Examination: GENERAL:Abnormal, LUNGS:Normal, CVS:Abnormal (Episodes of nonsustained V-tach.), NEURO:Abnormal (Confused) laboratory and microbiology Laboratory Tests 06/08/24 05:05 Test 06/08/24 05:05 Range/Units Serum Glucose 128 H 74-106 mg/dL Problem List/Assessment/Plan Problem List/Assessment/Plan Acute on chronic decompensated HFrEF with EF 10-15%, NYHA Class IV Nonischemic cardiomyopathy NSTEMI type 2 secondary to above Nonsustained ventricular tachycardia, new onset Presence of AICD ([employer]) [id number] diabetes mellitus, controlled, HgbA1C 5.9% Acute kidney injury on chronic kidney disease stage IIIb Likely cardiorenal syndrome type II Accelerated hypertension Bilateral lower limb cellulitis Thrombocytopenia Thyroid disease Obesity Plan/Recommendation We will continue the following plan/recommendations (Dr. Hurtado): 1. Echocardiogram from 02/20/2024 revealed: Severely dilated left ventricle. Severely reduced left ventricular systolic function estimated ejection fraction of 15%. There is global wall akinesia. There is restrictive filling pattern had diastolic type 3 dysfunction. Normal right ventricular size and dimension. Moderately reduced right ventricular systolic function. Moderately elevated right ventricular systolic [id number] mm of mercury. Moderately dilated right and left atria. Aortic valve is mildly thickened no significant stenosis or regurgitation. The mitral valve has mild mitral valve regurgitation. There is mild tricuspid valve regurgitation. The pulmonary valve grossly normal. No pericardial effusion. 2. Initiate GDMT for CHF once patient is off of vasopressor therapy 3. Continue diuresis. Strict I&Os. Daily weight. Fluid restriction. 2 g salt restriction, 1.2 L total fluid restriction in 24 hours. Monitor renal function. 4. Continue abx therapy per primary care team, blood cultures, wound care. 5. Discontinue ASA and avoid AC therapy given thrombocytopenia. 6. DVT/VTE prophylaxis: SCDs 7. Continue amiodarone for V-tach Thank you for the opportunity to consult on your patient. Please feel free to reach out if you have any further questions. Critical care time: 45 min. This medical document was created using an electronic medical record system with voice recognition software and computerized dictation system. Although this document has been carefully reviewed, there might still be some phonetic and typographical errors. Occasional wrong-word or ``sound-alike substitutions may have occurred due to the inherent limitations of voice recognition software. These areas are purely typographical due to imperfections of the software programs and do not reflect any compromise in the patient's medical care. Please read the chart carefully and recognize, using context, where these substitutions have occurred. Plan discussed with: Patient, Other (Bedside RN) Dietary Evaluation Review Comments: 1) Consider YULIET 1 pkt BID for wounds 2) Continue current plan of care Expected Outcomes/Goals: 1) Pt labs to improve 2) F/U in 3-5 days Date of Service: Jun 08, 2024 Billing Provider: DENTON HURTADO MD Cardiology Common Codes: [id number] CARE 30-74 MIN GREG LEAL Jun 08, 2024 10:29
--- NOTE | 2024-06-08 13:14 | MEDREC ---
[facility] Intervention Section I [facility] Intervention: Deescalate AB based on CS (Final Wound culture resulted in Escherichia coli + Klebsiella pneumoniae + Stenotrophomonas maltophilia, all susceptible to Bactrim. Please consider de-escalate antibiotics based on culture results) STARR ZABALA Jun 08, 2024 13:14
[2024-06-08] MEDS: ACETAMINOPHEN 325 MG TAB PO PRN (13:25)
[2024-06-08] MEDS: LORazepam 0.5 MG TAB PO PRN (13:26)
[2024-06-08] MEDS: LORazepam 0.5 MG TAB ONE (13:42)
[2024-06-08] MEDS ORDERED: LORazepam 2MG/ML-1ML VIAL IV PRN (13:45)
[2024-06-08] MEDS: HALOPERIDOL LACTATE 5 MG/ML INJ VIAL IM PRN (13:48)
--- NOTE | 2024-06-08 15:17 | DVHPN2 ---
Subjective More confused today On Levophed Had several episodes of nonsustained V-tach overnight Changes from previous H/P or p: Changes Eyes: No Pain, No Vision change, No Conjunctivae inflammation, No Eyelid inflammation, No Other, No Redness ENT: No Ear pain, No Ear discharge, No Nose pain, No Nose discharge, No Nose congestion, No Mouth pain, No Mouth swelling, No Throat pain, No Throat swelling, No Other Cardiovascular: No Chest Pain, No Palpitations, No Orthopnea, No Paroxysmal Noc. Dyspnea, No Edema, No Lt Headedness, No Other Respiratory: No Cough, No Dry, No Shortness of breath, No SOB with excertion, No Wheezing, No Hemoptysis, No Pleuritic Pain, No Sputum, No Other Gastrointestinal: No Nausea, No Vomiting, No Abdominal Pain, No Diarrhea, No Constipation, No Melena, No Hematochezia, No Other Genitourinary: No Dysuria, No Frequency, No Incontinence, No Hematuria, No Retention, No Other Musculoskeletal: No other, No neck pain, No shoulder pain, No arm pain, No back pain, No hand pain, No leg pain, No foot pain Skin: No Rash, No Lesions, No Jaundice, No Bruising, No Other Objective Vitals Vital Signs Date Time Temp Pulse Resp B/P (MAP) Pulse Ox O2 Delivery O2 Flow Rate FiO2 06/08/24 14:15 102 17 90/54 (66) 95 06/08/24 13:34 Nasal Cannula* 2 28 06/08/24 12:15 99.4 99.4 Intake/Output Intake and Output 06/08/24 07:00 Intake Total 2142 ml Output Total 2600 ml Balance -458 ml Intake Oral 1800 ml IV Total 342 ml Output Urine Total 2600 ml General Appearance: Alert, Oriented X3, Cooperative Lungs: Other (Bilateral rhonchi) Cardiovascular: Regular rate, Normal S1, Normal S2 Abdomen: Normal bowel sounds, Soft, No tenderness Extremities: Other (2+ edema bilaterally in the lower extremity) Medications Current Medications Medications Dose Ordered Sig/Patrick Route Start Time Stop Time Status Last Admin Dose Admin Sodium Chloride 10 ml Q8HR IV 06/03/24 22:00 06/08/24 13:03 10 ML Acetaminophen/ Hydrocodone Bitart 1 tab Q4HP PRN PO 06/03/24 15:30 06/07/24 01:46 1 TAB Ondansetron HCl 4 mg Q4HP PRN IV 06/03/24 15:30 Docusate Sodium 100 mg BIDPRN PRN PO 06/03/24 15:30 Acetaminophen 650 mg Q6HP PRN PO 06/03/24 15:30 Morphine Sulfate 2 mg Q4HPRN PRN IV 06/03/24 15:30 Nitroglycerin 0.4 mg Q5MINP PRN SL 06/03/24 15:30 Morphine Sulfate 2 mg Q30M PRN IV 06/03/24 15:30 Diagnostic Test (Pha) 1 strip ACHS 06/03/24 17:00 06/08/24 13:03 1 STRIP Insulin Human Regular HS SC 06/03/24 22:00 06/03/24 21:52 2 UNITS Insulin Human Regular AC SC 06/03/24 17:00 06/08/24 11:31 2 UNITS Dextrose 50 ml UD PRN IV 06/03/24 15:30 06/06/24 05:34 50 ML Empaglifozin 10 mg DAILY PO 06/04/24 10:00 06/08/24 07:50 10 MG Vancomycin HCl 0 ml @ 0 mls/hr UD IV 06/03/24 15:45 Ferrous Sulfate 325 mg DAILY PO 06/04/24 10:00 06/08/24 07:49 325 MG Pravastatin Sodium 20 mg HS PO 06/03/24 22:00 06/07/24 21:58 20 MG Metoprolol Tartrate 12.5 mg BID PO 06/04/24 22:00 Hold 06/05/24 11:05 12.5 MG Norepinephrine Bitartrate 250 ml @ 3.75 mls/hr Q24H IV 06/05/24 16:30 06/06/24 18:00 3.75 MLS/HR Meropenem 50 ml @ 17 mls/hr Q8HR IV 06/06/24 20:00 06/08/24 13:03 17 MLS/HR Amiodarone HCl 200 mg Q12HR PO 06/06/24 22:00 06/08/24 07:50 200 MG Vancomycin HCl 100 ml @ 200 mls/hr Q24H IV 06/07/24 14:00 06/08/24 13:02 200 MLS/HR Risperidone 1 mg DAILY PO 06/08/24 22:00 Lorazepam 0.5 mg Q6HP PRN IV 06/08/24 13:45 Haloperidol Lactate 2.5 mg Q8HP PRN IM 06/08/24 13:45 06/08/24 13:48 2.5 MG Furosemide 40 mg BIDD IV 06/08/24 18:00 Laboratory Results Laboratory Tests 06/08/24 05:05 Chemistry Test 06/08/24 05:05 Albumin 2.6 g/dL (3.2-4.8) L Calcium Level 8.6 mg/dL (8.7-10.4) L Magnesium Level 1.8 mg/dL (1.6-2.6) Total Protein 6.1 g/dL (5.7-8.2) Coagulation Test 06/08/24 05:05 Prothrombin Time 15.2 sec (9.3-11.8) H Prothrombin Time INR 1.48 (0.9-1.15) H Activated Partial Thromboplast Time 36.1 SEC (24.5-34.5) H LFT Test 06/08/24 05:05 Alanine Aminotransferase (ALT) 63 U/L (7-40) H Alkaline Phosphatase 286 U/L (46-116) H Aspartate Amino Transferase (AST) 45 U/L (13-40) H Total Bilirubin 4.4 mg/dL (0.2-1.0) H Urinalysis Test 06/03/24 17:57 06/05/24 20:55 Urine Epithelial Casts Few /hpf (<5) Urine Color Yellow (Yellow) Urine Clarity Clear (Clear) Urine pH 5.0 (5.0-9.0) Urine Specific [place] 1.018 (1.001-1.035) Urine Protein Trace (Negative) H Urine Ketones Negative (Negative) Urine Blood Negative /uL (Negative) Urine Nitrite Negative (Negative) Urine Bilirubin Negative (Negative) Urine Urobilinogen Normal mg/dL (Negative) Urine Leukocyte Esterase Negative /uL (Negative) Urine RBC 2 /hpf (0 - 3) Urine WBC 3 /hpf (0 - 3) Urine Squamous Epithelial Cells Few /hpf (<5) Urine Bacteria None seen /hpf (None Seen) Urine Hyaline Casts Mod /lpf (0 - 2) Urine Mucus Few (None Seen) Urine Glucose 4+ mg/dL (Normal) H Microbiology Microbiology Date/Time Source Procedure Growth Status 06/05/24 20:55 Voided Urine Urine Culture - Final Complete 06/05/24 19:46 Nose MRSA Screen - Final Complete 06/05/24 19:21 Blood Blood Culture - Preliminary NO GROWTH AFTER 48 HOURS OF INCUBATION. Resulted Assessment/Plan Assessment/Plan Acute on chronic congestive heart failure with low ejection fraction Bilateral lower extremity open wounds Type 2 diabetes Dyslipidemia Hypertension Chronic kidney disease Plan 06/04/2024: IV Lasix 40 mg twice a day Oxygen as needed Dietary consult Continue Aldactone 50 mg daily Entresto IV antibiotics vancomycin per pharmacy protocol The code Advance directives discussed for 20 minutes 06/05/2024: Unresponsiveness, possible due to opiates, Narcan was given x2 doses Rule out CVA: Get a CT scan of the head no contrast Hypotension: Start Levophed Hyperkalemia: Repeat labs including electrolytes and kidney function Check troponins again Acute kidney injury on Chronic kidney disease Elevated troponin, NSTEMI type 2 Acute on chronic decompensated heart failure with reduced ejection fraction EF 10-15% Nonischemic cardiomyopathy Possible cardiorenal syndrome History of hypertension Thrombocytopenia Plan Transfer to the SHIREEN Levophed drip to keep map above 65 CT scan of the head : Negative Check the electrolytes again, hyperkalemia: Give hyperkalemia protocol Central line, done Called the family to update them, no answer Rule out sepsis: Get blood culture, lactic acid, UA, urine culture Poor prognosis The patient eventually woke up and became more alert and oriented and was completely following commands and understanding his environment I asked him about advance directives, he stated Full Code 06/06/2024: Patient is complaining of abdominal pain Examination shows right upper quadrant tenderness Gallbladder ultrasound showed contracted gallbladder and thickened romo We will get a CT scan of the abdomen and pelvis without contrast Liver enzymes are elevated Check the hepatitis panel Kidney function is stable but the potassium is still high Nephrology is following Cardiology is following the patient Ventricular tachycardia has resolved after the ICD converted him yesterday The patient is more alert now, CT scan of the head was negative Blood cultures are still pending UA was negative for UTI Wound culture of the foot showed Gram-negative rods Continue vancomycin Add meropenem IV Replace magnesium IV Continue IV Lasix 40 mg twice a day Full code The patient pulled out his central line yesterday We will try to do a new central line placement , he is agreeable 06/07/2024: Abdominal pain: Consult GI regarding elevated liver function test and bilirubin Hyperbilirubinemia: Consult GI Elevated LFTs: CT scan is negative Right lower lobe pneumonia: Continue IV antibiotics Blood and urine cultures are pending 06/08/2024: Nonischemic cardiomyopathy ejection fraction 10-15% Acute on chronic heart failure with reduced ejection fraction Nonsustained V-tach, patient has ICD NSTEMI type 2 Type 2 diabetes Acute kidney injury on chronic kidney disease The cardiorenal syndrome Hypertension Bilateral lower extremity cellulitis Thrombocytopenia Sepsis Obesity Plan Levophed drip as needed IV antibiotics: Meropenem and vancomycin Discontinue Jardiance and metoprolol for now due to hypotension IV Lasix P.o. amiodarone Confusion: Haldol IM Ativan IV p.r.n. Hypotension: Levophed drip Plan discussed with: Patient, Other My Orders Orders - NERISSA SALTER MD Procedure Category Date Status Time Risperidone Tablet PHA 06/08/24 In Process (Risperdal Tablet) 22:00 Lorazepam 2mg/Ml Inj PHA 06/08/24 In Process (Ativan Inj) 13:45 Haloperidol Lactate PHA 06/08/24 In Process Injection (Haldol) 13:45 Complete Blood Count LAB 06/09/24 Verified 04:00 Comprehensive LAB 06/09/24 Verified Metabolic Panel 04:00 Magnesium LAB 06/09/24 Verified 04:00 Date of Service: Jun 08, 2024 Billing Provider: NERISSA SALTER MD Common Visit Codes: [id number] CARE 30-74 MIN NERISSA SALTER MD Jun 08, 2024 15:17
[2024-06-08] MEDS: FUROSEMIDE 40 MG/4 ML VIAL IV SCH (16:19)
--- NOTE | 2024-06-08 21:35 | DVHPN2 ---
Progress Note - Dictate Date Seen: Jun 08, 2024 Medical Necessity Reason Pt with a Central, PICC or Fol: Yes The following are medically ne: Lockett Catheter Reason for lockett catheter: Strict I&O Subjective Patient seen and examined at bedside. Remains on supplemental oxygen Overnight events reviewed. vital signs Vital Sign Date Time Temp Pulse Resp B/P (MAP) Pulse Ox O2 Delivery O2 Flow Rate FiO2 06/08/24 18:45 94 11 88/61 (70) 100 06/08/24 17:54 Nasal Cannula* 3 32 06/08/24 16:15 97.7 97.7 Total Intake and Output 06/08/24 06/08/24 06/08/24 01:30 09:30 17:30 Intake Total 466 ml 457.5 ml 810.0 ml Output Total 1200 ml 551 ml Balance 466 ml -742.5 ml 259.0 ml medications Current Medications Medications Dose Ordered Sig/Patrick Route Start Time Stop Time Status Last Admin Dose Admin Sodium Chloride 10 ml Q8HR IV 06/03/24 22:00 06/08/24 13:03 10 ML Acetaminophen/ Hydrocodone Bitart 1 tab Q4HP PRN PO 06/03/24 15:30 06/07/24 01:46 1 TAB Ondansetron HCl 4 mg Q4HP PRN IV 06/03/24 15:30 Docusate Sodium 100 mg BIDPRN PRN PO 06/03/24 15:30 Acetaminophen 650 mg Q6HP PRN PO 06/03/24 15:30 Morphine Sulfate 2 mg Q4HPRN PRN IV 06/03/24 15:30 Nitroglycerin 0.4 mg Q5MINP PRN SL 06/03/24 15:30 Morphine Sulfate 2 mg Q30M PRN IV 06/03/24 15:30 Diagnostic Test (Pha) 1 strip ACHS 06/03/24 17:00 06/08/24 13:03 1 STRIP Insulin Human Regular HS SC 06/03/24 22:00 06/03/24 21:52 2 UNITS Insulin Human Regular AC SC 06/03/24 17:00 06/08/24 11:31 2 UNITS Dextrose 50 ml UD PRN IV 06/03/24 15:30 06/06/24 05:34 50 ML Vancomycin HCl 0 ml @ 0 mls/hr UD IV 06/03/24 15:45 Ferrous Sulfate 325 mg DAILY PO 06/04/24 10:00 06/08/24 07:49 325 MG Pravastatin Sodium 20 mg HS PO 06/03/24 22:00 06/07/24 21:58 20 MG Norepinephrine Bitartrate 250 ml @ 3.75 mls/hr Q24H IV 06/05/24 16:30 06/06/24 18:00 3.75 MLS/HR Meropenem 50 ml @ 17 mls/hr Q8HR IV 06/06/24 20:00 06/08/24 13:03 17 MLS/HR Amiodarone HCl 200 mg Q12HR PO 06/06/24 22:00 06/08/24 07:50 200 MG Vancomycin HCl 100 ml @ 200 mls/hr Q24H IV 06/07/24 14:00 06/08/24 13:02 200 MLS/HR Risperidone 1 mg DAILY PO 06/08/24 22:00 Lorazepam 0.5 mg Q6HP PRN IV 06/08/24 13:45 Haloperidol Lactate 2.5 mg Q8HP PRN IM 06/08/24 13:45 06/08/24 13:48 2.5 MG Furosemide 40 mg BIDD IV 06/08/24 18:00 06/08/24 16:19 40 MG objective Gen.: Patient lying in bed in no apparent distress. On supplemental oxygen. Head: Normocephalic, atraumatic. Eyes: EOMI/PERRLA. Ears: Normal hearing. Normal anatomy. Neck/trachea: Trachea midline, supple. Nose: Normal external anatomy. Mouth: Moist mucous membranes. Chest: Decreased air entry bilaterally. No wheezing or rhonchi. Cardiovascular: Positive S1, positive S2. Regular rate and rhythm. Abdomen: Positive bowel sounds in all 4 quadrants. Soft, non-tender, non- distended. : Deferred. Rectal: Deferred. Skin: Warm, dry. Intact. Extremities: 2+ radial pulses bilaterally. No lower extremity edema. Neuro: Awake, alert, oriented x3. No gross motor or sensory deficits. Cranial nerves II through XII intact. Gait not assessed. laboratory and microbiology Laboratory Tests 06/08/24 05:05 Test 06/08/24 05:05 Range/Units Serum Glucose 128 H 74-106 mg/dL Assessment/Plan Impression: Acute on chronic systolic CHF (EF 10-15%) BLE wounds DM type II Acute on chronic CKD Metabolic acidosis Hyperkalemia Elevated troponin Overweight, BMI 29.5 Events: Remains on supplemental oxygen, 3 LPM NC Taper O2 as tolerated On pressors for hemodynamic support Levophed 4 mcg/min Titrate to keep mean arterial pressure greater than 65 mmHg. Continue antibiotics, meropenem and vancomycin. Monitor lactic acid. Follow PT/INR. Wound care. Diurese w/ Lasix Monitor renal function Nephrology recs appreciated. Head of bed elevation Aspiration precautions Received Haldol PRN agitation. Accu-Cheks, ISS. Labs and imaging reviewed. Rest of plan as noted below. Plan: Supplemental oxygen, 3 LPM NC Titrate to keep O2 sats above 92%. Taper O2 as tolerated. CXR demonstrated mild pulmonary vascular congestion. Continue bronchodilators. Antibiotics Iron supplementation Monitor hemoglobin Accu-Cheks, ISS. Diurese to euvolemia w/ Lasix Monitor renal function. Monitor electrolytes. Supplement as necessary. Monitor ins and outs. DVT prophylaxis. Rapid Response/Code Assist: Patient became hypotensive and unresponsive, upgraded to SHIREEN. Central line placement in right IJ. STAT CT head obtained to r/o ICH or stroke. Pt received Narcan x2. Pressors as necessary to maintain a mean arterial blood pressure greater than 65 mmHg. Monitor renal function - creatinine trending down. Monitor electrolytes. Supplement as necessary. Monitor ins and outs Prognosis: Poor given patient's multiple co-morbidities. Condition: Critical Rest of plan per hospitalist and other consultants. A total of 35 minutes of critical care time was spent reviewing the patient record, examining the patient, making a diagnostic and therapeutic plan, discussing this plan with the medical personnel, following up on diagnostic studies and following the patient for clinical stability excluding any and all procedures. At least 50% of this time was spent in direct, [id number] contact. Thank you, Ekta Meek NP/Dr Mcintosh, for allowing me to participate in this patient's care. Further recommendations will depend on the patient's clinical course. Please do not hesitate to contact me if you have any questions or concerns. This medical document was created using an electronic medical record system with [employer] system. Although these documentations are being carefully reviewed, there may still be some phonetic and typographical changes. The errors are purely typographical, due to imperfection on the software program, and do not reflect any compromise in the patient's medical care. Dietary Evaluation Review Comments: 1) Consider YULIET 1 pkt BID for wounds 2) Continue current plan of care Expected Outcomes/Goals: 1) Pt labs to improve 2) F/U in 3-5 days Plan discussed with: Other (MARY Chang) Critical Care Time(min): 35 WALDO OHARA MD Jun 08, 2024 21:35
[2024-06-08] MEDS: risperiDONE 1 MG TAB PO SCH (22:35)
[2024-06-09] VITALS (104 sets, daily range): BP systolic 79–108; BP diastolic 51–70; PULSE 91–117; RESP 9–28; TEMP 97.4–98.3; O2SAT 89–100
[2024-06-09 06:19] LABS: Basophils # (auto) 0 10 ^3/uL (0-0.2); Basophils % (auto) 0.1 % (0.0-2.0); Eosinophils # (auto) 0 10 ^3/uL (0-0.8); Eosinophils % (auto) 0.1 % (0.0-7.0); Hematocrit 39.3 % (41.0-53.0); Hemoglobin 13.1 g/dL (13.5-17.5); Lymphocytes # (auto) 0.3 10 ^3/uL (0.4-5.4); Lymphocytes % (auto) 4.5 % (10.0-50.0); Mean Corpuscular Hemoglobin 29.5 pg (28.0-32.0); Mean Corpuscular Hgb Conc. 33.4 g/dL (32.0-36.0); Mean Corpuscular Volume 88.3 fL (80.0-100.0); Monocytes # (auto) 0.5 10 ^3/uL (0-1.3); Monocytes % (auto) 6.4 % (0.0-12.0); Neutrophils # (auto) 6.3 10 ^3/uL (1.6-8.6); Neutrophils % (auto) 88.9 % (37.0-80.0); Nucleated Red Blood Cells % 0.3 %; Platelet Count (auto) 115 10^3/uL (140-450); Red Blood Cells 4.45 10^6/uL (4.5-5.90); White Blood Cell 7.1 10^3/uL (4.4-10.8)
[2024-06-09 06:34] LABS: Alanine Aminotransferase 55 U/L (7-40); Alkaline Phosphatase 287 U/L (46-116); Anion Gap 9 (5-15); BUN/Creatinine Ratio 29.4 (10.0-20.0); Blood Urea Nitrogen 30 mg/dL (9-23); Calcium 8.4 mg/dL (8.7-10.4); Carbon Dioxide 22 mmol/L (20-31); Chloride 99 mmol/L (98-107); Glucose 103 mg/dL (74-106); Potassium 3.8 mmol/L (3.5-5.1); Sodium 130 mmol/L (136-145)
[2024-06-09 06:35] LABS: Aspartate Aminotransferase 42 U/L (13-40); Magnesium 2.1 mg/dL (1.6-2.6)
[2024-06-09 06:36] LABS: Albumin 2.5 g/dL (3.2-4.8); Bilirubin, Total 4.3 mg/dL (0.2-1.0); Total Protein 5.9 g/dL (5.7-8.2)
[2024-06-09 06:47] LABS: Red Cell Distribution Width 27.4 % (11.8-14.3)
[2024-06-09 07:59] LABS: Anisocytosis Slight; Platelet Estimate Decreased; Target Cell FEW
[2024-06-09] MEDS: POTASSIUM CHL 20MEQ/100ML 100 ML IV ONE (10:18)
--- NOTE | 2024-06-09 10:23 | DVHPN2 ---
Consult Progress Note Date Seen: Jun 09, 2024 Subjective Other Systems: Patient having nonsustained runs of V-tach on threat monitoring analyst. Patient remains on levophed. Objective vital signs Vital Sign Date Time Temp Pulse Resp B/P (MAP) Pulse Ox O2 Delivery O2 Flow Rate FiO2 06/09/24 10:02 97 Nasal Cannula 3.0 06/09/24 10:01 32 06/09/24 10:01 13 06/09/24 10:00 101 06/09/24 10:00 107/65 (79) 06/09/24 07:45 97.9 97.9 Total Intake and Output 06/08/24 06/08/24 06/09/24 15:00 23:00 07:00 Intake Total 435.5 ml 760.0 ml 575.00 ml Output Total 551 ml 1400 ml Balance 435.5 ml 209.0 ml -825.00 ml medications Current Medications Medications Dose Ordered Sig/Patrick Route Start Time Stop Time Status Last Admin Dose Admin Sodium Chloride 10 ml Q8HR IV 06/03/24 22:00 06/09/24 09:37 10 ML Acetaminophen/ Hydrocodone Bitart 1 tab Q4HP PRN PO 06/03/24 15:30 06/07/24 01:46 1 TAB Ondansetron HCl 4 mg Q4HP PRN IV 06/03/24 15:30 Docusate Sodium 100 mg BIDPRN PRN PO 06/03/24 15:30 Acetaminophen 650 mg Q6HP PRN PO 06/03/24 15:30 Morphine Sulfate 2 mg Q4HPRN PRN IV 06/03/24 15:30 Nitroglycerin 0.4 mg Q5MINP PRN SL 06/03/24 15:30 Morphine Sulfate 2 mg Q30M PRN IV 06/03/24 15:30 Diagnostic Test (Pha) 1 strip ACHS 06/03/24 17:00 06/09/24 09:14 1 STRIP Insulin Human Regular HS SC 06/03/24 22:00 06/03/24 21:52 2 UNITS Insulin Human Regular AC SC 06/03/24 17:00 06/08/24 11:31 2 UNITS Dextrose 50 ml UD PRN IV 06/03/24 15:30 06/06/24 05:34 50 ML Vancomycin HCl 0 ml @ 0 mls/hr UD IV 06/03/24 15:45 Ferrous Sulfate 325 mg DAILY PO 06/04/24 10:00 06/09/24 09:13 325 MG Pravastatin Sodium 20 mg HS PO 06/03/24 22:00 06/08/24 22:24 20 MG Norepinephrine Bitartrate 250 ml @ 3.75 mls/hr Q24H IV 06/05/24 16:30 06/09/24 09:37 11.25 MLS/HR Meropenem 50 ml @ 17 mls/hr Q8HR IV 06/06/24 20:00 06/09/24 05:59 17 MLS/HR Amiodarone HCl 200 mg Q12HR PO 06/06/24 22:00 06/09/24 09:13 200 MG Vancomycin HCl 100 ml @ 200 mls/hr Q24H IV 06/07/24 14:00 06/08/24 13:02 200 MLS/HR Risperidone 1 mg DAILY PO 06/08/24 22:00 06/09/24 09:13 1 MG Lorazepam 0.5 mg Q6HP PRN IV 06/08/24 13:45 Haloperidol Lactate 2.5 mg Q8HP PRN IM 06/08/24 13:45 06/08/24 13:48 2.5 MG Furosemide 40 mg BIDD IV 06/08/24 18:00 06/09/24 05:58 40 MG Examination: GENERAL:Abnormal, LUNGS:Normal, CVS:Abnormal (Nonsustained runs of V-tach), NEURO:Abnormal (Confusion) laboratory and microbiology Laboratory Tests 06/09/24 05:16 Test 06/09/24 05:16 Range/Units Serum Glucose 103 74-106 mg/dL Problem List/Assessment/Plan Problem List/Assessment/Plan Acute on chronic decompensated HFrEF with EF 10-15%, NYHA Class IV Nonischemic cardiomyopathy NSTEMI type 2 secondary to above Nonsustained ventricular tachycardia, new onset Prolonged QT interval Presence of AICD ([employer]) [id number] diabetes mellitus, controlled, HgbA1C 5.9% Acute kidney injury on chronic kidney disease stage IIIb Likely cardiorenal syndrome type II Accelerated hypertension Bilateral lower limb cellulitis Thrombocytopenia Thyroid disease Obesity Plan/Recommendation We will continue the following plan/recommendations (Dr. Hurtado): 1. Echocardiogram from 02/20/2024 revealed: Severely dilated left ventricle. Severely reduced left ventricular systolic function estimated ejection fraction of 15%. There is global wall akinesia. There is restrictive filling pattern had diastolic type 3 dysfunction. Normal right ventricular size and dimension. Moderately reduced right ventricular systolic function. Moderately elevated right ventricular systolic [id number] mm of mercury. Moderately dilated right and left atria. Aortic valve is mildly thickened no significant stenosis or regurgitation. The mitral valve has mild mitral valve regurgitation. There is mild tricuspid valve regurgitation. The pulmonary valve grossly normal. No pericardial effusion. 2. Initiate GDMT for CHF once patient is off of vasopressor therapy 3. Continue diuresis. Strict I&Os. Daily weight. Fluid restriction. 2 g salt restriction, 1.2 L total fluid restriction in 24 hours. Monitor renal function. 4. Continue abx therapy per primary care team, blood cultures, wound care. 5. Discontinue ASA and avoid AC therapy given thrombocytopenia. 6. DVT/VTE prophylaxis: SCDs 7. Continue amiodarone for V-tach 8.Monitor QTc interval; avoid medications that can prolong QT interval. Thank you for the opportunity to consult on your patient. Please feel free to reach out if you have any further questions. Critical care time: 45 min. This medical document was created using an electronic medical record system with voice recognition software and computerized dictation system. Although this document has been carefully reviewed, there might still be some phonetic and typographical errors. Occasional wrong-word or ``sound-alike substitutions may have occurred due to the inherent limitations of voice recognition software. These areas are purely typographical due to imperfections of the software programs and do not reflect any compromise in the patient's medical care. Please read the chart carefully and recognize, using context, where these substitutions have occurred. Plan discussed with: Patient, Other (Bedside RN) Dietary Evaluation Review Comments: 1) Consider YULIET 1 pkt BID for wounds 2) Continue current plan of care Expected Outcomes/Goals: 1) Pt labs to improve 2) F/U in 3-5 days Date of Service: Jun 09, 2024 Billing Provider: DENTON HURTADO MD Cardiology Common Codes: [id number] CARE 30-74 MIN GREG LEAL Jun 09, 2024 10:23
--- NOTE | 2024-06-09 11:16 | DVHPN2 ---
Subjective Still on Levophed Denies pain She is still having nonsustained VT episodes More calm and alert Changes from previous H/P or p: Changes Eyes: No Pain, No Vision change, No Conjunctivae inflammation, No Eyelid inflammation, No Other, No Redness ENT: No Ear pain, No Ear discharge, No Nose pain, No Nose discharge, No Nose congestion, No Mouth pain, No Mouth swelling, No Throat pain, No Throat swelling, No Other Cardiovascular: No Chest Pain, No Palpitations, No Orthopnea, No Paroxysmal Noc. Dyspnea, No Edema, No Lt Headedness, No Other Respiratory: No Cough, No Dry, No Shortness of breath, No SOB with excertion, No Wheezing, No Hemoptysis, No Pleuritic Pain, No Sputum, No Other Gastrointestinal: No Nausea, No Vomiting, No Abdominal Pain, No Diarrhea, No Constipation, No Melena, No Hematochezia, No Other Genitourinary: No Dysuria, No Frequency, No Incontinence, No Hematuria, No Retention, No Other Musculoskeletal: No other, No neck pain, No shoulder pain, No arm pain, No back pain, No hand pain, No leg pain, No foot pain Skin: No Rash, No Lesions, No Jaundice, No Bruising, No Other Objective Vitals Vital Signs Date Time Temp Pulse Resp B/P (MAP) Pulse Ox O2 Delivery O2 Flow Rate FiO2 06/09/24 10:15 101 11 106/63 (77) 96 06/09/24 10:02 Nasal Cannula 3.0 06/09/24 10:01 32 06/09/24 07:45 97.9 97.9 Intake/Output Intake and Output 06/09/24 07:00 Intake Total 1770.50 ml Output Total 1951 ml Balance -180.50 ml Intake Oral 1100 ml IV Total 670.50 ml Output Urine Total 1950 ml Urine/Stool Mix 1 ml General Appearance: Alert, Oriented X3, Cooperative Lungs: Other (Bilateral rhonchi) Cardiovascular: Regular rate, Normal S1, Normal S2 Abdomen: Normal bowel sounds, Soft, No tenderness Extremities: Other (2+ edema bilaterally in the lower extremity) Medications Current Medications Medications Dose Ordered Sig/Patrick Route Start Time Stop Time Status Last Admin Dose Admin Sodium Chloride 10 ml Q8HR IV 06/03/24 22:00 06/09/24 09:37 10 ML Acetaminophen/ Hydrocodone Bitart 1 tab Q4HP PRN PO 06/03/24 15:30 06/07/24 01:46 1 TAB Ondansetron HCl 4 mg Q4HP PRN IV 06/03/24 15:30 Docusate Sodium 100 mg BIDPRN PRN PO 06/03/24 15:30 Acetaminophen 650 mg Q6HP PRN PO 06/03/24 15:30 Morphine Sulfate 2 mg Q4HPRN PRN IV 06/03/24 15:30 Nitroglycerin 0.4 mg Q5MINP PRN SL 06/03/24 15:30 Morphine Sulfate 2 mg Q30M PRN IV 06/03/24 15:30 Diagnostic Test (Pha) 1 strip ACHS 06/03/24 17:00 06/09/24 09:14 1 STRIP Insulin Human Regular HS SC 06/03/24 22:00 06/03/24 21:52 2 UNITS Insulin Human Regular AC SC 06/03/24 17:00 06/09/24 10:59 3 UNITS Dextrose 50 ml UD PRN IV 06/03/24 15:30 06/06/24 05:34 50 ML Vancomycin HCl 0 ml @ 0 mls/hr UD IV 06/03/24 15:45 Ferrous Sulfate 325 mg DAILY PO 06/04/24 10:00 06/09/24 09:13 325 MG Pravastatin Sodium 20 mg HS PO 06/03/24 22:00 06/08/24 22:24 20 MG Norepinephrine Bitartrate 250 ml @ 3.75 mls/hr Q24H IV 06/05/24 16:30 06/09/24 09:37 11.25 MLS/HR Meropenem 50 ml @ 17 mls/hr Q8HR IV 06/06/24 20:00 06/09/24 05:59 17 MLS/HR Amiodarone HCl 200 mg Q12HR PO 06/06/24 22:00 06/09/24 09:13 200 MG Vancomycin HCl 100 ml @ 200 mls/hr Q24H IV 06/07/24 14:00 06/08/24 13:02 200 MLS/HR Risperidone 1 mg DAILY PO 06/08/24 22:00 06/09/24 09:13 1 MG Lorazepam 0.5 mg Q6HP PRN IV 06/08/24 13:45 Haloperidol Lactate 2.5 mg Q8HP PRN IM 06/08/24 13:45 06/08/24 13:48 2.5 MG Furosemide 40 mg BIDD IV 06/08/24 18:00 06/09/24 05:58 40 MG Laboratory Results Laboratory Tests 06/09/24 05:16 Chemistry Test 06/09/24 05:16 Albumin 2.5 g/dL (3.2-4.8) L Calcium Level 8.4 mg/dL (8.7-10.4) L Magnesium Level 2.1 mg/dL (1.6-2.6) Total Protein 5.9 g/dL (5.7-8.2) LFT Test 06/09/24 05:16 Alanine Aminotransferase (ALT) 55 U/L (7-40) H Alkaline Phosphatase 287 U/L (46-116) H Aspartate Amino Transferase (AST) 42 U/L (13-40) H Total Bilirubin 4.3 mg/dL (0.2-1.0) H Urinalysis Test 06/03/24 17:57 06/05/24 20:55 Urine Epithelial Casts Few /hpf (<5) Urine Color Yellow (Yellow) Urine Clarity Clear (Clear) Urine pH 5.0 (5.0-9.0) Urine Specific [place] 1.018 (1.001-1.035) Urine Protein Trace (Negative) H Urine Ketones Negative (Negative) Urine Blood Negative /uL (Negative) Urine Nitrite Negative (Negative) Urine Bilirubin Negative (Negative) Urine Urobilinogen Normal mg/dL (Negative) Urine Leukocyte Esterase Negative /uL (Negative) Urine RBC 2 /hpf (0 - 3) Urine WBC 3 /hpf (0 - 3) Urine Squamous Epithelial Cells Few /hpf (<5) Urine Bacteria None seen /hpf (None Seen) Urine Hyaline Casts Mod /lpf (0 - 2) Urine Mucus Few (None Seen) Urine Glucose 4+ mg/dL (Normal) H Microbiology Microbiology Date/Time Source Procedure Growth Status 06/05/24 20:55 Voided Urine Urine Culture - Final Complete 06/05/24 19:46 Nose MRSA Screen - Final Complete 06/05/24 19:21 Blood Blood Culture - Preliminary NO GROWTH AFTER 72 HOURS OF INCUBATION. Resulted Assessment/Plan Assessment/Plan Acute on chronic congestive heart failure with low ejection fraction Bilateral lower extremity open wounds Type 2 diabetes Dyslipidemia Hypertension Chronic kidney disease Plan 06/04/2024: IV Lasix 40 mg twice a day Oxygen as needed Dietary consult Continue Aldactone 50 mg daily Entresto IV antibiotics vancomycin per pharmacy protocol The code Advance directives discussed for 20 minutes 06/05/2024: Unresponsiveness, possible due to opiates, Narcan was given x2 doses Rule out CVA: Get a CT scan of the head no contrast Hypotension: Start Levophed Hyperkalemia: Repeat labs including electrolytes and kidney function Check troponins again Acute kidney injury on Chronic kidney disease Elevated troponin, NSTEMI type 2 Acute on chronic decompensated heart failure with reduced ejection fraction EF 10-15% Nonischemic cardiomyopathy Possible cardiorenal syndrome History of hypertension Thrombocytopenia Plan Transfer to the SHIREEN Levophed drip to keep map above 65 CT scan of the head : Negative Check the electrolytes again, hyperkalemia: Give hyperkalemia protocol Central line, done Called the family to update them, no answer Rule out sepsis: Get blood culture, lactic acid, UA, urine culture Poor prognosis The patient eventually woke up and became more alert and oriented and was completely following commands and understanding his environment I asked him about advance directives, he stated Full Code 06/06/2024: Patient is complaining of abdominal pain Examination shows right upper quadrant tenderness Gallbladder ultrasound showed contracted gallbladder and thickened romo We will get a CT scan of the abdomen and pelvis without contrast Liver enzymes are elevated Check the hepatitis panel Kidney function is stable but the potassium is still high Nephrology is following Cardiology is following the patient Ventricular tachycardia has resolved after the ICD converted him yesterday The patient is more alert now, CT scan of the head was negative Blood cultures are still pending UA was negative for UTI Wound culture of the foot showed Gram-negative rods Continue vancomycin Add meropenem IV Replace magnesium IV Continue IV Lasix 40 mg twice a day Full code The patient pulled out his central line yesterday We will try to do a new central line placement , he is agreeable 06/07/2024: Abdominal pain: Consult GI regarding elevated liver function test and bilirubin Hyperbilirubinemia: Consult GI Elevated LFTs: CT scan is negative Right lower lobe pneumonia: Continue IV antibiotics Blood and urine cultures are pending 06/08/2024: Nonischemic cardiomyopathy ejection fraction 10-15% Acute on chronic heart failure with reduced ejection fraction Nonsustained V-tach, patient has ICD NSTEMI type 2 Type 2 diabetes Acute kidney injury on chronic kidney disease The cardiorenal syndrome Hypertension Bilateral lower extremity cellulitis Thrombocytopenia Sepsis Obesity Plan Levophed drip as needed IV antibiotics: Meropenem and vancomycin Discontinue Jardiance and metoprolol for now due to hypotension IV Lasix P.o. amiodarone Confusion: Haldol IM Ativan IV p.r.n. Hypotension: Levophed drip 06/09/2024: Sepsis: Continue IV antibiotics Septic shock: Continue Levophed: Taper as tolerated Risperidone 1 mg at bedtime Lasix 40 mg twice a day Plan discussed with: Patient My Orders Orders - NERISSA SALTER MD Procedure Category Date Status Time Lorazepam 2mg/Ml Inj PHA 06/08/24 In Process (Ativan Inj) 13:45 Haloperidol Lactate PHA 06/08/24 In Process Injection (Haldol) 13:45 2 Gm Sodium Diet DIET 06/09/24 Transmitted Breakfast Date of Service: Jun 09, 2024 Billing Provider: NERISSA SALTER MD Common Visit Codes: [id number] INP/OBS CARE(HIGH) NERISSA SALTER MD Jun 09, 2024 11:16
--- NOTE | 2024-06-09 19:50 | DVHPN2 ---
Progress Note - Dictate Date Seen: Jun 09, 2024 Medical Necessity Reason Pt with a Central, PICC or Fol: Yes The following are medically ne: Lockett Catheter Reason for lockett catheter: Strict I&O Subjective Patient seen and examined at bedside. Remains on supplemental oxygen Overnight events reviewed. vital signs Vital Sign Date Time Temp Pulse Resp B/P (MAP) Pulse Ox O2 Delivery O2 Flow Rate FiO2 06/09/24 18:45 109 13 92/62 (72) 94 06/09/24 17:43 Nasal Cannula* 1 06/09/24 16:00 98.0 98.0 Total Intake and Output 06/08/24 06/08/24 06/09/24 15:00 23:00 07:00 Intake Total 435.5 ml 760.0 ml 575.00 ml Output Total 551 ml 1400 ml Balance 435.5 ml 209.0 ml -825.00 ml medications Current Medications Medications Dose Ordered Sig/Patrick Route Start Time Stop Time Status Last Admin Dose Admin Sodium Chloride 10 ml Q8HR IV 06/03/24 22:00 06/09/24 09:37 10 ML Acetaminophen/ Hydrocodone Bitart 1 tab Q4HP PRN PO 06/03/24 15:30 06/07/24 01:46 1 TAB Ondansetron HCl 4 mg Q4HP PRN IV 06/03/24 15:30 Docusate Sodium 100 mg BIDPRN PRN PO 06/03/24 15:30 Acetaminophen 650 mg Q6HP PRN PO 06/03/24 15:30 Morphine Sulfate 2 mg Q4HPRN PRN IV 06/03/24 15:30 Nitroglycerin 0.4 mg Q5MINP PRN SL 06/03/24 15:30 Morphine Sulfate 2 mg Q30M PRN IV 06/03/24 15:30 Diagnostic Test (Pha) 1 strip ACHS 06/03/24 17:00 06/09/24 14:46 1 STRIP Insulin Human Regular HS SC 06/03/24 22:00 06/03/24 21:52 2 UNITS Insulin Human Regular AC SC 06/03/24 17:00 06/09/24 10:59 3 UNITS Dextrose 50 ml UD PRN IV 06/03/24 15:30 06/06/24 05:34 50 ML Vancomycin HCl 0 ml @ 0 mls/hr UD IV 06/03/24 15:45 Ferrous Sulfate 325 mg DAILY PO 06/04/24 10:00 06/09/24 09:13 325 MG Pravastatin Sodium 20 mg HS PO 06/03/24 22:00 06/08/24 22:24 20 MG Norepinephrine Bitartrate 250 ml @ 3.75 mls/hr Q24H IV 06/05/24 16:30 06/09/24 09:37 11.25 MLS/HR Meropenem 50 ml @ 17 mls/hr Q8HR IV 06/06/24 20:00 06/09/24 12:26 17 MLS/HR Amiodarone HCl 200 mg Q12HR PO 06/06/24 22:00 06/09/24 09:13 200 MG Vancomycin HCl 100 ml @ 200 mls/hr Q24H IV 06/07/24 14:00 06/09/24 14:00 200 MLS/HR Risperidone 1 mg DAILY PO 06/08/24 22:00 06/09/24 09:13 1 MG Lorazepam 0.5 mg Q6HP PRN IV 06/08/24 13:45 Haloperidol Lactate 2.5 mg Q8HP PRN IM 06/08/24 13:45 06/08/24 13:48 2.5 MG Furosemide 40 mg BIDD IV 06/08/24 18:00 06/09/24 16:43 40 MG objective Gen.: Patient lying in bed in no apparent distress. On supplemental oxygen. Head: Normocephalic, atraumatic. Eyes: EOMI/PERRLA. Ears: Normal hearing. Normal anatomy. Neck/trachea: Trachea midline, supple. Nose: Normal external anatomy. Mouth: Moist mucous membranes. Chest: Decreased air entry bilaterally. No wheezing or rhonchi. Cardiovascular: Positive S1, positive S2. Regular rate and rhythm. Abdomen: Positive bowel sounds in all 4 quadrants. Soft, non-tender, non- distended. : Deferred. Rectal: Deferred. Skin: Warm, dry. Intact. Extremities: 2+ radial pulses bilaterally. No lower extremity edema. Neuro: Awake, alert, oriented x3. No gross motor or sensory deficits. Cranial nerves II through XII intact. Gait not assessed. laboratory and microbiology Laboratory Tests 06/09/24 05:16 Test 06/09/24 05:16 Range/Units Serum Glucose 103 74-106 mg/dL Assessment/Plan Impression: Acute on chronic systolic CHF (EF 10-15%) BLE wounds DM type II Acute on chronic CKD Metabolic acidosis Hyperkalemia Elevated troponin Overweight, BMI 29.5 Events: Remains on supplemental oxygen, 2 LPM NC Taper O2 as tolerated On pressors for hemodynamic support Levophed 8 mcg/min Titrate to keep mean arterial pressure greater than 65 mmHg. Risperidone started. Continue antibiotics, meropenem and vancomycin. Monitor lactic acid. Follow PT/INR. Wound care. Diurese w/ Lasix Monitor renal function Nephrology recs appreciated. Head of bed elevation Aspiration precautions Accu-Cheks, ISS. Labs and imaging reviewed. Rest of plan as noted below. Plan: Supplemental oxygen, 2 LPM NC Titrate to keep O2 sats above 92%. Taper O2 as tolerated. CXR demonstrated mild pulmonary vascular congestion. Continue bronchodilators. Antibiotics Iron supplementation Monitor hemoglobin Accu-Cheks, ISS. Diurese to euvolemia w/ Lasix Monitor renal function. Monitor electrolytes. Supplement as necessary. Monitor ins and outs. DVT prophylaxis. Rapid Response/Code Assist: Patient became hypotensive and unresponsive, upgraded to SHIREEN. Central line placement in right IJ. STAT CT head obtained to r/o ICH or stroke. Pt received Narcan x2. Pressors as necessary to maintain a mean arterial blood pressure greater than 65 mmHg. Monitor renal function - creatinine trending down. Monitor electrolytes. Supplement as necessary. Monitor ins and outs Prognosis: Poor given patient's multiple co-morbidities. Condition: Critical Rest of plan per hospitalist and other consultants. A total of 35 minutes of critical care time was spent reviewing the patient record, examining the patient, making a diagnostic and therapeutic plan, discussing this plan with the medical personnel, following up on diagnostic studies and following the patient for clinical stability excluding any and all procedures. At least 50% of this time was spent in direct, [id number] contact. Thank you, Ekta Meek NP/Dr Mcintosh, for allowing me to participate in this patient's care. Further recommendations will depend on the patient's clinical course. Please do not hesitate to contact me if you have any questions or concerns. This medical document was created using an electronic medical record system with [employer] dictation system. Although these documentations are being carefully reviewed, there may still be some phonetic and typographical changes. The errors are purely typographical, due to imperfection on the software program, and do not reflect any compromise in the patient's medical care. Dietary Evaluation Review Comments: 1) Consider YULIET 1 pkt BID for wounds 2) Continue current plan of care Expected Outcomes/Goals: 1) Pt labs to improve 2) F/U in 3-5 days Plan discussed with: Other (MARY James) Critical Care Time(min): 35 WALDO OHARA MD Jun 09, 2024 19:50
[2024-06-10] VITALS (95 sets, daily range): BP systolic 87–117; BP diastolic 54–77; PULSE 62–131; RESP 13–33; TEMP 97.6–98.4; O2SAT 95–100
[2024-06-10 06:05] LABS: Basophils # (auto) 0 10 ^3/uL (0-0.2); Eosinophils # (auto) 0 10 ^3/uL (0-0.8); Eosinophils % (auto) 0.1 % (0.0-7.0); Hematocrit 40.8 % (41.0-53.0); Hemoglobin 13.8 g/dL (13.5-17.5); Lymphocytes # (auto) 0.4 10 ^3/uL (0.4-5.4); Lymphocytes % (auto) 4.8 % (10.0-50.0); Mean Corpuscular Hemoglobin 29.9 pg (28.0-32.0); Mean Corpuscular Hgb Conc. 33.8 g/dL (32.0-36.0); Mean Corpuscular Volume 88.5 fL (80.0-100.0); Monocytes # (auto) 0.6 10 ^3/uL (0-1.3); Monocytes % (auto) 7.6 % (0.0-12.0); Neutrophils # (auto) 6.6 10 ^3/uL (1.6-8.6); Neutrophils % (auto) 87.5 % (37.0-80.0); Nucleated Red Blood Cells % 0.5 %; Platelet Count (auto) 153 10^3/uL (140-450); Red Blood Cells 4.61 10^6/uL (4.5-5.90); White Blood Cell 7.5 10^3/uL (4.4-10.8)
[2024-06-10 06:18] LABS: Calcium 8.4 mg/dL (8.7-10.4); Chloride 98 mmol/L (98-107); Potassium 4.1 mmol/L (3.5-5.1); Sodium 131 mmol/L (136-145)
[2024-06-10 06:19] LABS: Anion Gap 8 (5-15); Carbon Dioxide 25 mmol/L (20-31)
[2024-06-10 06:24] LABS: BUN/Creatinine Ratio 29.7 (10.0-20.0); Blood Urea Nitrogen 30 mg/dL (9-23); Glucose 95 mg/dL (74-106)
[2024-06-10 06:26] LABS: Red Cell Distribution Width 26.9 % (11.8-14.3)
[2024-06-10 08:28] LABS: Anisocytosis Slight; Platelet Estimate Adequate
--- NOTE | 2024-06-10 09:43 | DVHPN2 ---
Consult Progress Note Date Seen: Jun 10, 2024 Subjective Review of Systems: CVS:Normal, RESPIRATORY:Abnormal, NEURO:Normal Other Systems: C/o mild SOB Objective vital signs Vital Sign Date Time Temp Pulse Resp B/P (MAP) Pulse Ox O2 Delivery O2 Flow Rate FiO2 06/10/24 09:15 116 18 102/64 (77) 100 06/10/24 08:00 Nasal Cannula* 1 24 06/10/24 05:00 97.6 97.6 Total Intake and Output 06/09/24 06/09/24 06/10/24 15:00 23:00 07:00 Intake Total 346.75 ml 696.50 ml 571 ml Output Total 1300 ml 950 ml Balance 346.75 ml -603.50 ml -379 ml medications Current Medications Medications Dose Ordered Sig/Patrick Route Start Time Stop Time Status Last Admin Dose Admin Sodium Chloride 10 ml Q8HR IV 06/03/24 22:00 06/10/24 05:43 10 ML Acetaminophen/ Hydrocodone Bitart 1 tab Q4HP PRN PO 06/03/24 15:30 06/07/24 01:46 1 TAB Ondansetron HCl 4 mg Q4HP PRN IV 06/03/24 15:30 Docusate Sodium 100 mg BIDPRN PRN PO 06/03/24 15:30 Acetaminophen 650 mg Q6HP PRN PO 06/03/24 15:30 Morphine Sulfate 2 mg Q4HPRN PRN IV 06/03/24 15:30 Nitroglycerin 0.4 mg Q5MINP PRN SL 06/03/24 15:30 Morphine Sulfate 2 mg Q30M PRN IV 06/03/24 15:30 Diagnostic Test (Pha) 1 strip ACHS 06/03/24 17:00 06/10/24 05:43 1 STRIP Insulin Human Regular HS SC 06/03/24 22:00 06/09/24 21:41 2 UNITS Insulin Human Regular AC SC 06/03/24 17:00 06/09/24 10:59 3 UNITS Dextrose 50 ml UD PRN IV 06/03/24 15:30 06/06/24 05:34 50 ML Vancomycin HCl 0 ml @ 0 mls/hr UD IV 06/03/24 15:45 Ferrous Sulfate 325 mg DAILY PO 06/04/24 10:00 06/09/24 09:13 325 MG Pravastatin Sodium 20 mg HS PO 06/03/24 22:00 06/09/24 21:32 20 MG Norepinephrine Bitartrate 250 ml @ 3.75 mls/hr Q24H IV 06/05/24 16:30 06/10/24 04:34 15 MLS/HR Meropenem 50 ml @ 17 mls/hr Q8HR IV 06/06/24 20:00 06/10/24 05:43 17 MLS/HR Amiodarone HCl 200 mg Q12HR PO 06/06/24 22:00 06/09/24 21:32 200 MG Vancomycin HCl 100 ml @ 200 mls/hr Q24H IV 06/07/24 14:00 06/09/24 14:00 200 MLS/HR Risperidone 1 mg DAILY PO 06/08/24 22:00 06/09/24 09:13 1 MG Lorazepam 0.5 mg Q6HP PRN IV 06/08/24 13:45 Haloperidol Lactate 2.5 mg Q8HP PRN IM 06/08/24 13:45 06/08/24 13:48 2.5 MG Albumin Human 50 ml @ 100 mls/hr Q8H IV 06/10/24 09:30 06/11/24 01:59 UNV Furosemide 100 mg/ Sodium Chloride 110 ml @ 11 mls/hr Q10H IV 06/10/24 09:30 UNV Digoxin 0.125 mg DAILY PO 06/11/24 10:00 UNV Examination: GENERAL:Abnormal (Chronically ill), LUNGS:Abnormal (Bilateral crackles), CVS:Abnormal (Pitting edema +++), MSK:Abnormal (RUE edema), NEURO:Normal (A&O x 3) laboratory and microbiology Laboratory Tests 06/10/24 05:07 Test 06/10/24 05:07 Range/Units Serum Glucose 95 74-106 mg/dL Problem List/Assessment/Plan Problem List/Assessment/Plan Acute on chronic decompensated HFrEF with EF 10-15%, NYHA Class IV Nonischemic cardiomyopathy NSTEMI type 2 secondary to above Nonsustained ventricular tachycardia, new onset Prolonged QT interval, resolved Presence of AICD ([employer]) Ive-sgafamj-oaxdswbmc diabetes mellitus, controlled, HgbA1C 5.9% Acute kidney injury on chronic kidney disease stage IIIb Likely cardiorenal syndrome type II Accelerated hypertension now hypotension Bilateral lower limb cellulitis Thrombocytopenia, resolved Thyroid disease Obesity Plan/Recommendation Dr. Hurtado) 1. Echocardiogram from 02/20/2024 revealed: Severely dilated left ventricle. Severely reduced left ventricular systolic function estimated ejection fraction of 15%. There is global wall akinesia. There is restrictive filling pattern had diastolic type 3 dysfunction. Normal right ventricular size and dimension. Moderately reduced right ventricular systolic function. Moderately elevated right ventricular systolic [id number] mm of mercury. Moderately dilated right and left atria. Aortic valve is mildly thickened no significant stenosis or regurgitation. The mitral valve has mild mitral valve regurgitation. There is mild tricuspid valve regurgitation. The pulmonary valve grossly normal. No pericardial effusion. 2. Initiate GDMT for CHF once patient is off of vasopressor therapy. Currently on Levophed drip. Initiate Albumin. 3. Initiate Lasix drip. Continue diuresis. Strict I&Os. Daily weight. Fluid restriction. 2 g salt restriction, 1.2 L total fluid restriction in 24 hours. Monitor renal function. Repeat BNP level and CXR. 4. Continue antiarrhythmic, amiodarone, given NSVT. Initiate digoxin for rate control, HR 110s bpm. Monitor QTc closely. 5. Replete electrolytes as necessary, potassium >4 and magnesium >2. Repeat Mg in the a.m. 6. Continue abx therapy per primary care team, blood cultures, wound care. 7. Initiate DVT/VTE prophylaxis 8. RUE venous US rule out DVT Thank you for the opportunity to consult on your patient. Please feel free to reach out if you have any further questions. Critical care time: 30 min. This medical document was created using an electronic medical record system with voice recognition software and computerized dictation system. Although this document has been carefully reviewed, there might still be some phonetic and typographical errors. Occasional wrong-word or ``sound-alike substitutions may have occurred due to the inherent limitations of voice recognition software. These areas are purely typographical due to imperfections of the software programs and do not reflect any compromise in the patient's medical care. Please read the chart carefully and recognize, using context, where these substitutions have occurred. Plan discussed with: Patient, Other Dietary Evaluation Review Comments: 1) Consider YULIET 1 pkt BID for wounds 2) Continue current plan of care Expected Outcomes/Goals: 1) Pt labs to improve 2) F/U in 3-5 days Date of Service: Jun 10, 2024 Billing Provider: DENTON HURTADO MD Cardiology Common Codes: [id number] CARE 30-74 MIN FROILAN CARBALLO [facility] Jun 10, 2024 09:43
[2024-06-10] MEDS ORDERED: ENOXAPARIN SOD 30 MG/0.3 ML SYRINGE SC SCH (10:00)
[2024-06-10] MEDS: FUROSEMIDE INJECTION 100 MG in SODIUM CHL 0.9% 100 ML IV SCH (10:03)
[2024-06-10] MEDS: ALBUMIN 25% 50 ML IV SCH (10:05)
[2024-06-10] MEDS: DIGOXIN (250MCG/ML) 2 ML AMPULE IV ONE (10:09)
--- NOTE | 2024-06-10 10:58 | DVH ---
Upper Extremity Venous Duplex Clinical History: Edema r/o DVT Comparison: US BILAT LOWER DVT on DOS: 04/24/24 Technique: Duplex Doppler evaluation of the venous system of the RIGHT lower neck and upper extremity including color Doppler and spectral/pulsed waveform analysis was performed. Findings: The internal jugular vein could not be evaluated due to overlying bandage. The subclavian vein is patent on color Doppler evaluation without intraluminal thrombus and demonstra laura waveform variability . The visualized portion of the brachiocephalic vein is patent on color Doppler evaluation without intr aluminal thrombus and demonstrates waveform variability . The axillary vein demonstrates appropriate compressibility and waveform variability . The brachial veins demonstrate appropriate compressibility and patency on Doppler evaluation. Color flow is seen in the radial and ulnar veins. The basilic vein demonstrates appropriate compressibility and patency on Doppler evaluation. The cephalic vein is noncompressible with no flow identified. Moderate subcutaneous edema of the upper extremity noted. Impression: 1. No venous thrombus identified in the RIGHT upper extremity vessels evaluated above. 2. Superficial thrombophlebitis of the right cephalic vein.
--- NOTE | 2024-06-10 11:06 | DVHPN2 ---
Subjective He is still on Levophed He has more edema generalized now More alert and oriented Changes from previous H/P or p: Changes Eyes: No Pain, No Vision change, No Conjunctivae inflammation, No Eyelid inflammation, No Other, No Redness ENT: No Ear pain, No Ear discharge, No Nose pain, No Nose discharge, No Nose congestion, No Mouth pain, No Mouth swelling, No Throat pain, No Throat swelling, No Other Cardiovascular: No Chest Pain, No Palpitations, No Orthopnea, No Paroxysmal Noc. Dyspnea, No Edema, No Lt Headedness, No Other Respiratory: No Cough, No Dry, No Shortness of breath, No SOB with excertion, No Wheezing, No Hemoptysis, No Pleuritic Pain, No Sputum, No Other Gastrointestinal: No Nausea, No Vomiting, No Abdominal Pain, No Diarrhea, No Constipation, No Melena, No Hematochezia, No Other Genitourinary: No Dysuria, No Frequency, No Incontinence, No Hematuria, No Retention, No Other Musculoskeletal: No other, No neck pain, No shoulder pain, No arm pain, No back pain, No hand pain, No leg pain, No foot pain Skin: No Rash, No Lesions, No Jaundice, No Bruising, No Other Objective Vitals Vital Signs Date Time Temp Pulse Resp B/P (MAP) Pulse Ox O2 Delivery O2 Flow Rate FiO2 06/10/24 10:09 114 06/10/24 10:03 97/64 06/10/24 09:15 18 100 06/10/24 08:00 Nasal Cannula* 1 24 06/10/24 05:00 97.6 97.6 Intake/Output Intake and Output 06/10/24 07:00 Intake Total 1614.25 ml Output Total 2250 ml Balance -635.75 ml Intake Oral 950 ml IV Total 664.25 ml Output Urine Total 2250 ml General Appearance: Alert, Oriented X3, Cooperative Lungs: Other (Bilateral rhonchi) Cardiovascular: Regular rate, Normal S1, Normal S2 Abdomen: Normal bowel sounds, Soft, No tenderness Extremities: Other (2+ edema bilaterally in the lower extremity) Medications Current Medications Medications Dose Ordered Sig/Patrick Route Start Time Stop Time Status Last Admin Dose Admin Sodium Chloride 10 ml Q8HR IV 06/03/24 22:00 06/10/24 05:43 10 ML Acetaminophen/ Hydrocodone Bitart 1 tab Q4HP PRN PO 06/03/24 15:30 06/07/24 01:46 1 TAB Ondansetron HCl 4 mg Q4HP PRN IV 06/03/24 15:30 Docusate Sodium 100 mg BIDPRN PRN PO 06/03/24 15:30 Acetaminophen 650 mg Q6HP PRN PO 06/03/24 15:30 Morphine Sulfate 2 mg Q4HPRN PRN IV 06/03/24 15:30 Nitroglycerin 0.4 mg Q5MINP PRN SL 06/03/24 15:30 Morphine Sulfate 2 mg Q30M PRN IV 06/03/24 15:30 Diagnostic Test (Pha) 1 strip ACHS 06/03/24 17:00 06/10/24 05:43 1 STRIP Insulin Human Regular HS SC 06/03/24 22:00 06/09/24 21:41 2 UNITS Insulin Human Regular AC SC 06/03/24 17:00 06/09/24 10:59 3 UNITS Dextrose 50 ml UD PRN IV 06/03/24 15:30 06/06/24 05:34 50 ML Vancomycin HCl 0 ml @ 0 mls/hr UD IV 06/03/24 15:45 Ferrous Sulfate 325 mg DAILY PO 06/04/24 10:00 06/10/24 10:09 325 MG Pravastatin Sodium 20 mg HS PO 06/03/24 22:00 06/09/24 21:32 20 MG Meropenem 50 ml @ 17 mls/hr Q8HR IV 06/06/24 20:00 06/10/24 05:43 17 MLS/HR Amiodarone HCl 200 mg Q12HR PO 06/06/24 22:00 06/10/24 10:10 200 MG Vancomycin HCl 100 ml @ 200 mls/hr Q24H IV 06/07/24 14:00 06/09/24 14:00 200 MLS/HR Risperidone 1 mg DAILY PO 06/08/24 22:00 06/09/24 09:13 1 MG Lorazepam 0.5 mg Q6HP PRN IV 06/08/24 13:45 Haloperidol Lactate 2.5 mg Q8HP PRN IM 06/08/24 13:45 06/08/24 13:48 2.5 MG Albumin Human 50 ml @ 100 mls/hr Q8H IV 06/10/24 09:30 06/11/24 01:59 06/10/24 10:05 100 MLS/HR Furosemide 100 mg/ Sodium Chloride 110 ml @ 11 mls/hr Q10H IV 06/10/24 09:30 06/10/24 10:03 11 MLS/HR Digoxin 0.125 mg DAILY PO 06/11/24 10:00 Enoxaparin Sodium 40 mg DAILY SC 06/11/24 10:00 Norepinephrine Bitartrate 32 mg/ Sodium Chloride 250 ml @ 0.938 mls/ hr Q24H IV 06/10/24 10:30 Laboratory Results Laboratory Tests 06/10/24 05:07 Chemistry Test 06/10/24 05:07 Calcium Level 8.4 mg/dL (8.7-10.4) L Magnesium Level 2.0 mg/dL (1.6-2.6) Cardiac Markers Test 06/10/24 05:07 B-Type Natriuretic Peptide 1742.90 pg/mL (0-100) Urinalysis Test 06/03/24 17:57 06/05/24 20:55 Urine Epithelial Casts Few /hpf (<5) Urine Color Yellow (Yellow) Urine Clarity Clear (Clear) Urine pH 5.0 (5.0-9.0) Urine Specific [place] 1.018 (1.001-1.035) Urine Protein Trace (Negative) H Urine Ketones Negative (Negative) Urine Blood Negative /uL (Negative) Urine Nitrite Negative (Negative) Urine Bilirubin Negative (Negative) Urine Urobilinogen Normal mg/dL (Negative) Urine Leukocyte Esterase Negative /uL (Negative) Urine RBC 2 /hpf (0 - 3) Urine WBC 3 /hpf (0 - 3) Urine Squamous Epithelial Cells Few /hpf (<5) Urine Bacteria None seen /hpf (None Seen) Urine Hyaline Casts Mod /lpf (0 - 2) Urine Mucus Few (None Seen) Urine Glucose 4+ mg/dL (Normal) H Microbiology Microbiology Date/Time Source Procedure Growth Status 06/05/24 20:55 Voided Urine Urine Culture - Final Complete 06/05/24 19:46 Nose MRSA Screen - Final Complete 06/05/24 19:21 Blood Blood Culture - Preliminary NO GROWTH AFTER 72 HOURS OF INCUBATION. Resulted Assessment/Plan Assessment/Plan Acute on chronic congestive heart failure with low ejection fraction Bilateral lower extremity open wounds Type 2 diabetes Dyslipidemia Hypertension Chronic kidney disease Plan 06/04/2024: IV Lasix 40 mg twice a day Oxygen as needed Dietary consult Continue Aldactone 50 mg daily Entresto IV antibiotics vancomycin per pharmacy protocol The code Advance directives discussed for 20 minutes 06/05/2024: Unresponsiveness, possible due to opiates, Narcan was given x2 doses Rule out CVA: Get a CT scan of the head no contrast Hypotension: Start Levophed Hyperkalemia: Repeat labs including electrolytes and kidney function Check troponins again Acute kidney injury on Chronic kidney disease Elevated troponin, NSTEMI type 2 Acute on chronic decompensated heart failure with reduced ejection fraction EF 10-15% Nonischemic cardiomyopathy Possible cardiorenal syndrome History of hypertension Thrombocytopenia Plan Transfer to the SHIREEN Levophed drip to keep map above 65 CT scan of the head : Negative Check the electrolytes again, hyperkalemia: Give hyperkalemia protocol Central line, done Called the family to update them, no answer Rule out sepsis: Get blood culture, lactic acid, UA, urine culture Poor prognosis The patient eventually woke up and became more alert and oriented and was completely following commands and understanding his environment I asked him about advance directives, he stated Full Code 06/06/2024: Patient is complaining of abdominal pain Examination shows right upper quadrant tenderness Gallbladder ultrasound showed contracted gallbladder and thickened romo We will get a CT scan of the abdomen and pelvis without contrast Liver enzymes are elevated Check the hepatitis panel Kidney function is stable but the potassium is still high Nephrology is following Cardiology is following the patient Ventricular tachycardia has resolved after the ICD converted him yesterday The patient is more alert now, CT scan of the head was negative Blood cultures are still pending UA was negative for UTI Wound culture of the foot showed Gram-negative rods Continue vancomycin Add meropenem IV Replace magnesium IV Continue IV Lasix 40 mg twice a day Full code The patient pulled out his central line yesterday We will try to do a new central line placement , he is agreeable 06/07/2024: Abdominal pain: Consult GI regarding elevated liver function test and bilirubin Hyperbilirubinemia: Consult GI Elevated LFTs: CT scan is negative Right lower lobe pneumonia: Continue IV antibiotics Blood and urine cultures are pending 06/08/2024: Nonischemic cardiomyopathy ejection fraction 10-15% Acute on chronic heart failure with reduced ejection fraction Nonsustained V-tach, patient has ICD NSTEMI type 2 Type 2 diabetes Acute kidney injury on chronic kidney disease The cardiorenal syndrome Hypertension Bilateral lower extremity cellulitis Thrombocytopenia Sepsis Obesity Plan Levophed drip as needed IV antibiotics: Meropenem and vancomycin Discontinue Jardiance and metoprolol for now due to hypotension IV Lasix P.o. amiodarone Confusion: Haldol IM Ativan IV p.r.n. Hypotension: Levophed drip 06/09/2024: Sepsis: Continue IV antibiotics Septic shock: Continue Levophed: Taper as tolerated Risperidone 1 mg at bedtime Lasix 40 mg twice a day 02/08/2024: He was started on Lasix drip by Nephrology Levophed as needed Albumin IV Cellulitis and leg wound: Vancomycin and meropenem Amiodarone Digoxin Risperidone at bedtime Poor prognosis Plan discussed with: Patient My Orders Orders - NERISSA SALTER MD Procedure Category Date Status Time 2 Gm Sodium Diet DIET 06/09/24 Transmitted Dinner Date of Service: Jun 10, 2024 Billing Provider: NERISSA SALTER MD Common Visit Codes: [id number] INP/OBS CARE(HIGH) NERISSA SALTER MD Jun 10, 2024 11:06
[2024-06-10] MEDS: NOREPINEPHRINE BITARTRATE 32 MG in SODIUM CHL 0.9% 218 ML IV SCH (11:53)
--- NOTE | 2024-06-10 11:56 | DVHPN2 ---
Progress Note Date Seen: Jun 10, 2024 Resident Creating Document: YUNG ROMEO RESIDENT Medical Necessity Reason Pt with a Central, PICC or Fol: Yes The following are medically ne: Lockett Catheter Reason for lockett catheter: Strict I&O Subjective Review of Systems History of Present Illness Patient is 64-year-old male with past medical history of hypertension, diabetes mellitus type 2, hyperlipidemia, CHF, CKD, GERD who brought to the hospital for generalized weakness and worsening shortness of breath for few days before hospitalization. Patient is poor historian and major with the medical information was obtained from EMR. At the time of evaluation patient did not have any complaints except mild shortness of breath, nonproductive cough. Nephrology consultation was done for evaluation of CKD. Over the course of hospitalization patient was treated with IV Lasix, IV antibiotic, oxygen as needed and vasopressors. No other complaints at this point. Past Medical History hypertension, diabetes mellitus type 2, hyperlipidemia, CHF, CKD, GERD Past Surgical History AICD implantation Patient seen and examined at bedside in the [facility]. Patient has continued to feel better, however complaining of upper extremity swelling. Continue on vasopressors, requiring oxygen via nasal cannula. Other Systems: Patient seen and examined by myself today on rounds with the medicine resident I agree with the assessment and plan as documented in his note Objective vital signs Vital Sign Date Time Temp Pulse Resp B/P (MAP) Pulse Ox O2 Delivery O2 Flow Rate FiO2 06/10/24 10:09 114 06/10/24 10:03 97/64 06/10/24 09:15 18 100 06/10/24 08:00 Nasal Cannula* 1 24 06/10/24 05:00 97.6 97.6 Total Intake and Output 06/09/24 06/09/24 06/10/24 15:00 23:00 07:00 Intake Total 346.75 ml 696.50 ml 571 ml Output Total 1300 ml 950 ml Balance 346.75 ml -603.50 ml -379 ml medications Current Medications Medications Dose Ordered Sig/Patrick Route Start Time Stop Time Status Last Admin Dose Admin Sodium Chloride 10 ml Q8HR IV 06/03/24 22:00 06/10/24 05:43 10 ML Acetaminophen/ Hydrocodone Bitart 1 tab Q4HP PRN PO 06/03/24 15:30 06/07/24 01:46 1 TAB Ondansetron HCl 4 mg Q4HP PRN IV 06/03/24 15:30 Docusate Sodium 100 mg BIDPRN PRN PO 06/03/24 15:30 Acetaminophen 650 mg Q6HP PRN PO 06/03/24 15:30 Morphine Sulfate 2 mg Q4HPRN PRN IV 06/03/24 15:30 Nitroglycerin 0.4 mg Q5MINP PRN SL 06/03/24 15:30 Morphine Sulfate 2 mg Q30M PRN IV 06/03/24 15:30 Diagnostic Test (Pha) 1 strip ACHS 06/03/24 17:00 06/10/24 05:43 1 STRIP Insulin Human Regular HS SC 06/03/24 22:00 06/09/24 21:41 2 UNITS Insulin Human Regular AC SC 06/03/24 17:00 06/09/24 10:59 3 UNITS Dextrose 50 ml UD PRN IV 06/03/24 15:30 06/06/24 05:34 50 ML Vancomycin HCl 0 ml @ 0 mls/hr UD IV 06/03/24 15:45 Ferrous Sulfate 325 mg DAILY PO 06/04/24 10:00 06/10/24 10:09 325 MG Pravastatin Sodium 20 mg HS PO 06/03/24 22:00 06/09/24 21:32 20 MG Meropenem 50 ml @ 17 mls/hr Q8HR IV 06/06/24 20:00 06/10/24 05:43 17 MLS/HR Amiodarone HCl 200 mg Q12HR PO 06/06/24 22:00 06/10/24 10:10 200 MG Vancomycin HCl 100 ml @ 200 mls/hr Q24H IV 06/07/24 14:00 06/09/24 14:00 200 MLS/HR Risperidone 1 mg DAILY PO 06/08/24 22:00 06/09/24 09:13 1 MG Lorazepam 0.5 mg Q6HP PRN IV 06/08/24 13:45 Haloperidol Lactate 2.5 mg Q8HP PRN IM 06/08/24 13:45 06/08/24 13:48 2.5 MG Albumin Human 50 ml @ 100 mls/hr Q8H IV 06/10/24 09:30 06/11/24 01:59 06/10/24 11:20 100 MLS/HR Furosemide 100 mg/ Sodium Chloride 110 ml @ 11 mls/hr Q10H IV 06/10/24 09:30 06/10/24 10:03 11 MLS/HR Digoxin 0.125 mg DAILY PO 06/11/24 10:00 Enoxaparin Sodium 40 mg DAILY SC 06/11/24 10:00 Norepinephrine Bitartrate 32 mg/ Sodium Chloride 250 ml @ 0.938 mls/ hr Q24H IV 06/10/24 10:30 Examination General Appearance: Cooperative. Not in acute distress. Head Exam: Normal inspection Neck Exam: Normal inspection. Non-tender. Normal alignment Pulmonary/Respiratory: Chest non-tender. Clear bilateral breath sounds Cardiovascular/Chest: Regular rate and rhythm. No murmurs. No JVD. Mild bilateral basal lung crackles. Peripheral Pulses: 2+ Radial (R). 2+ Radial (L). 2+ Pedal (R). 2+ Pedal (L) Abdominal Exam: Normal bowel sounds. Soft. Nontender. No hepatospenomegaly. No masses Ankle Exam: Negative ankle edema, bilateral lower extremity multiple diabetic ulcers. Lower extremities: 1 + lower extremity edema Upper extremity: 1+ bilateral upper extremity edema. Neuro/Mental Status: A&O x4. Coherent laboratory and microbiology Laboratory Tests 06/10/24 05:07 Test 06/10/24 05:07 Range/Units Serum Glucose 95 74-106 mg/dL Microbiology Date/Time Source Procedure Growth Status 06/05/24 20:55 Voided Urine Urine Culture - Final Complete 06/05/24 19:46 Nose MRSA Screen - Final Complete 06/05/24 19:21 Blood Blood Culture - Preliminary NO GROWTH AFTER 72 HOURS OF INCUBATION. Resulted Problem List/Assessment/Plan Problem List/Assessment/Plan ROLAND on CKD stage III B likely due to hemodynamically mediated in setting of cardiorenal syndrome Acute on chronic HFrEF, ejection fraction 15% on 02/20/2024. NYHA class IV NSTEMI type 2 likely due to above Bilateral lower extremity cellulitis Multiple bilateral lower extremity diabetic ulcer Presence of AICD Lactic acidosis Hyperkalemia Transaminitis Plan/ recommendation Dr. Cao: -On lasix drip 10mg/hr, fluid restriction total <1.2 L , Strict I&O -echocardiogram showed 15% ejection fraction with global hypokinesis -hyperkalemia: Lokelma 10 mg p.o. t.i.d. -maintain strict I&O, avoid nephrotoxic medication. -urinalysis: Negative for nitrites, leukocytosis, squamous epithelial cells. -ordered urine sodium, creatinine, total protein, serum phosphorus, UDS: Still Pending -antibiotics per hospitalist recommendation -we will continue to closely follow up kidney function. Plan discussed with: Patient, Other (RN) Dietary Evaluation Review Comments: 1) Consider YULIET 1 pkt BID for wounds 2) Continue current plan of care Expected Outcomes/Goals: 1) Pt labs to improve 2) F/U in 3-5 days YUNG ROMEO Jun 10, 2024 11:56 LOKESH CAO MD Jun 10, 2024 15:17
[2024-06-10 13:06] LABS: Vitamin D 25-Hydroxy 20 ng/mL (.); Vitamin D-2 25-Hydroxy <1.0 ng/mL (.); Vitamin D-3 25-Hydroxy 20 ng/mL (.)
--- NOTE | 2024-06-10 14:17 | DVH ---
CHEST RADIOGRAPH Indication: CHF Technique: Single frontal view of the chest was obtained Comparison: XY CHEST XRAY 1 VIEW on DOS: 06/06/24, XY CHEST XRAY 1 VIEW on DOS: 06/05/24, XY CHEST PO RTABLE on DOS: 06/03/24 FINDINGS: Lines and Tubes: Right IJ approach central venous catheter terminating in the proximal right atrium. Left-sided approach AICD terminating within right atrium and right ventricle. Lungs: Opacification of the right lower lung zone with obscuration of the right hemidiaphragm. Minima l blunting of the left costophrenic angle. The upper lung zone opacification. No pneumothorax. Cardiomediastinal contours: [id number] cardiomegaly with moderate atherosclerotic calcification and uncoiling of the aorta. Bones: No acute osseous abnormality. IMPRESSION: Right lower lung zone pneumonia/ atelectasis with small pleural effusion. Left-sided pleural effusion . Improving left medial upper lung zone opacification. Right IJ approach central venous catheter terminating within the proximal right atrium.
[2024-06-10] MEDS ORDERED: FUROSEMIDE 40 MG/4 ML VIAL IV SCH (18:00)
[2024-06-11] VITALS (95 sets, daily range): BP systolic 68–125; BP diastolic 43–73; PULSE 106–122; RESP 10–30; TEMP 98–99.1; O2SAT 88–100
--- NOTE | 2024-06-11 | DVHPN2 ---
Progress Note - Dictate Date Seen: Jun 10, 2024 Medical Necessity Reason Pt with a Central, PICC or Fol: Yes The following are medically ne: Lockett Catheter Reason for locktet catheter: Strict I&O Subjective Patient seen and examined at bedside. Remains on supplemental oxygen Overnight events reviewed. vital signs Vital Sign Date Time Temp Pulse Resp B/P (MAP) Pulse Ox O2 Delivery O2 Flow Rate FiO2 06/10/24 23:00 117 19 105/69 (81) 100 06/10/24 22:00 Nasal Cannula* 1 06/10/24 20:00 98.0 98.0 Total Intake and Output 06/09/24 06/09/24 06/10/24 15:00 23:00 07:00 Intake Total 346.75 ml 696.50 ml 571 ml Output Total 1300 ml 950 ml Balance 346.75 ml -603.50 ml -379 ml medications Current Medications Medications Dose Ordered Sig/Patrick Route Start Time Stop Time Status Last Admin Dose Admin Sodium Chloride 10 ml Q8HR IV 06/03/24 22:00 06/10/24 21:00 10 ML Acetaminophen/ Hydrocodone Bitart 1 tab Q4HP PRN PO 06/03/24 15:30 06/07/24 01:46 1 TAB Ondansetron HCl 4 mg Q4HP PRN IV 06/03/24 15:30 Docusate Sodium 100 mg BIDPRN PRN PO 06/03/24 15:30 Acetaminophen 650 mg Q6HP PRN PO 06/03/24 15:30 Morphine Sulfate 2 mg Q4HPRN PRN IV 06/03/24 15:30 Nitroglycerin 0.4 mg Q5MINP PRN SL 06/03/24 15:30 Morphine Sulfate 2 mg Q30M PRN IV 06/03/24 15:30 Diagnostic Test (Pha) 1 strip ACHS 06/03/24 17:00 06/10/24 21:01 1 STRIP Insulin Human Regular HS SC 06/03/24 22:00 06/10/24 21:00 2 UNITS Insulin Human Regular AC SC 06/03/24 17:00 06/09/24 10:59 3 UNITS Dextrose 50 ml UD PRN IV 06/03/24 15:30 06/06/24 05:34 50 ML Vancomycin HCl 0 ml @ 0 mls/hr UD IV 06/03/24 15:45 Ferrous Sulfate 325 mg DAILY PO 06/04/24 10:00 06/10/24 10:09 325 MG Pravastatin Sodium 20 mg HS PO 06/03/24 22:00 06/10/24 21:00 20 MG Meropenem 50 ml @ 17 mls/hr Q8HR IV 06/06/24 20:00 06/10/24 21:00 17 MLS/HR Amiodarone HCl 200 mg Q12HR PO 06/06/24 22:00 06/10/24 21:00 200 MG Vancomycin HCl 100 ml @ 200 mls/hr Q24H IV 06/07/24 14:00 06/10/24 13:10 200 MLS/HR Risperidone 1 mg DAILY PO 06/08/24 22:00 06/10/24 11:50 1 MG Lorazepam 0.5 mg Q6HP PRN IV 06/08/24 13:45 Haloperidol Lactate 2.5 mg Q8HP PRN IM 06/08/24 13:45 06/08/24 13:48 2.5 MG Albumin Human 50 ml @ 100 mls/hr Q8H IV 06/10/24 09:30 06/11/24 01:59 06/10/24 17:31 100 MLS/HR Furosemide 100 mg/ Sodium Chloride 110 ml @ 11 mls/hr Q10H IV 06/10/24 09:30 06/10/24 18:28 11 MLS/HR Digoxin 0.125 mg DAILY PO 06/11/24 10:00 Enoxaparin Sodium 40 mg DAILY SC 06/11/24 10:00 Norepinephrine Bitartrate 32 mg/ Sodium Chloride 250 ml @ 0.938 mls/ hr Q24H IV 06/10/24 10:30 06/10/24 11:53 2.813 MLS/HR objective Gen.: Patient lying in bed in no apparent distress. On supplemental oxygen. Head: Normocephalic, atraumatic. Eyes: EOMI/PERRLA. Ears: Normal hearing. Normal anatomy. Neck/trachea: Trachea midline, supple. Nose: Normal external anatomy. Mouth: Moist mucous membranes. Chest: Decreased air entry bilaterally. No wheezing or rhonchi. Cardiovascular: Positive S1, positive S2. Regular rate and rhythm. Abdomen: Positive bowel sounds in all 4 quadrants. Soft, non-tender, non- distended. : Deferred. Rectal: Deferred. Skin: Warm, dry. Intact. Extremities: 2+ radial pulses bilaterally. No lower extremity edema. Neuro: Awake, alert, oriented x3. No gross motor or sensory deficits. Cranial nerves II through XII intact. Gait not assessed. laboratory and microbiology Laboratory Tests 06/10/24 05:07 Test 06/10/24 05:07 Range/Units Serum Glucose 95 74-106 mg/dL Assessment/Plan Impression: Acute on chronic systolic CHF (EF 10-15%) BLE wounds DM type II Acute on chronic CKD Metabolic acidosis Hyperkalemia Elevated troponin Overweight, BMI 29.5 Events: Remains on supplemental oxygen, 2 LPM NC Taper O2 as tolerated On pressors for hemodynamic support Levophed 2 mcg/min Titrate to keep mean arterial pressure greater than 65 mmHg. Improved pressor requirements Continue Risperidone. Psychiatry recs appreciated. Lasix drip for diuresis Monitor renal function Cardiology recs appreciated. Recommend diuresis to avoid volume overload. Atrial fibrillation Continue antibiotics, meropenem and vancomycin. Monitor lactic acid. Follow PT/INR. Wound care. Head of bed elevation Aspiration precautions Accu-Cheks, ISS. Labs and imaging reviewed. Rest of plan as noted below. Plan: Supplemental oxygen Titrate to keep O2 sats above 92%. CXR demonstrated mild pulmonary vascular congestion. Continue bronchodilators. Antibiotics Iron supplementation Monitor hemoglobin Accu-Cheks, ISS. Diurese to euvolemia w/ Lasix Monitor renal function. Monitor electrolytes. Supplement as necessary. Monitor ins and outs. DVT prophylaxis. Rapid Response/Code Assist: Patient became hypotensive and unresponsive, upgraded to [facility]. Central line placement in right IJ. STAT CT head obtained to r/o ICH or stroke. Pt received Narcan x2. Pressors as necessary to maintain a mean arterial blood pressure greater than 65 mmHg. Monitor renal function - creatinine trending down. Monitor electrolytes. Supplement as necessary. Monitor ins and outs Prognosis: Poor given patient's multiple co-morbidities. Condition: Critical Rest of plan per hospitalist and other consultants. A total of 35 minutes of critical care time was spent reviewing the patient record, examining the patient, making a diagnostic and therapeutic plan, discussing this plan with the medical personnel, following up on diagnostic studies and following the patient for clinical stability excluding any and all procedures. At least 50% of this time was spent in direct, [id number] contact. Thank you, Ekta Meek, TRANSVERSE ABD[employer]INAL MUSCLE SURGEON/Dr Mcintosh, for allowing me to participate in this patient's care. Further recommendations will depend on the patient's clinical course. Please do not hesitate to contact me if you have any questions or concerns. This medical document was created using an electronic medical record system with [employer] dictation system. Although these documentations are being carefully reviewed, there may still be some phonetic and typographical changes. The errors are purely typographical, due to imperfection on the software program, and do not reflect any compromise in the patient's medical care. Dietary Evaluation Review Comments: 1) Consider YULIET 1 pkt BID for wounds 2) Continue current plan of care Expected Outcomes/Goals: 1) Pt labs to improve 2) F/U in 3-5 days Plan discussed with: Other (MARY Walter) Critical Care Time(min): 35 WALDO OHARA MD Jun 10, 2024 23:59
[2024-06-11 05:12] LABS: Basophils # (auto) 0 10 ^3/uL (0-0.2); Basophils % (auto) 0.3 % (0.0-2.0); Eosinophils # (auto) 0 10 ^3/uL (0-0.8); Eosinophils % (auto) 0.1 % (0.0-7.0); Hematocrit 40.1 % (41.0-53.0); Hemoglobin 13.5 g/dL (13.5-17.5); Lymphocytes # (auto) 0.4 10 ^3/uL (0.4-5.4); Lymphocytes % (auto) 4.4 % (10.0-50.0); Mean Corpuscular Hemoglobin 29.9 pg (28.0-32.0); Mean Corpuscular Hgb Conc. 33.7 g/dL (32.0-36.0); Mean Corpuscular Volume 88.6 fL (80.0-100.0); Monocytes # (auto) 0.7 10 ^3/uL (0-1.3); Monocytes % (auto) 7.5 % (0.0-12.0); Neutrophils # (auto) 7.6 10 ^3/uL (1.6-8.6); Neutrophils % (auto) 87.7 % (37.0-80.0); Nucleated Red Blood Cells % 0.2 %; Platelet Count (auto) 149 10^3/uL (140-450); Red Blood Cells 4.52 10^6/uL (4.5-5.90); White Blood Cell 8.7 10^3/uL (4.4-10.8)
[2024-06-11 05:18] LABS: Anion Gap 8 (5-15); Calcium 8.2 mg/dL (8.7-10.4); Carbon Dioxide 28 mmol/L (20-31); Chloride 96 mmol/L (98-107); Potassium 3.6 mmol/L (3.5-5.1); Sodium 132 mmol/L (136-145)
[2024-06-11 05:23] LABS: Glucose 83 mg/dL (74-106)
[2024-06-11 05:24] LABS: BUN/Creatinine Ratio 32.2 (10.0-20.0); Blood Urea Nitrogen 29 mg/dL (9-23); Magnesium 1.9 mg/dL (1.6-2.6); Red Cell Distribution Width 25.9 % (11.8-14.3)
--- NOTE | 2024-06-11 08:38 | MEDREC ---
[facility] ASP Intervention Section I [facility] ASP Intervention: Deescalate AB based on CS (ACCORDING TO WOUND CARE CONSULT LOWER EXTREMITY WOUNDS APPEAR SUPERFICIAL AND CHRONIC ULCERATIONS, WOUND CULTURE RESULTED ON 06/08/24 POSITIVE FOR E.COLI, KLEBSIELLA PNEUMONIAE, STENOTROPHOMONAS MALTOPHILIA ALL SUSCEPTIBLE TO BACTRIM PLEASE CONSIDER D/C VANCOMYCIN AND DE-ESCALATE ANTIBIOTICS IF CLINICALLY APPROPRIATE ) DONNY RODRIGUEZ PHARMACIST Jun 11, 2024 08:38
--- NOTE | 2024-06-11 09:57 | DVHPN2 ---
Consult Progress Note Date Seen: Jun 11, 2024 Subjective Other Systems: Patient in sinus tachycardia at time of assessment. The patient remains on Levophed drip. Objective vital signs Vital Sign Date Time Temp Pulse Resp B/P (MAP) Pulse Ox O2 Delivery O2 Flow Rate FiO2 06/11/24 08:45 111 14 99 06/11/24 08:00 98.1 98.1 06/11/24 08:00 Nasal Cannula* 1 24 Total Intake and Output 06/10/24 06/10/24 06/11/24 15:00 23:00 07:00 Intake Total 504.063 ml 916.315 ml 436.504 ml Output Total 1700 ml 1500 ml Balance 504.063 ml -783.685 ml -1063.496 ml medications Current Medications Medications Dose Ordered Sig/Patrick Route Start Time Stop Time Status Last Admin Dose Admin Sodium Chloride 10 ml Q8HR IV 06/03/24 22:00 06/11/24 05:21 10 ML Acetaminophen/ Hydrocodone Bitart 1 tab Q4HP PRN PO 06/03/24 15:30 06/07/24 01:46 1 TAB Ondansetron HCl 4 mg Q4HP PRN IV 06/03/24 15:30 Docusate Sodium 100 mg BIDPRN PRN PO 06/03/24 15:30 Acetaminophen 650 mg Q6HP PRN PO 06/03/24 15:30 Morphine Sulfate 2 mg Q4HPRN PRN IV 06/03/24 15:30 Nitroglycerin 0.4 mg Q5MINP PRN SL 06/03/24 15:30 Morphine Sulfate 2 mg Q30M PRN IV 06/03/24 15:30 Diagnostic Test (Pha) 1 strip ACHS 06/03/24 17:00 06/11/24 06:06 1 STRIP Insulin Human Regular HS SC 06/03/24 22:00 06/10/24 21:00 2 UNITS Insulin Human Regular AC SC 06/03/24 17:00 06/09/24 10:59 3 UNITS Dextrose 50 ml UD PRN IV 06/03/24 15:30 06/06/24 05:34 50 ML Vancomycin HCl 0 ml @ 0 mls/hr UD IV 06/03/24 15:45 Ferrous Sulfate 325 mg DAILY PO 06/04/24 10:00 06/10/24 10:09 325 MG Pravastatin Sodium 20 mg HS PO 06/03/24 22:00 06/10/24 21:00 20 MG Meropenem 50 ml @ 17 mls/hr Q8HR IV 06/06/24 20:00 06/11/24 05:22 17 MLS/HR Amiodarone HCl 200 mg Q12HR PO 06/06/24 22:00 06/10/24 21:00 200 MG Vancomycin HCl 100 ml @ 200 mls/hr Q24H IV 06/07/24 14:00 06/10/24 13:10 200 MLS/HR Risperidone 1 mg DAILY PO 06/08/24 22:00 06/10/24 11:50 1 MG Lorazepam 0.5 mg Q6HP PRN IV 06/08/24 13:45 Haloperidol Lactate 2.5 mg Q8HP PRN IM 06/08/24 13:45 06/08/24 13:48 2.5 MG Furosemide 100 mg/ Sodium Chloride 110 ml @ 11 mls/hr Q10H IV 06/10/24 09:30 06/11/24 04:36 11 MLS/HR Digoxin 0.125 mg DAILY PO 06/11/24 10:00 Enoxaparin Sodium 40 mg DAILY SC 06/11/24 10:00 Norepinephrine Bitartrate 32 mg/ Sodium Chloride 250 ml @ 0.938 mls/ hr Q24H IV 06/10/24 10:30 06/10/24 11:53 2.813 MLS/HR Examination: GENERAL:Abnormal, LUNGS:Normal, CVS:Normal, NEURO:Abnormal (Periods of confusion) laboratory and microbiology Laboratory Tests 06/11/24 04:50 Test 06/11/24 04:50 Range/Units Serum Glucose 83 74-106 mg/dL Problem List/Assessment/Plan Problem List/Assessment/Plan Acute on chronic decompensated HFrEF with EF 10-15%, NYHA Class IV Nonischemic cardiomyopathy NSTEMI type 2 secondary to above Nonsustained ventricular tachycardia, new onset Prolonged QT interval Presence of AICD ([employer]) Qaz-[id number] diabetes mellitus, controlled, HgbA1C 5.9% Acute kidney injury on chronic kidney disease stage IIIb Likely cardiorenal syndrome type II Accelerated hypertension Bilateral lower limb cellulitis Thrombocytopenia Thyroid disease Obesity Plan/Recommendation We will continue the following plan/recommendations (Dr. Hurtado): 1. Echocardiogram from 02/20/2024 revealed: Severely dilated left ventricle. Severely reduced left ventricular systolic function estimated ejection fraction of 15%. There is global wall akinesia. There is restrictive filling pattern had diastolic type 3 dysfunction. Normal right ventricular size and dimension. Moderately reduced right ventricular systolic function. Moderately elevated right ventricular systolic mm of mercury. Moderately dilated right and left atria. Aortic valve is mildly thickened no significant stenosis or regurgitation. The mitral valve has mild mitral valve regurgitation. There is mild tricuspid valve regurgitation. The pulmonary valve grossly normal. No pericardial effusion. 2. Initiate GDMT for CHF once patient is off of vasopressor therapy 3. Continue diuresis. Continue lasix drip. Strict I&Os. Daily weight. Fluid restriction. 2 g salt restriction, 1.2 L total fluid restriction in 24 hours. Monitor renal function. 4. DVT/VTE prophylaxis: monitor plt count 5. Continue amiodarone for V-tach 6. Digoxin for rate control 7.Monitor QTc interval; avoid medications that can prolong QT interval. Patient seen and examined at bedside with . Plan to re-evaluate pulmonary vascular congestion daily. Transition to IV lasix with improvement in edema/pulmonary vascular congestion.Thank you for the opportunity to consult on your patient. Please feel free to reach out if you have any further questions. Critical care time: 45 min. This medical document was created using an electronic medical record system with voice recognition software and computerized dictation system. Although this document has been carefully reviewed, there might still be some phonetic and typographical errors. Occasional wrong-word or ``sound-alike substitutions may have occurred due to the inherent limitations of voice recognition software. These areas are purely typographical due to imperfections of the software programs and do not reflect any compromise in the patient's medical care. Please read the chart carefully and recognize, using context, where these substitutions have occurred. Plan discussed with: Patient, Other (Bedside RN) Dietary Evaluation Review Comments: 1) Consider YULIET 1 pkt BID for wounds 2) Continue current plan of care Expected Outcomes/Goals: 1) Pt labs to improve 2) F/U in 3-5 days Date of Service: Jun 11, 2024 Billing Provider: DENTON HURTADO MD Cardiology Common Codes: 69997-[id number] CARE 30-74 MIN GREG LEAL Jun 11, 2024 09:56
[2024-06-11] MEDS: DIGOXIN 0.125 MG TAB PO SCH (10:06)
[2024-06-11] MEDS: ENOXAPARIN SOD 40 MG/0.4 ML SYRINGE SC SCH (10:07)
--- NOTE | 2024-06-11 13:35 | DVHPN2 ---
Subjective Is still on Levophed The edema is much better now Still having cardiac arrhythmias Heart rate in the 120s Changes from previous H/P or p: Changes Eyes: No Pain, No Vision change, No Conjunctivae inflammation, No Eyelid inflammation, No Other, No Redness ENT: No Ear pain, No Ear discharge, No Nose pain, No Nose discharge, No Nose congestion, No Mouth pain, No Mouth swelling, No Throat pain, No Throat swelling, No Other Cardiovascular: No Chest Pain, No Palpitations, No Orthopnea, No Paroxysmal Noc. Dyspnea, No Edema, No Lt Headedness, No Other Respiratory: No Cough, No Dry, No Shortness of breath, No SOB with excertion, No Wheezing, No Hemoptysis, No Pleuritic Pain, No Sputum, No Other Gastrointestinal: No Nausea, No Vomiting, No Abdominal Pain, No Diarrhea, No Constipation, No Melena, No Hematochezia, No Other Genitourinary: No Dysuria, No Frequency, No Incontinence, No Hematuria, No Retention, No Other Musculoskeletal: No other, No neck pain, No shoulder pain, No arm pain, No back pain, No hand pain, No leg pain, No foot pain Skin: No Rash, No Lesions, No Jaundice, No Bruising, No Other Objective Vitals Vital Signs Date Time Temp Pulse Resp B/P (MAP) Pulse Ox O2 Delivery O2 Flow Rate FiO2 06/11/24 12:00 99.1 109 18 91/56 (68) 100 99.1 06/11/24 10:00 Nasal Cannula* 1 24 Intake/Output Intake and Output 06/11/24 07:00 Intake Total 1856.882 ml Output Total 3200 ml Balance -1343.118 ml Intake Oral 1194 ml IV Total 662.882 ml Output Urine Total 3200 ml General Appearance: Alert, Oriented X3, Cooperative Lungs: Other (Bilateral rhonchi) Cardiovascular: Regular rate, Normal S1, Normal S2 Abdomen: Normal bowel sounds, Soft, No tenderness Extremities: Other (2+ edema bilaterally in the lower extremity) Medications Current Medications Medications Dose Ordered Sig/Patrick Route Start Time Stop Time Status Last Admin Dose Admin Sodium Chloride 10 ml Q8HR IV 06/03/24 22:00 06/11/24 05:21 10 ML Acetaminophen/ Hydrocodone Bitart 1 tab Q4HP PRN PO 06/03/24 15:30 06/07/24 01:46 1 TAB Ondansetron HCl 4 mg Q4HP PRN IV 06/03/24 15:30 Docusate Sodium 100 mg BIDPRN PRN PO 06/03/24 15:30 Acetaminophen 650 mg Q6HP PRN PO 06/03/24 15:30 Morphine Sulfate 2 mg Q4HPRN PRN IV 06/03/24 15:30 Nitroglycerin 0.4 mg Q5MINP PRN SL 06/03/24 15:30 Morphine Sulfate 2 mg Q30M PRN IV 06/03/24 15:30 Diagnostic Test (Pha) 1 strip ACHS 06/03/24 17:00 06/11/24 11:30 1 STRIP Insulin Human Regular HS SC 06/03/24 22:00 06/10/24 21:00 2 UNITS Insulin Human Regular AC SC 06/03/24 17:00 06/09/24 10:59 3 UNITS Dextrose 50 ml UD PRN IV 06/03/24 15:30 06/06/24 05:34 50 ML Vancomycin HCl 0 ml @ 0 mls/hr UD IV 06/03/24 15:45 Ferrous Sulfate 325 mg DAILY PO 06/04/24 10:00 06/11/24 10:06 325 MG Pravastatin Sodium 20 mg HS PO 06/03/24 22:00 06/10/24 21:00 20 MG Meropenem 50 ml @ 17 mls/hr Q8HR IV 06/06/24 20:00 06/11/24 05:22 17 MLS/HR Amiodarone HCl 200 mg Q12HR PO 06/06/24 22:00 06/11/24 10:06 200 MG Vancomycin HCl 100 ml @ 200 mls/hr Q24H IV 06/07/24 14:00 06/10/24 13:10 200 MLS/HR Risperidone 1 mg DAILY PO 06/08/24 22:00 06/11/24 10:06 1 MG Lorazepam 0.5 mg Q6HP PRN IV 06/08/24 13:45 Haloperidol Lactate 2.5 mg Q8HP PRN IM 06/08/24 13:45 06/08/24 13:48 2.5 MG Furosemide 100 mg/ Sodium Chloride 110 ml @ 11 mls/hr Q10H IV 06/10/24 09:30 06/11/24 04:36 11 MLS/HR Digoxin 0.125 mg DAILY PO 06/11/24 10:00 06/11/24 10:06 0.125 MG Enoxaparin Sodium 40 mg DAILY SC 06/11/24 10:00 06/11/24 10:07 40 MG Norepinephrine Bitartrate 32 mg/ Sodium Chloride 250 ml @ 0.938 mls/ hr Q24H IV 06/10/24 10:30 06/10/24 11:53 2.813 MLS/HR Laboratory Results Laboratory Tests 06/11/24 04:50 Chemistry Test 06/11/24 04:50 Calcium Level 8.2 mg/dL (8.7-10.4) L Magnesium Level 1.9 mg/dL (1.6-2.6) Urinalysis Test 06/03/24 17:57 06/05/24 20:55 Urine Epithelial Casts Few /hpf (<5) Urine Color Yellow (Yellow) Urine Clarity Clear (Clear) Urine pH 5.0 (5.0-9.0) Urine Specific [place] 1.018 (1.001-1.035) Urine Protein Trace (Negative) H Urine Ketones Negative (Negative) Urine Blood Negative /uL (Negative) Urine Nitrite Negative (Negative) Urine Bilirubin Negative (Negative) Urine Urobilinogen Normal mg/dL (Negative) Urine Leukocyte Esterase Negative /uL (Negative) Urine RBC 2 /hpf (0 - 3) Urine WBC 3 /hpf (0 - 3) Urine Squamous Epithelial Cells Few /hpf (<5) Urine Bacteria None seen /hpf (None Seen) Urine Hyaline Casts Mod /lpf (0 - 2) Urine Mucus Few (None Seen) Urine Glucose 4+ mg/dL (Normal) H Microbiology Microbiology Date/Time Source Procedure Growth Status 06/05/24 20:55 Voided Urine Urine Culture - Final Complete 06/05/24 19:46 Nose MRSA Screen - Final Complete 06/05/24 19:21 Blood Blood Culture - Final NO GROWTH AFTER 5 DAYS OF INCUBATION. Complete Assessment/Plan Assessment/Plan Acute on chronic congestive heart failure with low ejection fraction Bilateral lower extremity open wounds Type 2 diabetes Dyslipidemia Hypertension Chronic kidney disease Plan 06/04/2024: IV Lasix 40 mg twice a day Oxygen as needed Dietary consult Continue Aldactone 50 mg daily Entresto IV antibiotics vancomycin per pharmacy protocol The code Advance directives discussed for 20 minutes 06/05/2024: Unresponsiveness, possible due to opiates, Narcan was given x2 doses Rule out CVA: Get a CT scan of the head no contrast Hypotension: Start Levophed Hyperkalemia: Repeat labs including electrolytes and kidney function Check troponins again Acute kidney injury on Chronic kidney disease Elevated troponin, NSTEMI type 2 Acute on chronic decompensated heart failure with reduced ejection fraction EF 10-15% Nonischemic cardiomyopathy Possible cardiorenal syndrome History of hypertension Thrombocytopenia Plan Transfer to the [facility] Levophed drip to keep map above 65 CT scan of the head : Negative Check the electrolytes again, hyperkalemia: Give hyperkalemia protocol Central line, done Called the family to update them, no answer Rule out sepsis: Get blood culture, lactic acid, UA, urine culture Poor prognosis The patient eventually woke up and became more alert and oriented and was completely following commands and understanding his environment I asked him about advance directives, he stated Full Code 06/06/2024: Patient is complaining of abdominal pain Examination shows right upper quadrant tenderness Gallbladder ultrasound showed contracted gallbladder and thickened romo We will get a CT scan of the abdomen and pelvis without contrast Liver enzymes are elevated Check the hepatitis panel Kidney function is stable but the potassium is still high Nephrology is following Cardiology is following the patient Ventricular tachycardia has resolved after the ICD converted him yesterday The patient is more alert now, CT scan of the head was negative Blood cultures are still pending UA was negative for UTI Wound culture of the foot showed Gram-negative rods Continue vancomycin Add meropenem IV Replace magnesium IV Continue IV Lasix 40 mg twice a day Full code The patient pulled out his central line yesterday We will try to do a new central line placement , he is agreeable 06/07/2024: Abdominal pain: Consult GI regarding elevated liver function test and bilirubin Hyperbilirubinemia: Consult GI Elevated LFTs: CT scan is negative Right lower lobe pneumonia: Continue IV antibiotics Blood and urine cultures are pending 06/08/2024: Nonischemic cardiomyopathy ejection fraction 10-15% Acute on chronic heart failure with reduced ejection fraction Nonsustained V-tach, patient has ICD NSTEMI type 2 Type 2 diabetes Acute kidney injury on chronic kidney disease The cardiorenal syndrome Hypertension Bilateral lower extremity cellulitis Thrombocytopenia Sepsis Obesity Plan Levophed drip as needed IV antibiotics: Meropenem and vancomycin Discontinue Jardiance and metoprolol for now due to hypotension IV Lasix P.o. amiodarone Confusion: Haldol IM Ativan IV p.r.n. Hypotension: Levophed drip 06/09/2024: Sepsis: Continue IV antibiotics Septic shock: Continue Levophed: Taper as tolerated Risperidone 1 mg at bedtime Lasix 40 mg twice a day 06/10/2024: He was started on Lasix drip by Nephrology Levophed as needed Albumin IV Cellulitis and leg wound: Vancomycin and meropenem Amiodarone Digoxin Risperidone at bedtime Poor prognosis 06/11/2024: Continue current management with Levophed drip Tapered as tolerated Continue IV antibiotics Continue amiodarone and digoxin Plan discussed with: Patient, Other Date of Service: Jun 11, 2024 Billing Provider: NERISSA SALTER MD Common Visit Codes: 99833-[id number] INP/OBS CARE(HIGH) NERISSA SALTER MD Jun 11, 2024 13:35
--- NOTE | 2024-06-11 14:15 | DVHPN2 ---
Progress Note Date Seen: Jun 11, 2024 Resident Creating Document: YUNG ROMEO RESIDENT Medical Necessity Reason Pt with a Central, PICC or Fol: Yes The following are medically ne: Lockett Catheter Reason for lockett catheter: Strict I&O Subjective Review of Systems History of Present Illness Patient is 64-year-old male with past medical history of hypertension, diabetes mellitus type 2, hyperlipidemia, CHF, CKD, GERD who brought to the hospital for generalized weakness and worsening shortness of breath for few days before hospitalization. Patient is poor historian and major with the medical information was obtained from EMR. At the time of evaluation patient did not have any complaints except mild shortness of breath, nonproductive cough. Nephrology consultation was done for evaluation of CKD. Over the course of hospitalization patient was treated with IV Lasix, IV antibiotic, oxygen as needed and vasopressors. No other complaints at this point. Past Medical History hypertension, diabetes mellitus type 2, hyperlipidemia, CHF, CKD, GERD Past Surgical History AICD implantation Patient seen and examined at bedside in the [facility]. Patient is started on Lasix drip yesterday, significant improvement of upper extremity swelling, increased urine output, no other new complaints. Continue to be on low-dose vasopressors and requiring oxygen via nasal cannula. Other Systems: Patient seen and examined by myself today with the medicine resident in follow-up, I agree with his assessment and plan as documented in this note Objective vital signs Vital Sign Date Time Temp Pulse Resp B/P (MAP) Pulse Ox O2 Delivery O2 Flow Rate FiO2 06/11/24 13:42 98/57 06/11/24 12:00 99.1 109 18 100 99.1 06/11/24 10:00 Nasal Cannula* 1 24 Total Intake and Output 06/10/24 06/10/24 06/11/24 15:00 23:00 07:00 Intake Total 504.063 ml 916.315 ml 436.504 ml Output Total 1700 ml 1500 ml Balance 504.063 ml -783.685 ml -1063.496 ml medications Current Medications Medications Dose Ordered Sig/Patrick Route Start Time Stop Time Status Last Admin Dose Admin Sodium Chloride 10 ml Q8HR IV 06/03/24 22:00 06/11/24 05:21 10 ML Acetaminophen/ Hydrocodone Bitart 1 tab Q4HP PRN PO 06/03/24 15:30 06/07/24 01:46 1 TAB Ondansetron HCl 4 mg Q4HP PRN IV 06/03/24 15:30 Docusate Sodium 100 mg BIDPRN PRN PO 06/03/24 15:30 Acetaminophen 650 mg Q6HP PRN PO 06/03/24 15:30 Morphine Sulfate 2 mg Q4HPRN PRN IV 06/03/24 15:30 Nitroglycerin 0.4 mg Q5MINP PRN SL 06/03/24 15:30 Morphine Sulfate 2 mg Q30M PRN IV 06/03/24 15:30 Diagnostic Test (Pha) 1 strip ACHS 06/03/24 17:00 06/11/24 11:30 1 STRIP Insulin Human Regular HS SC 06/03/24 22:00 06/10/24 21:00 2 UNITS Insulin Human Regular AC SC 06/03/24 17:00 06/09/24 10:59 3 UNITS Dextrose 50 ml UD PRN IV 06/03/24 15:30 06/06/24 05:34 50 ML Vancomycin HCl 0 ml @ 0 mls/hr UD IV 06/03/24 15:45 Ferrous Sulfate 325 mg DAILY PO 06/04/24 10:00 06/11/24 10:06 325 MG Pravastatin Sodium 20 mg HS PO 06/03/24 22:00 06/10/24 21:00 20 MG Meropenem 50 ml @ 17 mls/hr Q8HR IV 06/06/24 20:00 06/11/24 05:22 17 MLS/HR Amiodarone HCl 200 mg Q12HR PO 06/06/24 22:00 06/11/24 10:06 200 MG Vancomycin HCl 100 ml @ 200 mls/hr Q24H IV 06/07/24 14:00 06/10/24 13:10 200 MLS/HR Risperidone 1 mg DAILY PO 06/08/24 22:00 06/11/24 10:06 1 MG Lorazepam 0.5 mg Q6HP PRN IV 06/08/24 13:45 Haloperidol Lactate 2.5 mg Q8HP PRN IM 06/08/24 13:45 06/08/24 13:48 2.5 MG Furosemide 100 mg/ Sodium Chloride 110 ml @ 11 mls/hr Q10H IV 06/10/24 09:30 06/11/24 13:42 11 MLS/HR Digoxin 0.125 mg DAILY PO 06/11/24 10:00 06/11/24 10:06 0.125 MG Enoxaparin Sodium 40 mg DAILY SC 06/11/24 10:00 06/11/24 10:07 40 MG Norepinephrine Bitartrate 32 mg/ Sodium Chloride 250 ml @ 0.938 mls/ hr Q24H IV 06/10/24 10:30 06/10/24 11:53 2.813 MLS/HR Examination General Appearance: Cooperative. Not in acute distress. Head Exam: Normal inspection Neck Exam: Normal inspection. Non-tender. Normal alignment Pulmonary/Respiratory: Chest non-tender. Clear bilateral breath sounds Cardiovascular/Chest: Regular rate and rhythm. No murmurs. No JVD. Mild bilateral basal lung crackles. Peripheral Pulses: 2+ Radial (R). 2+ Radial (L). 2+ Pedal (R). 2+ Pedal (L) Abdominal Exam: Normal bowel sounds. Soft. Nontender. No hepatospenomegaly. No masses Ankle Exam: Negative ankle edema, bilateral lower extremity multiple diabetic ulcers. Lower extremities: 1 + lower extremity edema Upper extremity: 1+ bilateral upper extremity edema. Neuro/Mental Status: A&O x4. Coherent laboratory and microbiology Laboratory Tests 06/11/24 04:50 Test 06/11/24 04:50 Range/Units Serum Glucose 83 74-106 mg/dL Microbiology Date/Time Source Procedure Growth Status 06/05/24 20:55 Voided Urine Urine Culture - Final Complete 06/05/24 19:46 Nose MRSA Screen - Final Complete 06/05/24 19:21 Blood Blood Culture - Final NO GROWTH AFTER 5 DAYS OF INCUBATION. Complete Problem List/Assessment/Plan Problem List/Assessment/Plan ROLAND on CKD stage III B likely due to hemodynamically mediated in setting of cardiorenal syndrome Acute on chronic HFrEF, ejection fraction 15% on 02/20/2024. NYHA class IV NSTEMI type 2 likely due to above Bilateral lower extremity cellulitis Multiple bilateral lower extremity diabetic ulcer Presence of AICD Lactic acidosis Hyperkalemia Transaminitis Hyponatremia Plan/ recommendation Dr. Cao: -On lasix drip 10mg/hr, fluid restriction total <1.2 L , Strict I&O -echocardiogram showed 15% ejection fraction with global hypokinesis -hyperkalemia: Lokelma 10 mg p.o. t.i.d. -maintain strict I&O, avoid nephrotoxic medication. -urinalysis: Negative for nitrites, leukocytosis, squamous epithelial cells. -ordered urine sodium, creatinine, total protein, serum phosphorus, UDS: Still Pending -antibiotics per hospitalist recommendation -we will continue to closely follow up kidney function. Plan discussed with: Patient, Other (RN) Dietary Evaluation Review Comments: 1) Consider YULIET 1 pkt BID for wounds 2) Continue current plan of care Expected Outcomes/Goals: 1) Pt labs to improve 2) F/U in 3-5 days YUNG ROMEO Jun 11, 2024 14:15 LOKESH CAO MD Jun 11, 2024 14:34
--- NOTE | 2024-06-11 15:02 | DVH ---
XY CHEST XRAY 1 VIEW, HISTORY: pulmonary congestion COMPARISON: XY CHEST PORTABLE on DOS: 06/10/24, XY CHEST XRAY 1 VIEW on DOS: 06/06/24, XY CHEST XRAY 1 VIEW on DOS: 06/05/24 XY CHEST PORTABLE on DOS: 06/10/24, XY CHEST XRAY 1 VIEW on DOS: 06/06/24, XY CHEST XRAY 1 VIEW on DO S: 06/05/24 TECHNICAL DATA: 1 view of the chest was obtained. FINDINGS: Lines and tubes: A pacer is visualized. A right CVC is noted in the SVC. Cardiomediastinal silhouette: Enlarged Pulmonary vasculature: prominent Lung expansion: low Lung airspace: patchy bibasilar airspace opacities Lung interstitium: increased Pleura: small right effusion Pneumothorax: no Bones: Unremarkable Other: no IMPRESSION: Cardiomegaly with pulmonary vascular congestion and small right pleural effusion.
[2024-06-11 16:45] LABS: Creatinine, Urine 10.12 mg/dL (30.0-125.0)
--- NOTE | 2024-06-11 21:15 | DVHPN2 ---
Progress Note - Dictate Date Seen: Jun 11, 2024 Medical Necessity Reason Pt with a Central, PICC or Fol: Yes The following are medically ne: Lockett Catheter Reason for lockett catheter: Strict I&O Subjective Patient seen and examined at bedside. Remains on supplemental oxygen Overnight events reviewed. vital signs Vital Sign Date Time Temp Pulse Resp B/P (MAP) Pulse Ox O2 Delivery O2 Flow Rate FiO2 06/11/24 20:45 113 12 79/47 (58) 06/11/24 20:30 100 06/11/24 20:00 98.1 98.1 06/11/24 18:00 Nasal Cannula* 1 24 Total Intake and Output 06/10/24 06/10/24 06/11/24 15:00 23:00 07:00 Intake Total 504.063 ml 916.315 ml 436.504 ml Output Total 1700 ml 1500 ml Balance 504.063 ml -783.685 ml -1063.496 ml medications Current Medications Medications Dose Ordered Sig/Patrick Route Start Time Stop Time Status Last Admin Dose Admin Sodium Chloride 10 ml Q8HR IV 06/03/24 22:00 06/11/24 14:17 10 ML Acetaminophen/ Hydrocodone Bitart 1 tab Q4HP PRN PO 06/03/24 15:30 06/07/24 01:46 1 TAB Ondansetron HCl 4 mg Q4HP PRN IV 06/03/24 15:30 Docusate Sodium 100 mg BIDPRN PRN PO 06/03/24 15:30 Acetaminophen 650 mg Q6HP PRN PO 06/03/24 15:30 Morphine Sulfate 2 mg Q4HPRN PRN IV 06/03/24 15:30 Nitroglycerin 0.4 mg Q5MINP PRN SL 06/03/24 15:30 Morphine Sulfate 2 mg Q30M PRN IV 06/03/24 15:30 Diagnostic Test (Pha) 1 strip ACHS 06/03/24 17:00 06/11/24 17:17 1 STRIP Insulin Human Regular HS SC 06/03/24 22:00 06/10/24 21:00 2 UNITS Insulin Human Regular AC SC 06/03/24 17:00 06/09/24 10:59 3 UNITS Dextrose 50 ml UD PRN IV 06/03/24 15:30 06/06/24 05:34 50 ML Vancomycin HCl 0 ml @ 0 mls/hr UD IV 06/03/24 15:45 Ferrous Sulfate 325 mg DAILY PO 06/04/24 10:00 06/11/24 10:06 325 MG Pravastatin Sodium 20 mg HS PO 06/03/24 22:00 06/10/24 21:00 20 MG Meropenem 50 ml @ 17 mls/hr Q8HR IV 06/06/24 20:00 06/11/24 14:17 17 MLS/HR Amiodarone HCl 200 mg Q12HR PO 06/06/24 22:00 06/11/24 10:06 200 MG Vancomycin HCl 100 ml @ 200 mls/hr Q24H IV 06/07/24 14:00 06/11/24 14:16 200 MLS/HR Risperidone 1 mg DAILY PO 06/08/24 22:00 06/11/24 10:06 1 MG Lorazepam 0.5 mg Q6HP PRN IV 06/08/24 13:45 Haloperidol Lactate 2.5 mg Q8HP PRN IM 06/08/24 13:45 06/08/24 13:48 2.5 MG Furosemide 100 mg/ Sodium Chloride 110 ml @ 11 mls/hr Q10H IV 06/10/24 09:30 06/11/24 13:42 11 MLS/HR Digoxin 0.125 mg DAILY PO 06/11/24 10:00 06/11/24 10:06 0.125 MG Enoxaparin Sodium 40 mg DAILY SC 06/11/24 10:00 06/11/24 10:07 40 MG Norepinephrine Bitartrate 32 mg/ Sodium Chloride 250 ml @ 0.938 mls/ hr Q24H IV 06/10/24 10:30 06/10/24 11:53 2.813 MLS/HR objective Gen.: Patient lying in bed in no apparent distress. On supplemental oxygen. Head: Normocephalic, atraumatic. Eyes: EOMI/PERRLA. Ears: Normal hearing. Normal anatomy. Neck/trachea: Trachea midline, supple. Nose: Normal external anatomy. Mouth: Moist mucous membranes. Chest: Decreased air entry bilaterally. No wheezing or rhonchi. Cardiovascular: Positive S1, positive S2. Regular rate and rhythm. Abdomen: Positive bowel sounds in all 4 quadrants. Soft, non-tender, non- distended. : Deferred. Rectal: Deferred. Skin: Warm, dry. Intact. Extremities: 2+ radial pulses bilaterally. No lower extremity edema. Neuro: Awake, alert, oriented x3. No gross motor or sensory deficits. Cranial nerves II through XII intact. Gait not assessed. laboratory and microbiology Laboratory Tests 06/11/24 04:50 Test 06/11/24 04:50 Range/Units Serum Glucose 83 74-106 mg/dL Assessment/Plan Impression: Acute on chronic systolic CHF (EF 10-15%) BLE wounds DM type II Acute on chronic CKD Metabolic acidosis Hyperkalemia Elevated troponin Overweight, BMI 29.5 Events: Remains on supplemental oxygen, 1 LPM NC Taper O2 as tolerated CXR reviewed, pulmonary vascular congestion; small right pleural effusion. Off Levophed since 4 PM. Patient is stable for downgrade from the pulmonary standpoint if remains hemodynamically stable. On amiodarone, Digoxin PO. Lasix drip for diuresis Monitor renal function Monitor electrolytes. Supplement as necessary. Cardiology recs appreciated. Recommend diuresis to avoid volume overload. Atrial fibrillation Continue antibiotics, meropenem and vancomycin. Improved upper and lower extremity edema. Monitor lactic acid. Follow PT/INR. Wound care. Head of bed elevation Aspiration precautions Labs and imaging reviewed. Rest of plan as noted below. Plan: Supplemental oxygen Titrate to keep O2 sats above 92%. CXR demonstrated mild pulmonary vascular congestion. Continue bronchodilators. Antibiotics Iron supplementation Monitor hemoglobin Accu-Cheks, ISS. Diurese to euvolemia w/ Lasix Monitor renal function. Monitor electrolytes. Supplement as necessary. Monitor ins and outs. DVT prophylaxis. Rapid Response/Code Assist: Patient became hypotensive and unresponsive, upgraded to [facility]. Central line placement in right IJ. STAT CT head obtained to r/o ICH or stroke. Pt received Narcan x2. Pressors as necessary to maintain a mean arterial blood pressure greater than 65 mmHg. Monitor renal function - creatinine trending down. Monitor electrolytes. Supplement as necessary. Monitor ins and outs Prognosis: Poor given patient's multiple co-morbidities. Condition: Critical Rest of plan per hospitalist and other consultants. A total of 35 minutes of critical care time was spent reviewing the patient record, examining the patient, making a diagnostic and therapeutic plan, discussing this plan with the medical personnel, following up on diagnostic studies and following the patient for clinical stability excluding any and all procedures. At least 50% of this time was spent in direct, [id number] contact. Thank you, Ekta Meek, [employer]/Dr Mcintosh, for allowing me to participate in this patient's care. Further recommendations will depend on the patient's clinical course. Please do not hesitate to contact me if you have any questions or concerns. This medical document was created using an electronic medical record system with [employer] dictation system. Although these documentations are being carefully reviewed, there may still be some phonetic and typographical changes. The errors are purely typographical, due to imperfection on the software program, and do not reflect any compromise in the patient's medical care. Dietary Evaluation Review Comments: 1) Consider YULIET 1 pkt BID for wounds 2) Continue current plan of care Expected Outcomes/Goals: 1) Pt labs to improve 2) F/U in 3-5 days Plan discussed with: Other (MARY Irizarry) Critical Care Time(min): 35 WALDO OHARA MD Jun 11, 2024 21:15
[2024-06-12] VITALS (56 sets, daily range): BP systolic 90–128; BP diastolic 53–85; PULSE 80–129; RESP 12–40; TEMP 97.5–98.9; O2SAT 90–100
[2024-06-12 05:11] LABS: Hematocrit 40.3 % (41.0-53.0); Hemoglobin 13.7 g/dL (13.5-17.5); Mean Corpuscular Hemoglobin 29.7 pg (28.0-32.0); Mean Corpuscular Hgb Conc. 33.8 g/dL (32.0-36.0); Mean Corpuscular Volume 87.8 fL (80.0-100.0); Platelet Count (auto) 153 10^3/uL (140-450); White Blood Cell 9.5 10^3/uL (4.4-10.8)
[2024-06-12 05:32] LABS: Red Cell Distribution Width 25.3 % (11.8-14.3)
[2024-06-12 05:35] LABS: Anion Gap 8 (5-15); Basophils % (manual) 0 (0.0-2.0); Blast Cells 0; Carbon Dioxide 31 mmol/L (20-31); Chloride 95 mmol/L (98-107); Eosinophils % (manual) 0 (0-7); Metamyelocytes % 0; Myelocytes % 0; Potassium 3.4 mmol/L (3.5-5.1); Promyelocytes % 0; Reactive Lymphocytes 0; Sodium 134 mmol/L (136-145)
[2024-06-12 05:36] LABS: Calcium 8.3 mg/dL (8.7-10.4)
[2024-06-12 05:41] LABS: BUN/Creatinine Ratio 28.1 (10.0-20.0); Blood Urea Nitrogen 25 mg/dL (9-23); Glucose 102 mg/dL (74-106); Magnesium 1.8 mg/dL (1.6-2.6)
--- NOTE | 2024-06-12 06:48 | DVH ---
CHEST RADIOGRAPH Indication: Pulmonary congestion Technique: Single frontal view of the chest was obtained Comparison: XY CHEST XRAY 1 VIEW on DOS: 06/11/24 FINDINGS: Lines and Tubes: Dual-chamber pacemaker with right atrial and ventricular leads. Right central venous catheter terminating in the superior vena cava. Lungs: Consolidation in the right mid to lower lung zone. The left lung is clear. Pleura: Right pleural effusion. No pneumothorax. Cardiomediastinal contours: Cardiomegaly. Bones: No acute osseous abnormality. IMPRESSION: 1. Right pleural effusion. Right mid to lower lung zone consolidation. 2. Cardiomegaly.
[2024-06-12 07:10] LABS: Band Neutrophils % (manual) 1; Lymphocytes % (manual) 5 (10.0-50.0); Monocytes % (manual) 6 (0-12)
[2024-06-12 07:11] LABS: Platelet Estimate Adequate
[2024-06-12 07:12] LABS: Anisocytosis Slight
[2024-06-12 07:13] LABS: Target Cell FEW
[2024-06-12] MEDS: MAGNESIUM SULFATE 1GM/100ML 100 ML IV ONE (08:03)
[2024-06-12] MEDS: POTASSIUM EFFERVESENT TAB 25 MEQ PO ONE (08:03)
--- NOTE | 2024-06-12 10:14 | DVHPN2 ---
Consult Progress Note Date Seen: Jun 12, 2024 Subjective Other Systems: No cardiac events reported Objective vital signs Vital Sign Date Time Temp Pulse Resp B/P (MAP) Pulse Ox O2 Delivery O2 Flow Rate FiO2 06/12/24 09:00 108 18 98/69 (79) 06/12/24 08:00 98.4 98.4 06/12/24 07:00 98 06/12/24 06:00 Nasal Cannula* 1 24 Total Intake and Output 06/11/24 06/11/24 06/12/24 15:00 23:00 07:00 Intake Total 353.504 ml 431.563 ml 467.626 ml Output Total 2650 ml 2250 ml Balance 353.504 ml -2218.437 ml -1782.374 ml medications Current Medications Medications Dose Ordered Sig/Patrick Route Start Time Stop Time Status Last Admin Dose Admin Sodium Chloride 10 ml Q8HR IV 06/03/24 22:00 06/12/24 05:00 10 ML Acetaminophen/ Hydrocodone Bitart 1 tab Q4HP PRN PO 06/03/24 15:30 06/07/24 01:46 1 TAB Ondansetron HCl 4 mg Q4HP PRN IV 06/03/24 15:30 Docusate Sodium 100 mg BIDPRN PRN PO 06/03/24 15:30 Acetaminophen 650 mg Q6HP PRN PO 06/03/24 15:30 Morphine Sulfate 2 mg Q4HPRN PRN IV 06/03/24 15:30 Nitroglycerin 0.4 mg Q5MINP PRN SL 06/03/24 15:30 Morphine Sulfate 2 mg Q30M PRN IV 06/03/24 15:30 Diagnostic Test (Pha) 1 strip ACHS 06/03/24 17:00 06/12/24 06:31 1 STRIP Insulin Human Regular HS SC 06/03/24 22:00 06/10/24 21:00 2 UNITS Insulin Human Regular AC SC 06/03/24 17:00 06/09/24 10:59 3 UNITS Dextrose 50 ml UD PRN IV 06/03/24 15:30 06/06/24 05:34 50 ML Vancomycin HCl 0 ml @ 0 mls/hr UD IV 06/03/24 15:45 Ferrous Sulfate 325 mg DAILY PO 06/04/24 10:00 06/11/24 10:06 325 MG Pravastatin Sodium 20 mg HS PO 06/03/24 22:00 06/11/24 21:39 20 MG Meropenem 50 ml @ 17 mls/hr Q8HR IV 06/06/24 20:00 06/12/24 05:00 17 MLS/HR Amiodarone HCl 200 mg Q12HR PO 06/06/24 22:00 06/11/24 21:39 200 MG Vancomycin HCl 100 ml @ 200 mls/hr Q24H IV 06/07/24 14:00 06/11/24 14:16 200 MLS/HR Risperidone 1 mg DAILY PO 06/08/24 22:00 06/11/24 10:06 1 MG Lorazepam 0.5 mg Q6HP PRN IV 06/08/24 13:45 Haloperidol Lactate 2.5 mg Q8HP PRN IM 06/08/24 13:45 06/08/24 13:48 2.5 MG Furosemide 100 mg/ Sodium Chloride 110 ml @ 11 mls/hr Q10H IV 06/10/24 09:30 06/11/24 23:42 11 MLS/HR Digoxin 0.125 mg DAILY PO 06/11/24 10:00 06/11/24 10:06 0.125 MG Enoxaparin Sodium 40 mg DAILY SC 06/11/24 10:00 06/11/24 10:07 40 MG Norepinephrine Bitartrate 32 mg/ Sodium Chloride 250 ml @ 0.938 mls/ hr Q24H IV 06/10/24 10:30 06/11/24 23:34 1.875 MLS/HR Examination: GENERAL:Abnormal (Lethargic), LUNGS:Normal, CVS:Normal (BUE/BLE edema resolved), NEURO:Abnormal (Alert but confused) laboratory and microbiology Laboratory Tests 06/12/24 04:43 Test 06/12/24 04:43 Range/Units Serum Glucose 102 74-106 mg/dL Problem List/Assessment/Plan Problem List/Assessment/Plan Acute on chronic decompensated HFrEF with EF 10-15%, NYHA Class IV Nonischemic cardiomyopathy NSTEMI type 2 secondary to above Nonsustained ventricular tachycardia, new onset Prolonged QT interval, resolved Presence of AICD ([place]) [id number] diabetes mellitus, controlled, HgbA1C 5.9% Acute kidney injury on chronic kidney disease stage IIIb Likely cardiorenal syndrome type II Accelerated hypertension now hypotension Bilateral lower limb cellulitis Thrombocytopenia, resolved Thyroid disease Obesity Plan/Recommendation Dr. Hurtado) 1. Echocardiogram from 02/20/2024 revealed: Severely dilated left ventricle. Severely reduced left ventricular systolic function estimated ejection fraction of 15%. There is global wall akinesia. There is restrictive filling pattern had diastolic type 3 dysfunction. Normal right ventricular size and dimension. Moderately reduced right ventricular systolic function. Moderately elevated right ventricular systolic [id number] mm of mercury. Moderately dilated right and left atria. Aortic valve is mildly thickened no significant stenosis or regurgitation. The mitral valve has mild mitral valve regurgitation. There is mild tricuspid valve regurgitation. The pulmonary valve grossly normal. No pericardial effusion. 2. Introduce GDMT for CHF as tolerated 3. Transition from Lasix drip to Lasix BID. Continue diuresis. Strict I&Os. Daily weight. Fluid restriction. 2 g salt restriction, 1.2 L total fluid restriction in 24 hours. Monitor renal function. Repeat BNP level. Chest US given R pleural effusion 4. Continue antiarrhythmic, amiodarone, given NSVT. Continue digoxin for rate control, HR 100s bpm. 5. Replete electrolytes as necessary, potassium >4 and magnesium >2. Repeat Mg in the a.m. 6. Continue abx therapy/wound care per primary care team. 7. DVT/VTE prophylaxis. 8. Downgrade to Telemetry. Thank you for the opportunity to consult on your patient. Please feel free to reach out if you have any further questions. Critical care time: 30 min. This medical document was created using an electronic medical record system with voice recognition software and computerized dictation system. Although this document has been carefully reviewed, there might still be some phonetic and typographical errors. Occasional wrong-word or ``sound-alike substitutions may have occurred due to the inherent limitations of voice recognition software. These areas are purely typographical due to imperfections of the software programs and do not reflect any compromise in the patient's medical care. Please read the chart carefully and recognize, using context, where these substitutions have occurred. Plan discussed with: Patient, Other Dietary Evaluation Review Comments: 1) Consider YULIET 1 pkt BID for wounds 2) Continue current plan of care Expected Outcomes/Goals: 1) Pt labs to improve 2) F/U in 3-5 days Date of Service: Jun 12, 2024 Billing Provider: DENTON HURTADO MD Cardiology Common Codes: 19464-[id number] CARE 30-74 MIN FROILAN CARBALLO DIRECTOR HAIR Jun 12, 2024 10:14
--- NOTE | 2024-06-12 10:52 | DVH ---
Bilateral Chest Sonogram Date: 06/12/2024 10:20 AM Clinical history: Right pleural effusion Technique: Limited sonographic evaluation of the bilateral chest was performed to evaluate for pleur al effusion. Finding/Impression: Trace bilateral pleural effusions are present. HS:Y
--- NOTE | 2024-06-12 13:06 | DVHPN2 ---
Progress Note Date Seen: Jun 12, 2024 Resident Creating Document: YUNG ROMEO RESIDENT Medical Necessity Reason Pt with a Central, PICC or Fol: Yes The following are medically ne: Lockett Catheter Reason for lockett catheter: Strict I&O Subjective Review of Systems Patient is 64-year-old male with past medical history of hypertension, diabetes mellitus type 2, hyperlipidemia, CHF, CKD, GERD who brought to the hospital for generalized weakness and worsening shortness of breath for few days before hospitalization. Patient is poor historian and major with the medical information was obtained from EMR. At the time of evaluation patient did not have any complaints except mild shortness of breath, nonproductive cough. Nephrology consultation was done for evaluation of CKD. Over the course of hospitalization patient was treated with IV Lasix, IV antibiotic, oxygen as needed and vasopressors. No other complaints at this point. Past Medical History hypertension, diabetes mellitus type 2, hyperlipidemia, CHF, CKD, GERD Past Surgical History AICD implantation Patient seen and examined at bedside in the [facility]. Continued to be on Lasix drip, not on vasopressors. Feeling much better, continued to have a increased urine output, improvement with upper and lower extremity swelling. Other Systems: Patient seen and examined by myself with the medicine resident, I agree with assessment and plan documented in this note Objective vital signs Vital Sign Date Time Temp Pulse Resp B/P (MAP) Pulse Ox O2 Delivery O2 Flow Rate FiO2 06/12/24 12:45 106 15 97 06/12/24 12:00 Nasal Cannula* 1 24 06/12/24 12:00 98.5 98.5 Total Intake and Output 06/11/24 06/11/24 06/12/24 15:00 23:00 07:00 Intake Total 353.504 ml 431.563 ml 467.626 ml Output Total 2650 ml 2250 ml Balance 353.504 ml -2218.437 ml -1782.374 ml medications Current Medications Medications Dose Ordered Sig/Patrick Route Start Time Stop Time Status Last Admin Dose Admin Sodium Chloride 10 ml Q8HR IV 06/03/24 22:00 06/12/24 05:00 10 ML Acetaminophen/ Hydrocodone Bitart 1 tab Q4HP PRN PO 06/03/24 15:30 06/07/24 01:46 1 TAB Ondansetron HCl 4 mg Q4HP PRN IV 06/03/24 15:30 Docusate Sodium 100 mg BIDPRN PRN PO 06/03/24 15:30 Acetaminophen 650 mg Q6HP PRN PO 06/03/24 15:30 Morphine Sulfate 2 mg Q4HPRN PRN IV 06/03/24 15:30 Nitroglycerin 0.4 mg Q5MINP PRN SL 06/03/24 15:30 Morphine Sulfate 2 mg Q30M PRN IV 06/03/24 15:30 Diagnostic Test (Pha) 1 strip ACHS 06/03/24 17:00 06/12/24 11:29 1 STRIP Insulin Human Regular HS SC 06/03/24 22:00 06/10/24 21:00 2 UNITS Insulin Human Regular AC SC 06/03/24 17:00 06/09/24 10:59 3 UNITS Dextrose 50 ml UD PRN IV 06/03/24 15:30 06/06/24 05:34 50 ML Vancomycin HCl 0 ml @ 0 mls/hr UD IV 06/03/24 15:45 Ferrous Sulfate 325 mg DAILY PO 06/04/24 10:00 06/12/24 10:51 325 MG Pravastatin Sodium 20 mg HS PO 06/03/24 22:00 06/11/24 21:39 20 MG Meropenem 50 ml @ 17 mls/hr Q8HR IV 06/06/24 20:00 06/12/24 05:00 17 MLS/HR Amiodarone HCl 200 mg Q12HR PO 06/06/24 22:00 06/12/24 10:51 200 MG Vancomycin HCl 100 ml @ 200 mls/hr Q24H IV 06/07/24 14:00 06/11/24 14:16 200 MLS/HR Risperidone 1 mg DAILY PO 06/08/24 22:00 06/12/24 10:55 1 MG Lorazepam 0.5 mg Q6HP PRN IV 06/08/24 13:45 Haloperidol Lactate 2.5 mg Q8HP PRN IM 06/08/24 13:45 06/08/24 13:48 2.5 MG Digoxin 0.125 mg DAILY PO 06/11/24 10:00 06/12/24 10:50 0.125 MG Enoxaparin Sodium 40 mg DAILY SC 06/11/24 10:00 06/12/24 10:51 40 MG Furosemide 20 mg BIDD IV 06/12/24 18:00 Empaglifozin 10 mg DAILY PO 06/13/24 10:00 Examination General Appearance: Cooperative. Not in acute distress. Head Exam: Normal inspection Neck Exam: Normal inspection. Non-tender. Normal alignment Pulmonary/Respiratory: Chest non-tender. Clear bilateral breath sounds Cardiovascular/Chest: Regular rate and rhythm. No murmurs. No JVD. Mild bilateral basal lung crackles. Peripheral Pulses: 2+ Radial (R). 2+ Radial (L). 2+ Pedal (R). 2+ Pedal (L) Abdominal Exam: Normal bowel sounds. Soft. Nontender. No hepatospenomegaly. No masses Ankle Exam: Negative ankle edema, bilateral lower extremity multiple diabetic ulcers. Lower extremities: 1 + lower extremity edema Upper extremity: 1+ bilateral upper extremity edema. Neuro/Mental Status: A&O x4. Coherent laboratory and microbiology Laboratory Tests 06/12/24 04:43 Test 06/12/24 04:43 Range/Units Serum Glucose 102 74-106 mg/dL Microbiology Date/Time Source Procedure Growth Status 06/05/24 20:55 Voided Urine Urine Culture - Final Complete 06/05/24 19:46 Nose MRSA Screen - Final Complete 06/05/24 19:21 Blood Blood Culture - Final NO GROWTH AFTER 5 DAYS OF INCUBATION. Complete Problem List/Assessment/Plan Problem List/Assessment/Plan ROLAND on CKD stage III B likely due to hemodynamically mediated in setting of cardiorenal syndrome Acute on chronic HFrEF, ejection fraction 15% on 02/20/2024. NYHA class IV NSTEMI type 2 likely due to above Bilateral lower extremity cellulitis Multiple bilateral lower extremity diabetic ulcer Presence of AICD Lactic acidosis Hyperkalemia Transaminitis Hyponatremia due to hypervolemia in setting of CHF: Improving Plan/ recommendation Dr. Cao: -On lasix drip 10mg/hr, fluid restriction total <1 L , Strict I&O, continue diuresis, low-salt diet. -echocardiogram showed 15% ejection fraction with global hypokinesis -hyperkalemia: Lokelma 10 mg p.o. t.i.d. -maintain strict I&O, avoid nephrotoxic medication. -urinalysis: Negative for nitrites, leukocytosis, squamous epithelial cells. -ordered urine sodium, creatinine, total protein, serum phosphorus, UDS: Still Pending -antibiotics per hospitalist recommendation We will sign off at this point, please reconsult if necessary. Thank you Plan discussed with: Patient, Other (RN) Dietary Evaluation Review Comments: 1) Consider YULIET 1 pkt BID for wounds 2) Continue current plan of care Expected Outcomes/Goals: 1) Pt labs to improve 2) F/U in 3-5 days YUNG ROMEO Jun 12, 2024 13:06 LOKESH CAO MD Jun 12, 2024 13:29
--- NOTE | 2024-06-12 14:15 | DVHPN2 ---
Subjective The Levophed No other drips Changes from previous H/P or p: Changes Eyes: No Pain, No Vision change, No Conjunctivae inflammation, No Eyelid inflammation, No Other, No Redness ENT: No Ear pain, No Ear discharge, No Nose pain, No Nose discharge, No Nose congestion, No Mouth pain, No Mouth swelling, No Throat pain, No Throat swelling, No Other Cardiovascular: No Chest Pain, No Palpitations, No Orthopnea, No Paroxysmal Noc. Dyspnea, No Edema, No Lt Headedness, No Other Respiratory: No Cough, No Dry, No Shortness of breath, No SOB with excertion, No Wheezing, No Hemoptysis, No Pleuritic Pain, No Sputum, No Other Gastrointestinal: No Nausea, No Vomiting, No Abdominal Pain, No Diarrhea, No Constipation, No Melena, No Hematochezia, No Other Genitourinary: No Dysuria, No Frequency, No Incontinence, No Hematuria, No Retention, No Other Musculoskeletal: No other, No neck pain, No shoulder pain, No arm pain, No back pain, No hand pain, No leg pain, No foot pain Skin: No Rash, No Lesions, No Jaundice, No Bruising, No Other Objective Vitals Vital Signs Date Time Temp Pulse Resp B/P (MAP) Pulse Ox O2 Delivery O2 Flow Rate FiO2 06/12/24 13:30 114 16 111/64 (80) 95 06/12/24 12:00 Nasal Cannula* 1 24 06/12/24 12:00 98.5 98.5 Intake/Output Intake and Output 06/12/24 07:00 Intake Total 1252.693 ml Output Total 4900 ml Balance -3647.307 ml Intake Oral 770 ml IV Total 482.693 ml Output Urine Total 4900 ml # Bowel Movements 2 General Appearance: Alert, Oriented X3, Cooperative Lungs: Other (Bilateral rhonchi) Cardiovascular: Regular rate, Normal S1, Normal S2 Abdomen: Normal bowel sounds, Soft, No tenderness Extremities: Other (2+ edema bilaterally in the lower extremity) Medications Current Medications Medications Dose Ordered Sig/Patrick Route Start Time Stop Time Status Last Admin Dose Admin Sodium Chloride 10 ml Q8HR IV 06/03/24 22:00 06/12/24 13:43 10 ML Acetaminophen/ Hydrocodone Bitart 1 tab Q4HP PRN PO 06/03/24 15:30 06/07/24 01:46 1 TAB Ondansetron HCl 4 mg Q4HP PRN IV 06/03/24 15:30 Docusate Sodium 100 mg BIDPRN PRN PO 06/03/24 15:30 Acetaminophen 650 mg Q6HP PRN PO 06/03/24 15:30 Morphine Sulfate 2 mg Q4HPRN PRN IV 06/03/24 15:30 Nitroglycerin 0.4 mg Q5MINP PRN SL 06/03/24 15:30 Morphine Sulfate 2 mg Q30M PRN IV 06/03/24 15:30 Diagnostic Test (Pha) 1 strip ACHS 06/03/24 17:00 06/12/24 11:29 1 STRIP Insulin Human Regular HS SC 06/03/24 22:00 06/10/24 21:00 2 UNITS Insulin Human Regular AC SC 06/03/24 17:00 06/09/24 10:59 3 UNITS Dextrose 50 ml UD PRN IV 06/03/24 15:30 06/06/24 05:34 50 ML Vancomycin HCl 0 ml @ 0 mls/hr UD IV 06/03/24 15:45 Ferrous Sulfate 325 mg DAILY PO 06/04/24 10:00 06/12/24 10:51 325 MG Pravastatin Sodium 20 mg HS PO 06/03/24 22:00 06/11/24 21:39 20 MG Meropenem 50 ml @ 17 mls/hr Q8HR IV 06/06/24 20:00 06/12/24 13:43 17 MLS/HR Amiodarone HCl 200 mg Q12HR PO 06/06/24 22:00 06/12/24 10:51 200 MG Vancomycin HCl 100 ml @ 200 mls/hr Q24H IV 06/07/24 14:00 06/12/24 13:42 200 MLS/HR Risperidone 1 mg DAILY PO 06/08/24 22:00 06/12/24 10:55 1 MG Lorazepam 0.5 mg Q6HP PRN IV 06/08/24 13:45 Haloperidol Lactate 2.5 mg Q8HP PRN IM 06/08/24 13:45 06/08/24 13:48 2.5 MG Digoxin 0.125 mg DAILY PO 06/11/24 10:00 06/12/24 10:50 0.125 MG Enoxaparin Sodium 40 mg DAILY SC 06/11/24 10:00 06/12/24 10:51 40 MG Furosemide 20 mg BIDD IV 06/12/24 18:00 Empaglifozin 10 mg DAILY PO 06/13/24 10:00 Laboratory Results Laboratory Tests 06/12/24 04:43 Chemistry Test 06/12/24 04:43 Calcium Level 8.3 mg/dL (8.7-10.4) L Magnesium Level 1.8 mg/dL (1.6-2.6) Cardiac Markers Test 06/12/24 04:43 B-Type Natriuretic Peptide 2986.22 pg/mL (0-100) Urinalysis Test 06/03/24 17:57 06/05/24 20:55 06/11/24 16:17 Urine Epithelial Casts Few /hpf (<5) Urine Color Yellow (Yellow) Urine Clarity Clear (Clear) Urine pH 5.0 (5.0-9.0) Urine Specific [place] 1.018 (1.001-1.035) Urine Protein Trace (Negative) H Urine Ketones Negative (Negative) Urine Blood Negative /uL (Negative) Urine Nitrite Negative (Negative) Urine Bilirubin Negative (Negative) Urine Urobilinogen Normal mg/dL (Negative) Urine Leukocyte Esterase Negative /uL (Negative) Urine RBC 2 /hpf (0 - 3) Urine WBC 3 /hpf (0 - 3) Urine Squamous Epithelial Cells Few /hpf (<5) Urine Bacteria None seen /hpf (None Seen) Urine Hyaline Casts Mod /lpf (0 - 2) Urine Mucus Few (None Seen) Urine Glucose 4+ mg/dL (Normal) H Urine Osmolality 301 mOsm/kg Urine Creatinine 10.12 mg/dL (30.0-125.0) L Urine Sodium 113 mmol/L (40-220) Microbiology Microbiology Date/Time Source Procedure Growth Status 06/05/24 20:55 Voided Urine Urine Culture - Final Complete 06/05/24 19:46 Nose MRSA Screen - Final Complete 06/05/24 19:21 Blood Blood Culture - Final NO GROWTH AFTER 5 DAYS OF INCUBATION. Complete Assessment/Plan Assessment/Plan Acute on chronic congestive heart failure with low ejection fraction Bilateral lower extremity open wounds Type 2 diabetes Dyslipidemia Hypertension Chronic kidney disease Plan 06/04/2024: IV Lasix 40 mg twice a day Oxygen as needed Dietary consult Continue Aldactone 50 mg daily Entresto IV antibiotics vancomycin per pharmacy protocol The code Advance directives discussed for 20 minutes 06/05/2024: Unresponsiveness, possible due to opiates, Narcan was given x2 doses Rule out CVA: Get a CT scan of the head no contrast Hypotension: Start Levophed Hyperkalemia: Repeat labs including electrolytes and kidney function Check troponins again Acute kidney injury on Chronic kidney disease Elevated troponin, NSTEMI type 2 Acute on chronic decompensated heart failure with reduced ejection fraction EF 10-15% Nonischemic cardiomyopathy Possible cardiorenal syndrome History of hypertension Thrombocytopenia Plan Transfer to the [facility] Levophed drip to keep map above 65 CT scan of the head : Negative Check the electrolytes again, hyperkalemia: Give hyperkalemia protocol Central line, done Called the family to update them, no answer Rule out sepsis: Get blood culture, lactic acid, UA, urine culture Poor prognosis The patient eventually woke up and became more alert and oriented and was completely following commands and understanding his environment I asked him about advance directives, he stated Full Code 06/06/2024: Patient is complaining of abdominal pain Examination shows right upper quadrant tenderness Gallbladder ultrasound showed contracted gallbladder and thickened romo We will get a CT scan of the abdomen and pelvis without contrast Liver enzymes are elevated Check the hepatitis panel Kidney function is stable but the potassium is still high Nephrology is following Cardiology is following the patient Ventricular tachycardia has resolved after the ICD converted him yesterday The patient is more alert now, CT scan of the head was negative Blood cultures are still pending UA was negative for UTI Wound culture of the foot showed Gram-negative rods Continue vancomycin Add meropenem IV Replace magnesium IV Continue IV Lasix 40 mg twice a day Full code The patient pulled out his central line yesterday We will try to do a new central line placement , he is agreeable 06/07/2024: Abdominal pain: Consult GI regarding elevated liver function test and bilirubin Hyperbilirubinemia: Consult GI Elevated LFTs: CT scan is negative Right lower lobe pneumonia: Continue IV antibiotics Blood and urine cultures are pending 06/08/2024: Nonischemic cardiomyopathy ejection fraction 10-15% Acute on chronic heart failure with reduced ejection fraction Nonsustained V-tach, patient has ICD NSTEMI type 2 Type 2 diabetes Acute kidney injury on chronic kidney disease The cardiorenal syndrome Hypertension Bilateral lower extremity cellulitis Thrombocytopenia Sepsis Obesity Plan Levophed drip as needed IV antibiotics: Meropenem and vancomycin Discontinue Jardiance and metoprolol for now due to hypotension IV Lasix P.o. amiodarone Confusion: Haldol IM Ativan IV p.r.n. Hypotension: Levophed drip 06/09/2024: Sepsis: Continue IV antibiotics Septic shock: Continue Levophed: Taper as tolerated Risperidone 1 mg at bedtime Lasix 40 mg twice a day 06/10/2024: He was started on Lasix drip by Nephrology Levophed as needed Albumin IV Cellulitis and leg wound: Vancomycin and meropenem Amiodarone Digoxin Risperidone at bedtime Poor prognosis 06/11/2024: Continue current management with Levophed drip Tapered as tolerated Continue IV antibiotics Continue amiodarone and digoxin 06/12/2024: Downgrade to telemetry Discontinue Lasix drip Switch to IV Lasix twice a day Start physical therapy Replace potassium Plan discussed with: Patient Date of Service: Jun 12, 2024 Billing Provider: NERISSA SALTER MD Common Visit Codes: [id number] INP/OBS CARE(HIGH) NERISSA SALTER MD Jun 12, 2024 14:15
[2024-06-12] MEDS: FUROSEMIDE 20 MG/2 ML VIAL IV SCH (17:29)
[2024-06-12] MEDS ORDERED: FUROSEMIDE 40 MG/4 ML VIAL IV SCH (18:00)
--- NOTE | 2024-06-12 23:09 | DVHPN2 ---
Progress Note - Dictate Date Seen: Jun 12, 2024 Medical Necessity Reason Pt with a Central, PICC or Fol: Yes The following are medically ne: Lockett Catheter Reason for lockett catheter: Strict I&O Subjective Patient seen and examined at bedside. Remains on supplemental oxygen Overnight events reviewed. vital signs Vital Sign Date Time Temp Pulse Resp B/P (MAP) Pulse Ox O2 Delivery O2 Flow Rate FiO2 06/12/24 21:00 97.5 103 16 90/53 (65) 96 97.5 06/12/24 14:00 Nasal Cannula* 1 24 Total Intake and Output 06/11/24 06/11/24 06/12/24 15:00 23:00 07:00 Intake Total 353.504 ml 431.563 ml 467.626 ml Output Total 2650 ml 2250 ml Balance 353.504 ml -2218.437 ml -1782.374 ml medications Current Medications Medications Dose Ordered Sig/Patrick Route Start Time Stop Time Status Last Admin Dose Admin Sodium Chloride 10 ml Q8HR IV 06/03/24 22:00 06/12/24 22:03 10 ML Ondansetron HCl 4 mg Q4HP PRN IV 06/03/24 15:30 Docusate Sodium 100 mg BIDPRN PRN PO 06/03/24 15:30 Acetaminophen 650 mg Q6HP PRN PO 06/03/24 15:30 Nitroglycerin 0.4 mg Q5MINP PRN SL 06/03/24 15:30 Diagnostic Test (Pha) 1 strip ACHS 06/03/24 17:00 06/12/24 22:12 1 STRIP Insulin Human Regular HS SC 06/03/24 22:00 06/10/24 21:00 2 UNITS Insulin Human Regular AC SC 06/03/24 17:00 06/09/24 10:59 3 UNITS Dextrose 50 ml UD PRN IV 06/03/24 15:30 06/06/24 05:34 50 ML Vancomycin HCl 0 ml @ 0 mls/hr UD IV 06/03/24 15:45 Ferrous Sulfate 325 mg DAILY PO 06/04/24 10:00 06/12/24 10:51 325 MG Pravastatin Sodium 20 mg HS PO 06/03/24 22:00 06/12/24 22:03 20 MG Meropenem 50 ml @ 17 mls/hr Q8HR IV 06/06/24 20:00 06/12/24 22:47 17 MLS/HR Amiodarone HCl 200 mg Q12HR PO 06/06/24 22:00 06/12/24 22:04 200 MG Risperidone 1 mg DAILY PO 06/08/24 22:00 06/12/24 10:55 1 MG Lorazepam 0.5 mg Q6HP PRN IV 06/08/24 13:45 Haloperidol Lactate 2.5 mg Q8HP PRN IM 06/08/24 13:45 06/08/24 13:48 2.5 MG Digoxin 0.125 mg DAILY PO 06/11/24 10:00 06/12/24 10:50 0.125 MG Enoxaparin Sodium 40 mg DAILY SC 06/11/24 10:00 06/12/24 10:51 40 MG Furosemide 20 mg BIDD IV 06/12/24 18:00 Empaglifozin 10 mg DAILY PO 06/13/24 10:00 Vancomycin HCl 100 ml @ 200 mls/hr Q18H IV 06/13/24 08:00 objective Gen.: Patient lying in bed in no apparent distress. On supplemental oxygen. Head: Normocephalic, atraumatic. Eyes: EOMI/PERRLA. Ears: Normal hearing. Normal anatomy. Neck/trachea: Trachea midline, supple. Nose: Normal external anatomy. Mouth: Moist mucous membranes. Chest: Decreased air entry bilaterally. No wheezing or rhonchi. Cardiovascular: Positive S1, positive S2. Regular rate and rhythm. Abdomen: Positive bowel sounds in all 4 quadrants. Soft, non-tender, non- distended. : Deferred. Rectal: Deferred. Skin: Warm, dry. Intact. Extremities: 2+ radial pulses bilaterally. No lower extremity edema. Neuro: Awake, alert, oriented x3. No gross motor or sensory deficits. Cranial nerves II through XII intact. Gait not assessed. laboratory and microbiology Laboratory Tests 06/12/24 04:43 Test 06/12/24 04:43 Range/Units Serum Glucose 102 74-106 mg/dL Assessment/Plan Impression: Acute on chronic systolic CHF (EF 10-15%) BLE wounds DM type II Acute on chronic CKD Metabolic acidosis Hyperkalemia Elevated troponin Overweight, BMI 29.5 Events: Remains on supplemental oxygen, 1 LPM NC Taper O2 as tolerated Head of bed elevation Aspiration precautions Continue antibiotics IS. Off pressors, hemodynamically stable. Patient is stable for downgrade from the pulmonary standpoint. On amiodarone, Digoxin PO. Maintain euvolemia Monitor renal function Monitor lactic acid. Follow PT/INR. Wound care. Labs and imaging reviewed. Rest of plan as noted below. Plan: Supplemental oxygen Titrate to keep O2 sats above 92%. CXR demonstrated mild pulmonary vascular congestion. Continue bronchodilators. Antibiotics Iron supplementation Monitor hemoglobin Accu-Cheks, ISS. Maintain euvolemia Monitor renal function. Monitor electrolytes. Supplement as necessary. Monitor ins and outs. DVT prophylaxis. Rapid Response/Code Assist: Patient became hypotensive and unresponsive, upgraded to SHIREEN. Central line placement in right IJ. STAT CT head obtained to r/o ICH or stroke. Pt received Narcan x2. Pressors as necessary to maintain a mean arterial blood pressure greater than 65 mmHg. Monitor renal function - creatinine trending down. Monitor electrolytes. Supplement as necessary. Monitor ins and outs Prognosis: Poor given patient's multiple co-morbidities. Rest of plan per hospitalist and other consultants. Thank you, Ekta Meek, MACHELLE/Dr Mcintosh, for allowing me to participate in this patient's care. Further recommendations will depend on the patient's clinical course. Please do not hesitate to contact me if you have any questions or concerns. This medical document was created using an electronic medical record system with [employer] dictation system. Although these documentations are being carefully reviewed, there may still be some phonetic and typographical changes. The errors are purely typographical, due to imperfection on the software program, and do not reflect any compromise in the patient's medical care. Dietary Evaluation Review Comments: 1) Consider YULIET 1 pkt BID for wounds 2) Continue current plan of care Expected Outcomes/Goals: 1) Pt labs to improve 2) F/U in 3-5 days Plan discussed with: Patient, Other (MARY Irizarry) WALDO OHARA MD Jun 12, 2024 23:09
[2024-06-13] VITALS (7 sets, daily range): BP systolic 90–115; BP diastolic 48–72; PULSE 78–103; RESP 16–18; TEMP 97.5–97.9; O2SAT 93–100
[2024-06-13 06:03] LABS: Basophils # (auto) 0 10 ^3/uL (0-0.2); Basophils % (auto) 0.1 % (0.0-2.0); Eosinophils # (auto) 0 10 ^3/uL (0-0.8); Eosinophils % (auto) 0.1 % (0.0-7.0); Hemoglobin 13.4 g/dL (13.5-17.5); Lymphocytes # (auto) 0.4 10 ^3/uL (0.4-5.4); Lymphocytes % (auto) 4.4 % (10.0-50.0); Mean Corpuscular Hemoglobin 29.1 pg (28.0-32.0); Mean Corpuscular Hgb Conc. 32.8 g/dL (32.0-36.0); Mean Corpuscular Volume 88.9 fL (80.0-100.0); Monocytes # (auto) 0.5 10 ^3/uL (0-1.3); Neutrophils # (auto) 7.7 10 ^3/uL (1.6-8.6); Neutrophils % (auto) 89.4 % (37.0-80.0); Nucleated Red Blood Cells % 0.1 %; Platelet Count (auto) 175 10^3/uL (140-450); Red Blood Cells 4.61 10^6/uL (4.5-5.90); Red Cell Distribution Width 25.6 % (11.8-14.3); White Blood Cell 8.7 10^3/uL (4.4-10.8)
[2024-06-13 06:22] LABS: Potassium 3.9 mmol/L (3.5-5.1)
[2024-06-13 06:23] LABS: Anion Gap 7 (5-15)
[2024-06-13 06:28] LABS: BUN/Creatinine Ratio 28.6 (10.0-20.0); Glucose 91 mg/dL (74-106)
[2024-06-13 06:44] LABS: Blood Urea Nitrogen 24 mg/dL (9-23); Calcium 8.4 mg/dL (8.7-10.4); Carbon Dioxide 32 mmol/L (20-31); Chloride 93 mmol/L (98-107); Sodium 132 mmol/L (136-145)
[2024-06-13 06:57] LABS: Anisocytosis Slight; Target Cell MODERATE
[2024-06-13 06:58] LABS: Platelet Estimate Adequate; Stomatocytes Few
[2024-06-13] MEDS: VANCOMYCIN 500mg/100mL 100 ML IV SCH (08:19)
[2024-06-13] MEDS: EMPAGLIFLOZIN 10 MG TAB PO SCH (10:26)
--- NOTE | 2024-06-13 11:19 | DVHPN2 ---
Consult Progress Note Date Seen: Jun 13, 2024 Objective vital signs Vital Sign Date Time Temp Pulse Resp B/P (MAP) Pulse Ox O2 Delivery O2 Flow Rate FiO2 06/13/24 10:26 98.6 06/13/24 10:25 103 06/13/24 06:00 97/58 06/13/24 05:00 17 97 06/12/24 20:00 Nasal Cannula* 1 24 Total Intake and Output 06/12/24 06/12/24 06/13/24 15:00 23:00 07:00 Intake Total 49 ml 50 ml 650 ml Output Total 1000 ml 550 ml Balance 49 ml -950 ml 100 ml medications Current Medications Medications Dose Ordered Sig/Patrick Route Start Time Stop Time Status Last Admin Dose Admin Sodium Chloride 10 ml Q8HR IV 06/03/24 22:00 06/13/24 06:19 10 ML Ondansetron HCl 4 mg Q4HP PRN IV 06/03/24 15:30 Docusate Sodium 100 mg BIDPRN PRN PO 06/03/24 15:30 Acetaminophen 650 mg Q6HP PRN PO 06/03/24 15:30 06/13/24 10:26 650 MG Nitroglycerin 0.4 mg Q5MINP PRN SL 06/03/24 15:30 Diagnostic Test (Pha) 1 strip ACHS 06/03/24 17:00 06/13/24 06:26 1 STRIP Insulin Human Regular HS SC 06/03/24 22:00 06/10/24 21:00 2 UNITS Insulin Human Regular AC SC 06/03/24 17:00 06/09/24 10:59 3 UNITS Dextrose 50 ml UD PRN IV 06/03/24 15:30 06/06/24 05:34 50 ML Vancomycin HCl 0 ml @ 0 mls/hr UD IV 06/03/24 15:45 Ferrous Sulfate 325 mg DAILY PO 06/04/24 10:00 06/13/24 10:26 325 MG Pravastatin Sodium 20 mg HS PO 06/03/24 22:00 06/12/24 22:03 20 MG Meropenem 50 ml @ 17 mls/hr Q8HR IV 06/06/24 20:00 06/13/24 06:19 17 MLS/HR Amiodarone HCl 200 mg Q12HR PO 06/06/24 22:00 06/13/24 10:25 200 MG Risperidone 1 mg DAILY PO 06/08/24 22:00 06/13/24 10:26 1 MG Lorazepam 0.5 mg Q6HP PRN IV 06/08/24 13:45 Haloperidol Lactate 2.5 mg Q8HP PRN IM 06/08/24 13:45 06/08/24 13:48 2.5 MG Digoxin 0.125 mg DAILY PO 06/11/24 10:00 06/13/24 10:25 0.125 MG Enoxaparin Sodium 40 mg DAILY SC 06/11/24 10:00 06/13/24 10:26 40 MG Furosemide 20 mg BIDD IV 06/12/24 18:00 Empaglifozin 10 mg DAILY PO 06/13/24 10:00 06/13/24 10:26 10 MG Vancomycin HCl 100 ml @ 200 mls/hr Q18H IV 06/13/24 08:00 06/13/24 08:19 200 MLS/HR Examination: GENERAL:Abnormal (Chronically ill), LUNGS:Normal, CVS:Normal, NEURO:Abnormal laboratory and microbiology Laboratory Tests 06/13/24 05:19 Test 06/13/24 05:19 Range/Units Serum Glucose 91 74-106 mg/dL Problem List/Assessment/Plan Problem List/Assessment/Plan Acute on chronic decompensated HFrEF with EF 10-15%, NYHA Class IV Nonischemic cardiomyopathy NSTEMI type 2 secondary to above Nonsustained ventricular tachycardia, new onset Prolonged QT interval, resolved Presence of AICD ([employer]) Muz-czbiyoy-gceyncydm diabetes mellitus, controlled, HgbA1C 5.9% Acute kidney injury on chronic kidney disease stage IIIb Likely cardiorenal syndrome type II Accelerated hypertension now hypotension Bilateral lower limb cellulitis Thrombocytopenia, resolved Thyroid disease Obesity Plan/Recommendation Dr. Hurtado) 1. Echocardiogram from 02/20/2024 revealed: Severely dilated left ventricle. Severely reduced left ventricular systolic function estimated ejection fraction of 15%. There is global wall akinesia. There is restrictive filling pattern had diastolic type 3 dysfunction. Normal right ventricular size and dimension. Moderately reduced right ventricular systolic function. Moderately elevated right ventricular systolic [id number] mm of mercury. Moderately dilated right and left atria. Aortic valve is mildly thickened no significant stenosis or regurgitation. The mitral valve has mild mitral valve regurgitation. There is mild tricuspid valve regurgitation. The pulmonary valve grossly normal. No pericardial effusion. 2. Introduce GDMT for CHF as tolerated. Currently on Entresto and Jardiance given borderline BPs. 3. Lasix BID. Strict I&Os. Daily weight. Fluid restriction. 2 g salt restriction, 1.2 L total fluid restriction in 24 hours. 4. Continue antiarrhythmic, amiodarone, given NSVT. Continue digoxin for rate control, HR 100s bpm. 5. Replete electrolytes as necessary, potassium >4 and magnesium >2. 6. Continue abx therapy/wound care per primary care team. 7. DVT/VTE prophylaxis. Cardiac stable. Follow-up with primary putty patcher within 1-2 weeks post- discharge. Consider goals of care. May be a candidate for hospice care given end-stage cardiomyopathy. There is no further cardiac work-up indicated at this time. Kindly call with any questions or concerns. Thank you for the opportunity to consult on your patient. This medical document was created using an electronic medical record system with voice recognition software and computerized dictation system. Although this document has been carefully reviewed, there might still be some phonetic and typographical errors. Occasional wrong-word or ``sound-alike substitutions may have occurred due to the inherent limitations of voice recognition software. These areas are purely typographical due to imperfections of the software programs and do not reflect any compromise in the patient's medical care. Please read the chart carefully and recognize, using context, where these substitutions have occurred. Plan discussed with: Other Dietary Evaluation Review Comments: 1) Consider YULIET 1 pkt BID for wounds 2) Continue current plan of care Expected Outcomes/Goals: 1) Pt labs to improve 2) F/U in 3-5 days Date of Service: Jun 13, 2024 Billing Provider: DENTON HURTADO MD Cardiology Common Codes: [id number] [facility]( [facility]IL[facility]BALLO [facility] Jun 13, 2024 11:19
--- NOTE | 2024-06-13 12:36 | DVHPN2 ---
Subjective He is alert, slow to react or answer questions Complains of pain 8/10 in his back, he is on Tylenol for that Edema is better Changes from previous H/P or p: Changes Eyes: No Pain, No Vision change, No Conjunctivae inflammation, No Eyelid inflammation, No Other, No Redness ENT: No Ear pain, No Ear discharge, No Nose pain, No Nose discharge, No Nose congestion, No Mouth pain, No Mouth swelling, No Throat pain, No Throat swelling, No Other Cardiovascular: No Chest Pain, No Palpitations, No Orthopnea, No Paroxysmal Noc. Dyspnea, No Edema, No Lt Headedness, No Other Respiratory: No Cough, No Dry, No Shortness of breath, No SOB with excertion, No Wheezing, No Hemoptysis, No Pleuritic Pain, No Sputum, No Other Gastrointestinal: No Nausea, No Vomiting, No Abdominal Pain, No Diarrhea, No Constipation, No Melena, No Hematochezia, No Other Genitourinary: No Dysuria, No Frequency, No Incontinence, No Hematuria, No Retention, No Other Musculoskeletal: No other, No neck pain, No shoulder pain, No arm pain, No back pain, No hand pain, No leg pain, No foot pain Skin: No Rash, No Lesions, No Jaundice, No Bruising, No Other Objective Vitals Vital Signs Date Time Temp Pulse Resp B/P (MAP) Pulse Ox O2 Delivery O2 Flow Rate FiO2 06/13/24 11:26 98.9 06/13/24 10:25 103 06/13/24 06:00 97/58 06/13/24 05:00 17 97 06/12/24 20:00 Nasal Cannula* 1 24 Intake/Output Intake and Output 06/13/24 06:59 Intake Total 784 ml Output Total 1550 ml Balance -766 ml Intake Oral 600 ml IV Total 184 ml Output Urine Total 1550 ml # Bowel Movements 1 General Appearance: Alert, Oriented X3, Cooperative Lungs: Other (Bilateral rhonchi) Cardiovascular: Regular rate, Normal S1, Normal S2 Abdomen: Normal bowel sounds, Soft, No tenderness Extremities: Other (2+ edema bilaterally in the lower extremity) Medications Current Medications Medications Dose Ordered Sig/Patrick Route Start Time Stop Time Status Last Admin Dose Admin Sodium Chloride 10 ml Q8HR IV 06/03/24 22:00 06/13/24 06:19 10 ML Ondansetron HCl 4 mg Q4HP PRN IV 06/03/24 15:30 Docusate Sodium 100 mg BIDPRN PRN PO 06/03/24 15:30 Acetaminophen 650 mg Q6HP PRN PO 06/03/24 15:30 06/13/24 10:26 650 MG Nitroglycerin 0.4 mg Q5MINP PRN SL 06/03/24 15:30 Diagnostic Test (Pha) 1 strip ACHS 06/03/24 17:00 06/13/24 11:30 1 STRIP Insulin Human Regular HS SC 06/03/24 22:00 06/10/24 21:00 2 UNITS Insulin Human Regular AC SC 06/03/24 17:00 06/09/24 10:59 3 UNITS Dextrose 50 ml UD PRN IV 06/03/24 15:30 06/06/24 05:34 50 ML Vancomycin HCl 0 ml @ 0 mls/hr UD IV 06/03/24 15:45 Ferrous Sulfate 325 mg DAILY PO 06/04/24 10:00 06/13/24 10:26 325 MG Pravastatin Sodium 20 mg HS PO 06/03/24 22:00 06/12/24 22:03 20 MG Meropenem 50 ml @ 17 mls/hr Q8HR IV 06/06/24 20:00 06/13/24 06:19 17 MLS/HR Amiodarone HCl 200 mg Q12HR PO 06/06/24 22:00 06/13/24 10:25 200 MG Risperidone 1 mg DAILY PO 06/08/24 22:00 06/13/24 10:26 1 MG Lorazepam 0.5 mg Q6HP PRN IV 06/08/24 13:45 Haloperidol Lactate 2.5 mg Q8HP PRN IM 06/08/24 13:45 06/08/24 13:48 2.5 MG Digoxin 0.125 mg DAILY PO 06/11/24 10:00 06/13/24 10:25 0.125 MG Enoxaparin Sodium 40 mg DAILY SC 06/11/24 10:00 06/13/24 10:26 40 MG Furosemide 20 mg BIDD IV 06/12/24 18:00 Empaglifozin 10 mg DAILY PO 06/13/24 10:00 06/13/24 10:26 10 MG Vancomycin HCl 100 ml @ 200 mls/hr Q18H IV 06/13/24 08:00 06/13/24 08:19 200 MLS/HR Sacubitril/ Valsartan 0.5 tab BID PO 06/13/24 22:00 Laboratory Results Laboratory Tests 06/13/24 05:19 Chemistry Test 06/13/24 05:19 Calcium Level 8.4 mg/dL (8.7-10.4) L Magnesium Level 2.0 mg/dL (1.6-2.6) Cardiac Markers Test 06/13/24 05:19 B-Type Natriuretic Peptide 1700.71 pg/mL (0-100) Urinalysis Test 06/03/24 17:57 06/05/24 20:55 06/11/24 16:17 Urine Epithelial Casts Few /hpf (<5) Urine Color Yellow (Yellow) Urine Clarity Clear (Clear) Urine pH 5.0 (5.0-9.0) Urine Specific [place] 1.018 (1.001-1.035) Urine Protein Trace (Negative) H Urine Ketones Negative (Negative) Urine Blood Negative /uL (Negative) Urine Nitrite Negative (Negative) Urine Bilirubin Negative (Negative) Urine Urobilinogen Normal mg/dL (Negative) Urine Leukocyte Esterase Negative /uL (Negative) Urine RBC 2 /hpf (0 - 3) Urine WBC 3 /hpf (0 - 3) Urine Squamous Epithelial Cells Few /hpf (<5) Urine Bacteria None seen /hpf (None Seen) Urine Hyaline Casts Mod /lpf (0 - 2) Urine Mucus Few (None Seen) Urine Glucose 4+ mg/dL (Normal) H Urine Osmolality 301 mOsm/kg Urine Creatinine 10.12 mg/dL (30.0-125.0) L Urine Sodium 113 mmol/L (40-220) Microbiology Microbiology Date/Time Source Procedure Growth Status 06/05/24 20:55 Voided Urine Urine Culture - Final Complete 06/05/24 19:46 Nose MRSA Screen - Final Complete 06/05/24 19:21 Blood Blood Culture - Final NO GROWTH AFTER 5 DAYS OF INCUBATION. Complete Assessment/Plan Assessment/Plan Acute on chronic congestive heart failure with low ejection fraction Bilateral lower extremity open wounds Type 2 diabetes Dyslipidemia Hypertension Chronic kidney disease Plan 06/04/2024: IV Lasix 40 mg twice a day Oxygen as needed Dietary consult Continue Aldactone 50 mg daily Entresto IV antibiotics vancomycin per pharmacy protocol The code Advance directives discussed for 20 minutes 06/05/2024: Unresponsiveness, possible due to opiates, Narcan was given x2 doses Rule out CVA: Get a CT scan of the head no contrast Hypotension: Start Levophed Hyperkalemia: Repeat labs including electrolytes and kidney function Check troponins again Acute kidney injury on Chronic kidney disease Elevated troponin, NSTEMI type 2 Acute on chronic decompensated heart failure with reduced ejection fraction EF 10-15% Nonischemic cardiomyopathy Possible cardiorenal syndrome History of hypertension Thrombocytopenia Plan Transfer to the SHIREEN Levophed drip to keep map above 65 CT scan of the head : Negative Check the electrolytes again, hyperkalemia: Give hyperkalemia protocol Central line, done Called the family to update them, no answer Rule out sepsis: Get blood culture, lactic acid, UA, urine culture Poor prognosis The patient eventually woke up and became more alert and oriented and was completely following commands and understanding his environment I asked him about advance directives, he stated Full Code 06/06/2024: Patient is complaining of abdominal pain Examination shows right upper quadrant tenderness Gallbladder ultrasound showed contracted gallbladder and thickened romo We will get a CT scan of the abdomen and pelvis without contrast Liver enzymes are elevated Check the hepatitis panel Kidney function is stable but the potassium is still high Nephrology is following Cardiology is following the patient Ventricular tachycardia has resolved after the ICD converted him yesterday The patient is more alert now, CT scan of the head was negative Blood cultures are still pending UA was negative for UTI Wound culture of the foot showed Gram-negative rods Continue vancomycin Add meropenem IV Replace magnesium IV Continue IV Lasix 40 mg twice a day Full code The patient pulled out his central line yesterday We will try to do a new central line placement , he is agreeable 06/07/2024: Abdominal pain: Consult GI regarding elevated liver function test and bilirubin Hyperbilirubinemia: Consult GI Elevated LFTs: CT scan is negative Right lower lobe pneumonia: Continue IV antibiotics Blood and urine cultures are pending 06/08/2024: Nonischemic cardiomyopathy ejection fraction 10-15% Acute on chronic heart failure with reduced ejection fraction Nonsustained V-tach, patient has ICD NSTEMI type 2 Type 2 diabetes Acute kidney injury on chronic kidney disease The cardiorenal syndrome Hypertension Bilateral lower extremity cellulitis Thrombocytopenia Sepsis Obesity Plan Levophed drip as needed IV antibiotics: Meropenem and vancomycin Discontinue Jardiance and metoprolol for now due to hypotension IV Lasix P.o. amiodarone Confusion: Haldol IM Ativan IV p.r.n. Hypotension: Levophed drip 06/09/2024: Sepsis: Continue IV antibiotics Septic shock: Continue Levophed: Taper as tolerated Risperidone 1 mg at bedtime Lasix 40 mg twice a day 06/10/2024: He was started on Lasix drip by Nephrology Levophed as needed Albumin IV Cellulitis and leg wound: Vancomycin and meropenem Amiodarone Digoxin Risperidone at bedtime Poor prognosis 06/11/2024: Continue current management with Levophed drip Tapered as tolerated Continue IV antibiotics Continue amiodarone and digoxin 06/12/2024: Downgrade to telemetry Discontinue Lasix drip Switch to IV Lasix twice a day Start physical therapy Replace potassium 06/13/2024: Continue physical therapy IV antibiotics Amiodarone p.o. Digoxin Lovenox Entresto Continue risperidone at bedtime Tylenol for pain Plan discussed with: Patient My Orders Orders - NERISSA SALTER MD Procedure Category Date Status Time Pt Request For Service PT 06/12/24 Logged 14:14 Date of Service: Jun 13, 2024 Billing Provider: NERISSA SALTER MD Common Visit Codes: [id number] INP/OBS CARE(HIGH) NERISSA SALTER MD Jun 13, 2024 12:35
--- NOTE | 2024-06-13 20:30 | DVHPN2 ---
Progress Note - Dictate Date Seen: Jun 13, 2024 Medical Necessity Reason Pt with a Central, PICC or Fol: Yes The following are medically ne: Lockett Catheter Reason for lockett catheter: Strict I&O Subjective Patient seen and examined at bedside. Remains on supplemental oxygen Overnight events reviewed. vital signs Vital Sign Date Time Temp Pulse Resp B/P (MAP) Pulse Ox O2 Delivery O2 Flow Rate FiO2 06/13/24 17:47 90/48 06/13/24 16:30 97.5 78 16 93 97.5 06/13/24 10:05 Nasal Cannula 1.0 06/13/24 10:05 24 Total Intake and Output 06/12/24 06/12/24 06/13/24 15:00 23:00 07:00 Intake Total 49 ml 50 ml 650 ml Output Total 1000 ml 550 ml Balance 49 ml -950 ml 100 ml medications Current Medications Medications Dose Ordered Sig/Patrick Route Start Time Stop Time Status Last Admin Dose Admin Sodium Chloride 10 ml Q8HR IV 06/03/24 22:00 06/13/24 14:00 10 ML Ondansetron HCl 4 mg Q4HP PRN IV 06/03/24 15:30 Docusate Sodium 100 mg BIDPRN PRN PO 06/03/24 15:30 Acetaminophen 650 mg Q6HP PRN PO 06/03/24 15:30 06/13/24 10:26 650 MG Nitroglycerin 0.4 mg Q5MINP PRN SL 06/03/24 15:30 Diagnostic Test (Pha) 1 strip ACHS 06/03/24 17:00 06/13/24 17:39 1 STRIP Insulin Human Regular HS SC 06/03/24 22:00 06/10/24 21:00 2 UNITS Insulin Human Regular AC SC 06/03/24 17:00 06/09/24 10:59 3 UNITS Dextrose 50 ml UD PRN IV 06/03/24 15:30 06/06/24 05:34 50 ML Vancomycin HCl 0 ml @ 0 mls/hr UD IV 06/03/24 15:45 Ferrous Sulfate 325 mg DAILY PO 06/04/24 10:00 06/13/24 10:26 325 MG Pravastatin Sodium 20 mg HS PO 06/03/24 22:00 06/12/24 22:03 20 MG Meropenem 50 ml @ 17 mls/hr Q8HR IV 06/06/24 20:00 06/13/24 14:00 17 MLS/HR Amiodarone HCl 200 mg Q12HR PO 06/06/24 22:00 06/13/24 10:25 200 MG Risperidone 1 mg DAILY PO 06/08/24 22:00 06/13/24 10:26 1 MG Lorazepam 0.5 mg Q6HP PRN IV 06/08/24 13:45 Haloperidol Lactate 2.5 mg Q8HP PRN IM 06/08/24 13:45 06/08/24 13:48 2.5 MG Digoxin 0.125 mg DAILY PO 06/11/24 10:00 06/13/24 10:25 0.125 MG Enoxaparin Sodium 40 mg DAILY SC 06/11/24 10:00 06/13/24 10:26 40 MG Furosemide 20 mg BIDD IV 06/12/24 18:00 Empaglifozin 10 mg DAILY PO 06/13/24 10:00 06/13/24 10:26 10 MG Vancomycin HCl 100 ml @ 200 mls/hr Q18H IV 06/13/24 08:00 06/13/24 08:19 200 MLS/HR Sacubitril/ Valsartan 0.5 tab BID PO 06/13/24 22:00 objective Gen.: Patient lying in bed in no apparent distress. On supplemental oxygen. Head: Normocephalic, atraumatic. Eyes: EOMI/PERRLA. Ears: Normal hearing. Normal anatomy. Neck/trachea: Trachea midline, supple. Nose: Normal external anatomy. Mouth: Moist mucous membranes. Chest: Decreased air entry bilaterally. No wheezing or rhonchi. Cardiovascular: Positive S1, positive S2. Regular rate and rhythm. Abdomen: Positive bowel sounds in all 4 quadrants. Soft, non-tender, non- distended. : Deferred. Rectal: Deferred. Skin: Warm, dry. Intact. Extremities: 2+ radial pulses bilaterally. No lower extremity edema. Neuro: Awake, alert, oriented x3. No gross motor or sensory deficits. Cranial nerves II through XII intact. Gait not assessed. laboratory and microbiology Laboratory Tests 06/13/24 05:19 Test 06/13/24 05:19 Range/Units Serum Glucose 91 74-106 mg/dL Assessment/Plan Impression: Acute on chronic systolic CHF (EF 10-15%) BLE wounds DM type II Acute on chronic CKD Metabolic acidosis Hyperkalemia Elevated troponin Overweight, BMI 29.5 Events: Remains on supplemental oxygen, 1 LPM NC Taper O2 as tolerated Head of bed elevation Aspiration precautions Continue antibiotics IS. Iron supplementation Monitor hemoglobin. On amiodarone, Digoxin PO. Monitor lactic acid. Follow PT/INR. Wound care. Labs and imaging reviewed. Rest of plan as noted below. Plan: Supplemental oxygen Titrate to keep O2 sats above 92%. CXR on 06/12 demonstrated right pleural effusion. Right mid to lower lung zone consolidation. Chest ultrasound demonstrated trace bilateral pleural effusions. Off pressors, hemodynamically stable. Continue bronchodilators. Antibiotics Iron supplementation Monitor hemoglobin Accu-Cheks, ISS. Maintain euvolemia Monitor renal function. Monitor electrolytes. Supplement as necessary. Monitor ins and outs. DVT prophylaxis. Rapid Response/Code Assist: Patient became hypotensive and unresponsive, upgraded to SHIREEN. Central line placement in right IJ. STAT CT head obtained to r/o ICH or stroke. Pt received Narcan x2. Pressors as necessary to maintain a mean arterial blood pressure greater than 65 mmHg. Monitor renal function - creatinine trending down. Monitor electrolytes. Supplement as necessary. Monitor ins and outs Prognosis: Poor given patient's multiple co-morbidities. Rest of plan per hospitalist and other consultants. Thank you, Ekta Meek NP/Dr Mcintosh, for allowing me to participate in this patient's care. Further recommendations will depend on the patient's clinical course. Please do not hesitate to contact me if you have any questions or concerns. This medical document was created using an electronic medical record system with [employer] dictation system. Although these documentations are being carefully reviewed, there may still be some phonetic and typographical changes. The errors are purely typographical, due to imperfection on the software program, and do not reflect any compromise in the patient's medical care. Dietary Evaluation Review Comments: 1) Consider YULIET 1 pkt BID for wounds 2) Continue current plan of care Expected Outcomes/Goals: 1) Pt labs to improve 2) F/U in 3-5 days Plan discussed with: Patient, Other (MARY Roberts) WALDO OHARA MD Jun 13, 2024 20:30
[2024-06-13] MEDS: SACUBITRIL-VALSARTAN 24mg/26mg TAB PO SCH (22:19)
[2024-06-14] VITALS (8 sets, daily range): BP systolic 98–108; BP diastolic 45–70; PULSE 46–98; RESP 16–18; TEMP 97.5–99.1; O2SAT 95–100
[2024-06-14 06:21] LABS: Basophils # (auto) 0 10 ^3/uL (0-0.2); Basophils % (auto) 0.3 % (0.0-2.0); Eosinophils # (auto) 0 10 ^3/uL (0-0.8); Eosinophils % (auto) 0.2 % (0.0-7.0); Hematocrit 35.3 % (41.0-53.0); Lymphocytes # (auto) 0.5 10 ^3/uL (0.4-5.4); Lymphocytes % (auto) 6.5 % (10.0-50.0); Mean Corpuscular Hemoglobin 30.1 pg (28.0-32.0); Mean Corpuscular Volume 88.6 fL (80.0-100.0); Monocytes # (auto) 0.5 10 ^3/uL (0-1.3); Monocytes % (auto) 6.3 % (0.0-12.0); Neutrophils # (auto) 6.8 10 ^3/uL (1.6-8.6); Neutrophils % (auto) 86.7 % (37.0-80.0); Nucleated Red Blood Cells % 0.1 %; Platelet Count (auto) 170 10^3/uL (140-450); Red Blood Cells 3.99 10^6/uL (4.5-5.90); Red Cell Distribution Width 24.7 % (11.8-14.3); White Blood Cell 7.9 10^3/uL (4.4-10.8)
[2024-06-14 06:33] LABS: Alanine Aminotransferase 34 U/L (7-40); Anion Gap 6 (5-15); BUN/Creatinine Ratio 28.8 (10.0-20.0); Blood Urea Nitrogen 19 mg/dL (9-23); Carbon Dioxide 31 mmol/L (20-31); Magnesium 1.9 mg/dL (1.6-2.6); Potassium 3.9 mmol/L (3.5-5.1)
[2024-06-14 06:34] LABS: Albumin 2.4 g/dL (3.2-4.8); Alkaline Phosphatase 257 U/L (46-116); Aspartate Aminotransferase 55 U/L (13-40); Bilirubin, Total 3.8 mg/dL (0.2-1.0); Calcium 8.2 mg/dL (8.7-10.4); Chloride 94 mmol/L (98-107); Glucose 73 mg/dL (74-106); Sodium 131 mmol/L (136-145); Total Protein 5.3 g/dL (5.7-8.2)
--- NOTE | 2024-06-14 12:00 | DVHPN2 ---
Subjective The patient is seen and examined at bedside. Still remained very tired. Reviewed: Care Plan, H&P, Labs, Medications, Previous Orders, Radiology Changes from previous H/P or p: No Changes Eyes: No Pain, No Vision change, No Conjunctivae inflammation, No Eyelid inflammation, No Other, No Redness ENT: No Ear pain, No Ear discharge, No Nose pain, No Nose discharge, No Nose congestion, No Mouth pain, No Mouth swelling, No Throat pain, No Throat swelling, No Other Cardiovascular: No Chest Pain, No Palpitations, No Orthopnea, No Paroxysmal Noc. Dyspnea, No Edema, No Lt Headedness, No Other Respiratory: No Cough, No Dry, No Shortness of breath, No SOB with excertion, No Wheezing, No Hemoptysis, No Pleuritic Pain, No Sputum, No Other Gastrointestinal: No Nausea, No Vomiting, No Abdominal Pain, No Diarrhea, No Constipation, No Melena, No Hematochezia, No Other Genitourinary: No Dysuria, No Frequency, No Incontinence, No Hematuria, No Retention, No Other Musculoskeletal: No other, No neck pain, No shoulder pain, No arm pain, No back pain, No hand pain, No leg pain, No foot pain Skin: No Rash, No Lesions, No Jaundice, No Bruising, No Other Objective Vitals Vital Signs Date Time Temp Pulse Resp B/P (MAP) Pulse Ox O2 Delivery O2 Flow Rate FiO2 06/14/24 08:30 98.6 46 18 103/45 (64) 99 98.6 06/13/24 20:00 Nasal Cannula* 1 24 Intake/Output Intake and Output 06/14/24 07:00 Intake Total 1250 ml Output Total 950 ml Balance 300 ml Intake Oral 950 ml IV Total 300 ml Output Urine Total 950 ml General Appearance: Alert, Oriented X3, Cooperative Lungs: Other (Bilateral rhonchi) Cardiovascular: Regular rate, Normal S1, Normal S2 Abdomen: Normal bowel sounds, Soft, No tenderness Extremities: Other (2+ edema bilaterally in the lower extremity) Medications Current Medications Medications Dose Ordered Sig/Patrick Route Start Time Stop Time Status Last Admin Dose Admin Sodium Chloride 10 ml Q8HR IV 06/03/24 22:00 06/14/24 06:17 10 ML Ondansetron HCl 4 mg Q4HP PRN IV 06/03/24 15:30 Docusate Sodium 100 mg BIDPRN PRN PO 06/03/24 15:30 Acetaminophen 650 mg Q6HP PRN PO 06/03/24 15:30 06/13/24 10:26 650 MG Nitroglycerin 0.4 mg Q5MINP PRN SL 06/03/24 15:30 Diagnostic Test (Pha) 1 strip ACHS 06/03/24 17:00 06/14/24 06:17 1 STRIP Insulin Human Regular HS SC 06/03/24 22:00 06/10/24 21:00 2 UNITS Insulin Human Regular AC SC 06/03/24 17:00 06/09/24 10:59 3 UNITS Dextrose 50 ml UD PRN IV 06/03/24 15:30 06/06/24 05:34 50 ML Vancomycin HCl 0 ml @ 0 mls/hr UD IV 06/03/24 15:45 Ferrous Sulfate 325 mg DAILY PO 06/04/24 10:00 06/13/24 10:26 325 MG Pravastatin Sodium 20 mg HS PO 06/03/24 22:00 06/13/24 22:18 20 MG Meropenem 50 ml @ 17 mls/hr Q8HR IV 06/06/24 20:00 06/14/24 06:17 17 MLS/HR Amiodarone HCl 200 mg Q12HR PO 06/06/24 22:00 06/13/24 22:19 200 MG Risperidone 1 mg DAILY PO 06/08/24 22:00 06/13/24 10:26 1 MG Lorazepam 0.5 mg Q6HP PRN IV 06/08/24 13:45 Haloperidol Lactate 2.5 mg Q8HP PRN IM 06/08/24 13:45 06/08/24 13:48 2.5 MG Digoxin 0.125 mg DAILY PO 06/11/24 10:00 06/13/24 10:25 0.125 MG Enoxaparin Sodium 40 mg DAILY SC 06/11/24 10:00 06/13/24 10:26 40 MG Furosemide 20 mg BIDD IV 06/12/24 18:00 06/14/24 06:17 20 MG Empaglifozin 10 mg DAILY PO 06/13/24 10:00 06/13/24 10:26 10 MG Vancomycin HCl 100 ml @ 200 mls/hr Q18H IV 06/13/24 08:00 06/14/24 01:26 200 MLS/HR Sacubitril/ Valsartan 0.5 tab BID PO 06/13/24 22:00 06/13/24 22:19 0.5 TAB Laboratory Results Laboratory Tests 06/14/24 05:34 Chemistry Test 06/14/24 05:34 Albumin 2.4 g/dL (3.2-4.8) L Calcium Level 8.2 mg/dL (8.7-10.4) L Magnesium Level 1.9 mg/dL (1.6-2.6) Total Protein 5.3 g/dL (5.7-8.2) L LFT Test 06/14/24 05:34 Alanine Aminotransferase (ALT) 34 U/L (7-40) Alkaline Phosphatase 257 U/L (46-116) H Aspartate Amino Transferase (AST) 55 U/L (13-40) H Total Bilirubin 3.8 mg/dL (0.2-1.0) H Urinalysis Test 06/03/24 17:57 06/05/24 20:55 06/11/24 16:17 Urine Epithelial Casts Few /hpf (<5) Urine Color Yellow (Yellow) Urine Clarity Clear (Clear) Urine pH 5.0 (5.0-9.0) Urine Specific [place] 1.018 (1.001-1.035) Urine Protein Trace (Negative) H Urine Ketones Negative (Negative) Urine Blood Negative /uL (Negative) Urine Nitrite Negative (Negative) Urine Bilirubin Negative (Negative) Urine Urobilinogen Normal mg/dL (Negative) Urine Leukocyte Esterase Negative /uL (Negative) Urine RBC 2 /hpf (0 - 3) Urine WBC 3 /hpf (0 - 3) Urine Squamous Epithelial Cells Few /hpf (<5) Urine Bacteria None seen /hpf (None Seen) Urine Hyaline Casts Mod /lpf (0 - 2) Urine Mucus Few (None Seen) Urine Glucose 4+ mg/dL (Normal) H Urine Osmolality 301 mOsm/kg Urine Creatinine 10.12 mg/dL (30.0-125.0) L Urine Sodium 113 mmol/L (40-220) Microbiology Microbiology Date/Time Source Procedure Growth Status 06/05/24 20:55 Voided Urine Urine Culture - Final Complete 06/05/24 19:46 Nose MRSA Screen - Final Complete 06/05/24 19:21 Blood Blood Culture - Final NO GROWTH AFTER 5 DAYS OF INCUBATION. Complete Labs and/or images reviewed: Labs reviewed by me Assessment/Plan Assessment/Plan Acute on chronic congestive heart failure with low ejection fraction Bilateral lower extremity open wounds Type 2 diabetes Dyslipidemia Hypertension Acute kidney injury superimposed on Chronic kidney disease stage III Non ST-elevation [place] type 2 Acute on chronic decompensated congestive heart failure with EF 10-15% Nonischemic cardiomyopathy Possible cardiorenal syndrome Thrombocytopenia Nonsustained V-tach patient had ICD Right lower lobe pneumonia possible Gram-positive pneumonia Septic shock Cellulitis in the lower extremity bilateral Plan Levophed drip as needed to keep systolic blood pressure greater than 90 IV antibiotics: Meropenem and vancomycin Discontinue Jardiance and metoprolol for now due to hypotension IV Lasix Continuing sliding scale insulin. We will add Lantus at bedtime P.o. amiodarone Continuing Haldol IM Ativan IV p.r.n. Continuing with amiodarone and digoxin Risperidone at bedtime p.r.n. Prognosis poor Plan discussed with: Patient Date of Service: Jun 14, 2024 Billing Provider: LUCIANO PERALES MD Common Visit Codes: [id number] INP/OBS CARE(HIGH) LUCIANO PERALES MD Jun 14, 2024 12:00
--- NOTE | 2024-06-14 23:02 | DVHPN2 ---
Progress Note - Dictate Date Seen: Jun 14, 2024 Medical Necessity Reason Pt with a Central, PICC or Fol: Yes The following are medically ne: Lockett Catheter Reason for lockett catheter: Strict I&O Subjective Patient seen and examined at bedside. Remains on supplemental oxygen Overnight events reviewed. vital signs Vital Sign Date Time Temp Pulse Resp B/P (MAP) Pulse Ox O2 Delivery O2 Flow Rate FiO2 06/14/24 17:47 100/58 06/14/24 17:00 98.0 70 16 100 98.0 06/14/24 08:00 Nasal Cannula* 1 24 Total Intake and Output 06/13/24 06/13/24 06/14/24 15:00 23:00 07:00 Intake Total 100 ml 600 ml 550 ml Output Total 300 ml 650 ml Balance 100 ml 300 ml -100 ml medications Current Medications Medications Dose Ordered Sig/Patrick Route Start Time Stop Time Status Last Admin Dose Admin Sodium Chloride 10 ml Q8HR IV 06/03/24 22:00 06/14/24 14:00 10 ML Ondansetron HCl 4 mg Q4HP PRN IV 06/03/24 15:30 Docusate Sodium 100 mg BIDPRN PRN PO 06/03/24 15:30 Acetaminophen 650 mg Q6HP PRN PO 06/03/24 15:30 06/13/24 10:26 650 MG Nitroglycerin 0.4 mg Q5MINP PRN SL 06/03/24 15:30 Diagnostic Test (Pha) 1 strip ACHS 06/03/24 17:00 06/14/24 21:53 1 STRIP Insulin Human Regular HS SC 06/03/24 22:00 06/10/24 21:00 2 UNITS Insulin Human Regular AC SC 06/03/24 17:00 06/09/24 10:59 3 UNITS Dextrose 50 ml UD PRN IV 06/03/24 15:30 06/06/24 05:34 50 ML Vancomycin HCl 0 ml @ 0 mls/hr UD IV 06/03/24 15:45 Ferrous Sulfate 325 mg DAILY PO 06/04/24 10:00 06/14/24 13:04 325 MG Pravastatin Sodium 20 mg HS PO 06/03/24 22:00 06/14/24 22:02 20 MG Meropenem 50 ml @ 17 mls/hr Q8HR IV 06/06/24 20:00 06/14/24 22:02 17 MLS/HR Amiodarone HCl 200 mg Q12HR PO 06/06/24 22:00 06/14/24 22:02 200 MG Risperidone 1 mg DAILY PO 06/08/24 22:00 06/14/24 13:02 1 MG Lorazepam 0.5 mg Q6HP PRN IV 06/08/24 13:45 Haloperidol Lactate 2.5 mg Q8HP PRN IM 06/08/24 13:45 06/08/24 13:48 2.5 MG Digoxin 0.125 mg DAILY PO 06/11/24 10:00 06/14/24 13:00 0.125 MG Enoxaparin Sodium 40 mg DAILY SC 06/11/24 10:00 06/14/24 13:03 40 MG Furosemide 20 mg BIDD IV 06/12/24 18:00 06/14/24 06:17 20 MG Empaglifozin 10 mg DAILY PO 06/13/24 10:00 06/14/24 13:02 10 MG Vancomycin HCl 100 ml @ 200 mls/hr Q18H IV 06/13/24 08:00 06/14/24 21:53 200 MLS/HR Sacubitril/ Valsartan 0.5 tab BID PO 06/13/24 22:00 06/14/24 22:02 0.5 TAB objective Gen.: Patient lying in bed in no apparent distress. On supplemental oxygen. Head: Normocephalic, atraumatic. Eyes: EOMI/PERRLA. Ears: Normal hearing. Normal anatomy. Neck/trachea: Trachea midline, supple. Nose: Normal external anatomy. Mouth: Moist mucous membranes. Chest: Decreased air entry bilaterally. No wheezing or rhonchi. Cardiovascular: Positive S1, positive S2. Regular rate and rhythm. Abdomen: Positive bowel sounds in all 4 quadrants. Soft, non-tender, non- distended. : Deferred. Rectal: Deferred. Skin: Warm, dry. Intact. Extremities: 2+ radial pulses bilaterally. No lower extremity edema. Neuro: Awake, alert, oriented x3. No gross motor or sensory deficits. Cranial nerves II through XII intact. Gait not assessed. laboratory and microbiology Laboratory Tests 06/14/24 05:34 Test 06/14/24 05:34 Range/Units Serum Glucose 73 L 74-106 mg/dL Assessment/Plan Impression: Acute on chronic systolic CHF (EF 10-15%) BLE wounds DM type II Acute on chronic CKD Metabolic acidosis Hyperkalemia Elevated troponin Overweight, BMI 29.5 Events: Remains on supplemental oxygen, 1 LPM NC Taper O2 as tolerated Head of bed elevation Aspiration precautions Monitor BP closely. Lasix held this AM. Monitor ins and outs. Continue antibiotics IS. On amiodarone, Digoxin PO. Monitor hemoglobin. Monitor lactic acid. Follow PT/INR. Wound care. Labs and imaging reviewed. Rest of plan as noted below. Plan: Supplemental oxygen Titrate to keep O2 sats above 92%. CXR on 06/12 demonstrated right pleural effusion. Right mid to lower lung zone consolidation. Chest ultrasound demonstrated trace bilateral pleural effusions. Off pressors, hemodynamically stable. Continue bronchodilators. Antibiotics Iron supplementation Monitor hemoglobin Accu-Cheks, ISS. Maintain euvolemia Monitor renal function. Monitor electrolytes. Supplement as necessary. Monitor ins and outs. DVT prophylaxis. Rapid Response/Code Assist: Patient became hypotensive and unresponsive, upgraded to SHIREEN. Central line placement in right IJ. STAT CT head obtained to r/o ICH or stroke. Pt received Narcan x2. Pressors as necessary to maintain a mean arterial blood pressure greater than 65 mmHg. Monitor renal function - creatinine trending down. Monitor electrolytes. Supplement as necessary. Monitor ins and outs Prognosis: Poor given patient's multiple co-morbidities. Rest of plan per hospitalist and other consultants. Thank you, Ekta Meek NP/Dr Mcintosh, for allowing me to participate in this patient's care. Further recommendations will depend on the patient's clinical course. Please do not hesitate to contact me if you have any questions or concerns. This medical document was created using an electronic medical record system with [employer] dictation system. Although these documentations are being carefully reviewed, there may still be some phonetic and typographical changes. The errors are purely typographical, due to imperfection on the software program, and do not reflect any compromise in the patient's medical care. Dietary Evaluation Review Comments: 1) Consider YULIET 1 pkt BID for wounds 2) Continue current plan of care Expected Outcomes/Goals: 1) Pt labs to improve 2) F/U in 3-5 days Plan discussed with: Patient, Other (RN Emilie) WALDO OHARA MD Jun 14, 2024 23:02
[2024-06-15] VITALS (9 sets, daily range): BP systolic 84–105; BP diastolic 40–58; PULSE 80–96; RESP 16–20; TEMP 97.4–99.3; O2SAT 97–100
--- NOTE | 2024-06-15 13:50 | DVHPN2 ---
Subjective The patient is seen and examined at bedside. Still remained very tired and sleepy Reviewed: Care Plan, H&P, Labs, Medications, Previous Orders, Radiology Changes from previous H/P or p: No Changes Eyes: No Pain, No Vision change, No Conjunctivae inflammation, No Eyelid inflammation, No Other, No Redness ENT: No Ear pain, No Ear discharge, No Nose pain, No Nose discharge, No Nose congestion, No Mouth pain, No Mouth swelling, No Throat pain, No Throat swelling, No Other Cardiovascular: No Chest Pain, No Palpitations, No Orthopnea, No Paroxysmal Noc. Dyspnea, No Edema, No Lt Headedness, No Other Respiratory: No Cough, No Dry, No Shortness of breath, No SOB with excertion, No Wheezing, No Hemoptysis, No Pleuritic Pain, No Sputum, No Other Gastrointestinal: No Nausea, No Vomiting, No Abdominal Pain, No Diarrhea, No Constipation, No Melena, No Hematochezia, No Other Genitourinary: No Dysuria, No Frequency, No Incontinence, No Hematuria, No Retention, No Other Musculoskeletal: No other, No neck pain, No shoulder pain, No arm pain, No back pain, No hand pain, No leg pain, No foot pain Skin: No Rash, No Lesions, No Jaundice, No Bruising, No Other Objective Vitals Vital Signs Date Time Temp Pulse Resp B/P (MAP) Pulse Ox O2 Delivery O2 Flow Rate FiO2 06/15/24 09:49 80 06/15/24 09:00 98.3 20 101/54 (70) 100 98.3 06/15/24 08:30 Room Air* 0 21 Intake/Output Intake and Output 06/15/24 07:00 Intake Total 1520 ml Output Total 1495 ml Balance 25 ml Intake Oral 1520 ml Output Urine Total 1495 ml General Appearance: Alert, Oriented X3, Cooperative Lungs: Other (Bilateral rhonchi) Cardiovascular: Regular rate, Normal S1, Normal S2 Abdomen: Normal bowel sounds, Soft, No tenderness Extremities: Other (2+ edema bilaterally in the lower extremity) Medications Current Medications Medications Dose Ordered Sig/Patrick Route Start Time Stop Time Status Last Admin Dose Admin Sodium Chloride 10 ml Q8HR IV 06/03/24 22:00 06/15/24 05:19 10 ML Ondansetron HCl 4 mg Q4HP PRN IV 06/03/24 15:30 Docusate Sodium 100 mg BIDPRN PRN PO 06/03/24 15:30 Acetaminophen 650 mg Q6HP PRN PO 06/03/24 15:30 06/15/24 10:09 650 MG Nitroglycerin 0.4 mg Q5MINP PRN SL 06/03/24 15:30 Diagnostic Test (Pha) 1 strip ACHS 06/03/24 17:00 06/15/24 11:50 1 STRIP Insulin Human Regular HS SC 06/03/24 22:00 06/10/24 21:00 2 UNITS Insulin Human Regular AC SC 06/03/24 17:00 06/09/24 10:59 3 UNITS Dextrose 50 ml UD PRN IV 06/03/24 15:30 06/06/24 05:34 50 ML Vancomycin HCl 0 ml @ 0 mls/hr UD IV 06/03/24 15:45 Ferrous Sulfate 325 mg DAILY PO 06/04/24 10:00 06/15/24 09:48 325 MG Pravastatin Sodium 20 mg HS PO 06/03/24 22:00 06/14/24 22:02 20 MG Meropenem 50 ml @ 17 mls/hr Q8HR IV 06/06/24 20:00 06/15/24 04:57 17 MLS/HR Amiodarone HCl 200 mg Q12HR PO 06/06/24 22:00 06/15/24 09:48 200 MG Risperidone 1 mg DAILY PO 06/08/24 22:00 06/15/24 09:49 1 MG Lorazepam 0.5 mg Q6HP PRN IV 06/08/24 13:45 Haloperidol Lactate 2.5 mg Q8HP PRN IM 06/08/24 13:45 06/08/24 13:48 2.5 MG Digoxin 0.125 mg DAILY PO 06/11/24 10:00 06/15/24 09:49 0.125 MG Enoxaparin Sodium 40 mg DAILY SC 06/11/24 10:00 06/15/24 09:49 40 MG Furosemide 20 mg BIDD IV 06/12/24 18:00 06/14/24 06:17 20 MG Empaglifozin 10 mg DAILY PO 06/13/24 10:00 06/15/24 09:48 10 MG Vancomycin HCl 100 ml @ 200 mls/hr Q18H IV 06/13/24 08:00 06/14/24 21:53 200 MLS/HR Sacubitril/ Valsartan 0.5 tab BID PO 06/13/24 22:00 06/15/24 09:49 0.5 TAB Laboratory Results Laboratory Tests 06/14/24 05:34 Urinalysis Test 06/03/24 17:57 06/05/24 20:55 06/11/24 16:17 Urine Epithelial Casts Few /hpf (<5) Urine Color Yellow (Yellow) Urine Clarity Clear (Clear) Urine pH 5.0 (5.0-9.0) Urine Specific [place] 1.018 (1.001-1.035) Urine Protein Trace (Negative) H Urine Ketones Negative (Negative) Urine Blood Negative /uL (Negative) Urine Nitrite Negative (Negative) Urine Bilirubin Negative (Negative) Urine Urobilinogen Normal mg/dL (Negative) Urine Leukocyte Esterase Negative /uL (Negative) Urine RBC 2 /hpf (0 - 3) Urine WBC 3 /hpf (0 - 3) Urine Squamous Epithelial Cells Few /hpf (<5) Urine Bacteria None seen /hpf (None Seen) Urine Hyaline Casts Mod /lpf (0 - 2) Urine Mucus Few (None Seen) Urine Glucose 4+ mg/dL (Normal) H Urine Osmolality 301 mOsm/kg Urine Creatinine 10.12 mg/dL (30.0-125.0) L Urine Sodium 113 mmol/L (40-220) Microbiology Microbiology Date/Time Source Procedure Growth Status 06/05/24 20:55 Voided Urine Urine Culture - Final Complete 06/05/24 19:46 Nose MRSA Screen - Final Complete 06/05/24 19:21 Blood Blood Culture - Final NO GROWTH AFTER 5 DAYS OF INCUBATION. Complete Labs and/or images reviewed: Labs reviewed by me Assessment/Plan Assessment/Plan Acute on chronic congestive heart failure with low ejection fraction Bilateral lower extremity open wounds Type 2 diabetes Dyslipidemia Hypertension Acute kidney injury superimposed on Chronic kidney disease stage III Non ST-elevation [place] type 2 Acute on chronic decompensated congestive heart failure with EF 10-15% Nonischemic cardiomyopathy Possible cardiorenal syndrome Thrombocytopenia Nonsustained V-tach patient had ICD Right lower lobe pneumonia possible Gram-positive pneumonia Septic shock Cellulitis in the lower extremity bilateral Plan Levophed drip as needed to keep systolic blood pressure greater than 90 IV antibiotics: Meropenem and vancomycin Discontinue Jardiance and metoprolol for now due to hypotension IV Lasix Continuing sliding scale insulin. We will add Lantus at bedtime P.o. amiodarone Continuing Haldol IM Ativan IV p.r.n. Continuing with amiodarone and digoxin Risperidone at bedtime p.r.n. Plan discussed with: Patient Date of Service: Jun 15, 2024 Billing Provider: LUCIANO PERALES MD Common Visit Codes: [id number] INP/OBS CARE(HIGH) LUCIANO PERALES MD Jun 15, 2024 13:50
--- NOTE | 2024-06-15 13:54 | MEDREC ---
[facility] ASP Intervention Section I [facility] ASP Intervention: Deescalate AB based on CS (PATIENT HAS BEEN ON VANCOMYCIN FOR 13 DAYS. ON MEROPENEM FOR 10 DAYS. PATIENT IS AFEBRILE AND LABS ARE WNL. PLEASE CONSIDER DE-ESCALATE ANTIBIOTICS BASED ON CULTURE RESULTS ) STARR ZABALA [facility] Jun 15, 2024 13:54
--- NOTE | 2024-06-15 23:39 | DVHPN2 ---
Progress Note - Dictate Date Seen: Jun 15, 2024 Medical Necessity Reason Pt with a Central, PICC or Fol: Yes The following are medically ne: Lockett Catheter Reason for lockett catheter: Strict I&O Subjective Patient seen and examined at bedside. Breathing on room air. Overnight events reviewed. vital signs Vital Sign Date Time Temp Pulse Resp B/P (MAP) Pulse Ox O2 Delivery O2 Flow Rate FiO2 06/15/24 21:00 98.5 94 20 84/40 (55) 97 98.5 06/15/24 20:00 Nasal Cannula* 2 28 Total Intake and Output 06/14/24 06/14/24 06/15/24 15:00 23:00 07:00 Intake Total 570 ml 950 ml Output Total 575 ml 920 ml Balance -5 ml 30 ml medications Current Medications Medications Dose Ordered Sig/Patrick Route Start Time Stop Time Status Last Admin Dose Admin Sodium Chloride 10 ml Q8HR IV 06/03/24 22:00 06/15/24 21:20 10 ML Ondansetron HCl 4 mg Q4HP PRN IV 06/03/24 15:30 Docusate Sodium 100 mg BIDPRN PRN PO 06/03/24 15:30 Acetaminophen 650 mg Q6HP PRN PO 06/03/24 15:30 06/15/24 20:51 650 MG Nitroglycerin 0.4 mg Q5MINP PRN SL 06/03/24 15:30 Diagnostic Test (Pha) 1 strip ACHS 06/03/24 17:00 06/15/24 21:26 1 STRIP Insulin Human Regular HS SC 06/03/24 22:00 06/10/24 21:00 2 UNITS Insulin Human Regular AC SC 06/03/24 17:00 06/09/24 10:59 3 UNITS Dextrose 50 ml UD PRN IV 06/03/24 15:30 06/06/24 05:34 50 ML Vancomycin HCl 0 ml @ 0 mls/hr UD IV 06/03/24 15:45 Ferrous Sulfate 325 mg DAILY PO 06/04/24 10:00 06/15/24 09:48 325 MG Pravastatin Sodium 20 mg HS PO 06/03/24 22:00 06/15/24 21:25 20 MG Meropenem 50 ml @ 17 mls/hr Q8HR IV 06/06/24 20:00 06/15/24 21:19 17 MLS/HR Amiodarone HCl 200 mg Q12HR PO 06/06/24 22:00 06/15/24 21:20 200 MG Risperidone 1 mg DAILY PO 06/08/24 22:00 06/15/24 09:49 1 MG Lorazepam 0.5 mg Q6HP PRN IV 06/08/24 13:45 Haloperidol Lactate 2.5 mg Q8HP PRN IM 06/08/24 13:45 06/08/24 13:48 2.5 MG Digoxin 0.125 mg DAILY PO 06/11/24 10:00 06/15/24 09:49 0.125 MG Enoxaparin Sodium 40 mg DAILY SC 06/11/24 10:00 06/15/24 09:49 40 MG Furosemide 20 mg BIDD IV 06/12/24 18:00 06/15/24 17:47 20 MG Empaglifozin 10 mg DAILY PO 06/13/24 10:00 06/15/24 09:48 10 MG Vancomycin HCl 100 ml @ 200 mls/hr Q18H IV 06/13/24 08:00 06/15/24 14:10 200 MLS/HR Sacubitril/ Valsartan 0.5 tab BID PO 06/13/24 22:00 06/15/24 21:25 0.5 TAB objective Gen.: Patient lying in bed in no apparent distress. Breathing on room air. Head: Normocephalic, atraumatic. Eyes: EOMI/PERRLA. Ears: Normal hearing. Normal anatomy. Neck/trachea: Trachea midline, supple. Nose: Normal external anatomy. Mouth: Moist mucous membranes. Chest: Decreased air entry bilaterally. No wheezing or rhonchi. Cardiovascular: Positive S1, positive S2. Regular rate and rhythm. Abdomen: Positive bowel sounds in all 4 quadrants. Soft, non-tender, non- distended. : Deferred. Rectal: Deferred. Skin: Warm, dry. Intact. Extremities: 2+ radial pulses bilaterally. No lower extremity edema. Neuro: Awake, alert, oriented x3. No gross motor or sensory deficits. Cranial nerves II through XII intact. Gait not assessed. laboratory and microbiology Laboratory Tests 06/14/24 05:34 Test 06/14/24 05:34 Range/Units Serum Glucose 73 L 74-106 mg/dL Assessment/Plan Impression: Acute on chronic systolic CHF (EF 10-15%) BLE wounds DM type II Acute on chronic CKD Metabolic acidosis Hyperkalemia Elevated troponin Overweight, BMI 29.5 Events: Breathing on room air No respiratory distress. Head of bed elevation Aspiration precautions Continue antibiotics IS. Monitor BP On amiodarone, Digoxin PO. Iron supplementation Monitor hemoglobin. Diurese w/ Lasix Monitor renal function. Monitor electrolytes. Supplement as necessary. Accu-Cheks, ISS. Monitor lactic acid. Follow PT/INR. Wound care. Labs and imaging reviewed. Rest of plan as noted below. Plan: Supplemental oxygen PRN Titrate to keep O2 sats above 92%. CXR on 06/12 demonstrated right pleural effusion. Right mid to lower lung zone consolidation. Chest ultrasound demonstrated trace bilateral pleural effusions. Off pressors, hemodynamically stable. Continue bronchodilators. Antibiotics Iron supplementation Monitor hemoglobin Accu-Cheks, ISS. Maintain euvolemia Monitor renal function. Monitor electrolytes. Supplement as necessary. Monitor ins and outs. DVT prophylaxis. Rapid Response/Code Assist: Patient became hypotensive and unresponsive, upgraded to SHIREEN. Central line placement in right IJ. STAT CT head obtained to r/o ICH or stroke. Pt received Narcan x2. Pressors as necessary to maintain a mean arterial blood pressure greater than 65 mmHg. Monitor renal function - creatinine trending down. Monitor electrolytes. Supplement as necessary. Monitor ins and outs Prognosis: Poor given patient's multiple co-morbidities. Rest of plan per hospitalist and other consultants. Thank you, Ekta Meek, MACHELLE/Dr Mcintosh, for allowing me to participate in this patient's care. Further recommendations will depend on the patient's clinical course. Please do not hesitate to contact me if you have any questions or concerns. This medical document was created using an electronic medical record system with [employer] dictation system. Although these documentations are being carefully reviewed, there may still be some phonetic and typographical changes. The errors are purely typographical, due to imperfection on the software program, and do not reflect any compromise in the patient's medical care. Dietary Evaluation Review Comments: 1) Consider YULIET 1 pkt BID for wounds 2) Continue current plan of care Expected Outcomes/Goals: 1) Pt labs to improve 2) F/U in 3-5 days Plan discussed with: Patient, Other (MARY Lynn) WALDO OHARA MD Jun 15, 2024 23:39
[2024-06-16] VITALS (8 sets, daily range): BP systolic 96–130; BP diastolic 56–70; PULSE 88–104; RESP 18–22; TEMP 97.9–98.5; O2SAT 96–100
[2024-06-16 05:43] LABS: Basophils # (auto) 0.1 10 ^3/uL (0-0.2); Eosinophils # (auto) 0 10 ^3/uL (0-0.8); Eosinophils % (auto) 0.1 % (0.0-7.0); Hematocrit 38.2 % (41.0-53.0); Hemoglobin 12.6 g/dL (13.5-17.5); Lymphocytes # (auto) 0.6 10 ^3/uL (0.4-5.4); Lymphocytes % (auto) 5.8 % (10.0-50.0); Mean Corpuscular Hemoglobin 29.7 pg (28.0-32.0); Mean Corpuscular Hgb Conc. 33.1 g/dL (32.0-36.0); Mean Corpuscular Volume 89.8 fL (80.0-100.0); Monocytes # (auto) 0.5 10 ^3/uL (0-1.3); Monocytes % (auto) 5.2 % (0.0-12.0); Neutrophils # (auto) 9.2 10 ^3/uL (1.6-8.6); Neutrophils % (auto) 87.9 % (37.0-80.0); Nucleated Red Blood Cells % 0.1 %; Platelet Count (auto) 224 10^3/uL (140-450); Red Blood Cells 4.25 10^6/uL (4.5-5.90); Red Cell Distribution Width 24.5 % (11.8-14.3); White Blood Cell 10.5 10^3/uL (4.4-10.8)
--- NOTE | 2024-06-16 08:24 | DVHPN2 ---
Subjective The patient is seen and examined at bedside. Very frail and tired Reviewed: Care Plan, H&P, Labs, Medications, Previous Orders, Radiology Changes from previous H/P or p: No Changes Eyes: No Pain, No Vision change, No Conjunctivae inflammation, No Eyelid inflammation, No Other, No Redness ENT: No Ear pain, No Ear discharge, No Nose pain, No Nose discharge, No Nose congestion, No Mouth pain, No Mouth swelling, No Throat pain, No Throat swelling, No Other Cardiovascular: No Chest Pain, No Palpitations, No Orthopnea, No Paroxysmal Noc. Dyspnea, No Edema, No Lt Headedness, No Other Respiratory: No Cough, No Dry, No Shortness of breath, No SOB with excertion, No Wheezing, No Hemoptysis, No Pleuritic Pain, No Sputum, No Other Gastrointestinal: No Nausea, No Vomiting, No Abdominal Pain, No Diarrhea, No Constipation, No Melena, No Hematochezia, No Other Genitourinary: No Dysuria, No Frequency, No Incontinence, No Hematuria, No Retention, No Other Musculoskeletal: No other, No neck pain, No shoulder pain, No arm pain, No back pain, No hand pain, No leg pain, No foot pain Skin: No Rash, No Lesions, No Jaundice, No Bruising, No Other Objective Vitals Vital Signs Date Time Temp Pulse Resp B/P (MAP) Pulse Ox O2 Delivery O2 Flow Rate FiO2 06/16/24 05:54 98/61 06/16/24 05:00 98.4 88 20 100 98.4 06/15/24 20:00 Nasal Cannula* 2 28 Intake/Output Intake and Output 06/16/24 07:00 Intake Total 1600 ml Output Total 1050 ml Balance 550 ml Intake Oral 1400 ml IV Total 200 ml Output Urine Total 1050 ml # Bowel Movements 1 General Appearance: Alert, Oriented X3, Cooperative Lungs: Other (Bilateral rhonchi) Cardiovascular: Regular rate, Normal S1, Normal S2 Abdomen: Normal bowel sounds, Soft, No tenderness Extremities: Other (2+ edema bilaterally in the lower extremity) Medications Current Medications Medications Dose Ordered Sig/Patrick Route Start Time Stop Time Status Last Admin Dose Admin Sodium Chloride 10 ml Q8HR IV 06/03/24 22:00 06/16/24 05:56 10 ML Ondansetron HCl 4 mg Q4HP PRN IV 06/03/24 15:30 Docusate Sodium 100 mg BIDPRN PRN PO 06/03/24 15:30 Acetaminophen 650 mg Q6HP PRN PO 06/03/24 15:30 06/15/24 20:51 650 MG Nitroglycerin 0.4 mg Q5MINP PRN SL 06/03/24 15:30 Diagnostic Test (Pha) 1 strip ACHS 06/03/24 17:00 06/16/24 06:04 1 STRIP Insulin Human Regular HS SC 06/03/24 22:00 06/10/24 21:00 2 UNITS Insulin Human Regular AC SC 06/03/24 17:00 06/09/24 10:59 3 UNITS Dextrose 50 ml UD PRN IV 06/03/24 15:30 06/06/24 05:34 50 ML Vancomycin HCl 0 ml @ 0 mls/hr UD IV 06/03/24 15:45 Ferrous Sulfate 325 mg DAILY PO 06/04/24 10:00 06/15/24 09:48 325 MG Pravastatin Sodium 20 mg HS PO 06/03/24 22:00 06/15/24 21:25 20 MG Meropenem 50 ml @ 17 mls/hr Q8HR IV 06/06/24 20:00 06/16/24 05:56 17 MLS/HR Amiodarone HCl 200 mg Q12HR PO 06/06/24 22:00 06/15/24 21:20 200 MG Risperidone 1 mg DAILY PO 06/08/24 22:00 06/15/24 09:49 1 MG Lorazepam 0.5 mg Q6HP PRN IV 06/08/24 13:45 Haloperidol Lactate 2.5 mg Q8HP PRN IM 06/08/24 13:45 06/08/24 13:48 2.5 MG Digoxin 0.125 mg DAILY PO 06/11/24 10:00 06/15/24 09:49 0.125 MG Enoxaparin Sodium 40 mg DAILY SC 06/11/24 10:00 06/15/24 09:49 40 MG Furosemide 20 mg BIDD IV 06/12/24 18:00 06/15/24 17:47 20 MG Empaglifozin 10 mg DAILY PO 06/13/24 10:00 06/15/24 09:48 10 MG Vancomycin HCl 100 ml @ 200 mls/hr Q18H IV 06/13/24 08:00 06/16/24 08:10 200 MLS/HR Sacubitril/ Valsartan 0.5 tab BID PO 06/13/24 22:00 06/15/24 21:25 0.5 TAB Laboratory Results Laboratory Tests 06/14/24 05:34 06/16/24 05:30 Urinalysis Test 06/03/24 17:57 06/05/24 20:55 06/11/24 16:17 Urine Epithelial Casts Few /hpf (<5) Urine Color Yellow (Yellow) Urine Clarity Clear (Clear) Urine pH 5.0 (5.0-9.0) Urine Specific [place] 1.018 (1.001-1.035) Urine Protein Trace (Negative) H Urine Ketones Negative (Negative) Urine Blood Negative /uL (Negative) Urine Nitrite Negative (Negative) Urine Bilirubin Negative (Negative) Urine Urobilinogen Normal mg/dL (Negative) Urine Leukocyte Esterase Negative /uL (Negative) Urine RBC 2 /hpf (0 - 3) Urine WBC 3 /hpf (0 - 3) Urine Squamous Epithelial Cells Few /hpf (<5) Urine Bacteria None seen /hpf (None Seen) Urine Hyaline Casts Mod /lpf (0 - 2) Urine Mucus Few (None Seen) Urine Glucose 4+ mg/dL (Normal) H Urine Osmolality 301 mOsm/kg Urine Creatinine 10.12 mg/dL (30.0-125.0) L Urine Sodium 113 mmol/L (40-220) Microbiology Microbiology Date/Time Source Procedure Growth Status 06/05/24 20:55 Voided Urine Urine Culture - Final Complete 06/05/24 19:46 Nose MRSA Screen - Final Complete 06/05/24 19:21 Blood Blood Culture - Final NO GROWTH AFTER 5 DAYS OF INCUBATION. Complete Labs and/or images reviewed: Labs reviewed by me Assessment/Plan Assessment/Plan Acute on chronic congestive heart failure with low ejection fraction Bilateral lower extremity open wounds Type 2 diabetes Dyslipidemia Hypertension Acute kidney injury superimposed on Chronic kidney disease stage III Non ST-elevation CA type 2 Acute on chronic decompensated congestive heart failure with EF 10-15% Nonischemic cardiomyopathy Possible cardiorenal syndrome Thrombocytopenia Nonsustained V-tach patient had ICD Right lower lobe pneumonia possible Gram-positive pneumonia Septic shock Cellulitis in the lower extremity bilateral Plan Levophed drip as needed to keep systolic blood pressure greater than 90 IV antibiotics: Meropenem and vancomycin Discontinue Jardiance and metoprolol for now due to hypotension IV Lasix Continuing sliding scale insulin. We will add Lantus at bedtime P.o. amiodarone Continuing Haldol IM Ativan IV p.r.n. Continuing with amiodarone and digoxin Risperidone at bedtime p.r.n. for anxiety Plan discussed with: Patient Date of Service: Jun 16, 2024 Billing Provider: LUCIANO PERALES MD Common Visit Codes: [id number] INP/OBS CARE(HIGH) LUCIANO PERALES MD Jun 16, 2024 08:24
--- NOTE | 2024-06-16 09:13 | ECG ---
[facility] Test Date: 2024-06-09 Test Time: 09:48:20 Pat Name: PAMELA CASE Department: Respiratoy Room: 0218T A Gender: M Zone Manager: ALVARO : 1960 Requested By: GREG LEAL Order Number: [id number] Reading MD: Alaina Earl Measurements Intervals [place] Rate: 104 P: 48 NM: 167 QRS: -43 QRSD: 141 T: 111 QT: 375 QTc: 494 Interpretive Statements Sinus tachycardia Supraventricular bigeminy Left atrial enlargement Left bundle branch block Electronically Signed On 06-17-2024 9:08:25 PST by Alaina Earl Please click the below link to view image of tracing.
--- NOTE | 2024-06-16 09:28 | ECG ---
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
--- NOTE | 2024-06-16 09:28 | ECG ---
[facility] Test Date: 2024-06-09 Test Time: 09:49:50 Pat Name: PAMELA CASE Department: Respiratoy Room: 0218T A Gender: M Journeyman Carpenter: ALVARO : 1960 Requested By: FROILAN CARBALLO Order Number: [id number] Reading MD: Alaina Earl Measurements Intervals [place] Rate: 106 P: 48 [place]: 161 QRS: -46 QRSD: 148 T: 112 QT: 386 QTc: 513 Interpretive Statements Sinus tachycardia Left atrial enlargement Left bundle branch block Electronically Signed On 06-17-2024 9:08:25 PST by Alaina Earl Please click the below link to view image of tracing.
--- NOTE | 2024-06-16 09:32 | ECG ---
[facility] Test Date: 2024-06-07 Test Time: 01:58:43 Pat Name: PAMELA CASE Department: Respiratoy Room: 0218T A Gender: M Lead Setter: VISHNU : 1960 Requested By: FROILAN CARBALLO Order Number: [id number] Reading MD: Alaina Earl Measurements Intervals [place] Rate: 131 P: -85 [place]: 105 QRS: -39 QRSD: 126 T: 113 QT: 389 QTc: 575 Interpretive Statements Sinus or ectopic atrial tachycardia Probable left atrial enlargement Left bundle branch block Electronically Signed On 06-17-2024 9:08:13 PST by Alaina Earl Please click the below link to view image of tracing.
--- NOTE | 2024-06-16 09:57 | ECG ---
[facility] Test Date: 2024-06-05 Test Time: 16:25:21 Pat Name: PAMELA CASE Department: Respiratoy Room: 0218T A Gender: M Inventory Auditor: : 1960 Requested By: FROILAN CARBALLO Order Number: [id number] Reading MD: Alaina Earl Measurements Intervals [place] Rate: 119 P: 0 TN: 0 QRS: 268 QRSD: 191 T: 88 QT: 411 QTc: 579 Interpretive Statements Ventricular-paced rhythm No further analysis attempted due to paced rhythm Electronically Signed On 06-17-2024 9:08:10 PST by Alaina Earl Please click the below link to view image of tracing.
--- NOTE | 2024-06-16 23:25 | DVHPN2 ---
Progress Note - Dictate Date Seen: Jun 16, 2024 Medical Necessity Reason Pt with a Central, PICC or Fol: Yes The following are medically ne: Lockett Catheter Reason for lockett catheter: Strict I&O Subjective Patient seen and examined at bedside. On supplemental oxygen Overnight events reviewed. vital signs Vital Sign Date Time Temp Pulse Resp B/P (MAP) Pulse Ox O2 Delivery O2 Flow Rate FiO2 06/16/24 21:00 98.1 91 22 130/70 (90) 100 98.1 06/16/24 20:00 Nasal Cannula* 2 28 Total Intake and Output 06/15/24 06/15/24 06/16/24 15:00 23:00 07:00 Intake Total 150 ml 350 ml 1100 ml Output Total 500 ml 550 ml Balance 150 ml -150 ml 550 ml medications Current Medications Medications Dose Ordered Sig/Patrick Route Start Time Stop Time Status Last Admin Dose Admin Sodium Chloride 10 ml Q8HR IV 06/03/24 22:00 06/16/24 22:42 10 ML Ondansetron HCl 4 mg Q4HP PRN IV 06/03/24 15:30 Docusate Sodium 100 mg BIDPRN PRN PO 06/03/24 15:30 Acetaminophen 650 mg Q6HP PRN PO 06/03/24 15:30 06/15/24 20:51 650 MG Nitroglycerin 0.4 mg Q5MINP PRN SL 06/03/24 15:30 Diagnostic Test (Pha) 1 strip ACHS 06/03/24 17:00 06/16/24 22:42 1 STRIP Insulin Human Regular HS SC 06/03/24 22:00 06/10/24 21:00 2 UNITS Insulin Human Regular AC SC 06/03/24 17:00 06/09/24 10:59 3 UNITS Dextrose 50 ml UD PRN IV 06/03/24 15:30 06/06/24 05:34 50 ML Vancomycin HCl 0 ml @ 0 mls/hr UD IV 06/03/24 15:45 Ferrous Sulfate 325 mg DAILY PO 06/04/24 10:00 06/16/24 09:28 325 MG Pravastatin Sodium 20 mg HS PO 06/03/24 22:00 06/16/24 22:42 20 MG Meropenem 50 ml @ 17 mls/hr Q8HR IV 06/06/24 20:00 06/16/24 22:41 17 MLS/HR Amiodarone HCl 200 mg Q12HR PO 06/06/24 22:00 06/16/24 22:42 200 MG Risperidone 1 mg DAILY PO 06/08/24 22:00 06/16/24 09:28 1 MG Lorazepam 0.5 mg Q6HP PRN IV 06/08/24 13:45 Haloperidol Lactate 2.5 mg Q8HP PRN IM 06/08/24 13:45 06/08/24 13:48 2.5 MG Digoxin 0.125 mg DAILY PO 06/11/24 10:00 06/16/24 09:27 0.125 MG Enoxaparin Sodium 40 mg DAILY SC 06/11/24 10:00 06/16/24 09:25 40 MG Furosemide 20 mg BIDD IV 06/12/24 18:00 06/16/24 17:45 20 MG Empaglifozin 10 mg DAILY PO 06/13/24 10:00 06/15/24 09:48 10 MG Vancomycin HCl 100 ml @ 200 mls/hr Q18H IV 06/13/24 08:00 06/16/24 08:10 200 MLS/HR Sacubitril/ Valsartan 0.5 tab BID PO 06/13/24 22:00 06/16/24 22:41 0.5 TAB objective Gen.: Patient lying in bed in no apparent distress. On supplemental oxygen Head: Normocephalic, atraumatic. Eyes: EOMI/PERRLA. Ears: Normal hearing. Normal anatomy. Neck/trachea: Trachea midline, supple. Nose: Normal external anatomy. Mouth: Moist mucous membranes. Chest: Decreased air entry bilaterally. No wheezing or rhonchi. Cardiovascular: Positive S1, positive S2. Regular rate and rhythm. Abdomen: Positive bowel sounds in all 4 quadrants. Soft, non-tender, non- distended. : Deferred. Rectal: Deferred. Skin: Warm, dry. Intact. Extremities: 2+ radial pulses bilaterally. No lower extremity edema. Neuro: Awake, alert, oriented x3. No gross motor or sensory deficits. Cranial nerves II through XII intact. Gait not assessed. laboratory and microbiology Laboratory Tests 06/16/24 05:30 06/14/24 05:34 Test 06/14/24 05:34 Range/Units Serum Glucose 73 L 74-106 mg/dL Assessment/Plan Impression: Acute on chronic systolic CHF (EF 10-15%) BLE wounds DM type II Acute on chronic CKD Metabolic acidosis Hyperkalemia Elevated troponin Overweight, BMI 29.5 Events: On supplemental oxygen 2 LPM NC Taper O2 as tolerated Head of bed elevation Aspiration precautions Iron supplementation Monitor hemoglobin Continue antibiotics IS. Amiodarone PO. Monitor BP Diurese w/ Lasix Monitor renal function. Monitor electrolytes. Supplement as necessary. Maintain euvolemia Monitor lactic acid. Follow PT/INR. Wound care. Labs and imaging reviewed. Rest of plan as noted below. Plan: Supplemental oxygen Titrate to keep O2 sats above 92%. CXR on 06/12 demonstrated right pleural effusion. Right mid to lower lung zone consolidation. Chest ultrasound demonstrated trace bilateral pleural effusions. Off pressors, hemodynamically stable. Continue bronchodilators. Antibiotics Iron supplementation Monitor hemoglobin Accu-Cheks, ISS. Maintain euvolemia Monitor renal function. Monitor electrolytes. Supplement as necessary. Monitor ins and outs. DVT prophylaxis. Rapid Response/Code Assist: Patient became hypotensive and unresponsive, upgraded to SHIREEN. Central line placement in right IJ. STAT CT head obtained to r/o ICH or stroke. Pt received Narcan x2. Pressors as necessary to maintain a mean arterial blood pressure greater than 65 mmHg. Monitor renal function - creatinine trending down. Monitor electrolytes. Supplement as necessary. Monitor ins and outs Prognosis: Poor given patient's multiple co-morbidities. Rest of plan per hospitalist and other consultants. Thank you, Ekta Meek NP/Dr Mcintosh, for allowing me to participate in this patient's care. Further recommendations will depend on the patient's clinical course. Please do not hesitate to contact me if you have any questions or concerns. This medical document was created using an electronic medical record system with [employer] system. Although these documentations are being carefully reviewed, there may still be some phonetic and typographical changes. The errors are purely typographical, due to imperfection on the software program, and do not reflect any compromise in the patient's medical care. Dietary Evaluation Review Comments: 1) Consider YULIET 1 pkt BID for wounds 2) Continue current plan of care Expected Outcomes/Goals: 1) Pt labs to improve 2) F/U in 3-5 days Plan discussed with: Patient, Other (RN) WALDO OHARA MD Jun 16, 2024 23:25
[2024-06-17] VITALS (8 sets, daily range): BP systolic 89–128; BP diastolic 50–67; PULSE 65–105; RESP 16–22; TEMP 97.8–98.7; O2SAT 97–100
--- NOTE | 2024-06-17 14:18 | DVHPN2 ---
Subjective He is doing well He complains of pain and swelling in his left arm Vital signs are stable He is on 2-3 L nasal cannula of oxygen Changes from previous H/P or p: Changes Eyes: No Pain, No Vision change, No Conjunctivae inflammation, No Eyelid inflammation, No Other, No Redness ENT: No Ear pain, No Ear discharge, No Nose pain, No Nose discharge, No Nose congestion, No Mouth pain, No Mouth swelling, No Throat pain, No Throat swelling, No Other Cardiovascular: No Chest Pain, No Palpitations, No Orthopnea, No Paroxysmal Noc. Dyspnea, No Edema, No Lt Headedness, No Other Respiratory: No Cough, No Dry, No Shortness of breath, No SOB with excertion, No Wheezing, No Hemoptysis, No Pleuritic Pain, No Sputum, No Other Gastrointestinal: No Nausea, No Vomiting, No Abdominal Pain, No Diarrhea, No Constipation, No Melena, No Hematochezia, No Other Genitourinary: No Dysuria, No Frequency, No Incontinence, No Hematuria, No Retention, No Other Musculoskeletal: No other, No neck pain, No shoulder pain, No arm pain, No back pain, No hand pain, No leg pain, No foot pain Skin: No Rash, No Lesions, No Jaundice, No Bruising, No Other Objective Vitals Vital Signs Date Time Temp Pulse Resp B/P (MAP) Pulse Ox O2 Delivery O2 Flow Rate FiO2 06/17/24 13:11 97.9 105 18 115/67 (83) 99 97.9 06/17/24 08:15 Nasal Cannula* 2 28 Intake/Output Intake and Output 06/17/24 07:00 Intake Total 1700 ml Output Total 1400 ml Balance 300 ml Intake Oral 1500 ml IV Total 200 ml Output Urine Total 1400 ml # Bowel Movements 2 General Appearance: Alert, Oriented X3, Cooperative Lungs: Other (Bilateral rhonchi) Cardiovascular: Regular rate, Normal S1, Normal S2 Abdomen: Normal bowel sounds, Soft, No tenderness Extremities: Other (2+ edema bilaterally in the lower extremity) Medications Current Medications Medications Dose Ordered Sig/Patrick Route Start Time Stop Time Status Last Admin Dose Admin Sodium Chloride 10 ml Q8HR IV 06/03/24 22:00 06/17/24 06:01 10 ML Ondansetron HCl 4 mg Q4HP PRN IV 06/03/24 15:30 Docusate Sodium 100 mg BIDPRN PRN PO 06/03/24 15:30 Acetaminophen 650 mg Q6HP PRN PO 06/03/24 15:30 06/15/24 20:51 650 MG Nitroglycerin 0.4 mg Q5MINP PRN SL 06/03/24 15:30 Diagnostic Test (Pha) 1 strip ACHS 06/03/24 17:00 06/17/24 11:45 1 STRIP Insulin Human Regular HS SC 06/03/24 22:00 06/10/24 21:00 2 UNITS Insulin Human Regular AC SC 06/03/24 17:00 06/09/24 10:59 3 UNITS Dextrose 50 ml UD PRN IV 06/03/24 15:30 06/06/24 05:34 50 ML Vancomycin HCl 0 ml @ 0 mls/hr UD IV 06/03/24 15:45 Ferrous Sulfate 325 mg DAILY PO 06/04/24 10:00 06/17/24 09:54 325 MG Pravastatin Sodium 20 mg HS PO 06/03/24 22:00 06/16/24 22:42 20 MG Meropenem 50 ml @ 17 mls/hr Q8HR IV 06/06/24 20:00 06/17/24 05:52 17 MLS/HR Amiodarone HCl 200 mg Q12HR PO 06/06/24 22:00 06/17/24 09:55 200 MG Risperidone 1 mg DAILY PO 06/08/24 22:00 06/17/24 09:54 1 MG Lorazepam 0.5 mg Q6HP PRN IV 06/08/24 13:45 Haloperidol Lactate 2.5 mg Q8HP PRN IM 06/08/24 13:45 06/08/24 13:48 2.5 MG Digoxin 0.125 mg DAILY PO 06/11/24 10:00 06/17/24 09:54 0.125 MG Enoxaparin Sodium 40 mg DAILY SC 06/11/24 10:00 06/17/24 09:53 40 MG Furosemide 20 mg BIDD IV 06/12/24 18:00 06/17/24 05:52 20 MG Empaglifozin 10 mg DAILY PO 06/13/24 10:00 06/17/24 09:54 10 MG Vancomycin HCl 100 ml @ 200 mls/hr Q18H IV 06/13/24 08:00 06/17/24 05:06 200 MLS/HR Sacubitril/ Valsartan 0.5 tab BID PO 06/13/24 22:00 06/17/24 09:55 0.5 TAB Laboratory Results Laboratory Tests 06/14/24 05:34 06/16/24 05:30 Urinalysis Test 06/03/24 17:57 06/05/24 20:55 06/11/24 16:17 Urine Epithelial Casts Few /hpf (<5) Urine Color Yellow (Yellow) Urine Clarity Clear (Clear) Urine pH 5.0 (5.0-9.0) Urine Specific Shelly 1.018 (1.001-1.035) Urine Protein Trace (Negative) H Urine Ketones Negative (Negative) Urine Blood Negative /uL (Negative) Urine Nitrite Negative (Negative) Urine Bilirubin Negative (Negative) Urine Urobilinogen Normal mg/dL (Negative) Urine Leukocyte Esterase Negative /uL (Negative) Urine RBC 2 /hpf (0 - 3) Urine WBC 3 /hpf (0 - 3) Urine Squamous Epithelial Cells Few /hpf (<5) Urine Bacteria None seen /hpf (None Seen) Urine Hyaline Casts Mod /lpf (0 - 2) Urine Mucus Few (None Seen) Urine Glucose 4+ mg/dL (Normal) H Urine Osmolality 301 mOsm/kg Urine Creatinine 10.12 mg/dL (30.0-125.0) L Urine Sodium 113 mmol/L (40-220) Microbiology Microbiology Date/Time Source Procedure Growth Status 06/05/24 20:55 Voided Urine Urine Culture - Final Complete 06/05/24 19:46 Nose MRSA Screen - Final Complete 06/05/24 19:21 Blood Blood Culture - Final NO GROWTH AFTER 5 DAYS OF INCUBATION. Complete Assessment/Plan Assessment/Plan Acute on chronic congestive heart failure with low ejection fraction Bilateral lower extremity open wounds Type 2 diabetes Dyslipidemia Hypertension Chronic kidney disease Plan 06/04/2024: IV Lasix 40 mg twice a day Oxygen as needed Dietary consult Continue Aldactone 50 mg daily Entresto IV antibiotics vancomycin per pharmacy protocol The code Advance directives discussed for 20 minutes 06/05/2024: Unresponsiveness, possible due to opiates, Narcan was given x2 doses Rule out CVA: Get a CT scan of the head no contrast Hypotension: Start Levophed Hyperkalemia: Repeat labs including electrolytes and kidney function Check troponins again Acute kidney injury on Chronic kidney disease Elevated troponin, NSTEMI type 2 Acute on chronic decompensated heart failure with reduced ejection fraction EF 10-15% Nonischemic cardiomyopathy Possible cardiorenal syndrome History of hypertension Thrombocytopenia Plan Transfer to the [facility] Levophed drip to keep map above 65 CT scan of the head : Negative Check the electrolytes again, hyperkalemia: Give hyperkalemia protocol Central line, done Called the family to update them, no answer Rule out sepsis: Get blood culture, lactic acid, UA, urine culture Poor prognosis The patient eventually woke up and became more alert and oriented and was completely following commands and understanding his environment I asked him about advance directives, he stated Full Code 06/06/2024: Patient is complaining of abdominal pain Examination shows right upper quadrant tenderness Gallbladder ultrasound showed contracted gallbladder and thickened romo We will get a CT scan of the abdomen and pelvis without contrast Liver enzymes are elevated Check the hepatitis panel Kidney function is stable but the potassium is still high Nephrology is following Cardiology is following the patient Ventricular tachycardia has resolved after the ICD converted him yesterday The patient is more alert now, CT scan of the head was negative Blood cultures are still pending UA was negative for UTI Wound culture of the foot showed Gram-negative rods Continue vancomycin Add meropenem IV Replace magnesium IV Continue IV Lasix 40 mg twice a day Full code The patient pulled out his central line yesterday We will try to do a new central line placement , he is agreeable 06/07/2024: Abdominal pain: Consult GI regarding elevated liver function test and bilirubin Hyperbilirubinemia: Consult GI Elevated LFTs: CT scan is negative Right lower lobe pneumonia: Continue IV antibiotics Blood and urine cultures are pending 06/08/2024: Nonischemic cardiomyopathy ejection fraction 10-15% Acute on chronic heart failure with reduced ejection fraction Nonsustained V-tach, patient has ICD NSTEMI type 2 Type 2 diabetes Acute kidney injury on chronic kidney disease The cardiorenal syndrome Hypertension Bilateral lower extremity cellulitis Thrombocytopenia Sepsis Obesity Plan Levophed drip as needed IV antibiotics: Meropenem and vancomycin Discontinue Jardiance and metoprolol for now due to hypotension IV Lasix P.o. amiodarone Confusion: Haldol IM Ativan IV p.r.n. Hypotension: Levophed drip 06/09/2024: Sepsis: Continue IV antibiotics Septic shock: Continue Levophed: Taper as tolerated Risperidone 1 mg at bedtime Lasix 40 mg twice a day 06/10/2024: He was started on Lasix drip by Nephrology Levophed as needed Albumin IV Cellulitis and leg wound: Vancomycin and meropenem Amiodarone Digoxin Risperidone at bedtime Poor prognosis 06/11/2024: Continue current management with Levophed drip Tapered as tolerated Continue IV antibiotics Continue amiodarone and digoxin 06/12/2024: Downgrade to telemetry Discontinue Lasix drip Switch to IV Lasix twice a day Start physical therapy Replace potassium 06/13/2024: Continue physical therapy IV antibiotics Amiodarone p.o. Digoxin Lovenox Entresto Continue risperidone at bedtime Tylenol for pain 06/17/2024: Continue diuresis with IV Lasix Continue the current management including amiodarone and digoxin for the AFib Lovenox Iron Risperidone at night Sneha Discussed his care with his aunty over the phone, she is a next of kin, explained the poor prognosis to her, she is aware of his condition, suggested for her for him to have hospice care at home, she said he lives at home with his who is also sick and can not take care of him much, she is interested in hearing about hospice for him Consult hospice Discharge planning Poor prognosis Plan discussed with: Patient, Other My Orders Orders - NERISSA SALTER MD Procedure Category Date Status Time Lt Upper Dvt US 06/17/24 Verified 14:05 Date of Service: Jun 17, 2024 Billing Provider: NERISSA SALTER MD Common Visit Codes: [id number] INP/OBS CARE(HIGH) NERISSA SALTER MD Jun 17, 2024 14:18
--- NOTE | 2024-06-17 15:58 | DVH ---
LEFT Upper Extremity Venous Duplex Clinical History: edema Comparison: US RT UPPER DVT on DOS: 06/10/24, US BILAT LOWER DVT on DOS: 04/24/24 Findings: Duplex Doppler evaluation of the venous system of the LEFT lower neck and upper extremity including c olor Doppler and spectral/pulsed waveform analysis was performed. The internal jugular vein demonstrates appropriate compressibility and waveform variability . The subclavian vein is patent on color Doppler evaluation without intraluminal thrombus and demonstra laura waveform variability . The visualized portion of the brachiocephalic vein is patent on color Doppler evaluation without intr aluminal thrombus and demonstrates waveform variability . The axillary vein demonstrates appropriate compressibility and waveform variability . The brachial veins demonstrate appropriate compressibility and patency on Doppler evaluation. The basilic vein demonstrates appropriate compressibility and patency on Doppler evaluation. The cephalic vein demonstrates appropriate compressibility and patency on Doppler evaluation. Impression: No venous thrombus identified in the LEFT upper extremity vessels evaluated above. If clinical concern/symptoms persist or worsen, short-interval follow-up study is suggested.
--- NOTE | 2024-06-17 21:51 | DVHPN2 ---
Progress Note - Dictate Date Seen: Jun 17, 2024 Medical Necessity Reason Pt with a Central, PICC or Fol: Yes The following are medically ne: Lockett Catheter Reason for lockett catheter: Strict I&O Subjective Patient seen and examined at bedside. On supplemental oxygen Overnight events reviewed. vital signs Vital Sign Date Time Temp Pulse Resp B/P (MAP) Pulse Ox O2 Delivery O2 Flow Rate FiO2 06/17/24 21:00 97.9 90 16 89/50 (63) 100 97.9 06/17/24 20:00 Nasal Cannula* 2 28 Total Intake and Output 06/16/24 06/16/24 06/17/24 15:00 23:00 07:00 Intake Total 150 ml 350 ml 1200 ml Output Total 400 ml 1000 ml Balance 150 ml -50 ml 200 ml medications Current Medications Medications Dose Ordered Sig/Patrick Route Start Time Stop Time Status Last Admin Dose Admin Sodium Chloride 10 ml Q8HR IV 06/03/24 22:00 06/17/24 14:07 10 ML Ondansetron HCl 4 mg Q4HP PRN IV 06/03/24 15:30 Docusate Sodium 100 mg BIDPRN PRN PO 06/03/24 15:30 Acetaminophen 650 mg Q6HP PRN PO 06/03/24 15:30 06/15/24 20:51 650 MG Nitroglycerin 0.4 mg Q5MINP PRN SL 06/03/24 15:30 Diagnostic Test (Pha) 1 strip ACHS 06/03/24 17:00 06/17/24 17:24 1 STRIP Insulin Human Regular HS SC 06/03/24 22:00 06/10/24 21:00 2 UNITS Insulin Human Regular AC SC 06/03/24 17:00 06/09/24 10:59 3 UNITS Dextrose 50 ml UD PRN IV 06/03/24 15:30 06/06/24 05:34 50 ML Vancomycin HCl 0 ml @ 0 mls/hr UD IV 06/03/24 15:45 Ferrous Sulfate 325 mg DAILY PO 06/04/24 10:00 06/17/24 09:54 325 MG Pravastatin Sodium 20 mg HS PO 06/03/24 22:00 06/16/24 22:42 20 MG Meropenem 50 ml @ 17 mls/hr Q8HR IV 06/06/24 20:00 06/17/24 14:06 17 MLS/HR Amiodarone HCl 200 mg Q12HR PO 06/06/24 22:00 06/17/24 09:55 200 MG Risperidone 1 mg DAILY PO 06/08/24 22:00 06/17/24 09:54 1 MG Lorazepam 0.5 mg Q6HP PRN IV 06/08/24 13:45 Haloperidol Lactate 2.5 mg Q8HP PRN IM 06/08/24 13:45 06/08/24 13:48 2.5 MG Digoxin 0.125 mg DAILY PO 06/11/24 10:00 06/17/24 09:54 0.125 MG Enoxaparin Sodium 40 mg DAILY SC 06/11/24 10:00 06/17/24 09:53 40 MG Furosemide 20 mg BIDD IV 06/12/24 18:00 06/17/24 18:10 20 MG Empaglifozin 10 mg DAILY PO 06/13/24 10:00 06/17/24 09:54 10 MG Vancomycin HCl 100 ml @ 200 mls/hr Q18H IV 06/13/24 08:00 06/17/24 20:17 200 MLS/HR Sacubitril/ Valsartan 0.5 tab BID PO 06/13/24 22:00 06/17/24 09:55 0.5 TAB objective Gen.: Patient lying in bed in no apparent distress. On supplemental oxygen Head: Normocephalic, atraumatic. Eyes: EOMI/PERRLA. Ears: Normal hearing. Normal anatomy. Neck/trachea: Trachea midline, supple. Nose: Normal external anatomy. Mouth: Moist mucous membranes. Chest: Decreased air entry bilaterally. No wheezing or rhonchi. Cardiovascular: Positive S1, positive S2. Regular rate and rhythm. Abdomen: Positive bowel sounds in all 4 quadrants. Soft, non-tender, non- distended. : Deferred. Rectal: Deferred. Skin: Warm, dry. Intact. Extremities: 2+ radial pulses bilaterally. No lower extremity edema. Neuro: Awake, alert, oriented x3. No gross motor or sensory deficits. Cranial nerves II through XII intact. Gait not assessed. laboratory and microbiology Laboratory Tests 06/16/24 05:30 06/14/24 05:34 Test 06/14/24 05:34 Range/Units Serum Glucose 73 L 74-106 mg/dL Assessment/Plan Impression: Acute on chronic systolic CHF (EF 10-15%) BLE wounds DM type II Acute on chronic CKD Metabolic acidosis Hyperkalemia Elevated troponin Overweight, BMI 29.5 Events: On supplemental oxygen 2 LPM NC Taper O2 as tolerated Obtain ultrasound venous Doppler of LUE to rule out DVT. Head of bed elevation Aspiration precautions Iron supplementation Monitor hemoglobin Continue antibiotics- vancomycin/meropenem IS. Digoxin/Amiodarone PO. Monitor BP Diurese w/ Lasix Monitor renal function. Monitor electrolytes. Supplement as necessary. Maintain euvolemia Accu-Cheks, ISS. Monitor lactic acid. Follow PT/INR. Wound care. Discuss goals of care with family. Disposition per hospitalist. Labs and imaging reviewed. Rest of plan as noted below. Plan: Supplemental oxygen Titrate to keep O2 sats above 92%. CXR on 06/12 demonstrated right pleural effusion. Right mid to lower lung zone consolidation. Chest ultrasound demonstrated trace bilateral pleural effusions. Off pressors, hemodynamically stable. Continue bronchodilators. Antibiotics Iron supplementation Monitor hemoglobin Accu-Cheks, ISS. Maintain euvolemia Monitor renal function. Monitor electrolytes. Supplement as necessary. Monitor ins and outs. DVT prophylaxis. Rapid Response/Code Assist: Patient became hypotensive and unresponsive, upgraded to SHIREEN. Central line placement in right IJ. STAT CT head obtained to r/o ICH or stroke. Pt received Narcan x2. Pressors as necessary to maintain a mean arterial blood pressure greater than 65 mmHg. Monitor renal function - creatinine trending down. Monitor electrolytes. Supplement as necessary. Monitor ins and outs Prognosis: Poor given patient's multiple co-morbidities. Rest of plan per hospitalist and other consultants. Thank you, Ekta Meek NP/Dr Mcintosh, for allowing me to participate in this patient's care. Further recommendations will depend on the patient's clinical course. Please do not hesitate to contact me if you have any questions or concerns. This medical document was created using an electronic medical record system with [employer] system. Although these documentations are being carefully reviewed, there may still be some phonetic and typographical changes. The errors are purely typographical, due to imperfection on the software program, and do not reflect any compromise in the patient's medical care. Dietary Evaluation Review Comments: 1) Consider YULIET 1 pkt BID for wounds 2) Continue current plan of care Expected Outcomes/Goals: 1) Pt labs to improve 2) F/U in 3-5 days Plan discussed with: Other (MARY Dennis) WALDO OHARA MD Jun 17, 2024 21:51
[2024-06-18 05:00] VITALS: BP 93/53; PULSE 85; RESP 16; TEMP 98; O2SAT 100
[2024-06-18 07:22] LABS: Anion Gap 5 (5-15); Carbon Dioxide 32 mmol/L (20-31); Chloride 96 mmol/L (98-107); Potassium 3.8 mmol/L (3.5-5.1); Sodium 133 mmol/L (136-145)
[2024-06-18 07:23] LABS: Calcium 8.2 mg/dL (8.7-10.4)
[2024-06-18 07:28] LABS: BUN/Creatinine Ratio 22.6 (10.0-20.0); Blood Urea Nitrogen 14 mg/dL (9-23); Glucose 77 mg/dL (74-106)
[2024-06-18 07:44] VITALS: PULSE 80
[2024-06-18 08:15] VITALS: PULSE 81; RESP 17; O2SAT 93
[2024-06-18 08:52] VITALS: BP 96/50; PULSE 81; RESP 17; TEMP 98.4; O2SAT 93
[2024-06-18 11:05] VITALS: BP 96/50; PULSE 81; RESP 17; TEMP 98.4; O2SAT 93
[2024-06-18 13:24] VITALS: BP 84/45; PULSE 79; RESP 17; TEMP 98; O2SAT 99
--- NOTE | 2024-06-18 18:58 | DVHPN2 ---
Progress Note - Dictate Date Seen: Jun 18, 2024 Medical Necessity Reason Pt with a Central, PICC or Fol: Yes The following are medically ne: Lockett Catheter Reason for lockett catheter: Strict I&O Subjective Patient seen and examined at bedside. On supplemental oxygen Overnight events reviewed. vital signs Vital Sign Date Time Temp Pulse Resp B/P (MAP) Pulse Ox O2 Delivery O2 Flow Rate FiO2 06/18/24 13:24 98.0 79 17 84/45 (58) 99 98.0 06/18/24 08:15 Nasal Cannula* 2 28 Total Intake and Output 06/17/24 06/17/24 06/18/24 15:00 23:00 07:00 Intake Total 50 ml 1030 ml 650 ml Output Total 1200 ml 950 ml Balance 50 ml -170 ml -300 ml objective Gen.: Patient lying in bed in no apparent distress. On supplemental oxygen Head: Normocephalic, atraumatic. Eyes: EOMI/PERRLA. Ears: Normal hearing. Normal anatomy. Neck/trachea: Trachea midline, supple. Nose: Normal external anatomy. Mouth: Moist mucous membranes. Chest: Decreased air entry bilaterally. No wheezing or rhonchi. Cardiovascular: Positive S1, positive S2. Regular rate and rhythm. Abdomen: Positive bowel sounds in all 4 quadrants. Soft, non-tender, non- distended. : Deferred. Rectal: Deferred. Skin: Warm, dry. Intact. Extremities: 2+ radial pulses bilaterally. No lower extremity edema. Neuro: Awake, alert, oriented x3. No gross motor or sensory deficits. Cranial nerves II through XII intact. Gait not assessed. laboratory and microbiology Laboratory Tests 06/18/24 06:07 06/16/24 05:30 Test 06/18/24 06:07 Range/Units Serum Glucose 77 74-106 mg/dL Assessment/Plan Impression: Acute on chronic systolic CHF (EF 10-15%) BLE wounds DM type II Acute on chronic CKD Metabolic acidosis Hyperkalemia Elevated troponin Overweight, BMI 29.5 Events: On supplemental oxygen 1 LPM NC Taper O2 as tolerated Ultrasound venous Doppler of LUE showed no e/o DVT. Complete antibiotic course. Incentive spirometry Head of bed elevation Aspiration precautions Iron supplementation Monitor hemoglobin. Monitor lactic acid. Follow PT/INR. Wound care. Patient is stable for discharge from the pulmonary standpoint. Disposition per hospitalist. Labs and imaging reviewed. Rest of plan as noted below. Plan: Supplemental oxygen Titrate to keep O2 sats above 92%. CXR on 06/12 demonstrated right pleural effusion. Right mid to lower lung zone consolidation. Chest ultrasound demonstrated trace bilateral pleural effusions. Off pressors, hemodynamically stable. Continue bronchodilators. Antibiotics Iron supplementation Monitor hemoglobin Accu-Cheks, insulin sliding scale PRN. Maintain euvolemia Monitor renal function. Monitor electrolytes. Supplement as necessary. Monitor ins and outs. DVT prophylaxis. Rapid Response/Code Assist: Patient became hypotensive and unresponsive, upgraded to SHIREEN. Central line placement in right IJ. STAT CT head obtained to r/o ICH or stroke. Pt received Narcan x2. Pressors as necessary to maintain a mean arterial blood pressure greater than 65 mmHg. Monitor renal function - creatinine trending down. Monitor electrolytes. Supplement as necessary. Monitor ins and outs Prognosis: Poor given patient's multiple co-morbidities. Rest of plan per hospitalist and other consultants. Thank you, Ekta Meek, MACHELLE/Dr Mcintosh, for allowing me to participate in this patient's care. Further recommendations will depend on the patient's clinical course. Please do not hesitate to contact me if you have any questions or concerns. This medical document was created using an electronic medical record system with [employer] computerized dictation system. Although these documentations are being carefully reviewed, there may still be some phonetic and typographical changes. The errors are purely typographical, due to imperfection on the software program, and do not reflect any compromise in the patient's medical care. Dietary Evaluation Review Comments: 1) Consider YULIET 1 pkt BID for wounds 2) Continue current plan of care Expected Outcomes/Goals: 1) Pt labs to improve 2) F/U in 3-5 days Plan discussed with: Patient, Other (MARY [place]) WALDO OHARA MD Jun 18, 2024 18:58
--- NOTE | 2024-06-28 14:47 | DVHDS2 ---
Discharge Summary Date of Admission Jun 03, 2024 at 15:20 Date of Discharge: Jun 18, 2024 Labs/Diagnostic Data: Laboratory Results Test 06/18/24 12:40 06/18/24 06:07 06/17/24 01:00 06/16/24 05:30 POC Glucose 103 mg/dl (70-106) Sodium Level 133 mmol/L (136-145) Potassium Level 3.8 mmol/L (3.5-5.1) Chloride Level 96 mmol/L (98-107) Carbon Dioxide Level 32 mmol/L (20-31) Anion Gap 5 (5-15) Blood Urea Nitrogen 14 mg/dL (9-23) Creatinine 0.62 mg/dL (0.700-1.30) Glomerular Filtration Rate Calc 107 mL/min (>90) BUN/Creatinine Ratio 22.6 (10.0-20.0) Serum Glucose 77 mg/dL (74-106) Calcium Level 8.2 mg/dL (8.7-10.4) Vancomycin Level Trough 10.1 ug/mL (5-10) Digoxin Level 1.13 ng/mL (0.8-2) White Blood Count 10.5 10^3/uL (4.4-10.8) Red Blood Count 4.25 10^6/uL (4.5-5.90) Hemoglobin 12.6 g/dL (13.5-17.5) Hematocrit 38.2 % (41.0-53.0) Mean Corpuscular Volume 89.8 fL (80.0-100.0) Mean Corpuscular Hemoglobin 29.7 pg (28.0-32.0) Mean Corpuscular Hemoglobin Concent 33.1 g/dL (32.0-36.0) Red Cell Distribution Width 24.5 % (11.8-14.3) Platelet Count 224 10^3/uL (140-450) Mean Platelet Volume 7.9 fL (6.9-10.8) Neutrophils (%) (Auto) 87.9 % (37.0-80.0) Lymphocytes (%) (Auto) 5.8 % (10.0-50.0) Monocytes (%) (Auto) 5.2 % (0.0-12.0) Eosinophils (%) (Auto) 0.1 % (0.0-7.0) Basophils (%) (Auto) 1.0 % (0.0-2.0) Neutrophils # (Auto) 9.2 10 ^3/uL (1.6-8.6) Lymphocytes # (Auto) 0.6 10 ^3/uL (0.4-5.4) Monocytes # (Auto) 0.5 10 ^3/uL (0-1.3) Eosinophils # (Auto) 0 10 ^3/uL (0-0.8) Basophils # (Auto) 0.1 10 ^3/uL (0-0.2) Nucleated Red Blood Cells 0.1 % Test 06/14/24 05:34 06/13/24 05:19 06/12/24 04:43 06/11/24 16:17 Magnesium Level 1.9 mg/dL (1.6-2.6) Total Bilirubin 3.8 mg/dL (0.2-1.0) Aspartate Amino Transferase (AST) 55 U/L (13-40) Alanine Aminotransferase (ALT) 34 U/L (7-40) Alkaline Phosphatase 257 U/L (46-116) Total Protein 5.3 g/dL (5.7-8.2) Albumin 2.4 g/dL (3.2-4.8) Platelet Estimate Adequate Anisocytosis (manual) Slight Target Cells Moderate Stomatocytes Few B-Type Natriuretic Peptide 1700.71 pg/mL (0-100) Differential Total Cells Counted 100.0 (100) Neutrophils % (Manual) 88 (37.0-80.0) Band Neutrophils % (Manual) 1 Lymphocytes % (Manual) 5 (10.0-50.0) Monocytes % (Manual) 6 (0-12) Eosinophils % (Manual) 0 (0-7) Basophils % (Manual) 0 (0.0-2.0) Metamyelocytes % (manual) 0 Myelocytes % (Manual) 0 Promyelocytes % (Manual) 0 Blast Cells % (Manual) 0 Reactive Lymphocytes 0 Urine Osmolality 301 mOsm/kg Urine Creatinine 10.12 mg/dL (30.0-125.0) Urine Sodium 113 mmol/L (40-220) Test 06/08/24 05:05 06/07/24 04:55 06/06/24 13:00 06/06/24 04:36 Prothrombin Time 15.2 sec (9.3-11.8) Prothrombin Time INR 1.48 (0.9-1.15) Activated Partial Thromboplast Time 36.1 SEC (24.5-34.5) Triglycerides Level 81 mg/dL (< 150) Cholesterol Level 79 mg/dL (< 200) LDL Cholesterol 45 mg/dL (< 100) HDL Cholesterol 18 mg/dL (40-59) Lipase 26 U/L (12-53) Random Vancomycin Level 14.4 ug/mL (5-10) Lactic Acid Level 3.2 mmol/L (0.4-2.0) Direct Bilirubin 3.0 mg/dL (<0.3) Hemoglobin A1c 6.3 % A1C (<5.7) Phosphorus Level 2.8 mg/dL (2.4-5.1) Vitamin D 25-Hydroxy 20 ng/mL (.) 25-Hydroxy Vitamin D2 <1.0 ng/mL (.) 25-Hydroxy Vitamin D3 20 ng/mL (.) Parathyroid Hormone (Intact) 66.3 pg/mL (18.4-80.1) Test 06/05/24 20:55 06/05/24 16:56 06/05/24 16:32 06/03/24 17:57 Urine Color Yellow (Yellow) Urine Clarity Clear (Clear) Urine pH 5.0 (5.0-9.0) Urine Specific [place] 1.018 (1.001-1.035) Urine Protein Trace (Negative) Urine Ketones Negative (Negative) Urine Blood Negative /uL (Negative) Urine Nitrite Negative (Negative) Urine Bilirubin Negative (Negative) Urine Urobilinogen Normal mg/dL (Negative) Urine Leukocyte Esterase Negative /uL (Negative) Urine RBC 2 /hpf (0 - 3) Urine WBC 3 /hpf (0 - 3) Urine Squamous Epithelial Cells Few /hpf (<5) Urine Bacteria None seen /hpf (None Seen) Urine Hyaline Casts Mod /lpf (0 - 2) Urine Mucus Few (None Seen) Urine Glucose 4+ mg/dL (Normal) Blood Gas Specimen Type Arterial Blood Gas Sample Site Left radial Blood Gas Patient Temperature 37.0 Arterial Blood Date Drawn [id number] Arterial Blood pH 7.398 (7.350-7.450) Arterial Blood Partial Pressure CO2 24.2 mmHg (35.0-48.0) Arterial Blood Partial Pressure O2 200.4 mmHg (83.0-108.0) Arterial Blood HCO3 14.6 mmol/L (21.0-28.0) Arterial Blood Oxygen Saturation 99.4 % (94.0-98.0) Arterial Blood Base Excess -8.1 mmol/L (-2.0-3.0) Arterial Blood Oxyhemoglobin 97.6 % (94.0-98.0) Arterial Blood Carboxyhemoglobin 1.3 % (0.5-1.5) Arterial Blood Methemoglobin 0.5 % (0.0-1.5) Helder Test Modified Blood Gas Total Hemoglobin 15.20 g/dL (13.5-17.5) Blood Gas Liter Flow 4.00 Blood Gas Modality Nasal cannula FiO2 % 36.0 Lactate Dehydrogenase 802 U/L (120-246) Troponin I High Sensitivity 76 ng/L (</=54) Urine Epithelial Casts Few /hpf (<5) Test 06/03/24 10:22 Large Platelets Few Ovalocytes Few Other Laboratory Tests 06/18/24 06:07 06/16/24 05:30 Brief Hx & Hospital Course: 64-year-old male with a history of heart failure prior ejection fraction of 15%, chronic kidney disease, diabetes, GERD, dyslipidemia comes with chief complaint of shortness of breaths and blue overload, weakness, leg edema He was treated for acute on chronic congestive heart failure with low ejection fraction He had bilateral lower extremity open wounds and cellulitis He was treated for sepsis with broad-spectrum antibiotics Echocardiogram showed ejection fraction 10-15% He was placed on vasopressors and was treated in the ICU due to low blood pressure Lasix IV was given At one point he became unresponsive and was given Narcan and then was transferred to the ICU and Levophed was started, he was found to have sustained ventricular tachycardia. After few hours the patient recovered from that episode and became more alert again Acute hypoxic respiratory failure Pneumonia likely g positive and g negative bacteria Sepsis due to pneumonia Severe sepsis with septic shock Pulmonary edema due to heart failure Acute on chronic congestive heart failure with low ejection fraction Nonischemic cardiomyopathy Bilateral lower extremity open wounds and cellulitis Type 2 diabetes Dyslipidemia Hypertension Acute kidney injury due to vasomotor nephropathy Chronic kidney disease Metabolic acidosis Hyperkalemia Elevated troponin Overweight, BMI 29.5 Cardiorenal syndrome Thrombocytopenia due to sepsis The patient was treated aggressively in the hospital during his hospitalization however he did not respond to treatment, he remained confused, he remained very weak, his blood pressure remained low We had several discussions with him and with his [id number] who is his auntie, we recommended hospice due to poor prognosis and they accepted The patient was discharged on hospice for palliative care Condition at Discharge: Poor Final Diagnosis/Problems List - acute on chronic congestive heart failure with low ejection fraction - bilaterall lower ectremity open wounds - Type 2 diabetes - dyslipidemia - chronic kidney disease Discharge Disposition: Hospice - Home SNF Discharge Will this Physician continue t: No Discharge Instruct/Medications Diet: Cardiac 2g Na,low cholest Activity: No Restrictions, As Tolerated Follow Up/Referral: Hospice Medications: Per Hospice Discharge Statement: "Patient was advised to return to the ER or call 911 if any headaches, dizziness, shortness of breath, chest pain, abdominal pain, bleeding, fevers, or worsening of medical condition. Patient was counseled about treatment plan, medications, possible side effects, patientverbalized understanding. All questions were answered to the best of my ability. This discharge took greater then 30 minutes in planning, reviewing documentation, counseling the patient, and discussing with other team members." ASSESSMENT ASSESSMENT Assessment - acute on chronic congestive heart failure with low ejection fraction - bilaterall lower ectremity open wounds - Type 2 diabetes - dyslipidemia - chronic kidney disease Date of Service: Jun 18, 2024 Billing Provider: NERISSA SALTER MD Common Visit Codes: 99321-[facility]/OBS DISCH DAY >30min NERISSA SALTER MD Jun 28, 2024 14:47
== END 2024-06-18 16:40 | disposition hospice, home (50) | DRG 720 ==
LOC: ER 09:16 → EDBD 09:16 → TELE 15:20 → ER 15:33 → TELE-WESTW 18:59 → ICU CENTRL 06-05 18:02 → TELE-CENTR 06-12 15:00
PROVIDERS: ADMIT Nurse Practitioner Family; ATTEND Internal Medicine Geriatric Medicine
PROC: 02HV33Z Insertion of Infusion Device into Superior Vena Cava, Percutaneous Approach (ICD-10-PCS; principal; 2024-06-05)
PROC: B548ZZA Ultrasonography of Superior Vena Cava, Guidance (ICD-10-PCS; 2024-06-05)
PROC: 02H633Z Insertion of Infusion Device into Right Atrium, Percutaneous Approach (ICD-10-PCS; 2024-06-06)
PROC: B548ZZA Ultrasonography of Superior Vena Cava, Guidance (ICD-10-PCS; 2024-06-06)
DX: A41.9 Sepsis, unspecified organism (principal); J96.01 Acute respiratory failure with hypoxia; N17.0 Acute kidney failure with tubular necrosis; R65.21 Severe sepsis with septic shock; I50.23 Acute on chronic systolic (congestive) heart failure; D69.6 Thrombocytopenia, unspecified; D63.1 Anemia in chronic kidney disease; E87.1 Hypo-osmolality and hyponatremia; J15.69 Pneumonia due to other Gram-negative bacteria; E87.20 Acidosis, unspecified; I21.A1 Myocardial infarction type 2; I13.0 Hypertensive heart and chronic kidney disease with heart failure and stage 1 through stage 4 chronic kidney disease, or unspecified chronic kidney disease; I42.8 Other cardiomyopathies; E11.22 Type 2 diabetes mellitus with diabetic chronic kidney disease; E78.5 Hyperlipidemia, unspecified; E66.9 Obesity, unspecified; E87.5 Hyperkalemia; K21.9 Gastro-esophageal reflux disease without esophagitis; L03.115 Cellulitis of right lower limb; L03.116 Cellulitis of left lower limb; N18.32 Chronic kidney disease, stage 3b; Z68.29 Body mass index [BMI] 29.0-29.9, adult; I47.20 Ventricular tachycardia, unspecified; I48.91 Unspecified atrial fibrillation; S81.802A Unspecified open wound, left lower leg, initial encounter; S81.801A Unspecified open wound, right lower leg, initial encounter; X58.XXXA Exposure to other specified factors, initial encounter; E11.622 Type 2 diabetes mellitus with other skin ulcer; Z87.891 Personal history of nicotine dependence; Z95.810 Presence of automatic (implantable) cardiac defibrillator; Z80.3 Family history of malignant neoplasm of breast; Z82.49 Family history of ischemic heart disease and other diseases of the circulatory system; Z99.81 Dependence on supplemental oxygen; Y93.89 Activity, other specified; Y92.89 Other specified places as the place of occurrence of the external cause; Y99.8 Other external cause status; J15.9 Unspecified bacterial pneumonia
CPT/HCPCS: 36415; 36600; 70450; 71045; 74176; 76604; 76700; 80048; 80053; 80061; 80076; 80162; 80202; 81001; 82306; 82565; 82570; 82805; 82962; 83036; 83605; 83615; 83690; 83735; 83880; 83935; 83970; 84100; 84132; 84300; 84484; 85007; 85025; 85027; 85610; 85730; 87040; 87077; 87081; 87086; 87186; 87205; 93005; 93971; 96365; 96375; 97110; 97116; 97162; 97530; 99291; G0378; J1815; J2185; J3480; J7060